=== PATIENT | male | born 1935 | race Caucasian/White ===

== ENCOUNTER 2022-03-17 16:08 | Inpatient (IN) | payer MEDICARE ==
--- NOTE | 2022-03-18 09:23 | History and Physical Report ---
GP History & Physical - History of Present Illness Date of admission: 03/18/22 Date of Examination: 03/18/22 Reason for Admission: Danger to self, Danger to others, Failure of Outpatient Treatment Chief Complaint: Aggressive behavior History of Present Illness: The patient is an 86 year old male with history of dementia who was admitted for stabilization. Per note, the patient was seen standing on top of the roof and being aggressive towards staff. The patient was seen today. He is calm, alert and oriented to self. The patient is confused, unable to recall why he was admitted Stating " there's nothing wrong with me, I got sugar diabetes and high blood pressure that's it." PAST PSYCHIATRIC HISTORY: Unable to obtain PAST MEDICAL HISTORY: None reported or document Family Psychiatric History: None reported or documented SOCIAL HISTORY Unable to obtain REVIEW OF SYSTEMS Unable to obtain MENTAL STATUS EXAMINATION Unable to obtain Diagnoses: Dementia with behavioral disturbances Treatment Plan Patient admitted for inpatient psychiatric evaluation, medication adjustment and close monitoring The patient's behavior, mood, sleep and appetite will be closely monitored. Patient enrolled in individual and group therapeutic sessions and encouraged to attend. Patient provided with a safe and structured environment. Patient's physical health needs will be addressed by the Hospitalist. Hospitalist Consulted Labs including CBC, CMP, Lipid profile and Hemoglobin A1C levels ordered for baseline reference Social Assessment will be completed and the Bilingual Teacher Aide will work with patient and family to ensure a suitable and safe disposition Medication adjustment will be made as clinically indicated Continue home meds Start Zyprexa 2.5mg po QHS Start Trazodone 50mg po QHS Usual Wellness Protestant/Preservation: - Start Trazodone 50 mg po QHS & 50 mg po QHS PRN between 10 PM & 2 AM for insomnia - Start Melatonin 5 mg po QHS to promote circadian rhythm The patient agreed on the treatment plan, understood the risk, benefit, alternative treatment, potential consequence of no treatment, and gave informed consent. Estimated days: 7 Post hospital care: primary care provider, psychiatric provider Case staffed with Dr. Hwang Legal Status: Voluntary Reaction to Hospitalization: Accepting Medications and Allergies Medications and Allergies Allergies Allergy/AdvReac Type Severity Reaction Status Date / Time No Known Allergies Allergy Unverified 03/17/22 17:19 Home Medications Medication Instructions Recorded Confirmed Last Taken Type Divalproex Sodium [Depakote 125 mg PO BID 03/18/22 03/18/22 Unknown History Sprinkle] Dorzolamide HCl/Timolol Maleat 10 ml OP HS 03/18/22 03/18/22 Unknown History [Dorzolamide-Timolol Eye Drops] Ferrous Sulfate [Iron 325 MG] 325 mg PO DAILY 03/18/22 03/18/22 Unknown History Hydralazine HCl 50 mg PO TID 03/18/22 03/18/22 Unknown History Insulin Lispro [Admelog] See Protocol SQ ACHS 03/18/22 03/18/22 Unknown History Lactulose [Cephulac] 20 gm PO TID PRN 03/18/22 03/18/22 Unknown History Levothyroxine Sodium [Synthroid] 200 mcg PO DAILY 03/18/22 03/18/22 Unknown History Melatonin [Melatonin 3MG TAB] 3 mg PO HS 03/18/22 03/18/22 Unknown History Pioglitazone HCl [Actos] 30 mg PO DAILY 03/18/22 03/18/22 Unknown History Triamter/Hctz 37.5-25 mg 1 tab PO QDAY 03/18/22 03/18/22 Unknown History [Maxzide-25] amLODIPine [Norvasc] 10 mg PO DAILY 03/18/22 03/18/22 Unknown History glipiZIDE [Glucotrol] 5 mg PO QDAY 03/18/22 03/18/22 Unknown History Active Meds: Active Medications Divalproex Sodium (Divalproex Sprinkle 125 Mg Cap) 125 mg PO BID [facility] Ferrous Sulfate (Ferrous Sulfate 325 Mg Tab) 325 mg PO DAILY [facility] Glipizide (Glipizide 5 Mg Tab) 5 mg PO QDAY [facility] Insulin Human Lispro (Insulin Lispro 100 Unit/Ml) 0 unit SUB-Q [facility]; Protocol Lactulose (Lactulose 20 Gm/30 Ml Oral Liqd) 20 gm PO TID PRN PRN Reason: Edema Miscellaneous Medication (Dorzolamide Hcl/Timolol Maleat [Dorzolamide-Timolol Eye Drops]) 10 ml OP HS [facility] Miscellaneous Medication (Hydralazine Hcl [Hydralazine Hcl]) 50 mg PO TID [facility] Miscellaneous Medication (Levothyroxine Sodium [Synthroid]) 200 mcg PO DAILY [facility] Miscellaneous Medication (Melatonin [Melatonin 3mg Tab]) 3 mg PO HS [facility] Miscellaneous Medication (Pioglitazone Hcl [Actos]) 30 mg PO DAILY [facility] Trazodone HCl (Trazodone 50 Mg Tab) 50 mg PO QHS [facility] Triamterene/Hydrochlorothiazide (Triamter/Hctz 37.5-25 Mg Tab) 1 each PO QDAY [facility] Ziprasidone (Ziprasidone Mesylate 20 Mg Vial) 20 mg IM Q4H PRN PRN Reason: Agitation Physician Certification - Certification Statement Physician Certification Statement: This is an acknowledgement statement that CRISTINE NAGY is a 86 year old M who requires inpatient psychiatric admission for treatment which could reasonably be expected to improve the patient's condition for Estimated period of time patient will need to remain in the hospital: [ ] Plan for post-hospital care: [ ]
[2022-03-18] MEDS ORDERED: ZIPRASIDONE MESYLATE 20 MG VIAL IM PRN (10:00)
[2022-03-18] MEDS ORDERED: glipiZIDE 5 MG TAB PO SCH (10:00)
[2022-03-18] MEDS ORDERED: LEVOTHYROXINE SODIUM 200 MCG PO SCH (10:00)
[2022-03-18] MEDS ORDERED: PIOGLITAZONE HCL 30 MG PO SCH (10:00)
[2022-03-18] MEDS ORDERED: LACTULOSE 20 GM/30 ML ORAL LIQD PO PRN (10:00)
[2022-03-18] MEDS: FERROUS SULFATE 325 MG TAB PO SCH (10:15)
[2022-03-18] MEDS: DIVALPROEX SPRINKLE 125 MG CAP PO SCH ×2 (10:15→21:15)
[2022-03-18] MEDS: TRIAMTER/HCTZ 37.5-25 MG TAB PO SCH (10:15)
[2022-03-18] MEDS: hydrALAZINE 25 MG TAB PO SCH ×3 (10:22→21:13)
[2022-03-18] MEDS ORDERED: PIOGLITAZONE 15 MG TAB PO SCH (11:00)
--- NOTE | 2022-03-18 11:57 | Consultation ---
History of Present Illness - Reason for Consult Consult date: 03/18/22 medical consult Requesting physician: BHAVIN SANTAMARIA - History of Present Illness 86-year-old male patient with significant past medical history of dementia hypertension, type 2 diabetes mellitus, hypothyroidism, hypertension was admitted bypsych team for further evaluation and management of severe dementia, danger to self, failure of outpatient treatment . Hospitalist was consulted for medical management., When I examined the patient patient is slightly confused, sitting at the table in the activities room, alert and awake, responding to simple questions appropriately. Patient denies any chest pain or shortness of breath, denies any headache or dizziness denies nausea vomiting or abdominal pain Past History Past Medical History: diabetes, hypertension, hyperlipidemia, hypothyroidism, other Past Surgical History: No surgical history Social history: denies: smoking, alcohol abuse, prescription drug abuse Family history: no significant family history Medications and Allergies Allergies Allergy/AdvReac Type Severity Reaction Status Date / Time No Known Allergies Allergy Unverified 03/17/22 17:19 Home Medications Medication Instructions Recorded Confirmed Last Taken Type Divalproex Sodium [Depakote 125 mg PO BID 03/18/22 03/18/22 Unknown History Sprinkle] Dorzolamide HCl/Timolol Maleat 10 ml OP HS 03/18/22 03/18/22 Unknown History [Dorzolamide-Timolol Eye Drops] Ferrous Sulfate [Iron 325 MG] 325 mg PO DAILY 03/18/22 03/18/22 Unknown History Hydralazine HCl 50 mg PO TID 03/18/22 03/18/22 Unknown History Insulin Lispro [Admelog] See Protocol SQ ACHS 03/18/22 03/18/22 Unknown History Lactulose [Cephulac] 20 gm PO TID PRN 03/18/22 03/18/22 Unknown History Levothyroxine Sodium [Synthroid] 200 mcg PO DAILY 03/18/22 03/18/22 Unknown History Melatonin [Melatonin 3MG TAB] 3 mg PO HS 03/18/22 03/18/22 Unknown History Pioglitazone HCl [Actos] 30 mg PO DAILY 03/18/22 03/18/22 Unknown History Triamter/Hctz 37.5-25 mg 1 tab PO QDAY 03/18/22 03/18/22 Unknown History [Maxzide-25] amLODIPine [Norvasc] 10 mg PO DAILY 03/18/22 03/18/22 Unknown History glipiZIDE [Glucotrol] 5 mg PO QDAY 03/18/22 03/18/22 Unknown History Active Meds: Active Medications Brimonidine/Timolol (Combigan 0.2-0.5% [facility]) 1 drops OU Q12HR [facility] Divalproex Sodium (Divalproex Sprinkle 125 Mg Cap) 125 mg PO BID [facility] Last Admin: 03/18/22 10:15 Dose: 125 mg Ferrous Sulfate (Ferrous Sulfate 325 Mg Tab) 325 mg PO DAILY [facility] Last Admin: 03/18/22 10:15 Dose: 325 mg Glipizide (Glipizide 5 Mg Tab) 5 mg PO QDDIAB [facility] Last Admin: 03/18/22 10:20 Dose: 5 mg Hydralazine HCl (Hydralazine 25 Mg Tab) 50 mg PO Q8HR [facility] Last Admin: 03/18/22 10:22 Dose: Not Given Insulin Human Lispro (Insulin Lispro 100 Unit/Ml) 0 unit SUB-Q [facility]; Protocol Lactulose (Lactulose 20 Gm/30 Ml Oral Liqd) 20 gm PO TID PRN PRN Reason: Edema Levothyroxine Sodium (Levothyroxine 100 Mcg Tab) 200 mcg PO DAILY@0600 [facility] Melatonin (Melatonin 5 Mg Tab) 5 mg PO QHS [facility] Olanzapine (Olanzapine 2.5 Mg Tab) 2.5 mg PO QHS [facility] Pioglitazone HCl (Pioglitazone 15 Mg Tab) 30 mg PO QDDIAB [facility] Trazodone HCl (Trazodone 50 Mg Tab) 50 mg PO QHS [facility] Triamterene/Hydrochlorothiazide (Triamter/Hctz 37.5-25 Mg Tab) 1 each PO QDAY [facility] Last Admin: 03/18/22 10:15 Dose: 1 each Ziprasidone (Ziprasidone Mesylate 20 Mg Vial) 20 mg IM Q4H PRN PRN Reason: Agitation Review of Systems Constitutional: weight loss, weakness, no weight gain Eyes: right: blurred vision Ears, nose, mouth and throat: deferred, no nasal congestion, no nasal discharge Cardiovascular: no chest pain, no orthopnea, no lightheadedness Respiratory: no cough, no cough with sputum, no shortness of breath Gastrointestinal: no abdominal pain Genitourinary Male: no dysuria, no hematuria Musculoskeletal: no myalgias, no arthritis Integumentary: no rash, no lesions Neurological: no numbness, no tingling, no seizures Exam - Constitutional Vitals: Temp Pulse Resp BP Pulse Ox 97.3 F L 83 16 116/65 99 03/18/22 09:49 03/18/22 10:22 03/18/22 09:49 03/18/22 10:22 03/18/22 09:50 General appearance: Present: no acute distress, well-nourished, other (Confused at times) - EENT Eyes: Present: PERRL, EOM intact - Neck Neck: Present: supple, normal ROM - Respiratory Respiratory effort: normal Respiratory: bilateral: diminished, rhonchi, negative: rales, wheezing - Cardiovascular Rhythm: regular Heart Sounds: Present: S1 & S2 - Extremities Extremities: no ischemia, No edema - Abdominal General gastrointestinal: Present: soft, non-tender, non-distended, normal bowel sounds - Integumentary Integumentary: Present: clear, warm - Musculoskeletal Musculoskeletal: strength equal bilaterally, generalized weakness - Psychiatric Psychiatric: appropriate mood/affect, cooperative - Neurologic Neurologic: moves all extremities Results - Labs CBC & Chem 7: 03/18/22 17:18 03/18/22 17:18 Labs: Abnormal lab results 03/18/22 Range/Units 06:54 POC Glucose 206 H (70-105) mg/dL Assessment and Plan --- Hypertension; moderate control Continue current antihypertensives hydralazine triamterene and hydrochlorothiazide Closely monitor blood pressures and adjust as needed --Type 2 diabetes mellitus; labile blood sugars Patient had hypoglycemia episode, oral hypoglycemic medications held, closely monitor --History of hypothyroidism; continue home Synthroid -- Dementia; continue current home medications --DVT SCDs while resting, ambulate as tolerated -- Full CODE STATUS We will closely monitor the patient and adjust the management as needed Plan of care reviewed with the patient and his nurse Thank you for this consultation we will follow the patient along with you
[2022-03-18] MEDS: INSULIN LISPRO 100 UNIT/ML SUB-Q SCH ×3 (12:58→21:17)
[2022-03-18] MEDS ORDERED: NON-FORMULARY EACH (Hydralazine Hcl [Hydralazine Hcl] 50 MG Tablet) PO SCH (14:00)
[2022-03-18] MEDS: COMBIGAN 0.2-0.5% OPHTH SOLN OU SCH ×2 (16:40→21:14)
[2022-03-18 17:44] LABS: Basophils # (Auto) 0.1 K/mm3 (0.0-0.1); Basophils % (Auto) 1.1 % (0.0-1.8); Eosinophils # (Auto) 0.1 K/mm3 (0.0-0.4); Eosinophils % (Auto) 1.8 % (0.0-4.3); Hematocrit 35.4 % (35.5-45.6); Hemoglobin 11.8 gm/dl (11.8-15.2); Lymphocytes # (Auto) 1.8 K/mm3 (1.2-5.4); Lymphocytes % (Auto) 27.9 % (13.4-35.0); Mean Corpuscular HGB Conc 33 % (32-34); Mean Corpuscular Volume 82 fl (84-94); Monocytes # (Auto) 0.7 K/mm3 (0.0-0.8); Monocytes % (Auto) 11.1 % (0.0-7.3); Platelet Count 270 K/mm3 (140-440); Red Blood Count 4.33 M/mm3 (3.65-5.03)
[2022-03-18 18:03] LABS: Albumin 4.5 g/dL (3.9-5); Calcium 9.3 mg/dL (8.4-10.2); Chol/HDL Ratio 3.1 %
[2022-03-18] MEDS: traZODone 50 MG TAB PO SCH (21:15)
[2022-03-18] MEDS: MELATONIN 5 MG TAB PO SCH (21:17)
[2022-03-18] MEDS ORDERED: NON-FORMULARY EACH (Melatonin [Melatonin 3mg Tab] 3 MG Tablet) PO SCH (22:00)
[2022-03-18] MEDS ORDERED: NON-FORMULARY EACH (Dorzolamide Hcl/Timolol Maleat [Dorzolamide-Timolol Eye Drops] 10 ML D OP SCH (22:00)
[2022-03-19] MEDS: LEVOTHYROXINE 100 MCG TAB PO SCH (06:28)
[2022-03-19] MEDS: hydrALAZINE 25 MG TAB PO SCH ×3 (06:34→21:07)
--- NOTE | 2022-03-19 09:18 | Progress Note ---
Subjective Date of service: 03/19/22 Subjective Comment: 03/19: The patient was seen resting quietly. He is calm and reports doing well. Per nurse, the patient had an uneventful night. REVIEW OF SYSTEMS Unable to obtain MENTAL STATUS EXAMINATION Unable to obtain Diagnoses: Dementia with behavioral disturbances Treatment Plan Patient admitted for inpatient psychiatric evaluation, medication adjustment and close monitoring The patient's behavior, mood, sleep and appetite will be closely monitored. Patient enrolled in individual and group therapeutic sessions and encouraged to attend. Patient provided with a safe and structured environment. Patient's physical health needs will be addressed by the Hospitalist. Hospitalist Consulted Labs including CBC, CMP, Lipid profile and Hemoglobin A1C levels ordered for baseline reference Social Assessment will be completed and the Real Time Analyst will work with patient and family to ensure a suitable and safe disposition Medication adjustment will be made as clinically indicated Continue home meds Start Zyprexa 2.5mg po QHS Start Trazodone 50mg po QHS Usual Wellness Hinduism/Preservation: - Start Trazodone 50 mg po QHS & 50 mg po QHS PRN between 10 PM & 2 AM for insomnia - Start Melatonin 5 mg po QHS to promote circadian rhythm The patient agreed on the treatment plan, understood the risk, benefit, alternative treatment, potential consequence of no treatment, and gave informed consent. Estimated days:6 Post hospital care: primary care provider, psychiatric provider Case staffed with Dr. Hwang Legal Status: Voluntary Reaction to Hospitalization: Accepting Medications and Allergies Medications and Allergies Medications and Allergies Allergies Allergy/AdvReac Type Severity Reaction Status Date / Time No Known Allergies Allergy Unverified 03/17/22 17:19 Home Medications Medication Instructions Recorded Confirmed Last Taken Type Divalproex Sodium [Depakote 125 mg PO BID 03/18/22 03/18/22 Unknown History Sprinkle] Dorzolamide HCl/Timolol Maleat 10 ml OP HS 03/18/22 03/18/22 Unknown History [Dorzolamide-Timolol Eye Drops] Ferrous Sulfate [Iron 325 MG] 325 mg PO DAILY 03/18/22 03/18/22 Unknown History Hydralazine HCl 50 mg PO TID 03/18/22 03/18/22 Unknown History Insulin Lispro [Admelog] See Protocol SQ ACHS 03/18/22 03/18/22 Unknown History Lactulose [Cephulac] 20 gm PO TID PRN 03/18/22 03/18/22 Unknown History Levothyroxine Sodium [Synthroid] 200 mcg PO DAILY 03/18/22 03/18/22 Unknown History Melatonin [Melatonin 3MG TAB] 3 mg PO HS 03/18/22 03/18/22 Unknown History Pioglitazone HCl [Actos] 30 mg PO DAILY 03/18/22 03/18/22 Unknown History Triamter/Hctz 37.5-25 mg 1 tab PO QDAY 03/18/22 03/18/22 Unknown History [Maxzide-25] amLODIPine [Norvasc] 10 mg PO DAILY 03/18/22 03/18/22 Unknown History glipiZIDE [Glucotrol] 5 mg PO QDAY 03/18/22 03/18/22 Unknown History Active Meds: Active Medications Brimonidine/Timolol (Combigan 0.2-0.5% [facility]) 1 drops OU Q12HR [facility] Last Admin: 03/18/22 21:14 Dose: 1 drops Divalproex Sodium (Divalproex Sprinkle 125 Mg Cap) 125 mg PO BID [facility] Last Admin: 03/18/22 21:15 Dose: 125 mg Ferrous Sulfate (Ferrous Sulfate 325 Mg Tab) 325 mg PO DAILY [facility] Last Admin: 03/18/22 10:15 Dose: 325 mg Glipizide (Glipizide 5 Mg Tab) 5 mg PO QDDIAB [facility] Last Admin: 03/18/22 10:20 Dose: 5 mg Hydralazine HCl (Hydralazine 25 Mg Tab) 50 mg PO Q8HR [facility] Last Admin: 03/19/22 06:34 Dose: Not Given Insulin Human Lispro (Insulin Lispro 100 Unit/Ml) 0 unit SUB-Q [facility]; Protocol Last Admin: 03/18/22 21:17 Dose: Not Given Lactulose (Lactulose 20 Gm/30 Ml Oral Liqd) 20 gm PO TID PRN PRN Reason: Edema Levothyroxine Sodium (Levothyroxine 100 Mcg Tab) 200 mcg PO DAILY@0600 [facility] Last Admin: 03/19/22 06:28 Dose: 200 mcg Melatonin (Melatonin 5 Mg Tab) 5 mg PO QHS [facility] Last Admin: 03/18/22 21:17 Dose: 5 mg Olanzapine (Olanzapine 2.5 Mg Tab) 2.5 mg PO QHS [facility] Last Admin: 03/18/22 21:17 Dose: 2.5 mg Pioglitazone HCl (Pioglitazone 15 Mg Tab) 30 mg PO QDDIAB [facility] Last Admin: 03/18/22 12:13 Dose: 30 mg Trazodone HCl (Trazodone 50 Mg Tab) 50 mg PO QHS [facility] Last Admin: 03/18/22 21:15 Dose: 50 mg Triamterene/Hydrochlorothiazide (Triamter/Hctz 37.5-25 Mg Tab) 1 each PO QDAY [facility] Last Admin: 03/18/22 10:15 Dose: 1 each Ziprasidone (Ziprasidone Mesylate 20 Mg Vial) 20 mg IM Q4H PRN PRN Reason: Agitation Results - Results Labs/Vitals: Laboratory Last Values WBC 6.3 K/mm3 (4.5-11.0) 03/18/22 17:18 RBC 4.33 M/mm3 (3.65-5.03) 03/18/22 17:18 Hgb 11.8 gm/dl (11.8-15.2) 03/18/22 17:18 Hct 35.4 % (35.5-45.6) L 03/18/22 17:18 MCV 82 fl (84-94) L 03/18/22 17:18 MCH 27 pg (28-32) L 03/18/22 17:18 MCHC 33 % (32-34) 03/18/22 17:18 RDW 16.0 % (13.2-15.2) H 03/18/22 17:18 Plt Count 270 K/mm3 (140-440) 03/18/22 17:18 Lymph % (Auto) 27.9 % (13.4-35.0) 03/18/22 17:18 [place] % (Auto) 11.1 % (0.0-7.3) H 03/18/22 17:18 Eos % (Auto) 1.8 % (0.0-4.3) 03/18/22 17:18 Baso % (Auto) 1.1 % (0.0-1.8) 03/18/22 17:18 Lymph # (Auto) 1.8 K/mm3 (1.2-5.4) 03/18/22 17:18 [place] # (Auto) 0.7 K/mm3 (0.0-0.8) 03/18/22 17:18 Eos # (Auto) 0.1 K/mm3 (0.0-0.4) 03/18/22 17:18 Baso # (Auto) 0.1 K/mm3 (0.0-0.1) 03/18/22 17:18 Seg Neutrophils % 58.1 % (40.0-70.0) 03/18/22 17:18 Seg Neutrophils # 3.7 K/mm3 (1.8-7.7) 03/18/22 17:18 Sodium 139 mmol/L (137-145) 03/18/22 17:18 Potassium 3.8 mmol/L (3.6-5.0) 03/18/22 17:18 Chloride 103.4 mmol/L (98-107) 03/18/22 17:18 Carbon Dioxide 20 mmol/L (22-30) L 03/18/22 17:18 Anion Gap 19 mmol/L 03/18/22 17:18 BUN 52 mg/dL (9-20) H 03/18/22 17:18 Creatinine 2.9 mg/dL (0.8-1.3) H 03/18/22 17:18 Estimated GFR 21 ml/min 03/18/22 17:18 BUN/Creatinine Ratio 18 % 03/18/22 17:18 Glucose 63 mg/dL (75-100) L 03/18/22 17:18 POC Glucose 86 mg/dL (70-105) 03/18/22 19:45 Hemoglobin A1c 8.5 % (4-6) H 03/18/22 17:18 Calcium 9.3 mg/dL (8.4-10.2) 03/18/22 17:18 Total Bilirubin 0.20 mg/dL (0.1-1.2) 03/18/22 17:18 AST 16 units/L (5-40) 03/18/22 17:18 ALT 8 units/L (7-56) 03/18/22 17:18 Alkaline Phosphatase 76 units/L (35-129) 03/18/22 17:18 Total Protein 7.3 g/dL (6.3-8.2) 03/18/22 17:18 Albumin 4.5 g/dL (3.9-5) 03/18/22 17:18 Albumin/Globulin Ratio 1.6 % 03/18/22 17:18 Triglycerides 69 mg/dL (2-149) 03/18/22 17:18 Cholesterol 230 mg/dL (50-199) H 03/18/22 17:18 LDL Cholesterol Direct 134 mg/dL (50-130) H 03/18/22 17:18 HDL Cholesterol 74 mg/dL (40-59) H 03/18/22 17:18 Cholesterol/HDL Ratio 3.10 % 03/18/22 17:18 TSH 1.190 mlU/mL (0.270-4.200) 03/18/22 17:18 Last Vital Signs Temp 97.6 F 03/18/22 22:00 Pulse 98 H 03/18/22 22:00 Resp 16 03/18/22 22:00 BP 120/61 03/18/22 22:00 Pulse Ox 99 03/18/22 22:00
[2022-03-19] MEDS: INSULIN LISPRO 100 UNIT/ML SUB-Q SCH ×3 (09:26→17:31)
[2022-03-19] MEDS: DIVALPROEX SPRINKLE 125 MG CAP PO SCH ×2 (12:23→21:07)
[2022-03-19] MEDS: FERROUS SULFATE 325 MG TAB PO SCH (12:23)
[2022-03-19] MEDS: TRIAMTER/HCTZ 37.5-25 MG TAB PO SCH (12:23)
[2022-03-19] MEDS: COMBIGAN 0.2-0.5% OPHTH SOLN OU SCH ×2 (12:23→21:06)
[2022-03-19] MEDS: MELATONIN 5 MG TAB PO SCH (21:07)
[2022-03-19] MEDS: traZODone 50 MG TAB PO SCH (21:07)
[2022-03-20] MEDS: INSULIN LISPRO 100 UNIT/ML SUB-Q SCH ×5 (01:26→21:41)
[2022-03-20] MEDS: hydrALAZINE 25 MG TAB PO SCH ×3 (07:25→21:40)
[2022-03-20] MEDS: LEVOTHYROXINE 100 MCG TAB PO SCH (07:26)
--- NOTE | 2022-03-20 09:14 | Progress Note ---
Subjective Date of service: 03/20/22 Principal diagnosis: MDD Subjective Comment: The patient was seen today. He is lying in bed awake. He says he's doing pretty good and he slept well. The patient says he came from the long-term but didn't remember why he came, he says. He denies SI/HI. He says "where did that question come from." He also denies hallucinations. REVIEW OF SYSTEMS Constitutional: Negative for weight loss ENT: Negative for stridor Respiratory: Negative for cough or hemoptysis All other systems reviewed and are negative MENTAL STATUS EXAMINATION General Appearance and Behavior: Age appropriate, good hygiene, wearing appropriate clothes, good eye contact, calm, cooperative Cooperation: Participating/engaged, but Guarded Psychomotor Behavior: Psychomotor normal Mood: "pretty good" Affect and affective range: congruent with stated mood Thought Process: Goal directed Thought Content: Reality oriented Speech: normal tone and pace Suicidal Ideation: Denies Homicidal Ideation: Denies Hallucinations: Denies Delusions: None Impulse Control: Limited Insight and Judgment: Limited insight and judgment Memory: Limited Attention: attentive Orientation: Alert, oriented Diagnoses: Dementia with behavioral disturbances Treatment Plan Patient admitted for inpatient psychiatric evaluation, medication adjustment and close monitoring The patient's behavior, mood, sleep and appetite will be closely monitored. Patient enrolled in individual and group therapeutic sessions and encouraged to attend. Patient provided with a safe and structured environment. Patient's physical health needs will be addressed by the Hospitalist. Hospitalist Consulted Labs including CBC, CMP, Lipid profile and Hemoglobin A1C levels ordered for baseline reference Social Assessment will be completed and the Pilot Can Router will work with patient and family to ensure a suitable and safe disposition Medication adjustment will be made as clinically indicated Continue Zyprexa 2.5mg po QHS Contnue Trazodone 50mg po QHS Usual Wellness Moravian/Preservation: - Start Trazodone 50 mg po QHS & 50 mg po QHS PRN between 10 PM & 2 AM for insomnia - Start Melatonin 5 mg po QHS to promote circadian rhythm The patient agreed on the treatment plan, understood the risk, benefit, alternative treatment, potential consequence of no treatment, and gave informed consent. Estimated days:6 Post hospital care: primary care provider, psychiatric provider Case staffed with Dr. Hwang Medications and Allergies Allergies Allergy/AdvReac Type Severity Reaction Status Date / Time No Known Allergies Allergy Unverified 03/17/22 17:19 Home Medications Medication Instructions Recorded Confirmed Last Taken Type Divalproex Sodium [Depakote 125 mg PO BID 03/18/22 03/18/22 Unknown History Sprinkle] Dorzolamide HCl/Timolol Maleat 10 ml OP HS 03/18/22 03/18/22 Unknown History [Dorzolamide-Timolol Eye Drops] Ferrous Sulfate [Iron 325 MG] 325 mg PO DAILY 03/18/22 03/18/22 Unknown History Hydralazine HCl 50 mg PO TID 03/18/22 03/18/22 Unknown History Insulin Lispro [Admelog] See Protocol SQ ACHS 03/18/22 03/18/22 Unknown History Lactulose [Cephulac] 20 gm PO TID PRN 03/18/22 03/18/22 Unknown History Levothyroxine Sodium [Synthroid] 200 mcg PO DAILY 03/18/22 03/18/22 Unknown History Melatonin [Melatonin 3MG TAB] 3 mg PO HS 03/18/22 03/18/22 Unknown History Pioglitazone HCl [Actos] 30 mg PO DAILY 03/18/22 03/18/22 Unknown History Triamter/Hctz 37.5-25 mg 1 tab PO QDAY 03/18/22 03/18/22 Unknown History [Maxzide-25] amLODIPine [Norvasc] 10 mg PO DAILY 03/18/22 03/18/22 Unknown History glipiZIDE [Glucotrol] 5 mg PO QDAY 03/18/22 03/18/22 Unknown History Active Meds: Active Medications Brimonidine/Timolol (Combigan 0.2-0.5% [facility]) 1 drops OU Q12HR [facility] Last Admin: 03/19/22 21:06 Dose: 1 drops Divalproex Sodium (Divalproex Sprinkle 125 Mg Cap) 125 mg PO BID [facility] Last Admin: 03/19/22 21:07 Dose: 125 mg Ferrous Sulfate (Ferrous Sulfate 325 Mg Tab) 325 mg PO DAILY [facility] Last Admin: 03/19/22 12:23 Dose: 325 mg Hydralazine HCl (Hydralazine 25 Mg Tab) 50 mg PO Q8HR [facility] Last Admin: 03/20/22 07:25 Dose: Not Given Insulin Human Lispro (Insulin Lispro 100 Unit/Ml) 0 unit SUB-Q ACHS [facility]; Protocol Last Admin: 03/20/22 08:38 Dose: Not Given Lactulose (Lactulose 20 Gm/30 Ml Oral Liqd) 20 gm PO TID PRN PRN Reason: Edema Levothyroxine Sodium (Levothyroxine 100 Mcg Tab) 200 mcg PO DAILY@0600 [facility] Last Admin: 03/20/22 07:26 Dose: Not Given Melatonin (Melatonin 5 Mg Tab) 5 mg PO QHS [facility] Last Admin: 03/19/22 21:07 Dose: 5 mg Olanzapine (Olanzapine 2.5 Mg Tab) 2.5 mg PO QHS [facility] Last Admin: 03/19/22 21:07 Dose: 2.5 mg Trazodone HCl ([facility] 50 Mg Tab[facility]: 03/19/22 21:07 Dose: 50 mg Triamterene/Hydrochlorothiazide (Triamter/Hctz 37.5-25 Mg Tab) 1 each PO QDAY [facility] Last Admin: 03/19/22 12:23 Dose: 1 each Ziprasidone (Ziprasidone Mesylate 20 Mg Vial) 20 mg IM Q4H PRN PRN Reason: Agitation Results - Results Labs/Vitals: Laboratory Last Values WBC 6.3 K/mm3 (4.5-11.0) 03/18/22 17:18 RBC 4.33 M/mm3 (3.65-5.03) 03/18/22 17:18 Hgb 11.8 gm/dl (11.8-15.2) 03/18/22 17:18 Hct 35.4 % (35.5-45.6) L 03/18/22 17:18 MCV 82 fl (84-94) L 03/18/22 17:18 MCH 27 pg (28-32) L 03/18/22 17:18 MCHC 33 % (32-34) 03/18/22 17:18 RDW 16.0 % (13.2-15.2) H 03/18/22 17:18 Plt Count 270 K/mm3 (140-440) 03/18/22 17:18 Lymph % (Auto) 27.9 % (13.4-35.0) 03/18/22 17:18 [place] % (Auto) 11.1 % (0.0-7.3) H 03/18/22 17:18 Eos % (Auto) 1.8 % (0.0-4.3) 03/18/22 17:18 Baso % (Auto) 1.1 % (0.0-1.8) 03/18/22 17:18 Lymph # (Auto) 1.8 K/mm3 (1.2-5.4) 03/18/22 17:18 [place] # (Auto) 0.7 K/mm3 (0.0-0.8) 03/18/22 17:18 Eos # (Auto) 0.1 K/mm3 (0.0-0.4) 03/18/22 17:18 Baso # (Auto) 0.1 K/mm3 (0.0-0.1) 03/18/22 17:18 Seg Neutrophils % 58.1 % (40.0-70.0) 03/18/22 17:18 Seg Neutrophils # 3.7 K/mm3 (1.8-7.7) 03/18/22 17:18 Sodium 139 mmol/L (137-145) 03/18/22 17:18 Potassium 3.8 mmol/L (3.6-5.0) 03/18/22 17:18 Chloride 103.4 mmol/L (98-107) 03/18/22 17:18 Carbon Dioxide 20 mmol/L (22-30) L 03/18/22 17:18 Anion Gap 19 mmol/L 03/18/22 17:18 BUN 52 mg/dL (9-20) H 03/18/22 17:18 Creatinine 2.9 mg/dL (0.8-1.3) H 03/18/22 17:18 Estimated GFR 21 ml/min 03/18/22 17:18 BUN/Creatinine Ratio 18 % 03/18/22 17:18 Glucose 63 mg/dL (75-100) L 03/18/22 17:18 POC Glucose 165 mg/dL (70-105) H 03/19/22 20:19 Hemoglobin A1c 8.5 % (4-6) H 03/18/22 17:18 Calcium 9.3 mg/dL (8.4-10.2) 03/18/22 17:18 Total Bilirubin 0.20 mg/dL (0.1-1.2) 03/18/22 17:18 AST 16 units/L (5-40) 03/18/22 17:18 ALT 8 units/L (7-56) 03/18/22 17:18 Alkaline Phosphatase 76 units/L (35-129) 03/18/22 17:18 Total Protein 7.3 g/dL (6.3-8.2) 03/18/22 17:18 Albumin 4.5 g/dL (3.9-5) 03/18/22 17:18 Albumin/Globulin Ratio 1.6 % 03/18/22 17:18 Triglycerides 69 mg/dL (2-149) 03/18/22 17:18 Cholesterol 230 mg/dL (50-199) H 03/18/22 17:18 LDL Cholesterol Direct 134 mg/dL (50-130) H 03/18/22 17:18 HDL Cholesterol 74 mg/dL (40-59) H 03/18/22 17:18 Cholesterol/HDL Ratio 3.10 % 03/18/22 17:18 TSH 1.190 mlU/mL (0.270-4.200) 03/18/22 17:18 Last Vital Signs Temp 98.2 F 03/19/22 19:32 Pulse 88 03/19/22 21:07 Resp 18 03/19/22 19:32 BP 130/75 03/19/22 21:07 Pulse Ox 99 03/19/22 19:32
[2022-03-20] MEDS: FERROUS SULFATE 325 MG TAB PO SCH (10:56)
[2022-03-20] MEDS: COMBIGAN 0.2-0.5% OPHTH SOLN OU SCH ×2 (10:56→21:41)
[2022-03-20] MEDS: TRIAMTER/HCTZ 37.5-25 MG TAB PO SCH (10:56)
[2022-03-20] MEDS: DIVALPROEX SPRINKLE 125 MG CAP PO SCH ×2 (10:56→21:41)
--- NOTE | 2022-03-20 14:18 | Progress Note ---
Assessment and Plan Assessment and plan: Assessment and plan: --Type 2 diabetes mellitus; labile blood sugars Patient had hypoglycemia episode, oral hypoglycemic medications held, closely monitor Accu-Chek, sliding scale coverage, ADA diet as tolerated -- Hypertension; moderate control Continue current antihypertensives hydralazine triamterene and hydrochlorothiazide As needed medications --History of hypothyroidism; continue home Synthroid -- Dementia; continue current home medications --DVT SCDs while resting, ambulate as tolerated -- Full CODE STATUS Thank you for this consultation we will follow the patient along with you Patient's nurse reports that today patient is little uncooperative and refusing medications. We will closely monitor the patient and adjust the management as needed Plan of care reviewed with the patient and his nurse Call us with questions History Interval history: Seen and examined the patient in his room this afternoon Patient's chart and medications reviewed Nurse reports that patient is not cooperative and refusing medication Patient is alert and confused responds to simple questions Vitals noted Hospitalist Physical - Constitutional Vitals: Temp Pulse Resp BP Pulse Ox 98.2 F 88 18 130/75 99 03/19/22 19:32 03/19/22 21:07 03/19/22 19:32 03/19/22 21:07 03/19/22 19:32 General appearance: Present: no acute distress, well-nourished, other (Confused at times) - EENT Eyes: Present: PERRL, EOM intact - Neck Neck: Present: supple, normal ROM - Respiratory Respiratory effort: normal Respiratory: bilateral: diminished, negative: rales, rhonchi, wheezing - Cardiovascular Rhythm: regular Heart Sounds: Present: S1 & S2 - Extremities Extremities: no ischemia (Reviewed. We will follow your diet loss diet and you must be in the hospital alone something okay), No edema - Abdominal General gastrointestinal: soft, non-tender, non-distended, normal bowel sounds - Integumentary Integumentary: Present: clear, warm - Psychiatric Psychiatric: other (Dementia, uncooperative) Results - Labs CBC & Chem 7: 03/18/22 17:18 03/18/22 17:18 Labs: Laboratory Last Values WBC 6.3 K/mm3 (4.5-11.0) 03/18/22 17:18 RBC 4.33 M/mm3 (3.65-5.03) 03/18/22 17:18 Hgb 11.8 gm/dl (11.8-15.2) 03/18/22 17:18 Hct 35.4 % (35.5-45.6) L 03/18/22 17:18 MCV 82 fl (84-94) L 03/18/22 17:18 MCH 27 pg (28-32) L 03/18/22 17:18 MCHC 33 % (32-34) 03/18/22 17:18 RDW 16.0 % (13.2-15.2) H 03/18/22 17:18 Plt Count 270 K/mm3 (140-440) 03/18/22 17:18 Lymph % (Auto) 27.9 % (13.4-35.0) 03/18/22 17:18 [place] % (Auto) 11.1 % (0.0-7.3) H 03/18/22 17:18 Eos % (Auto) 1.8 % (0.0-4.3) 03/18/22 17:18 Baso % (Auto) 1.1 % (0.0-1.8) 03/18/22 17:18 Lymph # (Auto) 1.8 K/mm3 (1.2-5.4) 03/18/22 17:18 [place] # (Auto) 0.7 K/mm3 (0.0-0.8) 03/18/22 17:18 Eos # (Auto) 0.1 K/mm3 (0.0-0.4) 03/18/22 17:18 Baso # (Auto) 0.1 K/mm3 (0.0-0.1) 03/18/22 17:18 Seg Neutrophils % 58.1 % (40.0-70.0) 03/18/22 17:18 Seg Neutrophils # 3.7 K/mm3 (1.8-7.7) 03/18/22 17:18 Sodium 139 mmol/L (137-145) 03/18/22 17:18 Potassium 3.8 mmol/L (3.6-5.0) 03/18/22 17:18 Chloride 103.4 mmol/L (98-107) 03/18/22 17:18 Carbon Dioxide 20 mmol/L (22-30) L 03/18/22 17:18 Anion Gap 19 mmol/L 03/18/22 17:18 BUN 52 mg/dL (9-20) H 03/18/22 17:18 Creatinine 2.9 mg/dL (0.8-1.3) H 03/18/22 17:18 Estimated GFR 21 ml/min 03/18/22 17:18 BUN/Creatinine Ratio 18 % 03/18/22 17:18 Glucose 63 mg/dL (75-100) L 03/18/22 17:18 POC Glucose 165 mg/dL (70-105) H 03/19/22 20:19 Hemoglobin A1c 8.5 % (4-6) H 03/18/22 17:18 Calcium 9.3 mg/dL (8.4-10.2) 03/18/22 17:18 Total Bilirubin 0.20 mg/dL (0.1-1.2) 03/18/22 17:18 AST 16 units/L (5-40) 03/18/22 17:18 ALT 8 units/L (7-56) 03/18/22 17:18 Alkaline Phosphatase 76 units/L (35-129) 03/18/22 17:18 Total Protein 7.3 g/dL (6.3-8.2) 03/18/22 17:18 Albumin 4.5 g/dL (3.9-5) 03/18/22 17:18 Albumin/Globulin Ratio 1.6 % 03/18/22 17:18 Triglycerides 69 mg/dL (2-149) 03/18/22 17:18 Cholesterol 230 mg/dL (50-199) H 03/18/22 17:18 LDL Cholesterol Direct 134 mg/dL (50-130) H 03/18/22 17:18 HDL Cholesterol 74 mg/dL (40-59) H 03/18/22 17:18 Cholesterol/HDL Ratio 3.10 % 03/18/22 17:18 TSH 1.190 mlU/mL (0.270-4.200) 03/18/22 17:18 Chan/IV: Voiding Method Toilet Active Medications - Current Medications Current Medications: Generic Name Dose Route Start Last Admin Trade Name Freq PRN Reason Stop Dose Admin Brimonidine/Timolol 1 drops 03/18/22 12:00 03/20/22 10:56 Combigan 0.2-0.5% Ophth Soln OU Not Given Q12HR [facility] Divalproex Sodium 125 mg 03/18/22 10:00 03/20/22 10:56 Divalproex Sprinkle 125 Mg Cap PO Not Given BID [facility] Ferrous Sulfate 325 mg 03/18/22 10:00 03/20/22 10:56 Ferrous Sulfate 325 Mg Tab PO Not Given DAILY [facility] Hydralazine HCl 50 mg 03/18/22 10:00 03/20/22 13:58 Hydralazine 25 Mg Tab PO Not Given Q8HR [facility] Insulin Human Lispro 0 unit 03/18/22 11:30 03/20/22 13:34 Insulin Lispro 100 Unit/Ml SUB-Q Not Given ACHS [facility] Protocol Lactulose 20 gm 03/18/22 10:00 Lactulose 20 Gm/30 Ml Oral Liqd PO TID PRN Edema Levothyroxine Sodium 200 mcg 03/19/22 06:00 03/20/22 07:26 Levothyroxine 100 Mcg Tab PO Not Given DAILY@0600 [facility] Melatonin 5 mg 03/18/22 22:00 03/19/22 21:07 Melatonin 5 Mg Tab PO 5 mg QHS [facility] Administration Olanzapine 2.5 mg 03/18/22 22:00 03/19/22 21:07 Olanzapine 2.5 Mg Tab PO 2.5 mg QHS [facility] Administration Trazodone HCl 50 mg 03/18/22 22:00 03/19/22 21:07 Trazodone 50 Mg Tab PO 50 mg QHS [facility] Administration Triamterene/Hydrochlorothiazide 1 each 03/18/22 10:00 03/20/22 10:56 Triamter/Hctz 37.5-25 Mg Tab PO Not Given QDAY [facility] Ziprasidone 20 mg 03/18/22 10:00 Ziprasidone Mesylate 20 Mg Vial IM Q4H PRN Agitation Nutrition/Malnutrition Assess - Dietary Evaluation Nutrition/Malnutrition Findings: Nutrition Notes Start: 03/18/22 16:11 Freq: Status: Active Protocol: Document 03/18/22 16:11 KAM (Rec: 03/18/22 16:33 KAM [id number]) Nutrition Notes Need for Assessment generated from: MD Order Initial or Follow up Assessment Other Pertinent Diagnosis Dementia with Behivoral Disturbance. Current Diet Cardiac/Consistent Carbohydrates -Chopped Meats- Diet (since B 03/18). Labs/Tests 03/18: POC Glu 206. Pertinent Medications 03/18: Humalog 3 U, Levothyroxine, others nutritionally unremarkable. 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 Weight Status Appropriate Subjective/Other Information RD consult for Poor Oral Intake and Dietary Supplementation assessments. Pt's PO intake of meals has been Good (100%), according to ADL notes. Pt complaints that was not able to chew his apple, and RN replaced it with pureed apple , which Pt finished up. I will recommend mechanical modification to Pt's diet to facilitate PO intake of meals. I will not order Dietary Supplementation, since it is not necessary for this Pt at the time, according to ADL notes. Pt is on Room Air, O2 saturation @ 97%, according to Physical Assessment History notes. Pt presents unspecified skin dryness, according to Physical Assessment History notes. Percent of energy/protein needs met: Prescribed Cardiac/Consistent Carbohydrates Diet provides for energy/protein needs (1, 977 Kcal/86 g) during LOS. Burn Absent Trauma Absent GI Symptoms None Difficulty In Chewing Food Allergy No Skin Integrity/Comment Unspecified Dryness. Current % PO Good (75-100%) Minimum of two criteria No #1 Nutrition Diagnosis Biting/Chewing (masticatory) difficulty Etiology Uncertain. As Evidenced by Signs and Symptoms Pt complaints that was not able to chew his apple, and RN replaced it with pureed apple , which Pt finished up. Is patient on ventilator? No Is Patient Ambulatory and/or Out of Bed No REE-([facility]-confined to bed) 1670.052 Kcal/Kg value to use for calculation 26 Approximate Energy Requirements Using 1875 kcal/Kg Calculation Used for Recommendations Kcal/kg Additional Notes Protein: 1-1.2 g/Kg ABW; 72-86 g/day. Fluids: 1 ml/Kcal, or as per MD. Nutrition Intervention Change Diet Order: Modify to Cardiac/Consistent Carbohydrates -Chopped Meats- Diet. Goal #1 Facilitate PO intake of meals with elemental, textural, or mechanical modification during LOS. Goal #2 Maintain body weight within +/ -3% of admission body weight during LOS. Follow-Up By: 03/25/22 Additional Comments Continue monitoring food tolerance, %PO intake of meals , and BM.
[2022-03-20] MEDS: traZODone 50 MG TAB PO SCH (21:41)
[2022-03-20] MEDS: MELATONIN 5 MG TAB PO SCH (21:43)
[2022-03-21] MEDS: LEVOTHYROXINE 100 MCG TAB PO SCH (06:22)
[2022-03-21] MEDS: hydrALAZINE 25 MG TAB PO SCH ×3 (06:22→21:26)
[2022-03-21] MEDS: INSULIN LISPRO 100 UNIT/ML SUB-Q SCH ×4 (09:00→21:27)
--- NOTE | 2022-03-21 09:55 | Progress Note ---
Subjective Date of service: 03/21/22 Principal diagnosis: MDD Subjective Comment: The patient was seen today. He is lying in bed awake. He says he's "not doing too hot" because he's in here. He then asked why was he here. I reminded the patient that he had climbed on top of the roof at his living place. He says "I climbed up there. I wanted to leave and get away from yall." He says "I sure did." He denies SI/HI or hallucinations. 03/20 The patient was seen today. He is lying in bed awake. He says he's doing pretty good and he slept well. The patient [facility] but didn't remember why he came, he says. He denies SI/HI. He says "where did that question come from." He also denies hallucinations. REVIEW OF SYSTEMS Constitutional: Negative for weight loss ENT: Negative for stridor Respiratory: Negative for cough or hemoptysis All other systems reviewed and are negative MENTAL STATUS EXAMINATION General Appearance and Behavior: Age appropriate, good hygiene, wearing appropriate clothes, good eye contact, calm, cooperative Cooperation: Participating/engaged, but Guarded Psychomotor Behavior: Psychomotor normal Mood: "pretty good" Affect and affective range: congruent with stated mood Thought Process: Goal directed Thought Content: Reality oriented Speech: normal tone and pace Suicidal Ideation: Denies Homicidal Ideation: Denies Hallucinations: Denies Delusions: None Impulse Control: Limited Insight and Judgment: Limited insight and judgment Memory: Limited Attention: attentive Orientation: Alert, oriented Diagnoses: Dementia with behavioral disturbances Treatment Plan Patient admitted for inpatient psychiatric evaluation, medication adjustment and close monitoring The patient's behavior, mood, sleep and appetite will be closely monitored. Patient enrolled in individual and group therapeutic sessions and encouraged to attend. Patient provided with a safe and structured environment. Patient's physical health needs will be addressed by the Hospitalist. Hospitalist Consulted Labs including CBC, CMP, Lipid profile and Hemoglobin A1C levels ordered for baseline reference Social Assessment will be completed and the Nuclear Equipment Operator will work with patient and family to ensure a suitable and safe disposition Medication adjustment will be made as clinically indicated Continue Zyprexa 2.5mg po QHS Contnue Trazodone 50mg po QHS Usual Wellness Scientology/Preservation: - Start Trazodone 50 mg po QHS & 50 mg po QHS PRN between 10 PM & 2 AM for insomnia - Start Melatonin 5 mg po QHS to promote circadian rhythm The patient agreed on the treatment plan, understood the risk, benefit, alternative treatment, potential consequence of no treatment, and gave informed consent. Estimated days:6 Post hospital care: primary care provider, psychiatric provider Case staffed with Dr. Hwang Medications and Allergies Allergies Allergy/AdvReac Type Severity Reaction Status Date / Time No Known Allergies Allergy Unverified 03/17/22 17:19 Home Medications Medication Instructions Recorded Confirmed Last Taken Type Divalproex Sodium [Depakote 125 mg PO BID 03/18/22 03/18/22 Unknown History Sprinkle] Dorzolamide HCl/Timolol Maleat 10 ml OP HS 03/18/22 03/18/22 Unknown History [Dorzolamide-Timolol Eye Drops] Ferrous Sulfate [Iron 325 MG] 325 mg PO DAILY 03/18/22 03/18/22 Unknown History Hydralazine HCl 50 mg PO TID 03/18/22 03/18/22 Unknown History Insulin Lispro [Admelog] See Protocol SQ ACHS 03/18/22 03/18/22 Unknown History Lactulose [Cephulac] 20 gm PO TID PRN 03/18/22 03/18/22 Unknown History Levothyroxine Sodium [Synthroid] 200 mcg PO DAILY 03/18/22 03/18/22 Unknown History Melatonin [Melatonin 3MG TAB] 3 mg PO HS 03/18/22 03/18/22 Unknown History Pioglitazone HCl [Actos] 30 mg PO DAILY 03/18/22 03/18/22 Unknown History Triamter/Hctz 37.5-25 mg 1 tab PO QDAY 03/18/22 03/18/22 Unknown History [Maxzide-25] amLODIPine [Norvasc] 10 mg PO DAILY 03/18/22 03/18/22 Unknown History glipiZIDE [Glucotrol] 5 mg PO QDAY 03/18/22 03/18/22 Unknown History Active Meds: Active Medications Brimonidine/Timolol (Combigan 0.2-0.5% Oph Soln) 1 drops OU Q12HR [facility] Last Admin: 03/20/22 21:41 Dose: 1 drops Divalproex Sodium (Divalproex Sprinkle 125 Mg Cap) 125 mg PO BID [facility] Last Admin: 03/20/22 21:41 Dose: 125 mg Ferrous Sulfate (Ferrous Sulfate 325 Mg Tab) 325 mg PO DAILY [facility] Last Admin: 03/20/22 10:56 Dose: Not Given Hydralazine HCl (Hydralazine 25 Mg Tab) 50 mg PO Q8HR [facility] Last Admin: 03/21/22 06:22 Dose: Not Given Insulin Human Lispro (Insulin Lispro 100 Unit/Ml) 0 unit SUB-Q ACHS [facility]; [facility] Last Admin: 03/20/22 21:41 Dose: 3 unit Lactulose (Lactulose 20 Gm/30 Ml Oral Liqd) 20 gm PO TID PRN PRN Reason: Edema Levothyroxine Sodium (Levothyroxine 100 Mcg Tab) 200 mcg PO DAILY@0600 [facility] Last Admin: 03/21/22 06:22 Dose: 200 mcg Melatonin (Melatonin 5 Mg Tab) 5 mg PO QHS [facility] Last Admin: 03/20/22 21:43 Dose: 5 mg Olanzapine (Olanzapine 2.5 Mg Tab) 2.5 mg PO QHS [facility] Last Admin: 03/20/22 21:42 Dose: 2.5 mg Trazodone HCl (Trazodone 50 Mg Tab) 50 mg PO QHS [facility] Last Admin: 03/20/22 21:41 Dose: 50 mg Triamterene/Hydrochlorothiazide (Triamter/Hctz 37.5-25 Mg Tab) 1 each PO QDAY [facility] Last Admin: 03/20/22 10:56 Dose: Not Given Ziprasidone (Ziprasidone Mesylate 20 Mg Vial) 20 mg IM Q4H PRN PRN Reason: Agitation Results - Results Labs/Vitals: Laboratory Last Values WBC 6.3 K/mm3 (4.5-11.0) 03/18/22 17:18 RBC 4.33 M/mm3 (3.65-5.03) 03/18/22 17:18 Hgb 11.8 gm/dl (11.8-15.2) 03/18/22 17:18 Hct 35.4 % (35.5-45.6) L 03/18/22 17:18 MCV 82 fl (84-94) L 03/18/22 17:18 MCH 27 pg (28-32) L 03/18/22 17:18 MCHC 33 % (32-34) 03/18/22 17:18 RDW 16.0 % (13.2-15.2) H 03/18/22 17:18 Plt Count 270 K/mm3 (140-440) 03/18/22 17:18 Lymph % (Auto) 27.9 % (13.4-35.0) 03/18/22 17:18 [place] % (Auto) 11.1 % (0.0-7.3) H 03/18/22 17:18 Eos % (Auto) 1.8 % (0.0-4.3) 03/18/22 17:18 Baso % (Auto) 1.1 % (0.0-1.8) 03/18/22 17:18 Lymph # (Auto) 1.8 K/mm3 (1.2-5.4) 03/18/22 17:18 [place] # (Auto) 0.7 K/mm3 (0.0-0.8) 03/18/22 17:18 Eos # (Auto) 0.1 K/mm3 (0.0-0.4) 03/18/22 17:18 Baso # (Auto) 0.1 K/mm3 (0.0-0.1) 03/18/22 17:18 Seg Neutrophils % 58.1 % (40.0-70.0) 03/18/22 17:18 Seg Neutrophils # 3.7 K/mm3 (1.8-7.7) 03/18/22 17:18 Sodium 139 mmol/L (137-145) 03/18/22 17:18 Potassium 3.8 mmol/L (3.6-5.0) 03/18/22 17:18 Chloride 103.4 mmol/L (98-107) 03/18/22 17:18 Carbon Dioxide 20 mmol/L (22-30) L 03/18/22 17:18 Anion Gap 19 mmol/L 03/18/22 17:18 BUN 52 mg/dL (9-20) H 03/18/22 17:18 Creatinine 2.9 mg/dL (0.8-1.3) H 03/18/22 17:18 Estimated GFR 21 ml/min 03/18/22 17:18 BUN/Creatinine Ratio 18 % 03/18/22 17:18 Glucose 63 mg/dL (75-100) L 03/18/22 17:18 POC Glucose 260 mg/dL (70-105) H 03/20/22 20:31 Hemoglobin A1c 8.5 % (4-6) H 03/18/22 17:18 Calcium 9.3 mg/dL (8.4-10.2) 03/18/22 17:18 Total Bilirubin 0.20 mg/dL (0.1-1.2) 03/18/22 17:18 AST 16 units/L (5-40) 03/18/22 17:18 ALT 8 units/L (7-56) 03/18/22 17:18 Alkaline Phosphatase 76 units/L (35-129) 03/18/22 17:18 Total Protein 7.3 g/dL (6.3-8.2) 03/18/22 17:18 Albumin 4.5 g/dL (3.9-5) 03/18/22 17:18 Albumin/Globulin Ratio 1.6 % 03/18/22 17:18 Triglycerides 69 mg/dL (2-149) 03/18/22 17:18 Cholesterol 230 mg/dL (50-199) H 03/18/22 17:18 LDL Cholesterol Direct 134 mg/dL (50-130) H 03/18/22 17:18 HDL Cholesterol 74 mg/dL (40-59) H 03/18/22 17:18 Cholesterol/HDL Ratio 3.10 % 03/18/22 17:18 TSH 1.190 mlU/mL (0.270-4.200) 03/18/22 17:18 Last Vital Signs Temp 97.5 F L 03/20/22 20:09 Pulse 75 03/20/22 21:40 Resp 18 03/20/22 20:09 BP 136/57 03/20/22 21:40 Pulse Ox 99 03/20/22 20:09
[2022-03-21] MEDS: FERROUS SULFATE 325 MG TAB PO SCH (10:41)
[2022-03-21] MEDS: TRIAMTER/HCTZ 37.5-25 MG TAB PO SCH (10:41)
[2022-03-21] MEDS: DIVALPROEX SPRINKLE 125 MG CAP PO SCH ×2 (10:41→21:21)
[2022-03-21] MEDS: COMBIGAN 0.2-0.5% OPHTH SOLN OU SCH ×2 (10:42→21:21)
--- NOTE | 2022-03-21 20:42 | Progress Note ---
Assessment and Plan Assessment and plan: -- Dementia; continue current home medications Supportive care --Type 2 diabetes mellitus; labile blood sugars Insulin and oral hypoglycemics held last 2 days Patient's sugars are slightly elevated, will start very low-dose glipizide 2.5 mg daily Accu-Chek, sliding scale coverage, ADA diet as tolerated -- Hypertension; moderate control Continue current antihypertensives hydralazine triamterene and hy drochlorothiazide As needed medications --History of hypothyroidism; continue home Synthroid --DVT SCDs while resting, ambulate as tolerated -- Full CODE STATUS Thank you for this consultation we will follow the patient along with you Closely monitor the patient and adjust management as needed Plan of care reviewed with the patient's nurse Call us with questions History Interval history: I have seen and examined the patient in his room along with the patient's nurse Patient's chart and medications reviewed No new events reported by the nursing Patient is sleeping, easily awakens and goes back to sleep Not in acute distress Vital signs reviewed Hospitalist Physical - Constitutional Vitals: Temp Pulse Resp BP Pulse Ox 97.5 F L 75 18 136/57 99 03/20/22 20:09 03/20/22 21:40 03/20/22 20:09 03/20/22 21:40 03/20/22 20:09 General appearance: Present: no acute distress, well-nourished, other (Sleeping easily awakens) - EENT Eyes: Present: PERRL, EOM intact - Neck Neck: Present: supple, normal ROM - Respiratory Respiratory effort: normal Respiratory: bilateral: diminished, negative: rales, rhonchi, wheezing - Cardiovascular Rhythm: regular Heart Sounds: Present: S1 & S2 - Extremities Extremities: no ischemia, No edema - Abdominal General gastrointestinal: soft, non-tender, non-distended, normal bowel sounds - Integumentary Integumentary: Present: clear, warm - Psychiatric Psychiatric: other (Dementia) - Neurologic Neurologic: moves all extremities, other (Dementia) Results - Labs CBC & Chem 7: 03/18/22 17:18 03/18/22 17:18 Labs: Laboratory Last Values WBC 6.3 K/mm3 (4.5-11.0) 03/18/22 17:18 RBC 4.33 M/mm3 (3.65-5.03) 03/18/22 17:18 Hgb 11.8 gm/dl (11.8-15.2) 03/18/22 17:18 Hct 35.4 % (35.5-45.6) L 03/18/22 17:18 MCV 82 fl (84-94) L 03/18/22 17:18 MCH 27 pg (28-32) L 03/18/22 17:18 MCHC 33 % (32-34) 03/18/22 17:18 RDW 16.0 % (13.2-15.2) H 03/18/22 17:18 Plt Count 270 K/mm3 (140-440) 03/18/22 17:18 Lymph % (Auto) 27.9 % (13.4-35.0) 03/18/22 17:18 [place] % (Auto) 11.1 % (0.0-7.3) H 03/18/22 17:18 Eos % (Auto) 1.8 % (0.0-4.3) 03/18/22 17:18 Baso % (Auto) 1.1 % (0.0-1.8) 03/18/22 17:18 Lymph # (Auto) 1.8 K/mm3 (1.2-5.4) 03/18/22 17:18 [place] # (Auto) 0.7 K/mm3 (0.0-0.8) 03/18/22 17:18 Eos # (Auto) 0.1 K/mm3 (0.0-0.4) 03/18/22 17:18 Baso # (Auto) 0.1 K/mm3 (0.0-0.1) 03/18/22 17:18 Seg Neutrophils % 58.1 % (40.0-70.0) 03/18/22 17:18 Seg Neutrophils # 3.7 K/mm3 (1.8-7.7) 03/18/22 17:18 Sodium 139 mmol/L (137-145) 03/18/22 17:18 Potassium 3.8 mmol/L (3.6-5.0) 03/18/22 17:18 Chloride 103.4 mmol/L (98-107) 03/18/22 17:18 Carbon Dioxide 20 mmol/L (22-30) L 03/18/22 17:18 Anion Gap 19 mmol/L 03/18/22 17:18 BUN 52 mg/dL (9-20) H 03/18/22 17:18 Creatinine 2.9 mg/dL (0.8-1.3) H 03/18/22 17:18 Estimated GFR 21 ml/min 03/18/22 17:18 BUN/Creatinine Ratio 18 % 03/18/22 17:18 Glucose 63 mg/dL (75-100) L 03/18/22 17:18 POC Glucose 180 mg/dL (70-105) H 03/21/22 16:59 Hemoglobin A1c 8.5 % (4-6) H 03/18/22 17:18 Calcium 9.3 mg/dL (8.4-10.2) 03/18/22 17:18 Total Bilirubin 0.20 mg/dL (0.1-1.2) 03/18/22 17:18 AST 16 units/L (5-40) 03/18/22 17:18 ALT 8 units/L (7-56) 03/18/22 17:18 Alkaline Phosphatase 76 units/L (35-129) 03/18/22 17:18 Total Protein 7.3 g/dL (6.3-8.2) 03/18/22 17:18 Albumin 4.5 g/dL (3.9-5) 03/18/22 17:18 Albumin/Globulin Ratio 1.6 % 03/18/22 17:18 Triglycerides 69 mg/dL (2-149) 03/18/22 17:18 Cholesterol 230 mg/dL (50-199) H 03/18/22 17:18 LDL Cholesterol Direct 134 mg/dL (50-130) H 03/18/22 17:18 HDL Cholesterol 74 mg/dL (40-59) H 03/18/22 17:18 Cholesterol/HDL Ratio 3.10 % 03/18/22 17:18 TSH 1.190 mlU/mL (0.270-4.200) 03/18/22 17:18 Chan/IV: Voiding Method Diaper Active Medications - Current Medications Current Medications: Generic Name Dose Route Start Last Admin Trade Name Freq PRN Reason Stop Dose Admin Brimonidine/Timolol 1 drops 03/18/22 12:00 03/21/22 10:42 Combigan 0.2-0.5% Ophth Soln OU 1 drops Q12HR [facility] Administration Divalproex Sodium 125 mg 03/18/22 10:00 03/21/22 10:41 Divalproex Sprinkle 125 Mg Cap PO 125 mg BID ALTON Administration Ferrous Sulfate 325 mg 03/18/22 10:00 03/21/22 10:41 Ferrous Sulfate 325 Mg Tab PO 325 mg DAILY [facility] Administration Hydralazine HCl 50 mg 03/18/22 10:00 03/21/22 13:27 Hydralazine 25 Mg Tab PO Not Given Q8HR [facility] Insulin Human Lispro 0 unit 03/18/22 11:30 03/21/22 16:44 Insulin Lispro 100 Unit/Ml SUB-Q Not Given ACHS [facility] Protocol Lactulose 20 gm 03/18/22 10:00 Lactulose 20 Gm/30 Ml Oral Liqd PO TID PRN Edema Levothyroxine Sodium 200 mcg 03/19/22 06:00 03/21/22 06:22 Levothyroxine 100 Mcg Tab PO 200 mcg DAILY@0600 [facility] Administration Melatonin 5 mg 03/18/22 22:00 03/20/22 21:43 Melatonin 5 Mg Tab PO 5 mg QHS [facility]TON Administration Olanzapine 2.5 mg 03/18/22 22:00 03/20/22 21:42 Olanzapine 2.5 Mg Tab PO 2.5 mg QHS [facility] Administration Trazodone HCl 50 mg 03/18/22 22:00 03/20/22 21:41 Trazodone 50 Mg Tab PO 50 mg QHS [facility] Administration Triamterene/Hydrochlorothiazide 1 each 03/18/22 10:00 03/21/22 10:41 Triamter/Hctz 37.5-25 Mg Tab PO 1 each QDAY [facility] Administration Ziprasidone 20 mg 03/18/22 10:00 Ziprasidone Mesylate 20 Mg Vial IM Q4H PRN Agitation Nutrition/Malnutrition Assess - Dietary Evaluation Nutrition/Malnutrition Findings: Nutrition Notes Start: 03/18/22 16:11 Freq: Status: Active Protocol: Document 03/18/22 16:11 KAM (Rec: 03/18/22 16:33 KAM [id number]) Nutrition Notes Need for Assessment generated from: MD Order Initial or Follow up Assessment Other Pertinent Diagnosis Dementia with Behivoral Disturbance. Current Diet Cardiac/Consistent Carbohydrates -Chopped Meats- Diet (since B 03/18). Labs/Tests 03/18: POC Glu 206. Pertinent Medications 03/18: Humalog 3 U, Levothyroxine, others nutritionally unremarkable. Height 5 ft 8 in Weight 72.121 kg [place] Body Weight (kg) 70.00 BMI 24.1 Intake Prior to Admission Poor Weight change and time frame Pt states not having loss body weight [employer]. Weight Status Appropriate Subjective/Other Information RD consult for Poor Oral Intake and Dietary Supplementation assessments. Pt's PO intake of meals has been Good (100%), according to ADL notes. Pt complaints that was not able to chew his apple, and RN replaced it with pureed apple , which Pt finished up. I will recommend mechanical modification to Pt's diet to facilitate PO intake of meals. I will not order Dietary Supplementation, since it is not necessary for this Pt at the time, according to ADL notes. Pt is on Room Air, O2 saturation @ 97%, according to Physical Assessment History notes. Pt presents unspecified skin dryness, according to Physical Assessment History notes. Percent of energy/protein needs met: Prescribed Cardiac/Consistent Carbohydrates Diet provides for energy/protein needs (1, 977 Kcal/86 g) during LOS. Burn Absent Trauma Absent GI Symptoms None Difficulty In Chewing Food Allergy No Skin Integrity/Comment Unspecified Dryness. Current % PO Good (75-100%) Minimum of two criteria No #1 Nutrition Diagnosis Biting/Chewing (masticatory) difficulty Etiology Uncertain. As Evidenced by Signs and Symptoms Pt complaints that was not able to chew his apple, and RN replaced it with pureed apple , which Pt finished up. Is patient on ventilator? No Is Patient Ambulatory and/or Out of Bed No REE-([facility]-confined to bed) 1670.052 Kcal/Kg value to use for calculation 26 Approximate Energy Requirements Using 1875 kcal/Kg Calculation Used for Recommendations Kcal/kg Additional Notes Protein: 1-1.2 g/Kg ABW; 72-86 g/day. Fluids: 1 ml/Kcal, or as per MD. Nutrition Intervention Change Diet Order: Modify to Cardiac/Consistent Carbohydrates -Chopped Meats- Diet. Goal #1 Facilitate PO intake of meals with elemental, textural, or mechanical modification during LOS. Goal #2 Maintain body weight within +/ -3% of admission body weight during LOS. Follow-Up By: 05/11/22 Additional Comments Continue monitoring food tolerance, %PO intake of meals , and BM.
[2022-03-21] MEDS: traZODone 50 MG TAB PO SCH (21:21)
[2022-03-21] MEDS: MELATONIN 5 MG TAB PO SCH (21:21)
[2022-03-22] MEDS: hydrALAZINE 25 MG TAB PO SCH ×3 (05:47→21:20)
[2022-03-22] MEDS: LEVOTHYROXINE 100 MCG TAB PO SCH (05:47)
[2022-03-22] MEDS: INSULIN LISPRO 100 UNIT/ML SUB-Q SCH ×4 (07:30→21:46)
[2022-03-22] MEDS: DIVALPROEX SPRINKLE 125 MG CAP PO SCH ×2 (09:00→21:19)
[2022-03-22] MEDS: TRIAMTER/HCTZ 37.5-25 MG TAB PO SCH (09:00)
[2022-03-22] MEDS: FERROUS SULFATE 325 MG TAB PO SCH (09:00)
--- NOTE | 2022-03-22 09:30 | Progress Note ---
Subjective Date of service: 03/22/22 Principal diagnosis: MDD Subjective Comment: The patient was seen today. He is lying in bed resting. He is irritable at me talking to him, but cooperative. I ask him how was he feeling this morning. He replies "pretty well, damn lady." He denies SI/HI or hallucinations of any kind. 03/21 The patient was seen today. He is lying in bed awake. He says he's "not doing too hot" because he's in here. He then asked why was he here. I reminded the patient that he had climbed on top of the roof at his living place. He says "I climbed up there. I wanted to leave and get away from yall." He says "I sure did." He denies SI/HI or hallucinations. 03/20 The patient was seen today. He is lying in bed awake. He says he's doing pretty good and he slept well. The patient says he came from the long term but didn't remember why he came, he says. He denies SI/HI. He says "where did that question come from." He also denies hallucinations. REVIEW OF SYSTEMS Constitutional: Negative for weight loss ENT: Negative for stridor Respiratory: Negative for cough or hemoptysis All other systems reviewed and are negative MENTAL STATUS EXAMINATION General Appearance and Behavior: Age appropriate, good hygiene, wearing appropriate clothes, good eye contact, calm, cooperative Cooperation: Participating/engaged, but Guarded Psychomotor Behavior: Psychomotor normal Mood: "pretty good" Affect and affective range: congruent with stated mood Thought Process: Goal directed Thought Content: Reality oriented Speech: normal tone and pace Suicidal Ideation: Denies Homicidal Ideation: Denies Hallucinations: Denies Delusions: None Impulse Control: Limited Insight and Judgment: Limited insight and judgment Memory: Limited Attention: attentive Orientation: Alert, oriented Diagnoses: Dementia with behavioral disturbances Treatment Plan Patient admitted for inpatient psychiatric evaluation, medication adjustment and close monitoring The patient's behavior, mood, sleep and appetite will be closely monitored. Patient enrolled in individual and group therapeutic sessions and encouraged to attend. Patient provided with a safe and structured environment. Patient's physical health needs will be addressed by the Hospitalist. Hospitalist Consulted Labs including CBC, CMP, Lipid profile and Hemoglobin A1C levels ordered for baseline reference Social Assessment will be completed and the Price Checker will work with patient and family to ensure a suitable and safe disposition Medication adjustment will be made as clinically indicated Continue Zyprexa 2.5mg po QHS Contnue Trazodone 50mg po QHS Usual Wellness Latter Day/Preservation: - Start Trazodone 50 mg po QHS & 50 mg po QHS PRN between 10 PM & 2 AM for insomnia - Start Melatonin 5 mg po QHS to promote circadian rhythm The patient agreed on the treatment plan, understood the risk, benefit, alternative treatment, potential consequence of no treatment, and gave informed consent. Estimated days:6 Post hospital care: primary care provider, psychiatric provider Case staffed with Dr. Hwang Medications and Allergies Allergies Allergy/AdvReac Type Severity Reaction Status Date / Time No Known Allergies Allergy Unverified 03/17/22 17:19 Home Medications Medication Instructions Recorded Confirmed Last Taken Type Divalproex Sodium [Depakote 125 mg PO BID 03/18/22 03/18/22 Unknown History Sprinkle] Dorzolamide HCl/Timolol Maleat 10 ml OP HS 03/18/22 03/18/22 Unknown History [Dorzolamide-Timolol Eye Drops] Ferrous Sulfate [Iron 325 MG] 325 mg PO DAILY 03/18/22 03/18/22 Unknown History Hydralazine HCl 50 mg PO TID 03/18/22 03/18/22 Unknown History Insulin Lispro [Admelog] See Protocol SQ ACHS 03/18/22 03/18/22 Unknown History Lactulose [Cephulac] 20 gm PO TID PRN 03/18/22 03/18/22 Unknown History Levothyroxine Sodium [Synthroid] 200 mcg PO DAILY 03/18/22 03/18/22 Unknown History Melatonin [Melatonin 3MG TAB] 3 mg PO HS 03/18/22 03/18/22 Unknown History Pioglitazone HCl [Actos] 30 mg PO DAILY 03/18/22 03/18/22 Unknown History Triamter/Hctz 37.5-25 mg 1 tab PO QDAY 03/18/22 03/18/22 Unknown History [Maxzide-25] amLODIPine [Norvasc] 10 mg PO DAILY 03/18/22 03/18/22 Unknown History glipiZIDE [Glucotrol] 5 mg PO QDAY 03/18/22 03/18/22 Unknown History Active Meds: Active Medications Brimonidine/Timolol (Combigan 0.2-0.5% [facility]) 1 drops OU Q12HR [facility] Last Admin: 03/21/22 21:21 Dose: 1 drops Divalproex Sodium (Divalproex Sprinkle 125 Mg Cap) 125 mg PO BID [facility] Last Admin: 03/22/22 09:00 Dose: Not Given Ferrous Sulfate (Ferrous Sulfate 325 Mg Tab) 325 mg PO DAILY [facility] Last Admin: 03/22/22 09:00 Dose: Not Given Glipizide (Glipizide Xl 2.5 Mg Tab) 2.5 mg PO DAILY@0800 [facility] Last Admin: 03/22/22 08:52 Dose: Not Given Hydralazine HCl (Hydralazine 25 Mg Tab) 50 mg PO Q8HR [facility] Last Admin: 03/22/22 05:47 Dose: 50 mg Insulin Human Lispro (Insulin Lispro 100 Unit/Ml) 0 unit SUB-Q [facility]; Protocol Last Admin: 03/22/22 07:30 Dose: Not Given Lactulose (Lactulose 20 Gm/30 Ml Oral Liqd) 20 gm PO TID PRN PRN Reason: Edema Levothyroxine Sodium (Levothyroxine 100 Mcg Tab) 200 mcg PO DAILY@0600 [facility] Last Admin: 03/22/22 05:47 Dose: 200 mcg Melatonin (Melatonin 5 Mg Tab) 5 mg PO QHS [facility] Last Admin: 03/21/22 21:21 Dose: 5 mg Olanzapine (Olanzapine 2.5 Mg Tab) 2.5 mg PO QHS [facility] Last Admin: 03/21/22 21:21 Dose: 2.5 mg Trazodone HCl (Trazodone 50 Mg Tab) 50 mg PO QHS [facility] Last Admin: 03/21/22 21:21 Dose: 50 mg Triamterene/Hydrochlorothiazide (Triamter/Hctz 37.5-25 Mg Tab) 1 each PO QDAY [facility] Last Admin: 03/22/22 09:00 Dose: Not Given Ziprasidone (Ziprasidone Mesylate 20 Mg Vial) 20 mg IM Q4H PRN PRN Reason: Agitation Results - Results Labs/Vitals: Laboratory Last Values WBC 6.3 K/mm3 (4.5-11.0) 03/18/22 17:18 RBC 4.33 M/mm3 (3.65-5.03) 03/18/22 17:18 Hgb 11.8 gm/dl (11.8-15.2) 03/18/22 17:18 Hct 35.4 % (35.5-45.6) L 03/18/22 17:18 MCV 82 fl (84-94) L 03/18/22 17:18 MCH 27 pg (28-32) L 03/18/22 17:18 MCHC 33 % (32-34) 03/18/22 17:18 RDW 16.0 % (13.2-15.2) H 03/18/22 17:18 Plt Count 270 K/mm3 (140-440) 03/18/22 17:18 Lymph % (Auto) 27.9 % (13.4-35.0) 03/18/22 17:18 [place] % (Auto) 11.1 % (0.0-7.3) H 03/18/22 17:18 Eos % (Auto) 1.8 % (0.0-4.3) 03/18/22 17:18 Baso % (Auto) 1.1 % (0.0-1.8) 03/18/22 17:18 Lymph # (Auto) 1.8 K/mm3 (1.2-5.4) 03/18/22 17:18 [place] # (Auto) 0.7 K/mm3 (0.0-0.8) 03/18/22 17:18 Eos # (Auto) 0.1 K/mm3 (0.0-0.4) 03/18/22 17:18 Baso # (Auto) 0.1 K/mm3 (0.0-0.1) 03/18/22 17:18 Seg Neutrophils % 58.1 % (40.0-70.0) 03/18/22 17:18 Seg Neutrophils # 3.7 K/mm3 (1.8-7.7) 03/18/22 17:18 Sodium 139 mmol/L (137-145) 03/18/22 17:18 Potassium 3.8 mmol/L (3.6-5.0) 03/18/22 17:18 Chloride 103.4 mmol/L (98-107) 03/18/22 17:18 Carbon Dioxide 20 mmol/L (22-30) L 03/18/22 17:18 Anion Gap 19 mmol/L 03/18/22 17:18 BUN 52 mg/dL (9-20) H 03/18/22 17:18 Creatinine 2.9 mg/dL (0.8-1.3) H 03/18/22 17:18 Estimated GFR 21 ml/min 03/18/22 17:18 BUN/Creatinine Ratio 18 % 03/18/22 17:18 Glucose 63 mg/dL (75-100) L 03/18/22 17:18 POC Glucose 205 mg/dL (70-105) H 03/22/22 06:11 Hemoglobin A1c 8.5 % (4-6) H 03/18/22 17:18 Calcium 9.3 mg/dL (8.4-10.2) 03/18/22 17:18 Total Bilirubin 0.20 mg/dL (0.1-1.2) 03/18/22 17:18 AST 16 units/L (5-40) 03/18/22 17:18 ALT 8 units/L (7-56) 03/18/22 17:18 Alkaline Phosphatase 76 units/L (35-129) 03/18/22 17:18 Total Protein 7.3 g/dL (6.3-8.2) 03/18/22 17:18 Albumin 4.5 g/dL (3.9-5) 03/18/22 17:18 Albumin/Globulin Ratio 1.6 % 03/18/22 17:18 Triglycerides 69 mg/dL (2-149) 03/18/22 17:18 Cholesterol 230 mg/dL (50-199) H 03/18/22 17:18 LDL Cholesterol Direct 134 mg/dL (50-130) H 03/18/22 17:18 HDL Cholesterol 74 mg/dL (40-59) H 03/18/22 17:18 Cholesterol/HDL Ratio 3.10 % 03/18/22 17:18 TSH 1.190 mlU/mL (0.270-4.200) 03/18/22 17:18 Last Vital Signs Temp 97.5 F L 03/20/22 20:09 Pulse 79 03/22/22 05:47 Resp 18 03/20/22 20:09 BP 123/62 05/08/22 05:47 Pulse Ox 99 03/20/22 20:09
[2022-03-22] MEDS: COMBIGAN 0.2-0.5% OPHTH SOLN OU SCH ×2 (09:51→21:18)
--- NOTE | 2022-03-22 19:04 | Progress Note ---
Assessment and Plan Assessment and plan: -- Dementia; continue current home medications Supportive care --Type 2 diabetes mellitus; labile blood sugars Insulin and oral hypoglycemics held last 2 days Patient's sugars are slightly elevated, will start very low-dose glipizide 2.5 mg daily Accu-Chek, sliding scale coverage, ADA diet as tolerated -- Hypertension; moderate control Continue current antihypertensives hydralazine triamterene and hy drochlorothiazide As needed medications --History of hypothyroidism; continue home Synthroid --DVT SCDs while resting, ambulate as tolerated -- Full CODE STATUS Thank you for this consultation we will follow the patient along with you Closely monitor the patient and adjust management as needed Plan of care reviewed with the patient's nurse Call us with questions History Interval history: I have seen and examined the patient at the bedside Patient's chart and medications reviewed Patient feels better complains Refusing medications and Cheerful answering appropriately Vital signs noted Hospitalist Physical - Constitutional Vitals: Temp Pulse Resp BP Pulse Ox 97.5 F L 79 18 123/62 99 03/20/22 20:09 03/22/22 05:47 03/20/22 20:09 03/22/22 05:47 03/20/22 20:09 General appearance: Present: no acute distress, well-nourished, other (Sleeping easily awakens) - EENT Eyes: Present: PERRL, EOM intact - Neck Neck: Present: supple, normal ROM - Respiratory Respiratory effort: normal Respiratory: bilateral: diminished, negative: rales, rhonchi, wheezing - Cardiovascular Rhythm: regular Heart Sounds: Present: S1 & S2 - Extremities Extremities: no ischemia, No edema - Abdominal General gastrointestinal: soft, non-tender, non-distended, normal bowel sounds - Integumentary Integumentary: Present: clear, warm - Psychiatric Psychiatric: appropriate mood/affect, other (Confused at times) - Neurologic Neurologic: moves all extremities Results - Labs CBC & Chem 7: 03/18/22 17:18 03/18/22 17:18 Labs: Laboratory Last Values WBC 6.3 K/mm3 (4.5-11.0) 03/18/22 17:18 RBC 4.33 M/mm3 (3.65-5.03) 03/18/22 17:18 Hgb 11.8 gm/dl (11.8-15.2) 03/18/22 17:18 Hct 35.4 % (35.5-45.6) L 03/18/22 17:18 MCV 82 fl (84-94) L 03/18/22 17:18 MCH 27 pg (28-32) L 03/18/22 17:18 MCHC 33 % (32-34) 03/18/22 17:18 RDW 16.0 % (13.2-15.2) H 03/18/22 17:18 Plt Count 270 K/mm3 (140-440) 03/18/22 17:18 Lymph % (Auto) 27.9 % (13.4-35.0) 03/18/22 17:18 [place] % (Auto) 11.1 % (0.0-7.3) H 03/18/22 17:18 Eos % (Auto) 1.8 % (0.0-4.3) 03/18/22 17:18 Baso % (Auto) 1.1 % (0.0-1.8) 03/18/22 17:18 Lymph # (Auto) 1.8 K/mm3 (1.2-5.4) 03/18/22 17:18 [place] # (Auto) 0.7 K/mm3 (0.0-0.8) 03/18/22 17:18 Eos # (Auto) 0.1 K/mm3 (0.0-0.4) 03/18/22 17:18 Baso # (Auto) 0.1 K/mm3 (0.0-0.1) 03/18/22 17:18 Seg Neutrophils % 58.1 % (40.0-70.0) 03/18/22 17:18 Seg Neutrophils # 3.7 K/mm3 (1.8-7.7) 03/18/22 17:18 Sodium 139 mmol/L (137-145) 03/18/22 17:18 Potassium 3.8 mmol/L (3.6-5.0) 03/18/22 17:18 Chloride 103.4 mmol/L (98-107) 03/18/22 17:18 Carbon Dioxide 20 mmol/L (22-30) L 03/18/22 17:18 Anion Gap 19 mmol/L 03/18/22 17:18 BUN 52 mg/dL (9-20) H 03/18/22 17:18 Creatinine 2.9 mg/dL (0.8-1.3) H 03/18/22 17:18 Estimated GFR 21 ml/min 03/18/22 17:18 BUN/Creatinine Ratio 18 % 03/18/22 17:18 Glucose 63 mg/dL (75-100) L 03/18/22 17:18 POC Glucose 205 mg/dL (70-105) H 03/22/22 06:11 Hemoglobin A1c 8.5 % (4-6) H 03/18/22 17:18 Calcium 9.3 mg/dL (8.4-10.2) 03/18/22 17:18 Total Bilirubin 0.20 mg/dL (0.1-1.2) 03/18/22 17:18 AST 16 units/L (5-40) 03/18/22 17:18 ALT 8 units/L (7-56) 03/18/22 17:18 Alkaline Phosphatase 76 units/L (35-129) 03/18/22 17:18 Total Protein 7.3 g/dL (6.3-8.2) 03/18/22 17:18 Albumin 4.5 g/dL (3.9-5) 03/18/22 17:18 Albumin/Globulin Ratio 1.6 % 03/18/22 17:18 Triglycerides 69 mg/dL (2-149) 03/18/22 17:18 Cholesterol 230 mg/dL (50-199) H 03/18/22 17:18 LDL Cholesterol Direct 134 mg/dL (50-130) H 03/18/22 17:18 HDL Cholesterol 74 mg/dL (40-59) H 03/18/22 17:18 Cholesterol/HDL Ratio 3.10 % 03/18/22 17:18 TSH 1.190 mlU/mL (0.270-4.200) 03/18/22 17:18 Chan/IV: Voiding Method Toilet Active Medications - Current Medications Current Medications: Generic Name Dose Route Start Last Admin Trade Name Freq PRN Reason Stop Dose Admin Brimonidine/Timolol 1 drops 03/18/22 12:00 03/22/22 09:51 Combigan 0.2-0.5% Ophth Soln OU 1 drops Q12HR [facility] Administration Divalproex Sodium 125 mg 03/18/22 10:00 03/22/22 09:00 Divalproex Sprinkle 125 Mg Cap PO Not Given BID [facility] Ferrous Sulfate 325 mg 03/18/22 10:00 03/22/22 09:00 Ferrous Sulfate 325 Mg Tab PO Not Given DAILY [facility] Glipizide 2.5 mg 03/22/22 08:00 03/22/22 08:52 Glipizide Xl 2.5 Mg Tab PO Not Given DAILY@0800 [facility] Hydralazine HCl 50 mg 03/18/22 10:00 03/22/22 13:29 Hydralazine 25 Mg Tab PO Not Given Q8HR [facility] Insulin Human Lispro 0 unit 03/18/22 11:30 03/22/22 16:29 Insulin Lispro 100 Unit/Ml SUB-Q Not Given ACHS [facility] Protocol Lactulose 20 gm 03/18/22 10:00 Lactulose 20 Gm/30 Ml Oral Liqd PO TID PRN Edema Levothyroxine Sodium 200 mcg 03/19/22 06:00 03/22/22 05:47 Levothyroxine 100 Mcg Tab PO 200 mcg DAILY@0600 [facility] Administration Melatonin 5 mg 03/18/22 22:00 03/21/22 21:21 Melatonin 5 Mg Tab PO 5 mg QHS [facility] Administration Olanzapine 2.5 mg 03/18/22 22:00 03/21/22 21:21 Olanzapine 2.5 Mg Tab PO 2.5 mg QHS [facility] Administration Trazodone HCl 50 mg 03/18/22 22:00 03/21/22 21:21 Trazodone 50 Mg Tab PO 50 mg QHS [facility] Administration Triamterene/Hydrochlorothiazide 1 each 03/18/22 10:00 03/22/22 09:00 Triamter/Hctz 37.5-25 Mg Tab PO Not Given QDAY [facility] Ziprasidone 20 mg 03/18/22 10:00 Ziprasidone Mesylate 20 Mg Vial IM Q4H PRN Agitation Nutrition/Malnutrition Assess - Dietary Evaluation Nutrition/Malnutrition Findings: Nutrition Notes Start: 03/18/22 16 :11 Freq: Status: Active Protocol: Document 03/18/22 16:11 KAM (Rec: 03/18/22 16:33 KAM [id number]) Nutrition Notes Need for Assessment generated from: MD Order Initial or Follow up Assessment Other Pertinent Diagnosis Dementia with Behivoral Disturbance. Current Diet Cardiac/Consistent Carbohydrates -Chopped Meats- Diet (since B 03/18). Labs/Tests 03/18: POC Glu 206. Pertinent Medications 03/18: Humalog 3 U, Levothyroxine, others nutritionally unremarkable. Height 5 ft 8 in Weight 72.121 kg [place] Body Weight (kg) 70.00 BMI 24.1 Intake Prior to Admission Poor Weight change and time frame Pt states not having loss body weight [employer]. Weight Status Appropriate Subjective/Other Information RD consult for Poor Oral Intake and Dietary Supplementation assessments. Pt's PO intake of meals has been Good (100%), according to ADL notes. Pt complaints that was not able to chew his apple, and RN replaced it with pureed apple , which Pt finished up. I will recommend mechanical modification to Pt's diet to facilitate PO intake of meals. I will not order Dietary Supplementation, since it is not necessary for this Pt at the time, according to ADL notes. Pt is on Room Air, O2 saturation @ 97%, according to Physical Assessment History notes. Pt presents unspecified skin dryness, according to Physical Assessment History notes. Percent of energy/protein needs met: Prescribed Cardiac/Consistent Carbohydrates Diet provides for energy/protein needs (1, 977 Kcal/86 g) during LOS. Burn Absent Trauma Absent GI Symptoms None Difficulty In Chewing Food Allergy No Skin Integrity/Comment Unspecified Dryness. Current % PO Good (75-100%) Minimum of two criteria No #1 Nutrition Diagnosis Biting/Chewing (masticatory) difficulty Etiology Uncertain. As Evidenced by Signs and Symptoms Pt complaints that was not able to chew his apple, and RN replaced it with pureed apple , which Pt finished up. Is patient on ventilator? No Is Patient Ambulatory and/or Out of Bed No REE-([facility]-confined to bed) 1670.052 Kcal/Kg value to use for calculation 26 Approximate Energy Requirements Using 1875 kcal/Kg Calculation Used for Recommendations Kcal/kg Additional Notes Protein: 1-1.2 g/Kg ABW; 72-86 g/day. Fluids: 1 ml/Kcal, or as per MD. Nutrition Intervention Change Diet Order: Modify to Cardiac/Consistent Carbohydrates -Chopped Meats- Diet. Goal #1 Facilitate PO intake of meals with elemental, textural, or mechanical modification during LOS. Goal #2 Maintain body weight within +/ -3% of admission body weight during LOS. Follow-Up By: 03/25/22 Additional Comments Continue monitoring food tolerance, %PO intake of meals , and BM.
[2022-03-22] MEDS: MELATONIN 5 MG TAB PO SCH (21:19)
[2022-03-22] MEDS: traZODone 50 MG TAB PO SCH (21:19)
[2022-03-23] MEDS: LEVOTHYROXINE 100 MCG TAB PO SCH (06:37)
[2022-03-23] MEDS: hydrALAZINE 25 MG TAB PO SCH ×3 (06:37→21:36)
--- NOTE | 2022-03-23 10:12 | Progress Note ---
Subjective Date of service: 03/23/22 Principal diagnosis: MDD Subjective Comment: The patient was seen today. He is irritable and tells me to go back where I came from. He says "I don't want to be bothered." I ask him how was he feeling, he replies "I'm not going to tell you." He then says "I'm alright." When asking the patient was he having thoughts of self harm, he says "no, there's nothing in here to hurt myself." I ask him if there were something to hurt himself would he use it. The patient becomes angry and shouts "you heard what I said." He denies homicidal ideation. He also denies hallucinations. Staff says the patient's moods have been up and down. The patient also appears to have some passive thoughts of suicide. Will adjust depakote to improve mood. 03/22 The patient was seen today. He is lying in bed resting. He is irritable at me talking to him, but cooperative. I ask him how was he feeling this morning. He replies "pretty well, damn ." He denies SI/HI or hallucinations of any kind. 03/21 The patient was seen today. He is lying in bed awake. He says he's "not doing too hot" because he's in here. He then asked why was he here. I reminded the patient that he had climbed on top of the roof at his living place. He says "I climbed up there. I wanted to leave and get away from yall." He says "I sure did." He denies SI/HI or hallucinations. 03/20 The patient was seen today. He is lying in bed awake. He says he's doing pretty good and he slept well. The patient [facility] but didn't remember why he came, he says. He denies SI/HI. He says "where did that question come from." He also denies hallucinations. REVIEW OF SYSTEMS Constitutional: Negative for weight loss ENT: Negative for stridor Respiratory: Negative for cough or hemoptysis All other systems reviewed and are negative MENTAL STATUS EXAMINATION General Appearance and Behavior: Age appropriate, good hygiene, wearing appropriate clothes, good eye contact, calm, cooperative Cooperation: Participating/engaged, but Guarded Psychomotor Behavior: Psychomotor normal Mood: "pretty good" Affect and affective range: congruent with stated mood Thought Process: Goal directed Thought Content: Reality oriented Speech: normal tone and pace Suicidal Ideation: Passive Homicidal Ideation: Denies Hallucinations: Denies Delusions: None Impulse Control: Limited Insight and Judgment: Limited insight and judgment Memory: Limited Attention: attentive Orientation: Alert, oriented Diagnoses: Dementia with behavioral disturbances Treatment Plan Patient admitted for inpatient psychiatric evaluation, medication adjustment and close monitoring The patient's behavior, mood, sleep and appetite will be closely monitored. Patient enrolled in individual and group therapeutic sessions and encouraged to attend. Patient provided with a safe and structured environment. Patient's physical health needs will be addressed by the Hospitalist. Hospitalist Consulted Labs including CBC, CMP, Lipid profile and Hemoglobin A1C levels ordered for baseline reference Social Assessment will be completed and the Steam Conditioner Operator will work with patient and family to ensure a suitable and safe disposition Medication adjustment will be made as clinically indicated Increase Depakote 125mg po TID Usual Wellness Restorationism/Preservation: - Start Trazodone 50 mg po QHS & 50 mg po QHS PRN between 10 PM & 2 AM for insomnia - Start Melatonin 5 mg po QHS to promote circadian rhythm The patient agreed on the treatment plan, understood the risk, benefit, alternative treatment, potential consequence of no treatment, and gave informed consent. Estimated days:6 Post hospital care: primary care provider, psychiatric provider Case staffed with Dr. Hwang Medications and Allergies Allergies Allergy/AdvReac Type Severity Reaction Status Date / Time No Known Allergies Allergy Unverified 03/17/22 17:19 Home Medications Medication Instructions Recorded Confirmed Last Taken Type Divalproex Sodium [Depakote 125 mg PO BID 03/18/22 03/18/22 Unknown History Sprinkle] Dorzolamide HCl/Timolol Maleat 10 ml OP HS 03/18/22 03/18/22 Unknown History [Dorzolamide-Timolol Eye Drops] Ferrous Sulfate [Iron 325 MG] 325 mg PO DAILY 03/18/22 03/18/22 Unknown History Hydralazine HCl 50 mg PO TID 03/18/22 03/18/22 Unknown History Insulin Lispro [Admelog] See Protocol SQ ACHS 03/18/22 03/18/22 Unknown History Lactulose [Cephulac] 20 gm PO TID PRN 03/18/22 03/18/22 Unknown History Levothyroxine Sodium [Synthroid] 200 mcg PO DAILY 03/18/22 03/18/22 Unknown History Melatonin [Melatonin 3MG TAB] 3 mg PO HS 03/18/22 03/18/22 Unknown History Pioglitazone HCl [Actos] 30 mg PO DAILY 03/18/22 03/18/22 Unknown History Triamter/Hctz 37.5-25 mg 1 tab PO QDAY 03/18/22 03/18/22 Unknown History [Maxzide-25] amLODIPine [Norvasc] 10 mg PO DAILY 03/18/22 03/18/22 Unknown History glipiZIDE [Glucotrol] 5 mg PO QDAY 03/18/22 03/18/22 Unknown History Active Meds: Active Medications Brimonidine/Timolol (Combigan 0.2-0.5% Oph Soln) 1 drops OU Q12HR [facility] Last Admin: 03/22/22 21:18 Dose: 1 drops Divalproex Sodium (Divalproex Sprinkle 125 Mg Cap) 125 mg PO BID [facility] Last Admin: 03/22/22 21:19 Dose: 125 mg Ferrous Sulfate (Ferrous Sulfate 325 Mg Tab) 325 mg PO DAILY [facility] Last Admin: 03/22/22 09:00 Dose: Not Given Glipizide (Glipizide Xl 2.5 Mg Tab) 2.5 mg PO DAILY@0800 [facility] Last Admin: 03/22/22 08:52 Dose: Not Given Hydralazine HCl (Hydralazine 25 Mg Tab) 50 mg PO Q8HR [facility] Last Admin: 03/23/22 06:37 Dose: Not Given Insulin Human Lispro (Insulin Lispro 100 Unit/Ml) 0 unit SUB-Q [facility]; Protocol Last Admin: 03/22/22 21:46 Dose: 3 unit Lactulose (Lactulose 20 Gm/30 Ml Oral Liqd) 20 gm PO TID PRN PRN Reason: Edema Levothyroxine Sodium (Levothyroxine 100 Mcg Tab) 200 mcg PO DAILY@0600 [facility] Last Admin: 03/23/22 06:37 Dose: Not Given Melatonin (Melatonin 5 Mg Tab) 5 mg PO QHS [facility] Last Admin: 03/22/22 21:19 Dose: 5 mg Olanzapine (Olanzapine 2.5 Mg Tab) 2.5 mg PO QHS [facility] Last Admin: 03/22/22 21:19 Dose: 2.5 mg Trazodone HCl (Trazodone 50 Mg Tab) 50 mg PO QHS [facility] Last Admin: 03/22/22 21:19 Dose: 50 mg Triamterene/Hydrochlorothiazide (Triamter/Hctz 37.5-25 Mg Tab) 1 each PO QDAY [facility] Last Admin: 03/22/22 09:00 Dose: Not Given Ziprasidone (Ziprasidone Mesylate 20 Mg Vial) 20 mg IM Q4H PRN PRN Reason: Agitation Results - Results Labs/Vitals: Laboratory Last Values WBC 6.3 K/mm3 (4.5-11.0) 03/18/22 17:18 RBC 4.33 M/mm3 (3.65-5.03) 03/18/22 17:18 Hgb 11.8 gm/dl (11.8-15.2) 03/18/22 17:18 Hct 35.4 % (35.5-45.6) L 03/18/22 17:18 MCV 82 fl (84-94) L 03/18/22 17:18 MCH 27 pg (28-32) L 03/18/22 17:18 MCHC 33 % (32-34) 03/18/22 17:18 RDW 16.0 % (13.2-15.2) H 03/18/22 17:18 Plt Count 270 K/mm3 (140-440) 03/18/22 17:18 Lymph % (Auto) 27.9 % (13.4-35.0) 03/18/22 17:18 [place] % (Auto) 11.1 % (0.0-7.3) H 03/18/22 17:18 Eos % (Auto) 1.8 % (0.0-4.3) 03/18/22 17:18 Baso % (Auto) 1.1 % (0.0-1.8) 03/18/22 17:18 Lymph # (Auto) 1.8 K/mm3 (1.2-5.4) 03/18/22 17:18 [place] # (Auto) 0.7 K/mm3 (0.0-0.8) 03/18/22 17:18 Eos # (Auto) 0.1 K/mm3 (0.0-0.4) 03/18/22 17:18 Baso # (Auto) 0.1 K/mm3 (0.0-0.1) 03/18/22 17:18 Seg Neutrophils % 58.1 % (40.0-70.0) 03/18/22 17:18 Seg Neutrophils # 3.7 K/mm3 (1.8-7.7) 03/18/22 17:18 Sodium 139 mmol/L (137-145) 03/18/22 17:18 Potassium 3.8 mmol/L (3.6-5.0) 03/18/22 17:18 Chloride 103.4 mmol/L (98-107) 03/18/22 17:18 Carbon Dioxide 20 mmol/L (22-30) L 03/18/22 17:18 Anion Gap 19 mmol/L 03/18/22 17:18 BUN 52 mg/dL (9-20) H 03/18/22 17:18 Creatinine 2.9 mg/dL (0.8-1.3) H 03/18/22 17:18 Estimated GFR 21 ml/min 03/18/22 17:18 BUN/Creatinine Ratio 18 % 03/18/22 17:18 Glucose 63 mg/dL (75-100) L 03/18/22 17:18 POC Glucose 292 mg/dL (70-105) H 03/22/22 19:44 Hemoglobin A1c 8.5 % (4-6) H 03/18/22 17:18 Calcium 9.3 mg/dL (8.4-10.2) 03/18/22 17:18 Total Bilirubin 0.20 mg/dL (0.1-1.2) 03/18/22 17:18 AST 16 units/L (5-40) 03/18/22 17:18 ALT 8 units/L (7-56) 03/18/22 17:18 Alkaline Phosphatase 76 units/L (35-129) 03/18/22 17:18 Total Protein 7.3 g/dL (6.3-8.2) 03/18/22 17:18 Albumin 4.5 g/dL (3.9-5) 03/18/22 17:18 Albumin/Globulin Ratio 1.6 % 03/18/22 17:18 Triglycerides 69 mg/dL (2-149) 03/18/22 17:18 Cholesterol 230 mg/dL (50-199) H 03/18/22 17:18 LDL Cholesterol Direct 134 mg/dL (50-130) H 03/18/22 17:18 HDL Cholesterol 74 mg/dL (40-59) H 03/18/22 17:18 Cholesterol/HDL Ratio 3.10 % 03/18/22 17:18 TSH 1.190 mlU/mL (0.270-4.200) 03/18/22 17:18 Last Vital Signs Temp 98.3 F 03/22/22 20:11 Pulse 76 03/22/22 21:20 Resp 18 03/22/22 20:11 BP 132/63 03/22/22 21:20 Pulse Ox 96 03/22/22 20:11
[2022-03-23] MEDS: INSULIN LISPRO 100 UNIT/ML SUB-Q SCH ×4 (10:19→21:37)
[2022-03-23] MEDS: DIVALPROEX SPRINKLE 125 MG CAP PO SCH ×3 (13:30→20:30)
[2022-03-23] MEDS: TRIAMTER/HCTZ 37.5-25 MG TAB PO SCH (13:31)
[2022-03-23] MEDS: FERROUS SULFATE 325 MG TAB PO SCH (13:31)
[2022-03-23] MEDS: COMBIGAN 0.2-0.5% OPHTH SOLN OU SCH ×2 (13:32→21:37)
--- NOTE | 2022-03-23 16:15 | Progress Note ---
Assessment and Plan Assessment and plan: -- Dementia; continue current home medications Supportive care --Type 2 diabetes mellitus; labile blood sugars Patient had an episode of hypoglycemia and all his diabetic medications were held Slowly started glipizide 2.5 mg daily and Accu-Cheks and sliding scale coverage ADA diet as tolerated. hemoglobin A1c 8.5 -- Hypertension; moderate control Continue current antihypertensives hydralazine triamterene and hydrochlorothiazide As needed medications --History of hypothyroidism; continue home Synthroid --DVT SCDs while resting, ambulate as tolerated -- Full CODE STATUS Thank you for this consultation we will follow the patient along with you Closely monitor the patient and adjust management as needed Plan of care reviewed with the patient's nurse Call us with questions History Interval history: I have seen and examined the patient in the day room No new overnight events reported by the nursing staff Patient is more alert and cheerful today No new complaints Vital signs noted Hospitalist Physical - Constitutional Vitals: Temp Pulse Resp BP Pulse Ox 98.3 F 86 18 136/51 98 03/22/22 20:11 03/23/22 13:32 03/23/22 13:25 03/23/22 13:32 03/23/22 13:25 General appearance: Present: no acute distress, well-nourished, other (Cheerful today) - EENT Eyes: Present: PERRL, EOM intact - Neck Neck: Present: supple, normal ROM - Respiratory Respiratory effort: normal, labored Respiratory: bilateral: diminished, negative: rales, rhonchi, wheezing - Cardiovascular Rhythm: regular Heart Sounds: Present: S1 & S2 - Extremities Extremities: no ischemia, No edema - Abdominal General gastrointestinal: soft, non-tender, non-distended, normal bowel sounds - Integumentary Integumentary: Present: clear, warm - Psychiatric Psychiatric: appropriate mood/affect, cooperative, other (Confused sometimes) - Neurologic Neurologic: moves all extremities Results - Labs CBC & Chem 7: 03/18/22 17:18 03/18/22 17:18 Labs: Laboratory Last Values WBC 6.3 K/mm3 (4.5-11.0) 03/18/22 17:18 RBC 4.33 M/mm3 (3.65-5.03) 03/18/22 17:18 Hgb 11.8 gm/dl (11.8-15.2) 03/18/22 17:18 Hct 35.4 % (35.5-45.6) L 03/18/22 17:18 MCV 82 fl (84-94) L 03/18/22 17:18 MCH 27 pg (28-32) L 03/18/22 17:18 MCHC 33 % (32-34) 03/18/22 17:18 RDW 16.0 % (13.2-15.2) H 03/18/22 17:18 Plt Count 270 K/mm3 (140-440) 03/18/22 17:18 Lymph % (Auto) 27.9 % (13.4-35.0) 03/18/22 17:18 [place] % (Auto) 11.1 % (0.0-7.3) H 03/18/22 17:18 Eos % (Auto) 1.8 % (0.0-4.3) 03/18/22 17:18 Baso % (Auto) 1.1 % (0.0-1.8) 03/18/22 17:18 Lymph # (Auto) 1.8 K/mm3 (1.2-5.4) 03/18/22 17:18 [place] # (Auto) 0.7 K/mm3 (0.0-0.8) 03/18/22 17:18 Eos # (Auto) 0.1 K/mm3 (0.0-0.4) 03/18/22 17:18 Baso # (Auto) 0.1 K/mm3 (0.0-0.1) 03/18/22 17:18 Seg Neutrophils % 58.1 % (40.0-70.0) 03/18/22 17:18 Seg Neutrophils # 3.7 K/mm3 (1.8-7.7) 03/18/22 17:18 Sodium 139 mmol/L (137-145) 03/18/22 17:18 Potassium 3.8 mmol/L (3.6-5.0) 03/18/22 17:18 Chloride 103.4 mmol/L (98-107) 03/18/22 17:18 Carbon Dioxide 20 mmol/L (22-30) L 03/18/22 17:18 Anion Gap 19 mmol/L 03/18/22 17:18 BUN 52 mg/dL (9-20) H 03/18/22 17:18 Creatinine 2.9 mg/dL (0.8-1.3) H 03/18/22 17:18 Estimated GFR 21 ml/min 03/18/22 17:18 BUN/Creatinine Ratio 18 % 03/18/22 17:18 Glucose 63 mg/dL (75-100) L 03/18/22 17:18 POC Glucose 196 mg/dL (70-105) H 03/23/22 12:59 Hemoglobin A1c 8.5 % (4-6) H 03/18/22 17:18 Calcium 9.3 mg/dL (8.4-10.2) 03/18/22 17:18 Total Bilirubin 0.20 mg/dL (0.1-1.2) 03/18/22 17:18 AST 16 units/L (5-40) 03/18/22 17:18 ALT 8 units/L (7-56) 03/18/22 17:18 Alkaline Phosphatase 76 units/L (35-129) 03/18/22 17:18 Total Protein 7.3 g/dL (6.3-8.2) 03/18/22 17:18 Albumin 4.5 g/dL (3.9-5) 03/18/22 17:18 Albumin/Globulin Ratio 1.6 % 03/18/22 17:18 Triglycerides 69 mg/dL (2-149) 03/18/22 17:18 Cholesterol 230 mg/dL (50-199) H 03/18/22 17:18 LDL Cholesterol Direct 134 mg/dL (50-130) H 03/18/22 17:18 HDL Cholesterol 74 mg/dL (40-59) H 03/18/22 17:18 Cholesterol/HDL Ratio 3.10 % 03/18/22 17:18 TSH 1.190 mlU/mL (0.270-4.200) 03/18/22 17:18 Chan/IV: Voiding Method Toilet Active Medications - Current Medications Current Medications: Generic Name Dose Route Start Last Admin Trade Name Freq PRN Reason Stop Dose Admin Brimonidine/Timolol 1 drops 03/18/22 12:00 03/23/22 13:32 Combigan 0.2-0.5% Ophth Soln OU 1 drops Q12HR [facility] Administration Divalproex Sodium 125 mg 03/23/22 14:00 03/23/22 13:30 Divalproex Sprinkle 125 Mg Cap PO 125 mg TID [facility] Administration Ferrous Sulfate 325 mg 03/18/22 10:00 03/23/22 13:31 Ferrous Sulfate 325 Mg Tab PO 325 mg DAILY [facility] Administration Glipizide 2.5 mg 03/22/22 08:00 03/23/22 10:19 Glipizide Xl 2.5 Mg Tab PO Not Given DAILY@0800 [facility] Hydralazine HCl 50 mg 03/18/22 10:00 03/23/22 13:32 Hydralazine 25 Mg Tab PO 50 mg Q8HR [facility] Administration Insulin Human Lispro 0 unit 03/18/22 11:30 03/23/22 13:37 Insulin Lispro 100 Unit/Ml SUB-Q Not Given ACHS [facility] Protocol Lactulose 20 gm 03/18/22 10:00 Lactulose 20 Gm/30 Ml Oral Liqd PO TID PRN Edema Levothyroxine Sodium 200 mcg 03/19/22 06:00 03/23/22 06:37 Levothyroxine 100 Mcg Tab PO Not Given DAILY@0600 [facility] Melatonin 5 mg 03/18/22 22:00 03/22/22 21:19 Melatonin 5 Mg Tab PO 5 mg QHS [facility] Administration Olanzapine 2.5 mg 03/18/22 22:00 03/22/22 21:19 Olanzapine 2.5 Mg Tab PO 2.5 mg QHS [facility] Administration Trazodone HCl 50 mg 03/18/22 22:00 03/22/22 21:19 Trazodone 50 Mg Tab PO 50 mg QHS [facility] Administration Triamterene/Hydrochlorothiazide 1 each 03/18/22 10:00 03/23/22 13:31 Triamter/Hctz 37.5-25 Mg Tab PO 1 each QDAY [facility] Administration Ziprasidone 20 mg 03/18/22 10:00 Ziprasidone Mesylate 20 Mg Vial IM Q4H PRN Agitation Nutrition/Malnutrition Assess - Dietary Evaluation Nutrition/Malnutrition Findings: Nutrition Notes Start: 03/18/22 16:11 Freq: Status: Active Protocol: Document 03/18/22 16:11 KAM (Rec: 03/18/22 16:33 KAM [id number]) Nutrition Notes Need for Assessment generated from: MD Order Initial or Follow up Assessment Other Pertinent Diagnosis Dementia with Behivoral Disturbance. Current Diet Cardiac/Consistent Carbohydrates -Chopped Meats- Diet (since B 03/18). Labs/Tests 03/18: POC Glu 206. Pertinent Medications 03/18: Humalog 3 U, Levothyroxine, others nutritionally unremarkable. 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 Weight Status Appropriate Subjective/Other Information RD consult for Poor Oral Intake and Dietary Supplementation assessments. Pt's PO intake of meals has been Good (100%), according to ADL notes. Pt complaints that was not able to chew his apple, and RN replaced it with pureed apple , which Pt finished up. I will recommend mechanical modification to Pt's diet to facilitate PO intake of meals. I will not order Dietary Supplementation, since it is not necessary for this Pt at the time, according to ADL notes. Pt is on Room Air, O2 saturation @ 97%, according to Physical Assessment History notes. Pt presents unspecified skin dryness, according to Physical Assessment History notes. Percent of energy/protein needs met: Prescribed Cardiac/Consistent Carbohydrates Diet provides for energy/protein needs (1, 977 Kcal/86 g) during LOS. Burn Absent Trauma Absent GI Symptoms None Difficulty In Chewing Food Allergy No Skin Integrity/Comment Unspecified Dryness. Current % PO Good (75-100%) Minimum of two criteria No #1 Nutrition Diagnosis Biting/Chewing (masticatory) difficulty Etiology Uncertain. As Evidenced by Signs and Symptoms Pt complaints that was not able to chew his apple, and RN replaced it with pureed apple , which Pt finished up. Is patient on ventilator? No Is Patient Ambulatory and/or Out of Bed No REE-([facility]-confined to bed) 1670.052 Kcal/Kg value to use for calculation 26 Approximate Energy Requirements Using 1875 kcal/Kg Calculation Used for Recommendations Kcal/kg Additional Notes Protein: 1-1.2 g/Kg ABW; 72-86 g/day. Fluids: 1 ml/Kcal, or as per MD. Nutrition Intervention Change Diet Order: Modify to Cardiac/Consistent Carbohydrates -Chopped Meats- Diet. Goal #1 Facilitate PO intake of meals with elemental, textural, or mechanical modification during LOS. Goal #2 Maintain body weight within +/ -3% of admission body weight during LOS. Follow-Up By: 03/25/22 Additional Comments Continue monitoring food tolerance, %PO intake of meals , and BM.
[2022-03-23] MEDS: traZODone 50 MG TAB PO SCH (21:37)
[2022-03-23] MEDS: MELATONIN 5 MG TAB PO SCH (21:38)
[2022-03-24] MEDS: hydrALAZINE 25 MG TAB PO SCH ×3 (07:01→21:24)
[2022-03-24] MEDS: LEVOTHYROXINE 100 MCG TAB PO SCH (07:02)
[2022-03-24] MEDS: INSULIN LISPRO 100 UNIT/ML SUB-Q SCH ×4 (07:21→21:27)
[2022-03-24] MEDS: DIVALPROEX SPRINKLE 125 MG CAP PO SCH ×3 (08:21→20:42)
[2022-03-24] MEDS: COMBIGAN 0.2-0.5% OPHTH SOLN OU SCH ×2 (09:01→21:25)
[2022-03-24] MEDS: FERROUS SULFATE 325 MG TAB PO SCH (09:02)
[2022-03-24] MEDS: TRIAMTER/HCTZ 37.5-25 MG TAB PO SCH (09:02)
--- NOTE | 2022-03-24 10:13 | Progress Note ---
Subjective Date of service: 03/24/22 Principal diagnosis: MDD Subjective Comment: The patient was seen today. He is sitting in the dayroom. He's more pleasant today than yesterday. He says he's a little tired. He denies SI/HI or hallucinations of any kind. 03/23 The patient was seen today. He is irritable and tells me to go back where I came from. He says "I don't want to be bothered." I ask him how was he feeling, he replies "I'm not going to tell you." He then says "I'm alright." When asking the patient was he having thoughts of self harm, he says "no, there's nothing in here to hurt myself." I ask him if there were something to hurt himself would he use it. The patient becomes angry and shouts "you heard what I said." He denies homicidal ideation. He also denies hallucinations. Staff says the patient's moods have been up and down. The patient also appears to have some passive thoughts of suicide. Will adjust depakote to improve mood. 03/22 The patient was seen today. He is lying in bed resting. He is irritable at me talking to him, but cooperative. I ask him how was he feeling this morning. He replies "pretty well, lashonda sky." He denies SI/HI or hallucinations of any kind. 03/21 The patient was seen today. He is lying in bed awake. He says he's "not doing too hot" because he's in here. He then asked why was he here. I reminded the patient that he had climbed on top of the roof at his living place. He says "I climbed up there. I wanted to leave and get away from yall." He says "I sure did." He denies SI/HI or hallucinations. 03/20 The patient was seen today. He is lying in bed awake. He says he's doing pretty good and he slept well. The patient says he came [facility] but didn't remember why he came, he says. He denies SI/HI. He says "where did that question come from." He also denies hallucinations. REVIEW OF SYSTEMS Constitutional: Negative for weight loss ENT: Negative for stridor Respiratory: Negative for cough or hemoptysis All other systems reviewed and are negative MENTAL STATUS EXAMINATION General Appearance and Behavior: Age appropriate, good hygiene, wearing appropriate clothes, good eye contact, calm, cooperative Cooperation: Participating/engaged, but Guarded Psychomotor Behavior: Psychomotor normal Mood: "pretty good" Affect and affective range: congruent with stated mood Thought Process: Goal directed Thought Content: Reality oriented Speech: normal tone and pace Suicidal Ideation: Passive Homicidal Ideation: Denies Hallucinations: Denies Delusions: None Impulse Control: Limited Insight and Judgment: Limited insight and judgment Memory: Limited Attention: attentive Orientation: Alert, oriented Diagnoses: Dementia with behavioral disturbances Treatment Plan Patient admitted for inpatient psychiatric evaluation, medication adjustment and close monitoring The patient's behavior, mood, sleep and appetite will be closely monitored. Patient enrolled in individual and group therapeutic sessions and encouraged to attend. Patient provided with a safe and structured environment. Patient's physical health needs will be addressed by the Hospitalist. Hospitalist Consulted Labs including CBC, CMP, Lipid profile and Hemoglobin A1C levels ordered for baseline reference Social Assessment will be completed and the Nsh Teacher will work with patient and family to ensure a suitable and safe disposition Medication adjustment will be made as clinically indicated Increase Depakote 125mg po TID yesterday No changes today Usual Wellness Scientologist/Preservation: - Start Trazodone 50 mg po QHS & 50 mg po QHS PRN between 10 PM & 2 AM for insomnia - Start Melatonin 5 mg po QHS to promote circadian rhythm The patient agreed on the treatment plan, understood the risk, benefit, alternative treatment, potential consequence of no treatment, and gave informed consent. Estimated days:6 Post hospital care: primary care provider, psychiatric provider Case staffed with Dr. Hwang Medications and Allergies Allergies Allergy/AdvReac Type Severity Reaction Status Date / Time No Known Allergies Allergy Unverified 03/17/22 17:19 Home Medications Medication Instructions Recorded Confirmed Last Taken Type Divalproex Sodium [Depakote 125 mg PO BID 03/18/22 03/18/22 Unknown History Sprinkle] Dorzolamide HCl/Timolol Maleat 10 ml OP HS 03/18/22 03/18/22 Unknown History [Dorzolamide-Timolol Eye Drops] Ferrous Sulfate [Iron 325 MG] 325 mg PO DAILY 03/18/22 03/18/22 Unknown History Hydralazine HCl 50 mg PO TID 03/18/22 03/18/22 Unknown History Insulin Lispro [Admelog] See Protocol SQ ACHS 03/18/22 03/18/22 Unknown History Lactulose [Cephulac] 20 gm PO TID PRN 03/18/22 03/18/22 Unknown History Levothyroxine Sodium [Synthroid] 200 mcg PO DAILY 03/18/22 03/18/22 Unknown History Melatonin [Melatonin 3MG TAB] 3 mg PO HS 03/18/22 03/18/22 Unknown History Pioglitazone HCl [Actos] 30 mg PO DAILY 03/18/22 03/18/22 Unknown History Triamter/Hctz 37.5-25 mg 1 tab PO QDAY 03/18/22 03/18/22 Unknown History [Maxzide-25] amLODIPine [Norvasc] 10 mg PO DAILY 03/18/22 03/18/22 Unknown History glipiZIDE [Glucotrol] 5 mg PO QDAY 03/18/22 03/18/22 Unknown History Active Meds: Active Medications Brimonidine/Timolol (Combigan 0.2-0.5% [facility]) 1 drops OU Q12HR [facility] Last Admin: 03/24/22 09:01 Dose: 1 drops Divalproex Sodium (Divalproex Sprinkle 125 Mg Cap) 125 mg PO TID [facility] Last Admin: 03/24/22 08:21 Dose: 125 mg Ferrous Sulfate (Ferrous Sulfate 325 Mg Tab) 325 mg PO DAILY [facility] Last Admin: 03/24/22 09:02 Dose: 325 mg Glipizide (Glipizide Xl 2.5 Mg Tab) 2.5 mg PO DAILY@0800 [facility] Last Admin: 03/24/22 08:21 Dose: 2.5 mg Hydralazine HCl (Hydralazine 25 Mg Tab) 50 mg PO Q8HR [facility] Last Admin: 03/24/22 07:01 Dose: 50 mg Insulin Human Lispro (Insulin Lispro 100 Unit/Ml) 0 unit SUB-Q [facility]; Protocol Last Admin: 03/24/22 07:21 Dose: 2 unit Lactulose (Lactulose 20 Gm/30 Ml Oral Liqd) 20 gm PO TID PRN PRN Reason: Edema Levothyroxine Sodium (Levothyroxine 100 Mcg Tab) 200 mcg PO DAILY@0600 [facility] Last Admin: 03/24/22 07:02 Dose: 200 mcg Melatonin (Melatonin 5 Mg Tab) 5 mg PO QHS [facility] Last Admin: 03/23/22 21:38 Dose: 5 mg Olanzapine (Olanzapine 2.5 Mg Tab) 2.5 mg PO QHS [facility] Last Admin: 03/23/22 21:38 Dose: 2.5 mg Trazodone HCl (Trazodone 50 Mg Tab) 50 mg PO QHS [facility] Last Admin: 03/23/22 21:37 Dose: 50 mg Triamterene/Hydrochlorothiazide (Triamter/Hctz 37.5-25 Mg Tab) 1 each PO QDAY [facility] Last Admin: 03/24/22 09:02 Dose: 1 each Ziprasidone (Ziprasidone Mesylate 20 Mg Vial) 20 mg IM Q4H PRN PRN Reason: Agitation Results - Results Labs/Vitals: Laboratory Last Values WBC 6.3 K/mm3 (4.5-11.0) 03/18/22 17:18 RBC 4.33 M/mm3 (3.65-5.03) 03/18/22 17:18 Hgb 11.8 gm/dl (11.8-15.2) 03/18/22 17:18 Hct 35.4 % (35.5-45.6) L 03/18/22 17:18 MCV 82 fl (84-94) L 03/18/22 17:18 MCH 27 pg (28-32) L 03/18/22 17:18 MCHC 33 % (32-34) 03/18/22 17:18 RDW 16.0 % (13.2-15.2) H 03/18/22 17:18 Plt Count 270 K/mm3 (140-440) 03/18/22 17:18 Lymph % (Auto) 27.9 % (13.4-35.0) 03/18/22 17:18 [place] % (Auto) 11.1 % (0.0-7.3) H 03/18/22 17:18 Eos % (Auto) 1.8 % (0.0-4.3) 03/18/22 17:18 Baso % (Auto) 1.1 % (0.0-1.8) 03/18/22 17:18 Lymph # (Auto) 1.8 K/mm3 (1.2-5.4) 03/18/22 17:18 [place] # (Auto) 0.7 K/mm3 (0.0-0.8) 03/18/22 17:18 Eos # (Auto) 0.1 K/mm3 (0.0-0.4) 03/18/22 17:18 Baso # (Auto) 0.1 K/mm3 (0.0-0.1) 03/18/22 17:18 Seg Neutrophils % 58.1 % (40.0-70.0) 03/18/22 17:18 Seg Neutrophils # 3.7 K/mm3 (1.8-7.7) 03/18/22 17:18 Sodium 139 mmol/L (137-145) 03/18/22 17:18 Potassium 3.8 mmol/L (3.6-5.0) 03/18/22 17:18 Chloride 103.4 mmol/L (98-107) 03/18/22 17:18 Carbon Dioxide 20 mmol/L (22-30) L 03/18/22 17:18 Anion Gap 19 mmol/L 03/18/22 17:18 BUN 52 mg/dL (9-20) H 03/18/22 17:18 Creatinine 2.9 mg/dL (0.8-1.3) H 03/18/22 17:18 Estimated GFR 21 ml/min 03/18/22 17:18 BUN/Creatinine Ratio 18 % 03/18/22 17:18 Glucose 63 mg/dL (75-100) L 03/18/22 17:18 POC Glucose 303 mg/dL (70-105) H 03/23/22 19:50 Hemoglobin A1c 8.5 % (4-6) H 03/18/22 17:18 Calcium 9.3 mg/dL (8.4-10.2) 03/18/22 17:18 Total Bilirubin 0.20 mg/dL (0.1-1.2) 03/18/22 17:18 AST 16 units/L (5-40) 03/18/22 17:18 ALT 8 units/L (7-56) 03/18/22 17:18 Alkaline Phosphatase 76 units/L (35-129) 03/18/22 17:18 Total Protein 7.3 g/dL (6.3-8.2) 03/18/22 17:18 Albumin 4.5 g/dL (3.9-5) 03/18/22 17:18 Albumin/Globulin Ratio 1.6 % 03/18/22 17:18 Triglycerides 69 mg/dL (2-149) 03/18/22 17:18 Cholesterol 230 mg/dL (50-199) H 03/18/22 17:18 LDL Cholesterol Direct 134 mg/dL (50-130) H 03/18/22 17:18 HDL Cholesterol 74 mg/dL (40-59) H 03/18/22 17:18 Cholesterol/HDL Ratio 3.10 % 03/18/22 17:18 TSH 1.190 mlU/mL (0.270-4.200) 03/18/22 17:18 Last Vital Signs Temp 97.3 F L 03/24/22 07:48 Pulse 92 H 03/24/22 07:48 Resp 16 03/24/22 07:48 BP 111/59 03/24/22 07:48 Pulse Ox 98 03/24/22 07:48
--- NOTE | 2022-03-24 21:04 | Progress Note ---
Assessment and Plan - Patient Problems (1) Vascular dementia with behavioral disturbance Current Visit: Yes Status: Acute Plan to address problem: Verbal prompting, verbal redirection, benzodiazepine therapy as clinically indicated. (2) Cerebral atherosclerosis Current Visit: Yes Status: Acute Plan to address problem: Risk factor reduction, antiplatelet therapy as clinically indicated. (3) Hypertension Current Visit: Yes Status: Acute Qualifiers: Hypertension type: primary hypertension Qualified Code(s): I10 - Essential (primary) hypertension Plan to address problem: Monitor blood pressure every shift, continue medical management. (4) Diabetes Current Visit: Yes Status: Acute Plan to address problem: Consult to help with carbohydrate diet, Accu-Chek, insulin protocol, hypoglycemia protocol. (5) Hyperlipidemia Current Visit: Yes Status: Acute Qualifiers: Hyperlipidemia type: mixed hyperlipidemia Qualified Code(s): E78.2 - Mixed hyperlipidemia Plan to address problem: Low-cholesterol diet, statin therapy as clinically indicated. (6) Hypothyroidism Current Visit: Yes Status: Acute Plan to address problem: Continue Synthroid therapy, supportive care. (7) Advance care planning Current Visit: Yes Status: Acute Plan to address problem: Disease education data, care plan discussed, diagnosis discussed, prognosis discussed, +30 minutes. History Interval history: 80 YO Male with Vascular Dementia with Behavioral Disturbance, Cerebral Atherosclerosis, DM, HTN, HLD, Hypothyroidism. Pt is admitted to [facility] psych unit for psychiatric stabilization. Consult placed by Dr. Frankel for medical management. Patient seen and evaluated in the isolation room. Patient resting. Patient exhibits tangential thinking with diminished cognition and intermittent agitation. No reported nursing events. Patient remains at baseline level of cognition and function. Hospitalist Physical - Constitutional Vitals: Temp Pulse Resp BP Pulse Ox 97.3 F L 100 H 16 115/63 100 03/24/22 07:48 03/24/22 13:22 03/24/22 07:48 03/24/22 14:53 03/24/22 13:22 General appearance: Present: no acute distress, well-nourished, other (Cheerful today) - EENT Eyes: Present: PERRL ENT: hearing decreased - Neck Neck: Present: supple - Respiratory Respiratory effort: normal Respiratory: bilateral: diminished - Cardiovascular Rhythm: regular Heart Sounds: Present: S1 & S2 - Extremities Extremities: no ischemia Peripheral Pulses: within normal limits - Abdominal General gastrointestinal: soft, non-tender, non-distended - Integumentary Integumentary: Present: clear, dry - Psychiatric Psychiatric: cooperative, agitated - Neurologic Neurologic: CNII-XII intact Results - Labs CBC & Chem 7: 03/18/22 17:18 03/18/22 17:18 Labs: Laboratory Last Values WBC 6.3 K/mm3 (4.5-11.0) 03/18/22 17:18 RBC 4.33 M/mm3 (3.65-5.03) 03/18/22 17:18 Hgb 11.8 gm/dl (11.8-15.2) 03/18/22 17:18 Hct 35.4 % (35.5-45.6) L 03/18/22 17:18 MCV 82 fl (84-94) L 03/18/22 17:18 MCH 27 pg (28-32) L 03/18/22 17:18 MCHC 33 % (32-34) 03/18/22 17:18 RDW 16.0 % (13.2-15.2) H 03/18/22 17:18 Plt Count 270 K/mm3 (140-440) 03/18/22 17:18 Lymph % (Auto) 27.9 % (13.4-35.0) 03/18/22 17:18 [place] % (Auto) 11.1 % (0.0-7.3) H 03/18/22 17:18 Eos % (Auto) 1.8 % (0.0-4.3) 03/18/22 17:18 Baso % (Auto) 1.1 % (0.0-1.8) 03/18/22 17:18 Lymph # (Auto) 1.8 K/mm3 (1.2-5.4) 03/18/22 17:18 [place] # (Auto) 0.7 K/mm3 (0.0-0.8) 03/18/22 17:18 Eos # (Auto) 0.1 K/mm3 (0.0-0.4) 03/18/22 17:18 Baso # (Auto) 0.1 K/mm3 (0.0-0.1) 03/18/22 17:18 Seg Neutrophils % 58.1 % (40.0-70.0) 03/18/22 17:18 Seg Neutrophils # 3.7 K/mm3 (1.8-7.7) 03/18/22 17:18 Sodium 139 mmol/L (137-145) 03/18/22 17:18 Potassium 3.8 mmol/L (3.6-5.0) 03/18/22 17:18 Chloride 103.4 mmol/L (98-107) 03/18/22 17:18 Carbon Dioxide 20 mmol/L (22-30) L 03/18/22 17:18 Anion Gap 19 mmol/L 03/18/22 17:18 BUN 52 mg/dL (9-20) H 03/18/22 17:18 Creatinine 2.9 mg/dL (0.8-1.3) H 03/18/22 17:18 Estimated GFR 21 ml/min 03/18/22 17:18 BUN/Creatinine Ratio 18 % 03/18/22 17:18 Glucose 63 mg/dL (75-100) L 03/18/22 17:18 POC Glucose 82 mg/dL (70-105) 03/24/22 17:48 Hemoglobin A1c 8.5 % (4-6) H 03/18/22 17:18 Calcium 9.3 mg/dL (8.4-10.2) 03/18/22 17:18 Total Bilirubin 0.20 mg/dL (0.1-1.2) 03/18/22 17:18 AST 16 units/L (5-40) 03/18/22 17:18 ALT 8 units/L (7-56) 03/18/22 17:18 Alkaline Phosphatase 76 units/L (35-129) 03/18/22 17:18 Total Protein 7.3 g/dL (6.3-8.2) 03/18/22 17:18 Albumin 4.5 g/dL (3.9-5) 03/18/22 17:18 Albumin/Globulin Ratio 1.6 % 03/18/22 17:18 Triglycerides 69 mg/dL (2-149) 03/18/22 17:18 Cholesterol 230 mg/dL (50-199) H 03/18/22 17:18 LDL Cholesterol Direct 134 mg/dL (50-130) H 03/18/22 17:18 HDL Cholesterol 74 mg/dL (40-59) H 03/18/22 17:18 Cholesterol/HDL Ratio 3.10 % 03/18/22 17:18 TSH 1.190 mlU/mL (0.270-4.200) 03/18/22 17:18 Chan/IV: Voiding Method Toilet Active Medications - Current Medications Current Medications: Generic Name Dose Route Start Last Admin Trade Name Freq PRN Reason Stop Dose Admin Brimonidine/Timolol 1 drops 03/18/22 12:00 03/24/22 09:01 Combigan 0.2-0.5% Ophth Soln OU 1 drops Q12HR [facility] Administration Divalproex Sodium 125 mg 03/23/22 14:00 03/24/22 20:42 Divalproex Sprinkle 125 Mg Cap PO 125 mg TID [facility] Administration Ferrous Sulfate 325 mg 03/18/22 10:00 03/24/22 09:02 Ferrous Sulfate 325 Mg Tab PO 325 mg DAILY [facility] Administration Glipizide 2.5 mg 03/22/22 08:00 03/24/22 08:21 Glipizide Xl 2.5 Mg Tab PO 2.5 mg DAILY@0800 [facility] Administration Hydralazine HCl 50 mg 03/18/22 10:00 03/24/22 14:53 Hydralazine 25 Mg Tab PO Not Given Q8HR [facility] Insulin Human Lispro 0 unit 03/18/22 11:30 03/24/22 17:20 Insulin Lispro 100 Unit/Ml SUB-Q Not Given ACHS [facility] Protocol Lactulose 20 gm 03/18/22 10:00 Lactulose 20 Gm/30 Ml Oral Liqd PO TID PRN Edema Levothyroxine Sodium 200 mcg 03/19/22 06:00 03/24/22 07:02 Levothyroxine 100 Mcg Tab PO 200 mcg DAILY@0600 [facility] Administration Melatonin 5 mg 03/18/22 22:00 03/23/22 21:38 Melatonin 5 Mg Tab PO 5 mg QHS [facility] Administration Olanzapine 2.5 mg 03/18/22 22:00 03/23/22 21:38 Olanzapine 2.5 Mg Tab PO 2.5 mg QHS [facility] Administration Trazodone HCl 50 mg 03/18/22 22:00 03/23/22 21:37 Trazodone 50 Mg Tab PO 50 mg QHS [facility] Administration Triamterene/Hydrochlorothiazide 1 each 03/18/22 10:00 03/24/22 09:02 Triamter/Hctz 37.5-25 Mg Tab PO 1 each QDAY [facility] Administration Ziprasidone 20 mg 03/18/22 10:00 Ziprasidone Mesylate 20 Mg Vial IM Q4H PRN Agitation Nutrition/Malnutrition Assess - Dietary Evaluation Nutrition/Malnutrition Findings: Nutrition Notes Start: 03/18/22 16:11 Freq: Status: Active Protocol: Document 03/18/22 16:11 KAM (Rec: 03/18/22 16:33 KAM [id number]) Nutrition Notes Need for Assessment generated from: MD Order Initial or Follow up Assessment Other Pertinent Diagnosis Dementia with Behivoral Disturbance. Current Diet Cardiac/Consistent Carbohydrates -Chopped Meats- Diet (since B 03/18). Labs/Tests 03/18: POC Glu 206. Pertinent Medications 03/18: Humalog 3 U, Levothyroxine, others nutritionally unremarkable. Height 5 ft 8 in Weight 72.121 kg [place] Body Weight (kg) 70.00 BMI 24.1 Intake Prior to Admission Poor Weight change and time frame Pt states not having loss body weight [employer]. Weight Status Appropriate Subjective/Other Information RD consult for Poor Oral Intake and Dietary Supplementation assessments. Pt's PO intake of meals has been Good (100%), according to ADL notes. Pt complaints that was not able to chew his apple, and RN replaced it with pureed apple , which Pt finished up. I will recommend mechanical modification to Pt's diet to facilitate PO intake of meals. I will not order Dietary Supplementation, since it is not necessary for this Pt at the time, according to ADL notes. Pt is on Room Air, O2 saturation @ 97%, according to Physical Assessment History notes. Pt presents unspecified skin dryness, according to Physical Assessment History notes. Percent of energy/protein needs met: Prescribed Cardiac/Consistent Carbohydrates Diet provides for energy/protein needs (1, 977 Kcal/86 g) during LOS. Burn Absent Trauma Absent GI Symptoms None Difficulty In Chewing Food Allergy No Skin Integrity/Comment Unspecified Dryness. Current % PO Good (75-100%) Minimum of two criteria No #1 Nutrition Diagnosis Biting/Chewing (masticatory) difficulty Etiology Uncertain. As Evidenced by Signs and Symptoms Pt complaints that was not able to chew his apple, and RN replaced it with pureed apple , which Pt finished up. Is patient on ventilator? No Is Patient Ambulatory and/or Out of Bed No REE-([place]-confined to bed) 1670.052 Kcal/Kg value to use for calculation 26 Approximate Energy Requirements Using 1875 kcal/Kg Calculation Used for Recommendations Kcal/kg Additional Notes Protein: 1-1.2 g/Kg ABW; 72-86 g/day. Fluids: 1 ml/Kcal, or as per MD. Nutrition Intervention Change Diet Order: Modify to Cardiac/Consistent Carbohydrates -Chopped Meats- Diet. Goal #1 Facilitate PO intake of meals with elemental, textural, or mechanical modification during LOS. Goal #2 Maintain body weight within +/ -3% of admission body weight during LOS. Follow-Up By: 03/25/22 Additional Comments Continue monitoring food tolerance, %PO intake of meals , and BM.
[2022-03-24] MEDS: traZODone 50 MG TAB PO SCH (21:26)
[2022-03-24] MEDS: MELATONIN 5 MG TAB PO SCH (21:27)
[2022-03-25] MEDS: LEVOTHYROXINE 100 MCG TAB PO SCH ×3 (06:20→09:06)
[2022-03-25] MEDS: hydrALAZINE 25 MG TAB PO SCH ×3 (06:21→21:29)
[2022-03-25] MEDS: INSULIN LISPRO 100 UNIT/ML SUB-Q SCH ×4 (08:47→21:32)
[2022-03-25] MEDS: DIVALPROEX SPRINKLE 125 MG CAP PO SCH ×3 (08:52→20:17)
[2022-03-25] MEDS: FERROUS SULFATE 325 MG TAB PO SCH (09:02)
[2022-03-25] MEDS: COMBIGAN 0.2-0.5% OPHTH SOLN OU SCH ×2 (09:06→21:29)
[2022-03-25] MEDS: TRIAMTER/HCTZ 37.5-25 MG TAB PO SCH (09:08)
--- NOTE | 2022-03-25 10:12 | Progress Note ---
Subjective Date of service: 03/25/22 Principal diagnosis: MDD Subjective Comment: The patient was seen today. He is calm and cooperative. He says he slept well and feels okay. He denies SI/HI or hallucinations. The patient says he does not want to go back to his previous place of residence. The is coordinating his discharge to ensure the patient discharges to a safe place. 03/24 The patient was seen today. He is sitting in the dayroom. He's more pleasant today than yesterday. He says he's a little tired. He denies SI/HI or hallucinations of any kind. 03/23 The patient was seen today. He is irritable and tells me to go back where I came from. He says "I don't want to be bothered." I ask him how was he feeling, he replies "I'm not going to tell you." He then says "I'm alright." When asking the patient was he having thoughts of self harm, he says "no, there's nothing in here to hurt myself." I ask him if there were something to hurt himself would he use it. The patient becomes angry and shouts "you heard what I said." He denies homicidal ideation. He also denies hallucinations. Staff says the patient's moods have been up and down. The patient also appears to have some passive thoughts of suicide. Will adjust depakote to improve mood. 03/22 The patient was seen today. He is lying in bed resting. He is irritable at me talking to him, but cooperative. I ask him how was he feeling this morning. H e replies "pretty well, lashonda sky." He denies SI/HI or hallucinations of any kind. 03/21 The patient was seen today. He is lying in bed awake. He says he's "not doing too hot" because he's in here. He then asked why was he here. I reminded the patient that he had climbed on top of the roof at his living place. He says "I climbed up there. I wanted to leave and get away from yall." He says "I sure did." He denies SI/HI or hallucinations. 03/20 The patient was seen today. He is lying in bed awake. He says he's doing pretty good and he slept well. The patient [facility] but didn't remember why he came, he says. He denies SI/HI. He says "where did that question come from." He also denies hallucinations. REVIEW OF SYSTEMS Constitutional: Negative for weight loss ENT: Negative for stridor Respiratory: Negative for cough or hemoptysis All other systems reviewed and are negative MENTAL STATUS EXAMINATION General Appearance and Behavior: Age appropriate, good hygiene, wearing appropriate clothes, good eye contact, calm, cooperative Cooperation: Participating/engaged, but Guarded Psychomotor Behavior: Psychomotor normal Mood: "pretty good" Affect and affective range: congruent with stated mood Thought Process: Goal directed Thought Content: Reality oriented Speech: normal tone and pace Suicidal Ideation: Passive Homicidal Ideation: Denies Hallucinations: Denies Delusions: None Impulse Control: Limited Insight and Judgment: Limited insight and judgment Memory: Limited Attention: attentive Orientation: Alert, oriented Diagnoses: Dementia with behavioral disturbances Treatment Plan Patient admitted for inpatient psychiatric evaluation, medication adjustment and close monitoring The patient's behavior, mood, sleep and appetite will be closely monitored. Patient enrolled in individual and group therapeutic sessions and encouraged to attend. Patient provided with a safe and structured environment. Patient's physical health needs will be addressed by the Hospitalist. Hospitalist Consulted Labs including CBC, CMP, Lipid profile and Hemoglobin A1C levels ordered for baseline reference Social Assessment will be completed and the Senior Business Objects Developer will work with patient and family to ensure a suitable and safe disposition Medication adjustment will be made as clinically indicated Depakote 125mg po TID No changes today Usual Wellness Religious/Preservation: - Start Trazodone 50 mg po QHS & 50 mg po QHS PRN between 10 PM & 2 AM for insomnia - Start Melatonin 5 mg po QHS to promote circadian rhythm The patient agreed on the treatment plan, understood the risk, benefit, alternative treatment, potential consequence of no treatment, and gave informed consent. Estimated days:6 Post hospital care: primary care provider, psychiatric provider Case staffed with Dr. Hwang Medications and Allergies Allergies Allergy/AdvReac Type Severity Reaction Status Date / Time No Known Allergies Allergy Unverified 03/17/22 17:19 Home Medications Medication Instructions Recorded Confirmed Last Taken Type Divalproex Sodium [Depakote 125 mg PO BID 03/18/22 03/18/22 Unknown History Sprinkle] Dorzolamide HCl/Timolol Maleat 10 ml OP HS 03/18/22 03/18/22 Unknown History [Dorzolamide-Timolol Eye Drops] Ferrous Sulfate [Iron 325 MG] 325 mg PO DAILY 03/18/22 03/18/22 Unknown History Hydralazine HCl 50 mg PO TID 03/18/22 03/18/22 Unknown History Insulin Lispro [Admelog] See Protocol SQ ACHS 03/18/22 03/18/22 Unknown History Lactulose [Cephulac] 20 gm PO TID PRN 03/18/22 03/18/22 Unknown History Levothyroxine Sodium [Synthroid] 200 mcg PO DAILY 03/18/22 03/18/22 Unknown History Melatonin [Melatonin 3MG TAB] 3 mg PO HS 03/18/22 03/18/22 Unknown History Pioglitazone HCl [Actos] 30 mg PO DAILY 03/18/22 03/18/22 Unknown History Triamter/Hctz 37.5-25 mg 1 tab PO QDAY 03/18/22 03/18/22 Unknown History [Maxzide-25] amLODIPine [Norvasc] 10 mg PO DAILY 03/18/22 03/18/22 Unknown History glipiZIDE [Glucotrol] 5 mg PO QDAY 03/18/22 03/18/22 Unknown History Active Meds: Active Medications Brimonidine/Timolol (Combigan 0.2-0.5% [facility]) 1 drops OU Q12HR [facility] Last Admin: 03/25/22 09:06 Dose: 1 drops Divalproex Sodium (Divalproex Sprinkle 125 Mg Cap) 125 mg PO TID [facility] Last Admin: 03/25/22 08:52 Dose: 125 mg Ferrous Sulfate (Ferrous Sulfate 325 Mg Tab) 325 mg PO DAILY [facility] Last Admin: 03/25/22 09:02 Dose: 325 mg Glipizide (Glipizide Xl 2.5 Mg Tab) 2.5 mg PO DAILY@0800 [facility] Last Admin: 03/25/22 08:50 Dose: Not Given Hydralazine HCl (Hydralazine 25 Mg Tab) 50 mg PO Q8HR [facility] Last Admin: 03/25/22 06:21 Dose: Not Given Insulin Human Lispro (Insulin Lispro 100 Unit/Ml) 0 unit SUB-Q ACHS [facility]; Protocol Last Admin: 03/25/22 08:47 Dose: Not Given Lactulose (Lactulose 20 Gm/30 Ml Oral Liqd) 20 gm PO TID PRN PRN Reason: Edema Levothyroxine Sodium (Levothyroxine 100 Mcg Tab) 200 mcg PO DAILY@0600 [facility] Last Admin: 03/25/22 09:06 Dose: 200 mcg Melatonin (Melatonin 5 Mg Tab) 5 mg PO QHS [facility] Last Admin: 03/24/22 21:27 Dose: 5 mg Olanzapine (Olanzapine 2.5 Mg Tab) 2.5 mg PO QHS [facility] Last Admin: 03/24/22 21:27 Dose: 2.5 mg Trazodone HCl ([facility] 50 Mg Tab) [facility] Last Admin: 03/24/22 21:26 Dose: 50 mg Triamterene/Hydrochlorothiazide (Triamter/Hctz 37.5-25 Mg Tab) 1 each PO QDAY [facility] Last Admin: 03/25/22 09:08 Dose: 1 each Ziprasidone (Ziprasidone Mesylate 20 Mg Vial) 20 mg IM Q4H PRN PRN Reason: Agitation Results - Results Labs/Vitals: Laboratory Last Values WBC 6.3 K/mm3 (4.5-11.0) 03/18/22 17:18 RBC 4.33 M/mm3 (3.65-5.03) 03/18/22 17:18 Hgb 11.8 gm/dl (11.8-15.2) 03/18/22 17:18 Hct 35.4 % (35.5-45.6) L 03/18/22 17:18 MCV 82 fl (84-94) L 03/18/22 17:18 MCH 27 pg (28-32) L 03/18/22 17:18 MCHC 33 % (32-34) 03/18/22 17:18 RDW 16.0 % (13.2-15.2) H 03/18/22 17:18 Plt Count 270 K/mm3 (140-440) 03/18/22 17:18 Lymph % (Auto) 27.9 % (13.4-35.0) 03/18/22 17:18 [place] % (Auto) 11.1 % (0.0-7.3) H 03/18/22 17:18 Eos % (Auto) 1.8 % (0.0-4.3) 03/18/22 17:18 Baso % (Auto) 1.1 % (0.0-1.8) 03/18/22 17:18 Lymph # (Auto) 1.8 K/mm3 (1.2-5.4) 03/18/22 17:18 [place] # (Auto) 0.7 K/mm3 (0.0-0.8) 03/18/22 17:18 Eos # (Auto) 0.1 K/mm3 (0.0-0.4) 03/18/22 17:18 Baso # (Auto) 0.1 K/mm3 (0.0-0.1) 03/18/22 17:18 Seg Neutrophils % 58.1 % (40.0-70.0) 03/18/22 17:18 Seg Neutrophils # 3.7 K/mm3 (1.8-7.7) 03/18/22 17:18 Sodium 139 mmol/L (137-145) 03/18/22 17:18 Potassium 3.8 mmol/L (3.6-5.0) 03/18/22 17:18 Chloride 103.4 mmol/L (98-107) 03/18/22 17:18 Carbon Dioxide 20 mmol/L (22-30) L 03/18/22 17:18 Anion Gap 19 mmol/L 03/18/22 17:18 BUN 52 mg/dL (9-20) H 03/18/22 17:18 Creatinine 2.9 mg/dL (0.8-1.3) H 03/18/22 17:18 Estimated GFR 21 ml/min 03/18/22 17:18 BUN/Creatinine Ratio 18 % 03/18/22 17:18 Glucose 63 mg/dL (75-100) L 03/18/22 17:18 POC Glucose 113 mg/dL (70-105) H 03/24/22 19:41 Hemoglobin A1c 8.5 % (4-6) H 03/18/22 17:18 Calcium 9.3 mg/dL (8.4-10.2) 03/18/22 17:18 Total Bilirubin 0.20 mg/dL (0.1-1.2) 03/18/22 17:18 AST 16 units/L (5-40) 03/18/22 17:18 ALT 8 units/L (7-56) 03/18/22 17:18 Alkaline Phosphatase 76 units/L (35-129) 03/18/22 17:18 Total Protein 7.3 g/dL (6.3-8.2) 03/18/22 17:18 Albumin 4.5 g/dL (3.9-5) 03/18/22 17:18 Albumin/Globulin Ratio 1.6 % 03/18/22 17:18 Triglycerides 69 mg/dL (2-149) 03/18/22 17:18 Cholesterol 230 mg/dL (50-199) H 03/18/22 17:18 LDL Cholesterol Direct 134 mg/dL (50-130) H 03/18/22 17:18 HDL Cholesterol 74 mg/dL (40-59) H 03/18/22 17:18 Cholesterol/HDL Ratio 3.10 % 03/18/22 17:18 TSH 1.190 mlU/mL (0.270-4.200) 03/18/22 17:18 Last Vital Signs Temp 97.3 F L 03/24/22 07:48 Pulse 90 03/24/22 21:24 Resp 16 03/24/22 07:48 BP 168/85 03/24/22 21:24 Pulse Ox 100 03/24/22 13:22
[2022-03-25] MEDS: traZODone 50 MG TAB PO SCH (21:30)
[2022-03-25] MEDS: MELATONIN 5 MG TAB PO SCH (21:33)
[2022-03-26] MEDS: LEVOTHYROXINE 100 MCG TAB PO SCH ×2 (06:33→06:35)
[2022-03-26] MEDS: hydrALAZINE 25 MG TAB PO SCH ×3 (06:35→21:14)
[2022-03-26] MEDS: INSULIN LISPRO 100 UNIT/ML SUB-Q SCH ×4 (08:21→22:03)
--- NOTE | 2022-03-26 09:15 | Progress Note ---
Subjective Date of service: 03/26/22 Principal diagnosis: MDD Subjective Comment: The patient was seen today. He is sleeping, but easily arouses. His mood has been much better over the last few days since starting the depakote. He denies SI/HI or hallucinations of any kind. The patient is awaiting placement. 03/25 The patient was seen today. He is calm and cooperative. He says he slept well and feels okay. He denies SI/HI or hallucinations. The patient says he does not want to go back to his previous place of residence. The is coordinating his discharge to ensure the patient discharges to a safe place. 03/24 The patient was seen today. He is sitting in the dayroom. He's more pleasant today than yesterday. He says he's a little tired. He denies SI/HI or hallucinations of any kind. 03/23 The patient was seen today. He is irritable and tells me to go back where I came from. He says "I don't want to be bothered." I ask him how was he feeling, he replies "I'm not going to tell you." He then says "I'm alright." When asking the patient was he having thoughts of self harm, he says "no, there's nothing in here to hurt myself." I ask him if there were something to hurt himself would he use it. The patient becomes angry and shouts "you heard what I said." He denies homicidal ideation. He also denies hallucinations. Staff says the patient's moods have been up and down. The patient also appears to have some passive thoughts of suicide. Will adjust depakote to improve mood. 03/22 The patient was seen today. He is lying in bed resting. He is irritable at me talking to him, but cooperative. I ask him how was he feeling this morning. He replies "pretty well, lashonda sky." He denies SI/HI or hallucinations of any kind. 03/21 The patient was seen today. He is lying in bed awake. He says he's "not doing too hot" because he's in here. He then asked why was he here. I reminded the patient that he had climbed on top of the roof at his living place. He says "I climbed up there. I wanted to leave and get away from yall." He says "I sure did." He denies SI/HI or hallucinations. 03/20 The patient was seen today. He is lying in bed awake. He says he's doing pretty good and he slept well. The patient [facility] but didn't remember why he came, he says. He denies SI/HI. He says "where did that question come from." He also denies hallucinations. REVIEW OF SYSTEMS Constitutional: Negative for weight loss ENT: Negative for stridor Respiratory: Negative for cough or hemoptysis All other systems reviewed and are negative MENTAL STATUS EXAMINATION General Appearance and Behavior: Age appropriate, good hygiene, wearing appropriate clothes, good eye contact, calm, cooperative Cooperation: Participating/engaged, but Guarded Psychomotor Behavior: Psychomotor normal Mood: "pretty good" Affect and affective range: congruent with stated mood Thought Process: Goal directed Thought Content: Reality oriented Speech: normal tone and pace Suicidal Ideation: Passive Homicidal Ideation: Denies Hallucinations: Denies Delusions: None Impulse Control: Limited Insight and Judgment: Limited insight and judgment Memory: Limited Attention: attentive Orientation: Alert, oriented Diagnoses: Dementia with behavioral disturbances Treatment Plan Patient admitted for inpatient psychiatric evaluation, medication adjustment and close monitoring The patient's behavior, mood, sleep and appetite will be closely monitored. Patient enrolled in individual and group therapeutic sessions and encouraged to attend. Patient provided with a safe and structured environment. Patient's physical health needs will be addressed by the Hospitalist. Hospitalist Consulted Labs including CBC, CMP, Lipid profile and Hemoglobin A1C levels ordered for baseline reference Social Assessment will be completed and the [facility] will work with patient and family to ensure a suitable and safe disposition Medication adjustment will be made as clinically indicated Depakote 125mg po TID Usual Wellness Confucianist/Preservation: - Start Trazodone 50 mg po QHS & 50 mg po QHS PRN between 10 PM & 2 AM for insomnia - Start Melatonin 5 mg po QHS to promote circadian rhythm The patient agreed on the treatment plan, understood the risk, benefit, alternative treatment, potential consequence of no treatment, and gave informed consent. Estimated days:6 Post hospital care: primary care provider, psychiatric provider Case staffed with Dr. Hwang Medications and Allergies Allergies Allergy/AdvReac Type Severity Reaction Status Date / Time No Known Allergies Allergy Unverified 03/17/22 17:19 Home Medications Medication Instructions Recorded Confirmed Last Taken Type Divalproex Sodium [Depakote 125 mg PO BID 03/18/22 03/18/22 Unknown History Sprinkle] Dorzolamide HCl/Timolol Maleat 10 ml OP HS 03/18/22 03/18/22 Unknown History [Dorzolamide-Timolol Eye Drops] Ferrous Sulfate [Iron 325 MG] 325 mg PO DAILY 03/18/22 03/18/22 Unknown History Hydralazine HCl 50 mg PO TID 03/18/22 03/18/22 Unknown History Insulin Lispro [Admelog] See Protocol SQ ACHS 03/18/22 03/18/22 Unknown History Lactulose [Cephulac] 20 gm PO TID PRN 03/18/22 03/18/22 Unknown History Levothyroxine Sodium [Synthroid] 200 mcg PO DAILY 03/18/22 03/18/22 Unknown History Melatonin [Melatonin 3MG TAB] 3 mg PO HS 03/18/22 03/18/22 Unknown History Pioglitazone HCl [Actos] 30 mg PO DAILY 03/18/22 03/18/22 Unknown History Triamter/Hctz 37.5-25 mg 1 tab PO QDAY 03/18/22 03/18/22 Unknown History [Maxzide-25] amLODIPine [Norvasc] 10 mg PO DAILY 03/18/22 03/18/22 Unknown History glipiZIDE [Glucotrol] 5 mg PO QDAY 03/18/22 03/18/22 Unknown History Active Meds: Active Medications Brimonidine/Timolol (Combigan 0.2-0.5% [facility]) 1 drops OU Q12HR [facility] Last Admin: 03/25/22 21:29 Dose: 1 drops Divalproex Sodium (Divalproex Sprinkle 125 Mg Cap) 125 mg PO TID [facility] Last Admin: 03/25/22 20:17 Dose: 125 mg Ferrous Sulfate (Ferrous Sulfate 325 Mg Tab) 325 mg PO DAILY [facility] Last Admin: 03/25/22 09:02 Dose: 325 mg Glipizide (Glipizide Xl 2.5 Mg Tab) 2.5 mg PO DAILY@0800 [facility] Last Admin: 03/25/22 08:50 Dose: Not Given Hydralazine HCl (Hydralazine 25 Mg Tab) 50 mg PO Q8HR [facility] Last Admin: 03/26/22 06:35 Dose: Not Given Insulin Human Lispro (Insulin Lispro 100 Unit/Ml) 0 unit SUB-Q ACHS [facility]; Protocol Last Admin: 03/26/22 08:21 Dose: Not Given Lactulose (Lactulose 20 Gm/30 Ml Oral Liqd) 20 gm PO TID PRN PRN Reason: Edema Levothyroxine Sodium (Levothyroxine 100 Mcg Tab) 200 mcg PO DAILY@0600 [facility] Last Admin: 03/26/22 06:35 Dose: Not Given Melatonin (Melatonin 5 Mg Tab) 5 mg PO QHS [facility] Last Admin: 03/25/22 21:33 Dose: 5 mg Olanzapine (Olanzapine 2.5 Mg Tab) 2.5 mg PO QHS [facility] Last Admin: 03/25/22 21:33 Dose: 2.5 mg Trazodone HCl (Trazodone 50 Mg Tab) 50 mg PO QHS [facility] Last Admin: 03/25/22 21:30 Dose: 50 mg Triamterene/Hydrochlorothiazide (Triamter/Hctz 37.5-25 Mg Tab) 1 each PO QDAY [facility] Last Admin: 03/25/22 09:08 Dose: 1 each Ziprasidone (Ziprasidone Mesylate 20 Mg Vial) 20 mg IM Q4H PRN PRN Reason: Agitation Results - Results Labs/Vitals: Laboratory Last Values WBC 6.3 K/mm3 (4.5-11.0) 03/18/22 17:18 RBC 4.33 M/mm3 (3.65-5.03) 03/18/22 17:18 Hgb 11.8 gm/dl (11.8-15.2) 03/18/22 17:18 Hct 35.4 % (35.5-45.6) L 03/18/22 17:18 MCV 82 fl (84-94) L 03/18/22 17:18 MCH 27 pg (28-32) L 03/18/22 17:18 MCHC 33 % (32-34) 03/18/22 17:18 RDW 16.0 % (13.2-15.2) H 03/18/22 17:18 Plt Count 270 K/mm3 (140-440) 03/18/22 17:18 Lymph % (Auto) 27.9 % (13.4-35.0) 03/18/22 17:18 [place] % (Auto) 11.1 % (0.0-7.3) H 03/18/22 17:18 Eos % (Auto) 1.8 % (0.0-4.3) 03/18/22 17:18 Baso % (Auto) 1.1 % (0.0-1.8) 03/18/22 17:18 Lymph # (Auto) 1.8 K/mm3 (1.2-5.4) 03/18/22 17:18 [place] # (Auto) 0.7 K/mm3 (0.0-0.8) 03/18/22 17:18 Eos # (Auto) 0.1 K/mm3 (0.0-0.4) 03/18/22 17:18 Baso # (Auto) 0.1 K/mm3 (0.0-0.1) 03/18/22 17:18 Seg Neutrophils % 58.1 % (40.0-70.0) 03/18/22 17:18 Seg Neutrophils # 3.7 K/mm3 (1.8-7.7) 03/18/22 17:18 Sodium 139 mmol/L (137-145) 03/18/22 17:18 Potassium 3.8 mmol/L (3.6-5.0) 03/18/22 17:18 Chloride 103.4 mmol/L (98-107) 03/18/22 17:18 Carbon Dioxide 20 mmol/L (22-30) L 03/18/22 17:18 Anion Gap 19 mmol/L 03/18/22 17:18 BUN 52 mg/dL (9-20) H 03/18/22 17:18 Creatinine 2.9 mg/dL (0.8-1.3) H 03/18/22 17:18 Estimated GFR 21 ml/min 03/18/22 17:18 BUN/Creatinine Ratio 18 % 03/18/22 17:18 Glucose 63 mg/dL (75-100) L 03/18/22 17:18 POC Glucose 177 mg/dL (70-105) H 03/25/22 16:31 Hemoglobin A1c 8.5 % (4-6) H 03/18/22 17:18 Calcium 9.3 mg/dL (8.4-10.2) 03/18/22 17:18 Total Bilirubin 0.20 mg/dL (0.1-1.2) 03/18/22 17:18 AST 16 units/L (5-40) 03/18/22 17:18 ALT 8 units/L (7-56) 03/18/22 17:18 Alkaline Phosphatase 76 units/L (35-129) 03/18/22 17:18 Total Protein 7.3 g/dL (6.3-8.2) 03/18/22 17:18 Albumin 4.5 g/dL (3.9-5) 03/18/22 17:18 Albumin/Globulin Ratio 1.6 % 03/18/22 17:18 Triglycerides 69 mg/dL (2-149) 03/18/22 17:18 Cholesterol 230 mg/dL (50-199) H 03/18/22 17:18 LDL Cholesterol Direct 134 mg/dL (50-130) H 03/18/22 17:18 HDL Cholesterol 74 mg/dL (40-59) H 03/18/22 17:18 Cholesterol/HDL Ratio 3.10 % 03/18/22 17:18 TSH 1.190 mlU/mL (0.270-4.200) 03/18/22 17:18 Last Vital Signs Temp 97.3 F L 03/24/22 07:48 Pulse 90 03/25/22 14:29 Resp 16 03/24/22 07:48 BP 145/69 03/25/22 14:29 Pulse Ox 100 03/24/22 13:22
[2022-03-26] MEDS: DIVALPROEX SPRINKLE 125 MG CAP PO SCH ×3 (09:40→21:15)
[2022-03-26] MEDS: TRIAMTER/HCTZ 37.5-25 MG TAB PO SCH (09:49)
[2022-03-26] MEDS: FERROUS SULFATE 325 MG TAB PO SCH (09:49)
[2022-03-26] MEDS: COMBIGAN 0.2-0.5% OPHTH SOLN OU SCH ×2 (09:49→21:26)
[2022-03-26] MEDS: MELATONIN 5 MG TAB PO SCH (21:13)
[2022-03-26] MEDS: traZODone 50 MG TAB PO SCH (21:14)
[2022-03-27] MEDS: hydrALAZINE 25 MG TAB PO SCH ×3 (05:35→22:58)
[2022-03-27] MEDS: LEVOTHYROXINE 100 MCG TAB PO SCH (05:38)
--- NOTE | 2022-03-27 11:13 | Progress Note ---
Subjective Date of service: 03/27/22 Principal diagnosis: MDD Subjective Comment: 03/27: The patient was seen this morning. He reports doing pretty good " I feel good." He denies depression. The patient denies any current suicidal/homicidal and denies hallucinations. No changes made today.The patient is awaiting placement. 03/26:The patient was seen today. He is sleeping, but easily arouses. His mood has been much better over the last few days since starting the depakote. He denies SI/HI or hallucinations of any kind. The patient is awaiting placement. 03/25 The patient was seen today. He is calm and cooperative. He says he slept well and feels okay. He denies SI/HI or hallucinations. The patient says he does not want to go back to his previous place of residence. The is coordinating his discharge to ensure the patient discharges to a safe place. 03/24 The patient was seen today. He is sitting in the dayroom. He's more pleasant today than yesterday. He says he's a little tired. He denies SI/HI or hallucinations of any kind. 03/23 The patient was seen today. He is irritable and tells me to go back where I came from. He says "I don't want to be bothered." I ask him how was he feeling, he replies "I'm not going to tell you." He then says "I'm alright." When asking the patient was he having thoughts of self harm, he says "no, there's nothing in here to hurt myself." I ask him if there were something to hurt himself would he use it. The patient becomes angry and shouts "you heard what I said." He denies homicidal ideation. He also denies hallucinations. Staff says the patient's moods have been up and down. The patient also appears to have some passive thoughts of suicide. Will adjust depakote to improve mood. 03/22 The patient was seen today. He is lying in bed resting. He is irritable at me talking to him, but cooperative. I ask him how was he feeling this morning. He replies "pretty well, lashonda sky." He denies SI/HI or hallucinations of any kind. 03/21 The patient was seen today. He is lying in bed awake. He says he's "not doing too hot" because he's in here. He then asked why was he here. I reminded the patient that he had climbed on top of the roof at his living place. He says "I climbed up there. I wanted to leave and get away from yall." He says "I sure did." He denies SI/HI or hallucinations. 03/20 The patient was seen today. He is lying in bed awake. He says he's doing pretty good and he slept well. The patient says he came from the senior care but didn't remember why he came, he says. He denies SI/HI. He says "where did that question come from." He also denies hallucinations. REVIEW OF SYSTEMS Constitutional: Negative for weight loss ENT: Negative for stridor Respiratory: Negative for cough or hemoptysis All other systems reviewed and are negative MENTAL STATUS EXAMINATION General Appearance and Behavior: Age appropriate, good hygiene, wearing appropriate clothes, good eye contact, calm, cooperative Cooperation: Participating/engaged, but Guarded Psychomotor Behavior: Psychomotor normal Mood: "pretty good" Affect and affective range: congruent with stated mood Thought Process: Goal directed Thought Content: Reality oriented Speech: normal tone and pace Suicidal Ideation: Denies Homicidal Ideation: Denies Hallucinations: Denies Delusions: None Impulse Control: Limited Insight and Judgment: Limited insight and judgment Memory: Limited Attention: attentive Orientation: Alert, oriented Diagnoses: Dementia with behavioral disturbances Treatment Plan Patient admitted for inpatient psychiatric evaluation, medication adjustment and close monitoring The patient's behavior, mood, sleep and appetite will be closely monitored. Patient enrolled in individual and group therapeutic sessions and encouraged to attend. Patient provided with a safe and structured environment. Patient's physical health needs will be addressed by the Hospitalist. Hospitalist Consulted Labs including CBC, CMP, Lipid profile and Hemoglobin A1C levels ordered for baseline reference Social Assessment will be completed and the [facility] will work with patient and family to ensure a suitable and safe disposition Medication adjustment will be made as clinically indicated Continue Depakote 125mg po TID Usual Wellness Hinduism/Preservation: - Start Trazodone 50 mg po QHS & 50 mg po QHS PRN between 10 PM & 2 AM for insomnia - Start Melatonin 5 mg po QHS to promote circadian rhythm The patient agreed on the treatment plan, understood the risk, benefit, alternative treatment, potential consequence of no treatment, and gave informed consent. Estimated days:6 Post hospital care: primary care provider, psychiatric provider Case staffed with Dr. Hwang Medications and Allergies Medications and Allergies Allergies Allergy/AdvReac Type Severity Reaction Status Date / Time No Known Allergies Allergy Unverified 03/17/22 17:19 Home Medications Medication Instructions Recorded Confirmed Last Taken Type Divalproex Sodium [Depakote 125 mg PO BID 03/18/22 03/18/22 Unknown History Sprinkle] Dorzolamide HCl/Timolol Maleat 10 ml OP HS 03/18/22 03/18/22 Unknown History [Dorzolamide-Timolol Eye Drops] Ferrous Sulfate [Iron 325 MG] 325 mg PO DAILY 03/18/22 03/18/22 Unknown History Hydralazine HCl 50 mg PO TID 03/18/22 03/18/22 Unknown History Insulin Lispro [Admelog] See Protocol SQ ACHS 03/18/22 03/18/22 Unknown History Lactulose [Cephulac] 20 gm PO TID PRN 03/18/22 03/18/22 Unknown History Levothyroxine Sodium [Synthroid] 200 mcg PO DAILY 03/18/22 03/18/22 Unknown History Melatonin [Melatonin 3MG TAB] 3 mg PO HS 03/18/22 03/18/22 Unknown History Pioglitazone HCl [Actos] 30 mg PO DAILY 03/18/22 03/18/22 Unknown History Triamter/Hctz 37.5-25 mg 1 tab PO QDAY 03/18/22 03/18/22 Unknown History [Maxzide-25] amLODIPine [Norvasc] 10 mg PO DAILY 03/18/22 03/18/22 Unknown History glipiZIDE [Glucotrol] 5 mg PO QDAY 03/18/22 03/18/22 Unknown History Active Meds: Active Medications Brimonidine/Timolol (Combigan 0.2-0.5% [facility]) 1 drops OU Q12HR [facility] Last Admin: 03/26/22 21:26 Dose: 1 drops Divalproex Sodium (Divalproex Sprinkle 125 Mg Cap) 125 mg PO TID [facility] Last Admin: 03/26/22 21:15 Dose: 125 mg Ferrous Sulfate (Ferrous Sulfate 325 Mg Tab) 325 mg PO DAILY [facility] Last Admin: 03/26/22 09:49 Dose: Not Given Glipizide (Glipizide Xl 2.5 Mg Tab) 2.5 mg PO DAILY@0800 [facility] Last Admin: 03/26/22 09:40 Dose: Not Given Hydralazine HCl (Hydralazine 25 Mg Tab) 50 mg PO Q8HR [facility] Last Admin: 03/27/22 05:35 Dose: Not Given Insulin Human Lispro (Insulin Lispro 100 Unit/Ml) 0 unit SUB-Q ACHS [facility] Last Admin: 03/26/22 22:03 Dose: 2 unit Lactulose (Lactulose 20 Gm/30 Ml Oral Liqd) 20 gm PO TID PRN PRN Reason: Edema Levothyroxine Sodium (Levothyroxine 100 Mcg Tab) 200 mcg PO DAILY@0600 [facility] Last Admin: 03/27/22 05:38 Dose: 200 mcg Melatonin (Melatonin 5 Mg Tab) 5 mg PO QHS [facility] Last Admin: 03/26/22 21:13 Dose: 5 mg Olanzapine (Olanzapine 2.5 Mg Tab) 2.5 mg PO QHS [facility] Last Admin: 03/26/22 21:14 Dose: 2.5 mg Trazodone HCl (Trazodone 50 Mg Tab) 50 mg PO QHS [facility] Last Admin: 03/26/22 21:14 Dose: 50 mg Triamterene/Hydrochlorothiazide (Triamter/Hctz 37.5-25 Mg Tab) 1 each PO QDAY [facility] Last Admin: 03/26/22 09:49 Dose: Not Given Ziprasidone (Ziprasidone Mesylate 20 Mg Vial) 20 mg IM Q4H PRN PRN Reason: Agitation Results - Results Labs/Vitals: Laboratory Last Values WBC 6.3 K/mm3 (4.5-11.0) 03/18/22 17:18 RBC 4.33 M/mm3 (3.65-5.03) 03/18/22 17:18 Hgb 11.8 gm/dl (11.8-15.2) 03/18/22 17:18 Hct 35.4 % (35.5-45.6) L 03/18/22 17:18 MCV 82 fl (84-94) L 03/18/22 17:18 MCH 27 pg (28-32) L 03/18/22 17:18 MCHC 33 % (32-34) 03/18/22 17:18 RDW 16.0 % (13.2-15.2) H 03/18/22 17:18 Plt Count 270 K/mm3 (140-440) 03/18/22 17:18 Lymph % (Auto) 27.9 % (13.4-35.0) 03/18/22 17:18 [place] % (Auto) 11.1 % (0.0-7.3) H 03/18/22 17:18 Eos % (Auto) 1.8 % (0.0-4.3) 03/18/22 17:18 Baso % (Auto) 1.1 % (0.0-1.8) 03/18/22 17:18 Lymph # (Auto) 1.8 K/mm3 (1.2-5.4) 03/18/22 17:18 [place] # (Auto) 0.7 K/mm3 (0.0-0.8) 03/18/22 17:18 Eos # (Auto) 0.1 K/mm3 (0.0-0.4) 03/18/22 17:18 Baso # (Auto) 0.1 K/mm3 (0.0-0.1) 03/18/22 17:18 Seg Neutrophils % 58.1 % (40.0-70.0) 03/18/22 17:18 Seg Neutrophils # 3.7 K/mm3 (1.8-7.7) 03/18/22 17:18 Sodium 139 mmol/L (137-145) 03/18/22 17:18 Potassium 3.8 mmol/L (3.6-5.0) 03/18/22 17:18 Chloride 103.4 mmol/L (98-107) 03/18/22 17:18 Carbon Dioxide 20 mmol/L (22-30) L 03/18/22 17:18 Anion Gap 19 mmol/L 03/18/22 17:18 BUN 52 mg/dL (9-20) H 03/18/22 17:18 Creatinine 2.9 mg/dL (0.8-1.3) H 03/18/22 17:18 Estimated GFR 21 ml/min 03/18/22 17:18 BUN/Creatinine Ratio 18 % 03/18/22 17:18 Glucose 63 mg/dL (75-100) L 03/18/22 17:18 POC Glucose 232 mg/dL (70-105) H 03/26/22 19:34 Hemoglobin A1c 8.5 % (4-6) H 03/18/22 17:18 Calcium 9.3 mg/dL (8.4-10.2) 03/18/22 17:18 Total Bilirubin 0.20 mg/dL (0.1-1.2) 03/18/22 17:18 AST 16 units/L (5-40) 03/18/22 17:18 ALT 8 units/L (7-56) 03/18/22 17:18 Alkaline Phosphatase 76 units/L (35-129) 03/18/22 17:18 Total Protein 7.3 g/dL (6.3-8.2) 03/18/22 17:18 Albumin 4.5 g/dL (3.9-5) 03/18/22 17:18 Albumin/Globulin Ratio 1.6 % 03/18/22 17:18 Triglycerides 69 mg/dL (2-149) 03/18/22 17:18 Cholesterol 230 mg/dL (50-199) H 03/18/22 17:18 LDL Cholesterol Direct 134 mg/dL (50-130) H 03/18/22 17:18 HDL Cholesterol 74 mg/dL (40-59) H 03/18/22 17:18 Cholesterol/HDL Ratio 3.10 % 03/18/22 17:18 TSH 1.190 mlU/mL (0.270-4.200) 03/18/22 17:18 Last Vital Signs Temp 98.3 F 03/26/22 20:57 Pulse 71 03/27/22 05:34 Resp 18 03/26/22 20:57 BP 114/49 03/27/22 05:35 Pulse Ox 98 03/26/22 20:57
[2022-03-27] MEDS: INSULIN LISPRO 100 UNIT/ML SUB-Q SCH ×3 (20:02→22:59)
[2022-03-27] MEDS: DIVALPROEX SPRINKLE 125 MG CAP PO SCH ×2 (20:03→22:57)
[2022-03-27] MEDS: COMBIGAN 0.2-0.5% OPHTH SOLN OU SCH ×2 (20:03→22:58)
[2022-03-27] MEDS: FERROUS SULFATE 325 MG TAB PO SCH (20:04)
[2022-03-27] MEDS: TRIAMTER/HCTZ 37.5-25 MG TAB PO SCH (20:04)
[2022-03-27] MEDS: MELATONIN 5 MG TAB PO SCH (22:58)
[2022-03-27] MEDS: traZODone 50 MG TAB PO SCH (22:59)
[2022-03-28] MEDS: hydrALAZINE 25 MG TAB PO SCH ×3 (07:15→22:21)
[2022-03-28] MEDS: LEVOTHYROXINE 100 MCG TAB PO SCH (07:16)
[2022-03-28] MEDS: INSULIN LISPRO 100 UNIT/ML SUB-Q SCH ×4 (07:31→22:35)
[2022-03-28] MEDS: DIVALPROEX SPRINKLE 125 MG CAP PO SCH ×3 (07:32→22:19)
--- NOTE | 2022-03-28 10:11 | Progress Note ---
Subjective Date of service: 03/28/22 Principal diagnosis: MDD Subjective Comment: 03/28: The patient was seen this morning. He states he is doing well. The patient denies any current suicidal/homicidal and denies hallucinations. No changes made today.The patient is awaiting placement. 03/27: The patient was seen this morning. He reports doing pretty good " I feel good." He denies depression. The patient denies any current suicidal/homicidal and denies hallucinations. No changes made today.The patient is awaiting placement. 03/26:The patient was seen today. He is sleeping, but easily arouses. His mood has been much better over the last few days since starting the depakote. He denies SI/HI or hallucinations of any kind. The patient is awaiting placement. 03/25 The patient was seen today. He is calm and cooperative. He says he slept well and feels okay. He denies SI/HI or hallucinations. The patient says he does not want to go back to his previous place of residence. The is coordinating his discharge to ensure the patient discharges to a safe place. 03/24 The patient was seen today. He is sitting in the dayroom. He's more pleasant today than yesterday. He says he's a little tired. He denies SI/HI or hallucinations of any kind. 03/23 The patient was seen today. He is irritable and tells me to go back where I came from. He says "I don't want to be bothered." I ask him how was he feeling, he replies "I'm not going to tell you." He then says "I'm alright." When asking the patient was he having thoughts of self harm, he says "no, there's nothing in here to hurt myself." I ask him if there were something to hurt himself would he use it. The patient becomes angry and shouts "you heard what I said." He denies homicidal ideation. He also denies hallucinations. Staff says the patient's moods have been up and down. The patient also appears to have some passive thoughts of suicide. Will adjust depakote to improve mood. 03/22 The patient was seen today. He is lying in bed resting. He is irritable at me talking to him, but cooperative. I ask him how was he feeling this morning. He replies "pretty well, damn leahy." He denies SI/HI or hallucinations of any kind. 03/21 The patient was seen today. He is lying in bed awake. He says he's "not doing too hot" because he's in here. He then asked why was he here. I reminded the patient that he had climbed on top of the roof at his living place. He says "I climbed up there. I wanted to leave and get away from yall." He says "I sure did." He denies SI/HI or hallucinations. 03/20 The patient was seen today. He is lying in bed awake. He says he's doing pretty good and he slept well. The patient says he came from the shelter but didn't remember why he came, he says. He denies SI/HI. He says "where did that question come from." He also denies hallucinations. REVIEW OF SYSTEMS Constitutional: Negative for weight loss ENT: Negative for stridor Respiratory: Negative for cough or hemoptysis All other systems reviewed and are negative MENTAL STATUS EXAMINATION General Appearance and Behavior: Age appropriate, good hygiene, wearing appropriate clothes, good eye contact, calm, cooperative Cooperation: Participating/engaged, but Guarded Psychomotor Behavior: Psychomotor normal Mood: ok Affect and affective range: congruent with stated mood Thought Process: Goal directed Thought Content: Reality oriented Speech: normal tone and pace Suicidal Ideation: Denies Homicidal Ideation: Denies Hallucinations: Denies Delusions: None Impulse Control: Limited Insight and Judgment: Limited insight and judgment Memory: Limited Attention: attentive Orientation: Alert, oriented Diagnoses: Dementia with behavioral disturbances Treatment Plan Patient admitted for inpatient psychiatric evaluation, medication adjustment and close monitoring The patient's behavior, mood, sleep and appetite will be closely monitored. Patient enrolled in individual and group therapeutic sessions and encouraged to attend. Patient provided with a safe and structured environment. Patient's physical health needs will be addressed by the Hospitalist. Hospitalist Consulted Labs including CBC, CMP, Lipid profile and Hemoglobin A1C levels ordered for baseline reference Social Assessment will be completed and the Building Trades Instructor will work with patient and family to ensure a suitable and safe disposition Medication adjustment will be made as clinically indicated Continue Depakote 125mg po TID Usual Wellness [facility]/Preservation: - Start Trazodone 50 mg po QHS & 50 mg po QHS PRN between 10 PM & 2 AM for insomnia - Start Melatonin 5 mg po QHS to promote circadian rhythm The patient agreed on the treatment plan, understood the risk, benefit, alternative treatment, potential consequence of no treatment, and gave informed consent. Estimated days:6 Post hospital care: primary care provider, psychiatric provider Case staffed with Dr. Hwang Medications and Allergies Medications and Allergies Allergies Allergy/AdvReac Type Severity Reaction Status Date / Time No Known Allergies Allergy Unverified 03/17/22 17:19 Home Medications Medication Instructions Recorded Confirmed Last Taken Type Divalproex Sodium [Depakote 125 mg PO BID 03/18/22 03/18/22 Unknown History Sprinkle] Dorzolamide HCl/Timolol Maleat 10 ml OP HS 03/18/22 03/18/22 Unknown History [Dorzolamide-Timolol Eye Drops] Ferrous Sulfate [Iron 325 MG] 325 mg PO DAILY 03/18/22 03/18/22 Unknown History Hydralazine HCl 50 mg PO TID 03/18/22 03/18/22 Unknown History Insulin Lispro [Admelog] See Protocol SQ ACHS 03/18/22 03/18/22 Unknown History Lactulose [Cephulac] 20 gm PO TID PRN 03/18/22 03/18/22 Unknown History Levothyroxine Sodium [Synthroid] 200 mcg PO DAILY 03/18/22 03/18/22 Unknown History Melatonin [Melatonin 3MG TAB] 3 mg PO HS 03/18/22 03/18/22 Unknown History Pioglitazone HCl [Actos] 30 mg PO DAILY 03/18/22 03/18/22 Unknown History Triamter/Hctz 37.5-25 mg 1 tab PO QDAY 03/18/22 03/18/22 Unknown History [Maxzide-25] amLODIPine [Norvasc] 10 mg PO DAILY 03/18/22 03/18/22 Unknown History glipiZIDE [Glucotrol] 5 mg PO QDAY 03/18/22 03/18/22 Unknown History Active Meds: Active Medications Brimonidine/Timol[facility] ([facility] 1 drops OU Q12HR [place] Last Admin: 03/27/22 22:58 Dose: Not Given Divalproex Sodium (Divalproex Sprinkle 125 Mg Cap) 125 mg PO TID [facility] Last Admin: 03/28/22 07:32 Dose: Not Given Ferrous Sulfate (Ferrous Sulfate 325 Mg Tab) 325 mg PO DAILY [facility] Last Admin: 03/27/22 20:04 Dose: Not Given Glipizide (Glipizide Xl 2.5 Mg Tab) 2.5 mg PO DAILY@0800 [facility] Last Admin: 03/28/22 07:32 Dose: Not Given Hydralazine HCl (Hydralazine 25 Mg Tab) 50 mg PO Q8HR [facility] Last Admin: 03/28/22 07:15 Dose: Not Given Insulin Human Lispro (Insulin Lispro 100 Unit/Ml) 0 unit SUB-Q [facility]; Protocol Last Admin: 03/28/22 07:31 Dose: Not Given Lactulose (Lactulose 20 Gm/30 Ml Oral Liqd) 20 gm PO TID PRN PRN Reason: Edema Levothyroxine Sodium (Levothyroxine 100 Mcg Tab) 200 mcg PO DAILY@0600 [facility] Last Admin: 03/28/22 07:16 Dose: Not Given Melatonin (Melatonin 5 Mg Tab) 5 mg PO QHS [facility] Last Admin: 03/27/22 22:58 Dose: Not Given Olanzapine (Olanzapine 2.5 Mg Tab) 2.5 mg PO QHS [facility] Last Admin: 03/27/22 22:59 Dose: Not Given Trazodone HCl (Trazodone 50 Mg Tab) 50 mg PO QHS [facility] Last Admin: 03/27/22 22:59 Dose: Not Given Triamterene/Hydrochlorothiazide (Triamter/Hctz 37.5-25 Mg Tab) 1 each PO QDAY [facility] Last Admin: 03/27/22 20:04 Dose: Not Given Ziprasidone (Ziprasidone Mesylate 20 Mg Vial) 20 mg IM Q4H PRN PRN Reason: Agitation Results - Results Labs/Vitals: Laboratory Last Values WBC 6.3 K/mm3 (4.5-11.0) 03/18/22 17:18 RBC 4.33 M/mm3 (3.65-5.03) 03/18/22 17:18 Hgb 11.8 gm/dl (11.8-15.2) 03/18/22 17:18 Hct 35.4 % (35.5-45.6) L 03/18/22 17:18 MCV 82 fl (84-94) L 03/18/22 17:18 MCH 27 pg (28-32) L 03/18/22 17:18 MCHC 33 % (32-34) 03/18/22 17:18 RDW 16.0 % (13.2-15.2) H 03/18/22 17:18 Plt Count 270 K/mm3 (140-440) 03/18/22 17:18 Lymph % (Auto) 27.9 % (13.4-35.0) 03/18/22 17:18 [place] % (Auto) 11.1 % (0.0-7.3) H 03/18/22 17:18 Eos % (Auto) 1.8 % (0.0-4.3) 03/18/22 17:18 Baso % (Auto) 1.1 % (0.0-1.8) 03/18/22 17:18 Lymph # (Auto) 1.8 K/mm3 (1.2-5.4) 03/18/22 17:18 [place] # (Auto) 0.7 K/mm3 (0.0-0.8) 03/18/22 17:18 Eos # (Auto) 0.1 K/mm3 (0.0-0.4) 03/18/22 17:18 Baso # (Auto) 0.1 K/mm3 (0.0-0.1) 03/18/22 17:18 Seg Neutrophils % 58.1 % (40.0-70.0) 03/18/22 17:18 Seg Neutrophils # 3.7 K/mm3 (1.8-7.7) 03/18/22 17:18 Sodium 139 mmol/L (137-145) 03/18/22 17:18 Potassium 3.8 mmol/L (3.6-5.0) 03/18/22 17:18 Chloride 103.4 mmol/L (98-107) 03/18/22 17:18 Carbon Dioxide 20 mmol/L (22-30) L 03/18/22 17:18 Anion Gap 19 mmol/L 03/18/22 17:18 BUN 52 mg/dL (9-20) H 03/18/22 17:18 Creatinine 2.9 mg/dL (0.8-1.3) H 03/18/22 17:18 Estimated GFR 21 ml/min 03/18/22 17:18 BUN/Creatinine Ratio 18 % 03/18/22 17:18 Glucose 63 mg/dL (75-100) L 03/18/22 17:18 POC Glucose 197 mg/dL (70-105) H 03/27/22 17:05 Hemoglobin A1c 8.5 % (4-6) H 03/18/22 17:18 Calcium 9.3 mg/dL (8.4-10.2) 03/18/22 17:18 Total Bilirubin 0.20 mg/dL (0.1-1.2) 03/18/22 17:18 AST 16 units/L (5-40) 03/18/22 17:18 ALT 8 units/L (7-56) 03/18/22 17:18 Alkaline Phosphatase 76 units/L (35-129) 03/18/22 17:18 Total Protein 7.3 g/dL (6.3-8.2) 03/18/22 17:18 Albumin 4.5 g/dL (3.9-5) 03/18/22 17:18 Albumin/Globulin Ratio 1.6 % 03/18/22 17:18 Triglycerides 69 mg/dL (2-149) 03/18/22 17:18 Cholesterol 230 mg/dL (50-199) H 03/18/22 17:18 LDL Cholesterol Direct 134 mg/dL (50-130) H 03/18/22 17:18 HDL Cholesterol 74 mg/dL (40-59) H 03/18/22 17:18 Cholesterol/HDL Ratio 3.10 % 03/18/22 17:18 TSH 1.190 mlU/mL (0.270-4.200) 03/18/22 17:18 Last Vital Signs Temp 97.4 F L 03/27/22 19:57 Pulse 82 03/27/22 22:58 Resp 20 03/27/22 19:57 BP 135/58 03/27/22 22:58 Pulse Ox 94 03/27/22 19:57
[2022-03-28] MEDS: FERROUS SULFATE 325 MG TAB PO SCH (10:46)
[2022-03-28] MEDS: COMBIGAN 0.2-0.5% OPHTH SOLN OU SCH ×2 (10:46→22:20)
[2022-03-28] MEDS: TRIAMTER/HCTZ 37.5-25 MG TAB PO SCH (10:46)
[2022-03-28] MEDS: MELATONIN 5 MG TAB PO SCH (22:21)
[2022-03-28] MEDS: traZODone 50 MG TAB PO SCH (22:22)
[2022-03-29] MEDS: hydrALAZINE 25 MG TAB PO SCH ×3 (06:30→21:27)
[2022-03-29] MEDS: LEVOTHYROXINE 100 MCG TAB PO SCH (06:31)
--- NOTE | 2022-03-29 08:45 | Progress Note ---
Subjective Date of service: 03/29/22 Principal diagnosis: MDD Subjective Comment: 03/29:The patient was at breakfast. He states he is doing pretty well. The patient denies any current suicidal/homicidal and denies hallucinations. No changes made today.The patient is awaiting placement. 03/28: The patient was seen this morning. He states he is doing well. The patient denies any current suicidal/homicidal and denies hallucinations. No changes made today.The patient is awaiting placement. 03/27: The patient was seen this morning. He reports doing pretty good " I feel good." He denies depression. The patient denies any current suicidal/homicidal and denies hallucinations. No changes made today.The patient is awaiting placement. 03/26:The patient was seen today. He is sleeping, but easily arouses. His mood has been much better over the last few days since starting the depakote. He denies SI/HI or hallucinations of any kind. The patient is awaiting placement. 03/25 The patient was seen today. He is calm and cooperative. He says he slept well and feels okay. He denies SI/HI or hallucinations. The patient says he does not want to go back to his previous place of residence. The is coordinating his discharge to ensure the patient discharges to a safe place. 03/24 The patient was seen today. He is sitting in the dayroom. He's more pleasant today than yesterday. He says he's a little tired. He denies SI/HI or hallucinations of any kind. 03/23 The patient was seen today. He is irritable and tells me to go back where I came from. He says "I don't want to be bothered." I ask him how was he feeling, he replies "I'm not going to tell you." He then says "I'm alright." When asking the patient was he having thoughts of self harm, he says "no, there's nothing in here to hurt myself." I ask him if there were something to hurt himself would he use it. The patient becomes angry and shouts "you heard what I said." He denies homicidal ideation. He also denies hallucinations. Staff says the patient's moods have been up and down. The patient also appears to have some passive thoughts of suicide. Will adjust depakote to improve mood. 03/22 The patient was seen today. He is lying in bed resting. He is irritable at me talking to him, but cooperative. I ask him how was he feeling this morning. He replies "pretty well, damnori lynny." He denies SI/HI or hallucinations of any kind. 03/21 The patient was seen today. He is lying in bed awake. He says he's "not doing too hot" because he's in here. He then asked why was he here. I reminded the patient that he had climbed on top of the roof at his living place. He says "I climbed up there. I wanted to leave and get away from yall." He says "I sure did." He denies SI/HI or hallucinations. 03/20 The patient was seen today. He is lying in bed awake. He says he's doing pretty good and he slept well. The patient says he [facility] but didn't remember why he came, he says. He denies SI/HI. He says "where did that question come from." He also denies hallucinations. REVIEW OF SYSTEMS Constitutional: Negative for weight loss ENT: Negative for stridor Respiratory: Negative for cough or hemoptysis All other systems reviewed and are negative MENTAL STATUS EXAMINATION General Appearance and Behavior: Age appropriate, good hygiene, wearing appropriate clothes, good eye contact, calm, cooperative Cooperation: Participating/engaged, but Guarded Psychomotor Behavior: Psychomotor normal Mood: ok Affect and affective range: congruent with stated mood Thought Process: Goal directed Thought Content: Reality oriented Speech: normal tone and pace Suicidal Ideation: Denies Homicidal Ideation: Denies Hallucinations: Denies Delusions: None Impulse Control: Limited Insight and Judgment: Limited insight and judgment Memory: Limited Attention: attentive Orientation: Alert, oriented Diagnoses: Dementia with behavioral disturbances Treatment Plan Patient admitted for inpatient psychiatric evaluation, medication adjustment and close monitoring The patient's behavior, mood, sleep and appetite will be closely monitored. Patient enrolled in individual and group therapeutic sessions and encouraged to attend. Patient provided with a safe and structured environment. Patient's physical health needs will be addressed by the Hospitalist. Hospitalist Consulted Labs including CBC, CMP, Lipid profile and Hemoglobin A1C levels ordered for baseline reference Social Assessment will be completed and the Banana Room Cutter will work with patient and family to ensure a suitable and safe disposition Medication adjustment will be made as clinically indicated Continue Depakote 125mg po TID Usual Wellness [facility]/Preservation: - Start Trazodone 50 mg po QHS & 50 mg po QHS PRN between 10 PM & 2 AM for insomnia - Start Melatonin 5 mg po QHS to promote circadian rhythm The patient agreed on the treatment plan, understood the risk, benefit, alter stillaguamish treatment, potential consequence of no treatment, and gave informed consent. Estimated days:6 Post hospital care: primary care provider, psychiatric provider Case staffed with Dr. Hwang Medications and Allergies Medications and Allergies Allergies Allergy/AdvReac Type Severity Reaction Status Date / Time No Known Allergies Allergy Unverified 03/17/22 17:19 Home Medications Medication Instructions Recorded Confirmed Last Taken Type Divalproex Sodium [Depakote 125 mg PO BID 03/18/22 03/18/22 Unknown History Sprinkle] Dorzolamide HCl/Timolol Maleat 10 ml OP HS 03/18/22 03/18/22 Unknown History [Dorzolamide-Timolol Eye Drops] Ferrous Sulfate [Iron 325 MG] 325 mg PO DAILY 03/18/22 03/18/22 Unknown History Hydralazine HCl 50 mg PO TID 03/18/22 03/18/22 Unknown History Insulin Lispro [Admelog] See Protocol SQ ACHS 03/18/22 03/18/22 Unknown History Lactulose [Cephulac] 20 gm PO TID PRN 03/18/22 03/18/22 Unknown History Levothyroxine Sodium [Synthroid] 200 mcg PO DAILY 03/18/22 03/18/22 Unknown History Melatonin [Melatonin 3MG TAB] 3 mg PO HS 03/18/22 03/18/22 Unknown History Pioglitazone HCl [Actos] 30 mg PO DAILY 03/18/22 03/18/22 Unknown History Triamter/Hctz 37.5-25 mg 1 tab PO QDAY 03/18/22 03/18/22 Unknown History [Maxzide-25] amLODIPine [Norvasc] 10 mg PO DAILY 03/18/22 03/18/22 Unknown History glipiZIDE [Glucotrol] 5 mg PO QDAY 03/18/22 03/18/22 Unknown History Active Meds: Active Medications Brimonidine/Timolol (Combigan 0.2-0.5% [facility]) 1 drops OU Q12HR [facility] Last Admin: 03/28/22 22:20 Dose: 1 drops Divalproex Sodium (Divalproex Sprinkle 125 Mg Cap) 125 mg PO TID [facility] Last Admin: 03/28/22 22:19 Dose: 125 mg Ferrous Sulfate (Ferrous Sulfate 325 Mg Tab) 325 mg PO DAILY [facility] Last Admin: 03/28/22 10:46 Dose: Not Given Glipizide (Glipizide Xl 2.5 Mg Tab) 2.5 mg PO DAILY@0800 [facility] Last Admin: 03/28/22 07:32 Dose: Not Given Hydralazine HCl (Hydralazine 25 Mg Tab) 50 mg PO Q8HR [facility] Last Admin: 03/29/22 06:30 Dose: Not Given Insulin Human Lispro (Insulin Lispro 100 Unit/Ml) 0 unit SUB-Q [facility]; Protocol Last Admin: 03/28/22 22:35 Dose: Not Given Lactulose (Lactulose 20 Gm/30 Ml Oral Liqd) 20 gm PO TID PRN PRN Reason: Edema Levothyroxine Sodium (Levothyroxine 100 Mcg Tab) 200 mcg PO DAILY@0600 [facility] Last Admin: 03/29/22 06:31 Dose: 200 mcg Melatonin (Melatonin 5 Mg Tab) 5 mg PO QHS [facility] Last Admin: 03/28/22 22:21 Dose: 5 mg Olanzapine (Olanzapine 2.5 Mg Tab) 2.5 mg PO QHS [facility] Last Admin: 03/28/22 22:21 Dose: 2.5 mg Trazodone HCl (Trazodone 50 Mg Tab) 50 mg PO QHS [facility] Last Admin: 03/28/22 22:22 Dose: 50 mg Triamterene/Hydrochlorothiazide (Triamter/Hctz 37.5-25 Mg Tab) 1 each PO QDAY [facility] Last Admin: 03/28/22 10:46 Dose: Not Given Ziprasidone (Ziprasidone Mesylate 20 Mg Vial) 20 mg IM Q4H PRN PRN Reason: Agitation Results - Results Labs/Vitals: Laboratory Last Values WBC 6.3 K/mm3 (4.5-11.0) 03/18/22 17:18 RBC 4.33 M/mm3 (3.65-5.03) 03/18/22 17:18 Hgb 11.8 gm/dl (11.8-15.2) 03/18/22 17:18 Hct 35.4 % (35.5-45.6) L 03/18/22 17:18 MCV 82 fl (84-94) L 03/18/22 17:18 MCH 27 pg (28-32) L 03/18/22 17:18 MCHC 33 % (32-34) 03/18/22 17:18 RDW 16.0 % (13.2-15.2) H 03/18/22 17:18 Plt Count 270 K/mm3 (140-440) 03/18/22 17:18 Lymph % (Auto) 27.9 % (13.4-35.0) 03/18/22 17:18 [place] % (Auto) 11.1 % (0.0-7.3) H 03/18/22 17:18 Eos % (Auto) 1.8 % (0.0-4.3) 03/18/22 17:18 Baso % (Auto) 1.1 % (0.0-1.8) 03/18/22 17:18 Lymph # (Auto) 1.8 K/mm3 (1.2-5.4) 03/18/22 17:18 [place] # (Auto) 0.7 K/mm3 (0.0-0.8) 03/18/22 17:18 Eos # (Auto) 0.1 K/mm3 (0.0-0.4) 03/18/22 17:18 Baso # (Auto) 0.1 K/mm3 (0.0-0.1) 03/18/22 17:18 Seg Neutrophils % 58.1 % (40.0-70.0) 03/18/22 17:18 Seg Neutrophils # 3.7 K/mm3 (1.8-7.7) 03/18/22 17:18 Sodium 139 mmol/L (137-145) 03/18/22 17:18 Potassium 3.8 mmol/L (3.6-5.0) 03/18/22 17:18 Chloride 103.4 mmol/L (98-107) 03/18/22 17:18 Carbon Dioxide 20 mmol/L (22-30) L 03/18/22 17:18 Anion Gap 19 mmol/L 03/18/22 17:18 BUN 52 mg/dL (9-20) H 03/18/22 17:18 Creatinine 2.9 mg/dL (0.8-1.3) H 03/18/22 17:18 Estimated GFR 21 ml/min 03/18/22 17:18 BUN/Creatinine Ratio 18 % 03/18/22 17:18 Glucose 63 mg/dL (75-100) L 03/18/22 17:18 POC Glucose 294 mg/dL (70-105) H 03/29/22 06:03 Hemoglobin A1c 8.5 % (4-6) H 03/18/22 17:18 Calcium 9.3 mg/dL (8.4-10.2) 03/18/22 17:18 Total Bilirubin 0.20 mg/dL (0.1-1.2) 03/18/22 17:18 AST 16 units/L (5-40) 03/18/22 17:18 ALT 8 units/L (7-56) 03/18/22 17:18 Alkaline Phosphatase 76 units/L (35-129) 03/18/22 17:18 Total Protein 7.3 g/dL (6.3-8.2) 03/18/22 17:18 Albumin 4.5 g/dL (3.9-5) 03/18/22 17:18 Albumin/Globulin Ratio 1.6 % 03/18/22 17:18 Triglycerides 69 mg/dL (2-149) 03/18/22 17:18 Cholesterol 230 mg/dL (50-199) H 03/18/22 17:18 LDL Cholesterol Direct 134 mg/dL (50-130) H 03/18/22 17:18 HDL Cholesterol 74 mg/dL (40-59) H 03/18/22 17:18 Cholesterol/HDL Ratio 3.10 % 03/18/22 17:18 TSH 1.190 mlU/mL (0.270-4.200) 03/18/22 17:18 Last Vital Signs Temp 97.6 F 03/28/22 19:15 Pulse 71 03/29/22 05:36 Resp 18 03/28/22 19:15 BP 152/59 03/29/22 05:36 Pulse Ox 100 03/28/22 19:15
[2022-03-29] MEDS: TRIAMTER/HCTZ 37.5-25 MG TAB PO SCH (09:30)
[2022-03-29] MEDS: FERROUS SULFATE 325 MG TAB PO SCH (09:31)
[2022-03-29] MEDS: DIVALPROEX SPRINKLE 125 MG CAP PO SCH ×3 (09:31→21:24)
[2022-03-29] MEDS: COMBIGAN 0.2-0.5% OPHTH SOLN OU SCH ×2 (09:32→21:25)
[2022-03-29] MEDS: INSULIN LISPRO 100 UNIT/ML SUB-Q SCH ×4 (10:18→21:28)
[2022-03-29] MEDS: MELATONIN 5 MG TAB PO SCH (21:25)
[2022-03-29] MEDS: traZODone 50 MG TAB PO SCH (21:25)
[2022-03-30] MEDS: LEVOTHYROXINE 100 MCG TAB PO SCH ×2 (06:35→06:38)
[2022-03-30] MEDS: hydrALAZINE 25 MG TAB PO SCH ×3 (06:38→23:10)
--- NOTE | 2022-03-30 09:59 | Progress Note ---
Subjective Date of service: 03/30/22 Principal diagnosis: MDD Subjective Comment: 03/30:The patient was seen this morning. He states he is doing well. The patient denies any current suicidal/homicidal and denies hallucinations. No changes made today.The patient is awaiting placement. 03/29:The patient was at breakfast. He states he is doing pretty well. The patient denies any current suicidal/homicidal and denies hallucinations. No changes made today.The patient is awaiting placement. 03/28: The patient was seen this morning. He states he is doing well. The patient denies any current suicidal/homicidal and denies hallucinations. No jessi nges made today.The patient is awaiting placement. 03/27: The patient was seen this morning. He reports doing pretty good " I feel good." He denies depression. The patient denies any current suicidal/homicidal and denies hallucinations. No changes made today.The patient is awaiting placement. 03/26:The patient was seen today. He is sleeping, but easily arouses. His mood has been much better over the last few days since starting the depakote. He denies SI/HI or hallucinations of any kind. The patient is awaiting placement. 03/25 The patient was seen today. He is calm and cooperative. He says he slept well and feels okay. He denies SI/HI or hallucinations. The patient says he does not want to go back to his previous place of residence. The is coordinating his discharge to ensure the patient discharges to a safe place. 03/24 The patient was seen today. He is sitting in the dayroom. He's more pleasant today than yesterday. He says he's a little tired. He denies SI/HI or hallucinations of any kind. 03/23 The patient was seen today. He is irritable and tells me to go back where I came from. He says "I don't want to be bothered." I ask him how was he feeling, he replies "I'm not going to tell you." He then says "I'm alright." When asking the patient was he having thoughts of self harm, he says "no, there's nothing in here to hurt myself." I ask him if there were something to hurt himself would he use it. The patient becomes angry and shouts "you heard what I said." He denies homicidal ideation. He also denies hallucinations. Staff says the patient's moods have been up and down. The patient also appears to have some passive thoughts of suicide. Will adjust depakote to improve mood. 03/22 The patient was seen today. He is lying in bed resting. He is irritable at me talking to him, but cooperative. I ask him how was he feeling this morning. He replies "pretty well, damn ." He denies SI/HI or hallucinations of any kind. 03/21 The patient was seen today. He is lying in bed awake. He says he's "not doing too hot" because he's in here. He then asked why was he here. I reminded the patient that he had climbed on top of the roof at his living place. He says "I climbed up there. I wanted to leave and get away from yall." He says "I sure did." He denies SI/HI or hallucinations. 03/20 The patient was seen today. He is lying in bed awake. He says he's doing pretty good and he slept well. The patient says he came from the custodial but didn't remember why he came, he says. He denies SI/HI. He says "where did that question come from." He also denies hallucinations. REVIEW OF SYSTEMS Constitutional: Negative for weight loss ENT: Negative for stridor Respiratory: Negative for cough or hemoptysis All other systems reviewed and are negative MENTAL STATUS EXAMINATION General Appearance and Behavior: Age appropriate, good hygiene, wearing appropriate clothes, good eye contact, calm, cooperative Cooperation: Participating/engaged, but Guarded Psychomotor Behavior: Psychomotor normal Mood: ok Affect and affective range: congruent with stated mood Thought Process: Goal directed Thought Content: Reality oriented Speech: normal tone and pace Suicidal Ideation: Denies Homicidal Ideation: Denies Hallucinations: Denies Delusions: None Impulse Control: Limited Insight and Judgment: Limited insight and judgment Memory: Limited Attention: attentive Orientation: Alert, oriented Diagnoses: Dementia with behavioral disturbances Treatment Plan Patient admitted for inpatient psychiatric evaluation, medication adjustment and close monitoring The patient's behavior, mood, sleep and appetite will be closely monitored. Patient enrolled in individual and group therapeutic sessions and encouraged to attend. Patient provided with a safe and structured environment. Patient's physical health needs will be addressed by the Hospitalist. Hospita list Consulted Labs including CBC, CMP, Lipid profile and Hemoglobin A1C levels ordered for baseline reference Social Assessment will be completed and the [facility] will work with patient and family to ensure a suitable and safe disposition Medication adjustment will be made as clinically indicated Continue Depakote 125mg po TID Usual Wellness Tenriism/Preservation: - Start Trazodone 50 mg po QHS & 50 mg po QHS PRN between 10 PM & 2 AM for insomnia - Start Melatonin 5 mg po QHS to promote circadian rhythm The patient agreed on the treatment plan, understood the risk, benefit, alternative treatment, potential consequence of no treatment, and gave informed consent. Estimated days:6 Post hospital care: primary care provider, psychiatric provider Case staffed with Dr. Hwang Medications and Allergies Allergies Allergy/AdvReac Type Severity Reaction Status Date / Time No Known Allergies Allergy Unverified 03/17/22 17:19 Home Medications Medication Instructions Recorded Confirmed Last Taken Type Divalproex Sodium [Depakote 125 mg PO BID 03/18/22 03/18/22 Unknown History Sprinkle] Dorzolamide HCl/Timolol Maleat 10 ml OP HS 03/18/22 03/18/22 Unknown History [Dorzolamide-Timolol Eye Drops] Ferrous Sulfate [Iron 325 MG] 325 mg PO DAILY 03/18/22 03/18/22 Unknown History Hydralazine HCl 50 mg PO TID 03/18/22 03/18/22 Unknown History Insulin Lispro [Admelog] See Protocol SQ ACHS 03/18/22 03/18/22 Unknown History Lactulose [Cephulac] 20 gm PO TID PRN 03/18/22 03/18/22 Unknown History Levothyroxine Sodium [Synthroid] 200 mcg PO DAILY 03/18/22 03/18/22 Unknown History Melatonin [Melatonin 3MG TAB] 3 mg PO HS 03/18/22 03/18/22 Unknown History Pioglitazone HCl [Actos] 30 mg PO DAILY 03/18/22 03/18/22 Unknown History Triamter/Hctz 37.5-25 mg 1 tab PO QDAY 03/18/22 03/18/22 Unknown History [Maxzide-25] amLODIPine [Norvasc] 10 mg PO DAILY 03/18/22 03/18/22 Unknown History glipiZIDE [Glucotrol] 5 mg PO QDAY 03/18/22 03/18/22 Unknown History Active Meds: Active Medications Brimonidine/Timolol (Combigan 0.2-0.5% Ophth Soln) 1 drops OU Q12HR [facility] Last Admin: 03/29/22 21:25 Dose: 1 drops Divalproex Sodium (Divalproex Sprinkle 125 Mg Cap) 125 mg PO TID [facility] Last Admin: 03/29/22 21:24 Dose: 125 mg Ferrous Sulfate (Ferrous Sulfate 325 Mg Tab) 325 mg PO DAILY [facility] Last Admin: 03/29/22 09:31 Dose: 325 mg Glipizide (Glipizide Xl 2.5 Mg Tab) 2.5 mg PO DAILY@0800 [facility] Last Admin: 03/29/22 09:31 Dose: 2.5 mg Hydralazine HCl (Hydralazine 25 Mg Tab) 50 mg PO Q8HR [facility] Last Admin: 03/30/22 06:38 Dose: Not Given Insulin Human Lispro (Insulin Lispro 100 Unit/Ml) 0 unit SUB-Q [facility]; Protocol Last Admin: 03/29/22 21:28 Dose: Not Given Lactulose (Lactulose 20 Gm/30 Ml Oral Liqd) 20 gm PO TID PRN PRN Reason: Edema Levothyroxine Sodium (Levothyroxine 100 Mcg Tab) 200 mcg PO DAILY@0600 [facility] Last Admin: 03/30/22 06:38 Dose: Not Given Melatonin (Melatonin 5 Mg Tab) 5 mg PO QHS [facility] Last Admin: 03/29/22 21:25 Dose: 5 mg Olanzapine (Olanzapine 2.5 Mg Tab) 2.5 mg PO QHS [facility] Last Admin: 03/29/22 21:26 Dose: 2.5 mg Trazodone HCl (Trazodone 50 Mg Tab) 50 mg PO QHS [facility] Last Admin: 03/29/22 21:25 Dose: 50 mg Triamterene/Hydrochlorothiazide (Triamter/Hctz 37.5-25 Mg Tab) 1 each PO QDAY [facility] Last Admin: 03/29/22 09:30 Dose: 1 each Ziprasidone (Ziprasidone Mesylate 20 Mg Vial) 20 mg IM Q4H PRN PRN Reason: Agitation Results - Results Labs/Vitals: Laboratory Last Values WBC 6.3 K/mm3 (4.5-11.0) 03/18/22 17:18 RBC 4.33 M/mm3 (3.65-5.03) 03/18/22 17:18 Hgb 11.8 gm/dl (11.8-15.2) 03/18/22 17:18 Hct 35.4 % (35.5-45.6) L 03/18/22 17:18 MCV 82 fl (84-94) L 03/18/22 17:18 MCH 27 pg (28-32) L 03/18/22 17:18 MCHC 33 % (32-34) 03/18/22 17:18 RDW 16.0 % (13.2-15.2) H 03/18/22 17:18 Plt Count 270 K/mm3 (140-440) 03/18/22 17:18 Lymph % (Auto) 27.9 % (13.4-35.0) 03/18/22 17:18 Tripp % (Auto) 11.1 % (0.0-7.3) H 03/18/22 17:18 Eos % (Auto) 1.8 % (0.0-4.3) 03/18/22 17:18 Baso % (Auto) 1.1 % (0.0-1.8) 03/18/22 17:18 Lymph # (Auto) 1.8 K/mm3 (1.2-5.4) 03/18/22 17:18 Tripp # (Auto) 0.7 K/mm3 (0.0-0.8) 03/18/22 17:18 Eos # (Auto) 0.1 K/mm3 (0.0-0.4) 03/18/22 17:18 Baso # (Auto) 0.1 K/mm3 (0.0-0.1) 03/18/22 17:18 Seg Neutrophils % 58.1 % (40.0-70.0) 03/18/22 17:18 Seg Neutrophils # 3.7 K/mm3 (1.8-7.7) 03/18/22 17:18 Sodium 139 mmol/L (137-145) 03/18/22 17:18 Potassium 3.8 mmol/L (3.6-5.0) 03/18/22 17:18 Chloride 103.4 mmol/L (98-107) 03/18/22 17:18 Carbon Dioxide 20 mmol/L (22-30) L 03/18/22 17:18 Anion Gap 19 mmol/L 03/18/22 17:18 BUN 52 mg/dL (9-20) H 03/18/22 17:18 Creatinine 2.9 mg/dL (0.8-1.3) H 03/18/22 17:18 Estimated GFR 21 ml/min 03/18/22 17:18 BUN/Creatinine Ratio 18 % 03/18/22 17:18 Glucose 63 mg/dL (75-100) L 03/18/22 17:18 POC Glucose 80 mg/dL (70-105) 03/29/22 21:22 Hemoglobin A1c 8.5 % (4-6) H 03/18/22 17:18 Calcium 9.3 mg/dL (8.4-10.2) 03/18/22 17:18 Total Bilirubin 0.20 mg/dL (0.1-1.2) 03/18/22 17:18 AST 16 units/L (5-40) 03/18/22 17:18 ALT 8 units/L (7-56) 03/18/22 17:18 Alkaline Phosphatase 76 units/L (35-129) 03/18/22 17:18 Total Protein 7.3 g/dL (6.3-8.2) 03/18/22 17:18 Albumin 4.5 g/dL (3.9-5) 03/18/22 17:18 Albumin/Globulin Ratio 1.6 % 03/18/22 17:18 Triglycerides 69 mg/dL (2-149) 03/18/22 17:18 Cholesterol 230 mg/dL (50-199) H 03/18/22 17:18 LDL Cholesterol Direct 134 mg/dL (50-130) H 03/18/22 17:18 HDL Cholesterol 74 mg/dL (40-59) H 03/18/22 17:18 Cholesterol/HDL Ratio 3.10 % 03/18/22 17:18 TSH 1.190 mlU/mL (0.270-4.200) 03/18/22 17:18 Last Vital Signs Temp 97.8 F 03/29/22 21:04 Pulse 75 03/29/22 21:27 Resp 20 03/29/22 21:04 BP 151/72 03/29/22 21:27 Pulse Ox 100 03/29/22 21:04
[2022-03-30] MEDS: INSULIN LISPRO 100 UNIT/ML SUB-Q SCH ×4 (10:34→23:10)
[2022-03-30] MEDS: FERROUS SULFATE 325 MG TAB PO SCH (10:52)
[2022-03-30] MEDS: DIVALPROEX SPRINKLE 125 MG CAP PO SCH ×3 (10:52→23:10)
[2022-03-30] MEDS: COMBIGAN 0.2-0.5% OPHTH SOLN OU SCH ×2 (10:55→23:10)
[2022-03-30] MEDS: TRIAMTER/HCTZ 37.5-25 MG TAB PO SCH (11:02)
--- NOTE | 2022-03-30 21:14 | Progress Note ---
Assessment and Plan - Patient Problems (1) Vascular dementia with behavioral disturbance Current Visit: Yes Status: Acute Plan to address problem: Verbal prompting, verbal redirection, benzodiazepine therapy as clinically indicated. (2) Cerebral atherosclerosis Current Visit: Yes Status: Acute Plan to address problem: Risk factor reduction, antiplatelet therapy as clinically indicated. (3) Hypertension Current Visit: Yes Status: Acute Qualifiers: Hypertension type: primary hypertension Qualified Code(s): I10 - Essential (primary) hypertension Plan to address problem: Monitor blood pressure every shift, continue medical management. (4) Diabetes Current Visit: Yes Status: Acute Plan to address problem: Consult to help with carbohydrate diet, Accu-Chek, insulin protocol, hypoglycemia protocol. (5) Hyperlipidemia Current Visit: Yes Status: Acute Qualifiers: Hyperlipidemia type: mixed hyperlipidemia Qualified Code(s): E78.2 - Mixed hyperlipidemia Plan to address problem: Low-cholesterol diet, statin therapy as clinically indicated. (6) Hypothyroidism Current Visit: Yes Status: Acute Plan to address problem: Continue Synthroid therapy, supportive care. (7) Advance care planning Current Visit: Yes Status: Acute Plan to address problem: Disease education data, care plan discussed, diagnosis discussed, prognosis discussed, +30 minutes. History Interval history: 80 YO Male with Vascular Dementia with Behavioral Disturbance, Cerebral Atherosclerosis, DM, HTN, HLD, Hypothyroidism. Pt is admitted to [facility] for psychiatric stabilization. Consult placed by Dr. Frankel for medical management. Patient seen and evaluated in the recreation room. Patient resting. Patient exhibits tangential thinking with diminished cognition and intermittent agitation. No reported nursing events. Patient remains at baseline level of cognition and function. Hospitalist Physical - Constitutional Vitals: Temp Pulse Resp BP Pulse Ox 97.8 F 75 20 151/72 100 03/29/22 21:04 03/29/22 21:27 03/29/22 21:04 03/29/22 21:27 03/29/22 21:04 General appearance: Present: no acute distress, well-nourished, other (Cheerful today) - EENT Eyes: Present: PERRL ENT: hearing decreased - Neck Neck: Present: supple - Respiratory Respiratory effort: normal Respiratory: bilateral: diminished - Cardiovascular Rhythm: regular Heart Sounds: Present: S1 & S2 - Extremities Extremities: no ischemia Peripheral Pulses: within normal limits - Abdominal General gastrointestinal: soft, non-tender, non-distended - Integumentary Integumentary: Present: clear, dry - Psychiatric Psychiatric: cooperative - Neurologic Neurologic: CNII-XII intact Results - Labs CBC & Chem 7: 03/18/22 17:18 03/18/22 17:18 Labs: Laboratory Last Values WBC 6.3 K/mm3 (4.5-11.0) 03/18/22 17:18 RBC 4.33 M/mm3 (3.65-5.03) 03/18/22 17:18 Hgb 11.8 gm/dl (11.8-15.2) 03/18/22 17:18 Hct 35.4 % (35.5-45.6) L 03/18/22 17:18 MCV 82 fl (84-94) L 03/18/22 17:18 MCH 27 pg (28-32) L 03/18/22 17:18 MCHC 33 % (32-34) 03/18/22 17:18 RDW 16.0 % (13.2-15.2) H 03/18/22 17:18 Plt Count 270 K/mm3 (140-440) 03/18/22 17:18 Lymph % (Auto) 27.9 % (13.4-35.0) 03/18/22 17:18 Desha % (Auto) 11.1 % (0.0-7.3) H 03/18/22 17:18 Eos % (Auto) 1.8 % (0.0-4.3) 03/18/22 17:18 Baso % (Auto) 1.1 % (0.0-1.8) 03/18/22 17:18 Lymph # (Auto) 1.8 K/mm3 (1.2-5.4) 03/18/22 17:18 Desha # (Auto) 0.7 K/mm3 (0.0-0.8) 03/18/22 17:18 Eos # (Auto) 0.1 K/mm3 (0.0-0.4) 03/18/22 17:18 Baso # (Auto) 0.1 K/mm3 (0.0-0.1) 03/18/22 17:18 Seg Neutrophils % 58.1 % (40.0-70.0) 03/18/22 17:18 Seg Neutrophils # 3.7 K/mm3 (1.8-7.7) 03/18/22 17:18 Sodium 139 mmol/L (137-145) 03/18/22 17:18 Potassium 3.8 mmol/L (3.6-5.0) 03/18/22 17:18 Chloride 103.4 mmol/L (98-107) 03/18/22 17:18 Carbon Dioxide 20 mmol/L (22-30) L 03/18/22 17:18 Anion Gap 19 mmol/L 03/18/22 17:18 BUN 52 mg/dL (9-20) H 03/18/22 17:18 Creatinine 2.9 mg/dL (0.8-1.3) H 03/18/22 17:18 Estimated GFR 21 ml/min 03/18/22 17:18 BUN/Creatinine Ratio 18 % 03/18/22 17:18 Glucose 63 mg/dL (75-100) L 03/18/22 17:18 POC Glucose 80 mg/dL (70-105) 03/29/22 21:22 Hemoglobin A1c 8.5 % (4-6) H 03/18/22 17:18 Calcium 9.3 mg/dL (8.4-10.2) 03/18/22 17:18 Total Bilirubin 0.20 mg/dL (0.1-1.2) 03/18/22 17:18 AST 16 units/L (5-40) 03/18/22 17:18 ALT 8 units/L (7-56) 03/18/22 17:18 Alkaline Phosphatase 76 units/L (35-129) 03/18/22 17:18 Total Protein 7.3 g/dL (6.3-8.2) 03/18/22 17:18 Albumin 4.5 g/dL (3.9-5) 03/18/22 17:18 Albumin/Globulin Ratio 1.6 % 03/18/22 17:18 Triglycerides 69 mg/dL (2-149) 03/18/22 17:18 Cholesterol 230 mg/dL (50-199) H 03/18/22 17:18 LDL Cholesterol Direct 134 mg/dL (50-130) H 03/18/22 17:18 HDL Cholesterol 74 mg/dL (40-59) H 03/18/22 17:18 Cholesterol/HDL Ratio 3.10 % 03/18/22 17:18 TSH 1.190 mlU/mL (0.270-4.200) 03/18/22 17:18 Chan/IV: Voiding Method Toilet Active Medications - Current Medications Current Medications: Generic Name Dose Route Start Last Admin Trade Name Freq PRN Reason Stop Dose Admin Brimonidine/Timolol 1 drops 03/18/22 12:00 03/30/22 10:55 Combigan 0.2-0.5% Ophth Soln OU 1 drops Q12HR [facility] Administration Divalproex Sodium 125 mg 03/23/22 14:00 03/30/22 15:39 Divalproex Sprinkle 125 Mg Cap PO 125 mg TID [facility] Administration Ferrous Sulfate 325 mg 03/18/22 10:00 03/30/22 10:52 Ferrous Sulfate 325 Mg Tab PO 325 mg DAILY [facility] Administration Glipizide 2.5 mg 03/22/22 08:00 03/30/22 11:02 Glipizide Xl 2.5 Mg Tab PO 2.5 mg DAILY@0800 [facility] Administration Hydralazine HCl 50 mg 03/18/22 10:00 03/30/22 18:31 Hydralazine 25 Mg Tab PO Not Given Q8HR [facility] Insulin Human Lispro 0 unit 03/18/22 11:30 03/30/22 17:39 Insulin Lispro 100 Unit/Ml SUB-Q Not Given ACHS [facility] Protocol Lactulose 20 gm 03/18/22 10:00 Lactulose 20 Gm/30 Ml Oral Liqd PO TID PRN Edema Levothyroxine Sodium 200 mcg 03/19/22 06:00 03/30/22 06:38 Levothyroxine 100 Mcg Tab PO Not Given DAILY@0600 [facility] Melatonin 5 mg 03/18/22 22:00 03/29/22 21:25 Melatonin 5 Mg Tab PO 5 mg QHS [facility] Administration Olanzapine 2.5 mg 03/18/22 22:00 03/29/22 21:26 Olanzapine 2.5 Mg Tab PO 2.5 mg QHS [facility] Administration Trazodone HCl 50 mg 03/18/22 22:00 03/29/22 21:25 Trazodone 50 Mg Tab PO 50 mg QHS [facility] Administration Triamterene/Hydrochlorothiazide 1 each 03/18/22 10:00 03/30/22 11:02 Triamter/Hctz 37.5-25 Mg Tab PO 1 each QDAY [facility] Administration Ziprasidone 20 mg 03/18/22 10:00 Ziprasidone Mesylate 20 Mg Vial IM Q4H PRN Agitation Nutrition/Malnutrition Assess - Dietary Evaluation Nutrition/Malnutrition Findings: Nutrition Notes Start: 03/18/22 16:11 Freq: Status: Active Protocol: Document 03/25/22 16:49 KAM (Rec: 03/25/22 17:00 KAM [id number]) Nutrition Notes Initial or Follow up Reassessment Current Diet Cardiac/Consistent Carbohydrates -Chopped Meats- Diet (since B 03/18). Height 5 ft 8 in Weight 72.121 kg [place] Body Weight (kg) 70.00 BMI 24.1 Weight change and time frame No body weight change reported in 1 week. Weight Status Appropriate Subjective/Other Information RD consult for routine F/U on dietary advancement. Pt's PO intake of meals has been Good (75%), according to ADL notes. Pt is on Room Air, O2 saturation @ 100%, according to Vital Signs notes. Plans for discharge Pt to a more safe environment facility , according to Progress notes. Percent of energy/protein needs met: Prescribed Cardiac/Consistent Carbohydrates -Chopped Meats- Diet provides for energy/ protein needs (1,977 Kcal/86 g ) during LOS. Burn Absent Trauma Absent GI Symptoms None Difficulty In Chewing Food Allergy No Skin Integrity/Comment Unspecified Dryness. Current % PO Good (75-100%) Minimum of two criteria No #1 Nutrition Diagnosis Biting/Chewing (masticatory) difficulty Diagnosis Progress(for reassessment Continues documentation) Is patient on ventilator? No Is Patient Ambulatory and/or Out of Bed Yes REE-([place]-St. Jeor-ambulatory/OOB) [ [id number] [id number]] Calculation [facility] Additional Notes Protein: 1-1.2 g/Kg ABW; 72-86 g/day. Fluids: 1 ml/Kcal, or as per MD. Nutrition Intervention Change Diet Order: Modify to Cardiac/Consistent Carbohydrates -Chopped Meats- Diet. Goal #1 Facilitate PO intake of meals with elemental, textural, or mechanical modification during LOS. Goal #2 Maintain body weight within +/ -3% of admission body weight during LOS. Revisit per MD consult or patient Sign Off request: Additional Comments Continue monitoring food tolerance, %PO intake of meals , and BM.
--- NOTE | 2022-03-30 21:15 | Progress Note ---
Assessment and Plan - Patient Problems (1) Vascular dementia with behavioral disturbance Current Visit: Yes Status: Acute Plan to address problem: Verbal prompting, verbal redirection, benzodiazepine therapy as clinically indicated. (2) Cerebral atherosclerosis Current Visit: Yes Status: Acute Plan to address problem: Risk factor reduction, antiplatelet therapy as clinically indicated. (3) Hypertension Current Visit: Yes Status: Acute Qualifiers: Hypertension type: primary hypertension Qualified Code(s): I10 - Essential (primary) hypertension Plan to address problem: Monitor blood pressure every shift, continue medical management. (4) Diabetes Current Visit: Yes Status: Acute Plan to address problem: Consult to help with carbohydrate diet, Accu-Chek, insulin protocol, hypoglycemia protocol. (5) Hyperlipidemia Current Visit: Yes Status: Acute Qualifiers: Hyperlipidemia type: mixed hyperlipidemia Qualified Code(s): E78.2 - Mixed hyperlipidemia Plan to address problem: Low-cholesterol diet, statin therapy as clinically indicated. (6) Hypothyroidism Current Visit: Yes Status: Acute Plan to address problem: Continue Synthroid therapy, supportive care. (7) Advance care planning Current Visit: Yes Status: Acute Plan to address problem: Disease education data, care plan discussed, diagnosis discussed, prognosis discussed, +30 minutes. History Interval history: 80 YO Male with Vascular Dementia with Behavioral Disturbance, Cerebral Atherosclerosis, DM, HTN, HLD, Hypothyroidism. Pt is admitted to [facility] for psychiatric stabilization. Consult placed by Dr. Frankel for medical management. Patient seen and evaluated in the recreation room. Patient resting. Patient exhibits tangential thinking with diminished cognition and intermittent agitation. No reported nursing events. Patient remains at baseline level of cognition and function. Hospitalist Physical - Constitutional Vitals: Temp Pulse Resp BP Pulse Ox 97.8 F 75 20 151/72 100 03/29/22 21:04 03/29/22 21:27 03/29/22 21:04 03/29/22 21:27 03/29/22 21:04 General appearance: Present: no acute distress, well-nourished, other (Cheerful today) - EENT Eyes: Present: PERRL ENT: hearing decreased - Neck Neck: Present: supple - Respiratory Respiratory effort: normal Respiratory: bilateral: diminished - Cardiovascular Rhythm: regular Heart Sounds: Present: S1 & S2 - Extremities Extremities: no ischemia Peripheral Pulses: within normal limits - Abdominal General gastrointestinal: soft, non-tender, non-distended - Integumentary Integumentary: Present: clear, dry - Psychiatric Psychiatric: cooperative - Neurologic Neurologic: CNII-XII intact Results - Labs CBC & Chem 7: 03/18/22 17:18 03/18/22 17:18 Labs: Laboratory Last Values WBC 6.3 K/mm3 (4.5-11.0) 03/18/22 17:18 RBC 4.33 M/mm3 (3.65-5.03) 03/18/22 17:18 Hgb 11.8 gm/dl (11.8-15.2) 03/18/22 17:18 Hct 35.4 % (35.5-45.6) L 03/18/22 17:18 MCV 82 fl (84-94) L 03/18/22 17:18 MCH 27 pg (28-32) L 03/18/22 17:18 MCHC 33 % (32-34) 03/18/22 17:18 RDW 16.0 % (13.2-15.2) H 03/18/22 17:18 Plt Count 270 K/mm3 (140-440) 03/18/22 17:18 Lymph % (Auto) 27.9 % (13.4-35.0) 03/18/22 17:18 [place] % (Auto) 11.1 % (0.0-7.3) H 03/18/22 17:18 Eos % (Auto) 1.8 % (0.0-4.3) 03/18/22 17:18 Baso % (Auto) 1.1 % (0.0-1.8) 03/18/22 17:18 Lymph # (Auto) 1.8 K/mm3 (1.2-5.4) 03/18/22 17:18 [place] # (Auto) 0.7 K/mm3 (0.0-0.8) 03/18/22 17:18 Eos # (Auto) 0.1 K/mm3 (0.0-0.4) 03/18/22 17:18 Baso # (Auto) 0.1 K/mm3 (0.0-0.1) 03/18/22 17:18 Seg Neutrophils % 58.1 % (40.0-70.0) 03/18/22 17:18 Seg Neutrophils # 3.7 K/mm3 (1.8-7.7) 03/18/22 17:18 Sodium 139 mmol/L (137-145) 03/18/22 17:18 Potassium 3.8 mmol/L (3.6-5.0) 03/18/22 17:18 Chloride 103.4 mmol/L (98-107) 03/18/22 17:18 Carbon Dioxide 20 mmol/L (22-30) L 03/18/22 17:18 Anion Gap 19 mmol/L 03/18/22 17:18 BUN 52 mg/dL (9-20) H 03/18/22 17:18 Creatinine 2.9 mg/dL (0.8-1.3) H 03/18/22 17:18 Estimated GFR 21 ml/min 03/18/22 17:18 BUN/Creatinine Ratio 18 % 03/18/22 17:18 Glucose 63 mg/dL (75-100) L 03/18/22 17:18 POC Glucose 80 mg/dL (70-105) 03/29/22 21:22 Hemoglobin A1c 8.5 % (4-6) H 03/18/22 17:18 Calcium 9.3 mg/dL (8.4-10.2) 03/18/22 17:18 Total Bilirubin 0.20 mg/dL (0.1-1.2) 03/18/22 17:18 AST 16 units/L (5-40) 03/18/22 17:18 ALT 8 units/L (7-56) 03/18/22 17:18 Alkaline Phosphatase 76 units/L (35-129) 03/18/22 17:18 Total Protein 7.3 g/dL (6.3-8.2) 03/18/22 17:18 Albumin 4.5 g/dL (3.9-5) 03/18/22 17:18 Albumin/Globulin Ratio 1.6 % 03/18/22 17:18 Triglycerides 69 mg/dL (2-149) 03/18/22 17:18 Cholesterol 230 mg/dL (50-199) H 03/18/22 17:18 LDL Cholesterol Direct 134 mg/dL (50-130) H 03/18/22 17:18 HDL Cholesterol 74 mg/dL (40-59) H 03/18/22 17:18 Cholesterol/HDL Ratio 3.10 % 03/18/22 17:18 TSH 1.190 mlU/mL (0.270-4.200) 03/18/22 17:18 Chan/IV: Voiding Method Toilet Active Medications - Current Medications Current Medications: Generic Name Dose Route Start Last Admin Trade Name Freq PRN Reason Stop Dose Admin Brimonidine/Timolol 1 drops 03/18/22 12:00 03/30/22 10:55 Combigan 0.2-0.5% Ophth Soln OU 1 drops Q12HR [facility] Administration Divalproex Sodium 125 mg 03/23/22 14:00 03/30/22 15:39 Divalproex Sprinkle 125 Mg Cap PO 125 mg TID [facility] Administration Ferrous Sulfate 325 mg 03/18/22 10:00 03/30/22 10:52 Ferrous Sulfate 325 Mg Tab PO 325 mg DAILY [facility] Administration Glipizide 2.5 mg 03/22/22 08:00 03/30/22 11:02 Glipizide Xl 2.5 Mg Tab PO 2.5 mg DAILY@0800 [facility] Administration Hydralazine HCl 50 mg 03/18/22 10:00 03/30/22 18:31 Hydralazine 25 Mg Tab PO Not Given Q8HR [facility] Insulin Human Lispro 0 unit 03/18/22 11:30 03/30/22 17:39 Insulin Lispro 100 Unit/Ml SUB-Q Not Given ACHS [facility] Protocol Lactulose 20 gm 03/18/22 10:00 Lactulose 20 Gm/30 Ml Oral Liqd PO TID PRN Edema Levothyroxine Sodium 200 mcg 03/19/22 06:00 03/30/22 06:38 Levothyroxine 100 Mcg Tab PO Not Given DAILY@0600 [facility] Melatonin 5 mg 03/18/22 22:00 03/29/22 21:25 Melatonin 5 Mg Tab PO 5 mg QHS [facility] Administration Olanzapine 2.5 mg 03/18/22 22:00 03/29/22 21:26 Olanzapine 2.5 Mg Tab PO 2.5 mg QHS [facility] Administration Trazodone HCl 50 mg 03/18/22 22:00 03/29/22 21:25 Trazodone 50 Mg Tab PO 50 mg QHS [facility] Administration Triamterene/Hydrochlorothiazide 1 each 03/18/22 10:00 03/30/22 11:02 Triamter/Hctz 37.5-25 Mg Tab PO 1 each QDAY [facility] Administration Ziprasidone 20 mg 03/18/22 10:00 Ziprasidone Mesylate 20 Mg Vial IM Q4H PRN Agitation Nutrition/Malnutrition Assess - Dietary Evaluation Nutrition/Malnutrition Findings: Nutrition Notes Start: 03/18/22 16:11 Freq: Status: Active Protocol: Document 03/25/22 16:49 KAM (Rec: 03/25/22 17:00 KAM [id number]) Nutrition Notes Initial or Follow up Reassessment Current Diet Cardiac/Consistent Carbohydrates -Chopped Meats- Diet (since B 03/18). Height 5 ft 8 in Weight 72.121 kg [place] Body Weight (kg) 70.00 BMI 24.1 Weight change and time frame No body weight change reported in 1 week. Weight Status Appropriate Subjective/Other Information RD consult for routine F/U on dietary advancement. Pt's PO intake of meals has been Good (75%), according to ADL notes. Pt is on Room Air, O2 saturation @ 100%, according to Vital Signs notes. Plans for discharge Pt to a more safe environment facility , according to Progress notes. Percent of energy/protein needs met: Prescribed Cardiac/Consistent Carbohydrates -Chopped Meats- Diet provides for energy/ protein needs (1,977 Kcal/86 g ) during LOS. Burn Absent Trauma Absent GI Symptoms None Difficulty In Chewing Food Allergy No Skin Integrity/Comment Unspecified Dryness. Current % PO Good (75-100%) Minimum of two criteria No #1 Nutrition Diagnosis Biting/Chewing (masticatory) difficulty Diagnosis Progress(for reassessment Continues documentation) Is patient on ventilator? No Is Patient Ambulatory and/or Out of Bed Yes REE-([place]-St. Jeor-ambulatory/OOB) [ 1801.423 [id number]] [facility] Additional Notes Protein: 1-1.2 g/Kg ABW; 72-86 g/day. Fluids: 1 ml/Kcal, or as per MD. Nutrition Intervention Change Diet Order: Modify to Cardiac/Consistent Carbohydrates -Chopped Meats- Diet. Goal #1 Facilitate PO intake of meals with elemental, textural, or mechanical modification during LOS. Goal #2 Maintain body weight within +/ -3% of admission body weight during LOS. Revisit per MD consult or patient Sign Off request: Additional Comments Continue monitoring food tolerance, %PO intake of meals , and BM.
--- NOTE | 2022-03-30 21:16 | Progress Note ---
Assessment and Plan - Patient Problems (1) Vascular dementia with behavioral disturbance Current Visit: Yes Status: Acute Plan to address problem: Verbal prompting, verbal redirection, benzodiazepine therapy as clinically indicated. (2) Cerebral atherosclerosis Current Visit: Yes Status: Acute Plan to address problem: Risk factor reduction, antiplatelet therapy as clinically indicated. (3) Hypertension Current Visit: Yes Status: Acute Qualifiers: Hypertension type: primary hypertension Qualified Code(s): I10 - Essential (primary) hypertension Plan to address problem: Monitor blood pressure every shift, continue medical management. (4) Diabetes Current Visit: Yes Status: Acute Plan to address problem: Consult to help with carbohydrate diet, Accu-Chek, insulin protocol, hypoglycemia protocol. (5) Hyperlipidemia Current Visit: Yes Status: Acute Qualifiers: Hyperlipidemia type: mixed hyperlipidemia Qualified Code(s): E78.2 - Mixed hyperlipidemia Plan to address problem: Low-cholesterol diet, statin therapy as clinically indicated. (6) Hypothyroidism Current Visit: Yes Status: Acute Plan to address problem: Continue Synthroid therapy, supportive care. (7) Advance care planning Current Visit: Yes Status: Acute Plan to address problem: Disease education data, care plan discussed, diagnosis discussed, prognosis discussed, +30 minutes. History Interval history: 80 YO Male with Vascular Dementia with Behavioral Disturbance, Cerebral Atherosclerosis, DM, HTN, HLD, Hypothyroidism. Pt is admitted to [facility] unit for psychiatric stabilization. Consult placed by Dr. Frankel for medical management. Patient seen and evaluated in the recreation room. Patient resting. Patient exhibits tangential thinking with diminished cognition and intermittent agitation. No reported nursing events. Patient remains at baseline level of cognition and function. Hospitalist Physical - Constitutional Vitals: Temp Pulse Resp BP Pulse Ox 97.8 F 75 20 151/72 100 03/29/22 21:04 03/29/22 21:27 03/29/22 21:04 03/29/22 21:27 03/29/22 21:04 General appearance: Present: no acute distress, well-nourished, other (Cheerful today) - EENT Eyes: Present: PERRL ENT: hearing decreased - Neck Neck: Present: supple - Respiratory Respiratory effort: normal Respiratory: bilateral: diminished - Cardiovascular Rhythm: regular Heart Sounds: Present: S1 & S2 - Extremities Extremities: no ischemia Peripheral Pulses: within normal limits - Abdominal General gastrointestinal: soft, non-tender, non-distended - Integumentary Integumentary: Present: clear, dry - Psychiatric Psychiatric: cooperative - Neurologic Neurologic: CNII-XII intact Results - Labs CBC & Chem 7: 03/18/22 17:18 03/18/22 17:18 Labs: Laboratory Last Values WBC 6.3 K/mm3 (4.5-11.0) 03/18/22 17:18 RBC 4.33 M/mm3 (3.65-5.03) 03/18/22 17:18 Hgb 11.8 gm/dl (11.8-15.2) 03/18/22 17:18 Hct 35.4 % (35.5-45.6) L 03/18/22 17:18 MCV 82 fl (84-94) L 03/18/22 17:18 MCH 27 pg (28-32) L 03/18/22 17:18 MCHC 33 % (32-34) 03/18/22 17:18 RDW 16.0 % (13.2-15.2) H 03/18/22 17:18 Plt Count 270 K/mm3 (140-440) 03/18/22 17:18 Lymph % (Auto) 27.9 % (13.4-35.0) 03/18/22 17:18 [place] % (Auto) 11.1 % (0.0-7.3) H 03/18/22 17:18 Eos % (Auto) 1.8 % (0.0-4.3) 03/18/22 17:18 Baso % (Auto) 1.1 % (0.0-1.8) 03/18/22 17:18 Lymph # (Auto) 1.8 K/mm3 (1.2-5.4) 03/18/22 17:18 [place] # (Auto) 0.7 K/mm3 (0.0-0.8) 03/18/22 17:18 Eos # (Auto) 0.1 K/mm3 (0.0-0.4) 03/18/22 17:18 Baso # (Auto) 0.1 K/mm3 (0.0-0.1) 03/18/22 17:18 Seg Neutrophils % 58.1 % (40.0-70.0) 03/18/22 17:18 Seg Neutrophils # 3.7 K/mm3 (1.8-7.7) 03/18/22 17:18 Sodium 139 mmol/L (137-145) 03/18/22 17:18 Potassium 3.8 mmol/L (3.6-5.0) 03/18/22 17:18 Chloride 103.4 mmol/L (98-107) 03/18/22 17:18 Carbon Dioxide 20 mmol/L (22-30) L 03/18/22 17:18 Anion Gap 19 mmol/L 03/18/22 17:18 BUN 52 mg/dL (9-20) H 03/18/22 17:18 Creatinine 2.9 mg/dL (0.8-1.3) H 03/18/22 17:18 Estimated GFR 21 ml/min 03/18/22 17:18 BUN/Creatinine Ratio 18 % 03/18/22 17:18 Glucose 63 mg/dL (75-100) L 03/18/22 17:18 POC Glucose 80 mg/dL (70-105) 03/29/22 21:22 Hemoglobin A1c 8.5 % (4-6) H 03/18/22 17:18 Calcium 9.3 mg/dL (8.4-10.2) 03/18/22 17:18 Total Bilirubin 0.20 mg/dL (0.1-1.2) 03/18/22 17:18 AST 16 units/L (5-40) 03/18/22 17:18 ALT 8 units/L (7-56) 03/18/22 17:18 Alkaline Phosphatase 76 units/L (35-129) 03/18/22 17:18 Total Protein 7.3 g/dL (6.3-8.2) 03/18/22 17:18 Albumin 4.5 g/dL (3.9-5) 03/18/22 17:18 Albumin/Globulin Ratio 1.6 % 03/18/22 17:18 Triglycerides 69 mg/dL (2-149) 03/18/22 17:18 Cholesterol 230 mg/dL (50-199) H 03/18/22 17:18 LDL Cholesterol Direct 134 mg/dL (50-130) H 03/18/22 17:18 HDL Cholesterol 74 mg/dL (40-59) H 03/18/22 17:18 Cholesterol/HDL Ratio 3.10 % 03/18/22 17:18 TSH 1.190 mlU/mL (0.270-4.200) 03/18/22 17:18 Chan/IV: Voiding Method Toilet Active Medications - Current Medications Current Medications: Generic Name Dose Route Start Last Admin Trade Name Freq PRN Reason Stop Dose Admin Brimonidine/Timolol 1 drops 03/18/22 12:00 03/30/22 10:55 Combigan 0.2-0.5% Ophth Soln OU 1 drops Q12HR [facility] Administration Divalproex Sodium 125 mg 03/23/22 14:00 03/30/22 15:39 Divalproex Sprinkle 125 Mg Cap PO 125 mg TID [facility] Administration Ferrous Sulfate 325 mg 03/18/22 10:00 03/30/22 10:52 Ferrous Sulfate 325 Mg Tab PO 325 mg DAILY [facility] Administration Glipizide 2.5 mg 03/22/22 08:00 03/30/22 11:02 Glipizide Xl 2.5 Mg Tab PO 2.5 mg DAILY@0800 [facility] Administration Hydralazine HCl 50 mg 03/18/22 10:00 03/30/22 18:31 Hydralazine 25 Mg Tab PO Not Given Q8HR [facility] Insulin Human Lispro 0 unit 03/18/22 11:30 03/30/22 17:39 Insulin Lispro 100 Unit/Ml SUB-Q Not Given ACHS [facility] Protocol Lactulose 20 gm 03/18/22 10:00 Lactulose 20 Gm/30 Ml Oral Liqd PO TID PRN Edema Levothyroxine Sodium 200 mcg 03/19/22 06:00 03/30/22 06:38 Levothyroxine 100 Mcg Tab PO Not Given DAILY@0600 [facility] Melatonin 5 mg 03/18/22 22:00 03/29/22 21:25 Melatonin 5 Mg Tab PO 5 mg QHS [facility] Administration Olanzapine 2.5 mg 03/18/22 22:00 03/29/22 21:26 Olanzapine 2.5 Mg Tab PO 2.5 mg QHS [facility] Administration Trazodone HCl 50 mg 03/18/22 22:00 03/29/22 21:25 Trazodone 50 Mg Tab PO 50 mg QHS [facility] Administration Triamterene/Hydrochlorothiazide 1 each 03/18/22 10:00 03/30/22 11:02 Triamter/Hctz 37.5-25 Mg Tab PO 1 each QDAY [facility] Administration Ziprasidone 20 mg 03/18/22 10:00 Ziprasidone Mesylate 20 Mg Vial IM Q4H PRN Agitation Nutrition/Malnutrition Assess - Dietary Evaluation Nutrition/Malnutrition Findings: Nutrition Notes Start: 03/18/22 16:11 Freq: Status: Active Protocol: Document 03/25/22 16:49 KAM (Rec: 03/25/22 17:00 KAM [id number]) Nutrition Notes Initial or Follow up Reassessment Current Diet Cardiac/Consistent Carbohydrates -Chopped Meats- Diet (since B 03/18). Height 5 ft 8 in Weight 72.121 kg [place] Body Weight (kg) 70.00 BMI 24.1 Weight change and time frame No body weight change reported in 1 week. Weight Status Appropriate Subjective/Other Information RD consult for routine F/U on dietary advancement. Pt's PO intake of meals has been Good (75%), according to ADL notes. Pt is on Room Air, O2 saturation @ 100%, according to Vital Signs notes. Plans for discharge Pt to a more safe environment facility , according to Progress notes. Percent of energy/protein needs met: Prescribed Cardiac/Consistent Carbohydrates -Chopped Meats- Diet provides for energy/ protein needs (1,977 Kcal/86 g ) during LOS. Burn Absent Trauma Absent GI Symptoms None Difficulty In Chewing Food Allergy No Skin Integrity/Comment Unspecified Dryness. Current % PO Good (75-100%) Minimum of two criteria No #1 Nutrition Diagnosis Biting/Chewing (masticatory) difficulty Diagnosis Progress(for reassessment Continues documentation) Is patient on ventilator? No Is Patient Ambulatory and/or Out of Bed Yes REE-([place]-St. Jeor-ambulatory/OOB) [ 1801.423 NUTR.[id number]] [facility] Additional Notes Protein: 1-1.2 g/Kg ABW; 72-86 g/day. Fluids: 1 ml/Kcal, or as per MD. Nutrition Intervention Change Diet Order: Modify to Cardiac/Consistent Carbohydrates -Chopped Meats- Diet. Goal #1 Facilitate PO intake of meals with elemental, textural, or mechanical modification during LOS. Goal #2 Maintain body weight within +/ -3% of admission body weight during LOS. Revisit per MD consult or patient Sign Off request: Additional Comments Continue monitoring food tolerance, %PO intake of meals , and BM.
--- NOTE | 2022-03-30 21:17 | Progress Note ---
Assessment and Plan - Patient Problems (1) Vascular dementia with behavioral disturbance Current Visit: Yes Status: Acute Plan to address problem: Verbal prompting, verbal redirection, benzodiazepine therapy as clinically indicated. (2) Cerebral atherosclerosis Current Visit: Yes Status: Acute Plan to address problem: Risk factor reduction, antiplatelet therapy as clinically indicated. (3) Hypertension Current Visit: Yes Status: Acute Qualifiers: Hypertension type: primary hypertension Qualified Code(s): I10 - Essential (primary) hypertension Plan to address problem: Monitor blood pressure every shift, continue medical management. (4) Diabetes Current Visit: Yes Status: Acute Plan to address problem: Consult to help with carbohydrate diet, Accu-Chek, insulin protocol, hypoglycemia protocol. (5) Hyperlipidemia Current Visit: Yes Status: Acute Qualifiers: Hyperlipidemia type: mixed hyperlipidemia Qualified Code(s): E78.2 - Mixed hyperlipidemia Plan to address problem: Low-cholesterol diet, statin therapy as clinically indicated. (6) Hypothyroidism Current Visit: Yes Status: Acute Plan to address problem: Continue Synthroid therapy, supportive care. (7) Advance care planning Current Visit: Yes Status: Acute Plan to address problem: Disease education data, care plan discussed, diagnosis discussed, prognosis discussed, +30 minutes. History Interval history: 80 YO Male with Vascular Dementia with Behavioral Disturbance, Cerebral Atherosclerosis, DM, HTN, HLD, Hypothyroidism. Pt is admitted to [facility] unit for psychiatric stabilization. Consult placed by Dr. Frankel for medical management. Patient seen and evaluated in the recreation room. Patient resting. Patient exhibits tangential thinking with diminished cognition and intermittent agitation. No reported nursing events. Patient remains at baseline level of cognition and function. Hospitalist Physical - Constitutional Vitals: Temp Pulse Resp BP Pulse Ox 97.8 F 75 20 151/72 100 03/29/22 21:04 03/29/22 21:27 03/29/22 21:04 03/29/22 21:27 03/29/22 21:04 General appearance: Present: no acute distress, well-nourished, other (Cheerful today) - EENT Eyes: Present: PERRL, EOM intact ENT: hearing decreased - Neck Neck: Present: supple - Respiratory Respiratory effort: normal Respiratory: bilateral: diminished - Cardiovascular Rhythm: regular Heart Sounds: Present: S1 & S2 - Extremities Extremities: no ischemia Peripheral Pulses: within normal limits - Abdominal General gastrointestinal: soft, non-tender, non-distended - Integumentary Integumentary: Present: clear, dry - Psychiatric Psychiatric: cooperative - Neurologic Neurologic: CNII-XII intact Results - Labs CBC & Chem 7: 03/18/22 17:18 03/18/22 17:18 Labs: Laboratory Last Values WBC 6.3 K/mm3 (4.5-11.0) 03/18/22 17:18 RBC 4.33 M/mm3 (3.65-5.03) 03/18/22 17:18 Hgb 11.8 gm/dl (11.8-15.2) 03/18/22 17:18 Hct 35.4 % (35.5-45.6) L 03/18/22 17:18 MCV 82 fl (84-94) L 03/18/22 17:18 MCH 27 pg (28-32) L 03/18/22 17:18 MCHC 33 % (32-34) 03/18/22 17:18 RDW 16.0 % (13.2-15.2) H 03/18/22 17:18 Plt Count 270 K/mm3 (140-440) 03/18/22 17:18 Lymph % (Auto) 27.9 % (13.4-35.0) 03/18/22 17:18 [place] % (Auto) 11.1 % (0.0-7.3) H 03/18/22 17:18 Eos % (Auto) 1.8 % (0.0-4.3) 03/18/22 17:18 Baso % (Auto) 1.1 % (0.0-1.8) 03/18/22 17:18 Lymph # (Auto) 1.8 K/mm3 (1.2-5.4) 03/18/22 17:18 [place] # (Auto) 0.7 K/mm3 (0.0-0.8) 03/18/22 17:18 Eos # (Auto) 0.1 K/mm3 (0.0-0.4) 03/18/22 17:18 Baso # (Auto) 0.1 K/mm3 (0.0-0.1) 03/18/22 17:18 Seg Neutrophils % 58.1 % (40.0-70.0) 03/18/22 17:18 Seg Neutrophils # 3.7 K/mm3 (1.8-7.7) 03/18/22 17:18 Sodium 139 mmol/L (137-145) 03/18/22 17:18 Potassium 3.8 mmol/L (3.6-5.0) 03/18/22 17:18 Chloride 103.4 mmol/L (98-107) 03/18/22 17:18 Carbon Dioxide 20 mmol/L (22-30) L 03/18/22 17:18 Anion Gap 19 mmol/L 03/18/22 17:18 BUN 52 mg/dL (9-20) H 03/18/22 17:18 Creatinine 2.9 mg/dL (0.8-1.3) H 03/18/22 17:18 Estimated GFR 21 ml/min 03/18/22 17:18 BUN/Creatinine Ratio 18 % 03/18/22 17:18 Glucose 63 mg/dL (75-100) L 03/18/22 17:18 POC Glucose 80 mg/dL (70-105) 03/29/22 21:22 Hemoglobin A1c 8.5 % (4-6) H 03/18/22 17:18 Calcium 9.3 mg/dL (8.4-10.2) 03/18/22 17:18 Total Bilirubin 0.20 mg/dL (0.1-1.2) 03/18/22 17:18 AST 16 units/L (5-40) 03/18/22 17:18 ALT 8 units/L (7-56) 03/18/22 17:18 Alkaline Phosphatase 76 units/L (35-129) 03/18/22 17:18 Total Protein 7.3 g/dL (6.3-8.2) 03/18/22 17:18 Albumin 4.5 g/dL (3.9-5) 03/18/22 17:18 Albumin/Globulin Ratio 1.6 % 03/18/22 17:18 Triglycerides 69 mg/dL (2-149) 03/18/22 17:18 Cholesterol 230 mg/dL (50-199) H 03/18/22 17:18 LDL Cholesterol Direct 134 mg/dL (50-130) H 03/18/22 17:18 HDL Cholesterol 74 mg/dL (40-59) H 03/18/22 17:18 Cholesterol/HDL Ratio 3.10 % 03/18/22 17:18 TSH 1.190 mlU/mL (0.270-4.200) 03/18/22 17:18 Chan/IV: Voiding Method Toilet Active Medications - Current Medications Current Medications: Generic Name Dose Route Start Last Admin Trade Name Freq PRN Reason Stop Dose Admin Brimonidine/Timolol 1 drops 03/18/22 12:00 03/30/22 10:55 Combigan 0.2-0.5% Ophth Soln OU 1 drops Q12HR [facility] Administration Divalproex Sodium 125 mg 03/23/22 14:00 03/30/22 15:39 Divalproex Sprinkle 125 Mg Cap PO 125 mg TID [facility] Administration Ferrous Sulfate 325 mg 03/18/22 10:00 03/30/22 10:52 Ferrous Sulfate 325 Mg Tab PO 325 mg DAILY [facility] Administration Glipizide 2.5 mg 03/22/22 08:00 03/30/22 11:02 Glipizide Xl 2.5 Mg Tab PO 2.5 mg DAILY@0800 [facility] Administration Hydralazine HCl 50 mg 03/18/22 10:00 03/30/22 18:31 Hydralazine 25 Mg Tab PO Not Given Q8HR [facility] Insulin Human Lispro 0 unit 03/18/22 11:30 03/30/22 17:39 Insulin Lispro 100 Unit/Ml SUB-Q Not Given ACHS [facility] Protocol Lactulose 20 gm 03/18/22 10:00 Lactulose 20 Gm/30 Ml Oral Liqd PO TID PRN Edema Levothyroxine Sodium 200 mcg 03/19/22 06:00 03/30/22 06:38 Levothyroxine 100 Mcg Tab PO Not Given DAILY@0600 [facility] Melatonin 5 mg 03/18/22 22:00 03/29/22 21:25 Melatonin 5 Mg Tab PO 5 mg QHS [facility] Administration Olanzapine 2.5 mg 03/18/22 22:00 03/29/22 21:26 Olanzapine 2.5 Mg Tab PO 2.5 mg QHS [facility] Administration Trazodone HCl 50 mg 03/18/22 22:00 03/29/22 21:25 Trazodone 50 Mg Tab PO 50 mg QHS [facility] Administration Triamterene/Hydrochlorothiazide 1 each 03/18/22 10:00 03/30/22 11:02 Triamter/Hctz 37.5-25 Mg Tab PO 1 each QDAY [facility] Administration Ziprasidone 20 mg 03/18/22 10:00 Ziprasidone Mesylate 20 Mg Vial IM Q4H PRN Agitation Nutrition/Malnutrition Assess - Dietary Evaluation Nutrition/Malnutrition Findings: Nutrition Notes Start: 03/18/22 16:11 Freq: Status: Active Protocol: Document 03/25/22 16:49 KAM (Rec: 03/25/22 17:00 KAM [id number]) Nutrition Notes Initial or Follow up Reassessment Current Diet Cardiac/Consistent Carbohydrates -Chopped Meats- Diet (since B 03/18). Height 5 ft 8 in Weight 72.121 kg [place] Body Weight (kg) 70.00 BMI 24.1 Weight change and time frame No body weight change reported in 1 week. Weight Status Appropriate Subjective/Other Information RD consult for routine F/U on dietary advancement. Pt's PO intake of meals has been Good (75%), according to ADL notes. Pt is on Room Air, O2 saturation @ 100%, according to Vital Signs notes. Plans for discharge Pt to a more safe environment facility , according to Progress notes. Percent of energy/protein needs met: Prescribed Cardiac/Consistent Carbohydrates -Chopped Meats- Diet provides for energy/ protein needs (1,977 Kcal/86 g ) during LOS. Burn Absent Trauma Absent GI Symptoms None Difficulty In Chewing Food Allergy No Skin Integrity/Comment Unspecified Dryness. Current % PO Good (75-100%) Minimum of two criteria No #1 Nutrition Diagnosis Biting/Chewing (masticatory) difficulty Diagnosis Progress(for reassessment Continues documentation) Is patient on ventilator? No Is Patient Ambulatory and/or Out of Bed Yes REE-([place]-St. Jeor-ambulatory/OOB) [ 1801.423 NUTR.[id number]] Calculation Used for Recommendations [place]-St Jeor Additional Notes Protein: 1-1.2 g/Kg ABW; 72-86 g/day. Fluids: 1 ml/Kcal, or as per MD. Nutrition Intervention Change Diet Order: Modify to Cardiac/Consistent Carbohydrates -Chopped Meats- Diet. Goal #1 Facilitate PO intake of meals with elemental, textural, or mechanical modification during LOS. Goal #2 Maintain body weight within +/ -3% of admission body weight during LOS. Revisit per MD consult or patient Sign Off request: Additional Comments Continue monitoring food tolerance, %PO intake of meals , and BM.
--- NOTE | 2022-03-30 21:18 | Progress Note ---
Assessment and Plan - Patient Problems (1) Vascular dementia with behavioral disturbance Current Visit: Yes Status: Acute (2) Cerebral atherosclerosis Current Visit: Yes Status: Acute (3) Hypertension Current Visit: Yes Status: Acute Qualifiers: Hypertension type: primary hypertension Qualified Code(s): I10 - Essential (primary) hypertension (4) Diabetes Current Visit: Yes Status: Acute (5) Hyperlipidemia Current Visit: Yes Status: Acute Qualifiers: Hyperlipidemia type: mixed hyperlipidemia Qualified Code(s): E78.2 - Mixed hyperlipidemia (6) Hypothyroidism Current Visit: Yes Status: Acute (7) Advance care planning Current Visit: Yes Status: Acute History Interval history: 80 YO Male with Vascular Dementia with Behavioral Disturbance, Cerebral Atherosclerosis, DM, HTN, HLD, Hypothyroidism. Pt is admitted to [facility] unit for psychiatric stabilization. Consult placed by Dr. Frankel for medical management. Patient seen and evaluated in the recreation room. Patient resting. Patient exhibits tangential thinking with diminished cognition and intermittent agitation. No reported nursing events. Patient remains at baseline level of cognition and function. Hospitalist Physical - Constitutional Vitals: Temp Pulse Resp BP Pulse Ox 97.8 F 75 20 151/72 100 03/29/22 21:04 03/29/22 21:27 03/29/22 21:04 03/29/22 21:27 03/29/22 21:04 General appearance: Present: no acute distress, well-nourished, other (Cheerful today) - EENT Eyes: Present: PERRL ENT: hearing intact, hearing decreased - Neck Neck: Present: supple - Respiratory Respiratory effort: normal Respiratory: bilateral: diminished - Cardiovascular Rhythm: regular Heart Sounds: Present: S1 & S2 - Extremities Extremities: no ischemia Peripheral Pulses: within normal limits - Abdominal General gastrointestinal: soft, non-tender, non-distended - Integumentary Integumentary: Present: clear, dry - Psychiatric Psychiatric: cooperative - Neurologic Neurologic: CNII-XII intact Results - Labs CBC & Chem 7: 03/18/22 17:18 03/18/22 17:18 Labs: Laboratory Last Values WBC 6.3 K/mm3 (4.5-11.0) 03/18/22 17:18 RBC 4.33 M/mm3 (3.65-5.03) 03/18/22 17:18 Hgb 11.8 gm/dl (11.8-15.2) 03/18/22 17:18 Hct 35.4 % (35.5-45.6) L 03/18/22 17:18 MCV 82 fl (84-94) L 03/18/22 17:18 MCH 27 pg (28-32) L 03/18/22 17:18 MCHC 33 % (32-34) 03/18/22 17:18 RDW 16.0 % (13.2-15.2) H 03/18/22 17:18 Plt Count 270 K/mm3 (140-440) 03/18/22 17:18 Lymph % (Auto) 27.9 % (13.4-35.0) 03/18/22 17:18 [place] % (Auto) 11.1 % (0.0-7.3) H 03/18/22 17:18 Eos % (Auto) 1.8 % (0.0-4.3) 03/18/22 17:18 Baso % (Auto) 1.1 % (0.0-1.8) 03/18/22 17:18 Lymph # (Auto) 1.8 K/mm3 (1.2-5.4) 03/18/22 17:18 [place] # (Auto) 0.7 K/mm3 (0.0-0.8) 03/18/22 17:18 Eos # (Auto) 0.1 K/mm3 (0.0-0.4) 03/18/22 17:18 Baso # (Auto) 0.1 K/mm3 (0.0-0.1) 03/18/22 17:18 Seg Neutrophils % 58.1 % (40.0-70.0) 03/18/22 17:18 Seg Neutrophils # 3.7 K/mm3 (1.8-7.7) 03/18/22 17:18 Sodium 139 mmol/L (137-145) 03/18/22 17:18 Potassium 3.8 mmol/L (3.6-5.0) 03/18/22 17:18 Chloride 103.4 mmol/L (98-107) 03/18/22 17:18 Carbon Dioxide 20 mmol/L (22-30) L 03/18/22 17:18 Anion Gap 19 mmol/L 03/18/22 17:18 BUN 52 mg/dL (9-20) H 03/18/22 17:18 Creatinine 2.9 mg/dL (0.8-1.3) H 03/18/22 17:18 Estimated GFR 21 ml/min 03/18/22 17:18 BUN/Creatinine Ratio 18 % 03/18/22 17:18 Glucose 63 mg/dL (75-100) L 03/18/22 17:18 POC Glucose 80 mg/dL (70-105) 03/29/22 21:22 Hemoglobin A1c 8.5 % (4-6) H 03/18/22 17:18 Calcium 9.3 mg/dL (8.4-10.2) 03/18/22 17:18 Total Bilirubin 0.20 mg/dL (0.1-1.2) 03/18/22 17:18 AST 16 units/L (5-40) 03/18/22 17:18 ALT 8 units/L (7-56) 03/18/22 17:18 Alkaline Phosphatase 76 units/L (35-129) 03/18/22 17:18 Total Protein 7.3 g/dL (6.3-8.2) 03/18/22 17:18 Albumin 4.5 g/dL (3.9-5) 03/18/22 17:18 Albumin/Globulin Ratio 1.6 % 03/18/22 17:18 Triglycerides 69 mg/dL (2-149) 03/18/22 17:18 Cholesterol 230 mg/dL (50-199) H 03/18/22 17:18 LDL Cholesterol Direct 134 mg/dL (50-130) H 03/18/22 17:18 HDL Cholesterol 74 mg/dL (40-59) H 03/18/22 17:18 Cholesterol/HDL Ratio 3.10 % 03/18/22 17:18 TSH 1.190 mlU/mL (0.270-4.200) 03/18/22 17:18 Chan/IV: Voiding Method Toilet Active Medications - Current Medications Current Medications: Generic Name Dose Route Start Last Admin Trade Name Freq PRN Reason Stop Dose Admin Brimonidine/Timolol 1 drops 03/18/22 12:00 03/30/22 10:55 Combigan 0.2-0.5% Ophth Soln OU 1 drops Q12HR [facility] Administration Divalproex Sodium 125 mg 03/23/22 14:00 03/30/22 15:39 Divalproex Sprinkle 125 Mg Cap PO 125 mg TID [facility] Administration Ferrous Sulfate 325 mg 03/18/22 10:00 03/30/22 10:52 Ferrous Sulfate 325 Mg Tab PO 325 mg DAILY [facility] Administration Glipizide 2.5 mg 03/22/22 08:00 03/30/22 11:02 Glipizide Xl 2.5 Mg Tab PO 2.5 mg DAILY@0800 [facility] Administration Hydralazine HCl 50 mg 03/18/22 10:00 03/30/22 18:31 Hydralazine 25 Mg Tab PO Not Given Q8HR [facility] Insulin Human Lispro 0 unit 03/18/22 11:30 03/30/22 17:39 Insulin Lispro 100 Unit/Ml SUB-Q Not Given ACHS [facility] Protocol Lactulose 20 gm 03/18/22 10:00 Lactulose 20 Gm/30 Ml Oral Liqd PO TID PRN Edema Levothyroxine Sodium 200 mcg 03/19/22 06:00 03/30/22 06:38 Levothyroxine 100 Mcg Tab PO Not Given DAILY@0600 [facility] Melatonin 5 mg 03/18/22 22:00 03/29/22 21:25 Melatonin 5 Mg Tab PO 5 mg QHS [facility] Administration Olanzapine 2.5 mg 03/18/22 22:00 03/29/22 21:26 Olanzapine 2.5 Mg Tab PO 2.5 mg QHS [facility] Administration Trazodone HCl 50 mg 03/18/22 22:00 03/29/22 21:25 Trazodone 50 Mg Tab PO 50 mg QHS [facility] Administration Triamterene/Hydrochlorothiazide 1 each 03/18/22 10:00 03/30/22 11:02 Triamter/Hctz 37.5-25 Mg Tab PO 1 each QDAY [facility] Administration Ziprasidone 20 mg 03/18/22 10:00 Ziprasidone Mesylate 20 Mg Vial IM Q4H PRN Agitation Nutrition/Malnutrition Assess - Dietary Evaluation Nutrition/Malnutrition Findings: Nutrition Notes Start: 03/18/22 16:11 Freq: Status: Active Protocol: Document 03/25/22 16:49 KAM (Rec: 03/25/22 17:00 KAM [id number]) Nutrition Notes Initial or Follow up Reassessment Current Diet Cardiac/Consistent Carbohydrates -Chopped Meats- Diet (since B 03/18). Height 5 ft 8 in Weight 72.121 kg [place] Body Weight (kg) 70.00 BMI 24.1 Weight change and time frame No body weight change reported in 1 week. Weight Status Appropriate Subjective/Other Information RD consult for routine F/U on dietary advancement. Pt's PO intake of meals has been Good (75%), according to ADL notes. Pt is on Room Air, O2 saturation @ 100%, according to Vital Signs notes. Plans for discharge Pt to a more safe environment facility , according to Progress notes. Percent of energy/protein needs met: Prescribed Cardiac/Consistent Carbohydrates -Chopped Meats- Diet provides for energy/ protein needs (1,977 Kcal/86 g ) during LOS. Burn Absent Trauma Absent GI Symptoms None Difficulty In Chewing Food Allergy No Skin Integrity/Comment Unspecified Dryness. Current % PO Good (75-100%) Minimum of two criteria No #1 Nutrition Diagnosis Biting/Chewing (masticatory) difficulty Diagnosis Progress(for reassessment Continues documentation) Is patient on ventilator? No Is Patient Ambulatory and/or Out of Bed Yes REE-([place]-St. Jeor-ambulatory/OOB) [ 1801.423 NUTR.[id number]] Calculation Used for Recommendations [place]-St Jeor Additional Notes Protein: 1-1.2 g/Kg ABW; 72-86 g/day. Fluids: 1 ml/Kcal, or as per MD. Nutrition Intervention Change Diet Order: Modify to Cardiac/Consistent Carbohydrates -Chopped Meats- Diet. Goal #1 Facilitate PO intake of meals with elemental, textural, or mechanical modification during LOS. Goal #2 Maintain body weight within +/ -3% of admission body weight during LOS. Revisit per MD consult or patient Sign Off request: Additional Comments Continue monitoring food tolerance, %PO intake of meals , and BM.
--- NOTE | 2022-03-30 21:19 | Progress Note ---
Assessment and Plan - Patient Problems (1) Vascular dementia with behavioral disturbance Current Visit: Yes Status: Acute Plan to address problem: Verbal prompting, verbal redirection, benzodiazepine therapy as clinically indicated. (2) Cerebral atherosclerosis Current Visit: Yes Status: Acute Plan to address problem: Risk factor reduction, antiplatelet therapy as clinically indicated. (3) Hypertension Current Visit: Yes Status: Acute Qualifiers: Hypertension type: primary hypertension Qualified Code(s): I10 - Essential (primary) hypertension Plan to address problem: Monitor blood pressure every shift, continue medical management. (4) Diabetes Current Visit: Yes Status: Acute Plan to address problem: Consult to help with carbohydrate diet, Accu-Chek, insulin protocol, hypoglycemia protocol. (5) Hyperlipidemia Current Visit: Yes Status: Acute Qualifiers: Hyperlipidemia type: mixed hyperlipidemia Qualified Code(s): E78.2 - Mixed hyperlipidemia Plan to address problem: Low-cholesterol diet, statin therapy as clinically indicated. (6) Hypothyroidism Current Visit: Yes Status: Acute Plan to address problem: Continue Synthroid therapy, supportive care. (7) Advance care planning Current Visit: Yes Status: Acute Plan to address problem: Disease education data, care plan discussed, diagnosis discussed, prognosis discussed, +30 minutes. History Interval history: 80 YO Male with Vascular Dementia with Behavioral Disturbance, Cerebral Atherosclerosis, DM, HTN, HLD, Hypothyroidism. Pt is admitted to [facility] for psychiatric stabilization. Consult placed by Dr. Frankel for medical management. Patient seen and evaluated in the recreation room. Patient resting. Patient exhibits tangential thinking with diminished cognition and intermittent agitation. No reported nursing events. Patient remains at baseline level of cognition and function. Hospitalist Physical - Constitutional Vitals: Temp Pulse Resp BP Pulse Ox 97.8 F 75 20 151/72 100 03/29/22 21:04 03/29/22 21:27 03/29/22 21:04 03/29/22 21:27 03/29/22 21:04 General appearance: Present: no acute distress, well-nourished, other (Cheerful today) - EENT Eyes: Present: PERRL ENT: hearing intact, hearing decreased - Neck Neck: Present: supple - Respiratory Respiratory effort: normal Respiratory: bilateral: diminished - Cardiovascular Rhythm: regular Heart Sounds: Present: S1 & S2 - Extremities Extremities: no ischemia Peripheral Pulses: within normal limits - Abdominal General gastrointestinal: soft, non-tender, non-distended - Integumentary Integumentary: Present: clear, dry - Psychiatric Psychiatric: cooperative - Neurologic Neurologic: CNII-XII intact Results - Labs CBC & Chem 7: 03/18/22 17:18 03/18/22 17:18 Labs: Laboratory Last Values WBC 6.3 K/mm3 (4.5-11.0) 03/18/22 17:18 RBC 4.33 M/mm3 (3.65-5.03) 03/18/22 17:18 Hgb 11.8 gm/dl (11.8-15.2) 03/18/22 17:18 Hct 35.4 % (35.5-45.6) L 03/18/22 17:18 MCV 82 fl (84-94) L 03/18/22 17:18 MCH 27 pg (28-32) L 03/18/22 17:18 MCHC 33 % (32-34) 03/18/22 17:18 RDW 16.0 % (13.2-15.2) H 03/18/22 17:18 Plt Count 270 K/mm3 (140-440) 03/18/22 17:18 Lymph % (Auto) 27.9 % (13.4-35.0) 03/18/22 17:18 Howard % (Auto) 11.1 % (0.0-7.3) H 03/18/22 17:18 Eos % (Auto) 1.8 % (0.0-4.3) 03/18/22 17:18 Baso % (Auto) 1.1 % (0.0-1.8) 03/18/22 17:18 Lymph # (Auto) 1.8 K/mm3 (1.2-5.4) 03/18/22 17:18 Howard # (Auto) 0.7 K/mm3 (0.0-0.8) 03/18/22 17:18 Eos # (Auto) 0.1 K/mm3 (0.0-0.4) 03/18/22 17:18 Baso # (Auto) 0.1 K/mm3 (0.0-0.1) 03/18/22 17:18 Seg Neutrophils % 58.1 % (40.0-70.0) 03/18/22 17:18 Seg Neutrophils # 3.7 K/mm3 (1.8-7.7) 03/18/22 17:18 Sodium 139 mmol/L (137-145) 03/18/22 17:18 Potassium 3.8 mmol/L (3.6-5.0) 03/18/22 17:18 Chloride 103.4 mmol/L (98-107) 03/18/22 17:18 Carbon Dioxide 20 mmol/L (22-30) L 03/18/22 17:18 Anion Gap 19 mmol/L 03/18/22 17:18 BUN 52 mg/dL (9-20) H 03/18/22 17:18 Creatinine 2.9 mg/dL (0.8-1.3) H 03/18/22 17:18 Estimated GFR 21 ml/min 03/18/22 17:18 BUN/Creatinine Ratio 18 % 03/18/22 17:18 Glucose 63 mg/dL (75-100) L 03/18/22 17:18 POC Glucose 80 mg/dL (70-105) 03/29/22 21:22 Hemoglobin A1c 8.5 % (4-6) H 03/18/22 17:18 Calcium 9.3 mg/dL (8.4-10.2) 03/18/22 17:18 Total Bilirubin 0.20 mg/dL (0.1-1.2) 03/18/22 17:18 AST 16 units/L (5-40) 03/18/22 17:18 ALT 8 units/L (7-56) 03/18/22 17:18 Alkaline Phosphatase 76 units/L (35-129) 03/18/22 17:18 Total Protein 7.3 g/dL (6.3-8.2) 03/18/22 17:18 Albumin 4.5 g/dL (3.9-5) 03/18/22 17:18 Albumin/Globulin Ratio 1.6 % 03/18/22 17:18 Triglycerides 69 mg/dL (2-149) 03/18/22 17:18 Cholesterol 230 mg/dL (50-199) H 03/18/22 17:18 LDL Cholesterol Direct 134 mg/dL (50-130) H 03/18/22 17:18 HDL Cholesterol 74 mg/dL (40-59) H 03/18/22 17:18 Cholesterol/HDL Ratio 3.10 % 03/18/22 17:18 TSH 1.190 mlU/mL (0.270-4.200) 03/18/22 17:18 Chan/IV: Voiding Method Toilet Active Medications - Current Medications Current Medications: Generic Name Dose Route Start Last Admin Trade Name Freq PRN Reason Stop Dose Admin Brimonidine/Timolol 1 drops 03/18/22 12:00 03/30/22 10:55 Combigan 0.2-0.5% Ophth Soln OU 1 drops Q12HR [facility] Administration Divalproex Sodium 125 mg 03/23/22 14:00 03/30/22 15:39 Divalproex Sprinkle 125 Mg Cap PO 125 mg TID [facility] Administration Ferrous Sulfate 325 mg 03/18/22 10:00 03/30/22 10:52 Ferrous Sulfate 325 Mg Tab PO 325 mg DAILY [facility] Administration Glipizide 2.5 mg 03/22/22 08:00 03/30/22 11:02 Glipizide Xl 2.5 Mg Tab PO 2.5 mg DAILY@0800 [facility] Administration Hydralazine HCl 50 mg 03/18/22 10:00 03/30/22 18:31 Hydralazine 25 Mg Tab PO Not Given Q8HR [facility] Insulin Human Lispro 0 unit 03/18/22 11:30 03/30/22 17:39 Insulin Lispro 100 Unit/Ml SUB-Q Not Given ACHS [facility] Protocol Lactulose 20 gm 03/18/22 10:00 Lactulose 20 Gm/30 Ml Oral Liqd PO TID PRN Edema Levothyroxine Sodium 200 mcg 03/19/22 06:00 03/30/22 06:38 Levothyroxine 100 Mcg Tab PO Not Given DAILY@0600 [facility] Melatonin 5 mg 03/18/22 22:00 03/29/22 21:25 Melatonin 5 Mg Tab PO 5 mg QHS [facility] Administration Olanzapine 2.5 mg 03/18/22 22:00 03/29/22 21:26 Olanzapine 2.5 Mg Tab PO 2.5 mg QHS [facility] Administration Trazodone HCl 50 mg 03/18/22 22:00 03/29/22 21:25 Trazodone 50 Mg Tab PO 50 mg QHS [facility] Administration Triamterene/Hydrochlorothiazide 1 each 03/18/22 10:00 03/30/22 11:02 Triamter/Hctz 37.5-25 Mg Tab PO 1 each QDAY [facility] Administration Ziprasidone 20 mg 03/18/22 10:00 Ziprasidone Mesylate 20 Mg Vial IM Q4H PRN Agitation Nutrition/Malnutrition Assess - Dietary Evaluation Nutrition/Malnutrition Findings: Nutrition Notes Start: 03/18/22 16:11 Freq: Status: Active Protocol: Document 03/25/22 16:49 KAM (Rec: 03/25/22 17:00 KAM [id number]) Nutrition Notes Initial or Follow up Reassessment Current Diet Cardiac/Consistent Carbohydrates -Chopped Meats- Diet (since B 03/18). Height 5 ft 8 in Weight 72.121 kg Lynn Body Weight (kg) 70.00 BMI 24.1 Weight change and time frame No body weight change reported in 1 week. Weight Status Appropriate Subjective/Other Information RD consult for routine F/U on dietary advancement. Pt's PO intake of meals has been Good (75%), according to ADL notes. Pt is on Room Air, O2 saturation @ 100%, according to Vital Signs notes. Plans for discharge Pt to a more safe environment facility , according to Progress notes. Percent of energy/protein needs met: Prescribed Cardiac/Consistent Carbohydrates -Chopped Meats- Diet provides for energy/ protein needs (1,977 Kcal/86 g ) during LOS. Burn Absent Trauma Absent GI Symptoms None Difficulty In Chewing Food Allergy No Skin Integrity/Comment Unspecified Dryness. Current % PO Good (75-100%) Minimum of two criteria No #1 Nutrition Diagnosis Biting/Chewing (masticatory) difficulty Diagnosis Progress(for reassessment Continues documentation) Is patient on ventilator? No Is Patient Ambulatory and/or Out of Bed Yes REE-([place]-St[place] Jeor-ambulatory/OOB) [ [id number] [id number]] Calculation Used for Recommendations [place] Jeor Additional Notes Protein: 1-1.2 g/Kg ABW; 72-86 g/day. Fluids: 1 ml/Kcal, or as per MD. Nutrition Intervention Change Diet Order: Modify to Cardiac/Consistent Carbohydrates -Chopped Meats- Diet. Goal #1 Facilitate PO intake of meals with elemental, textural, or mechanical modification during LOS. Goal #2 Maintain body weight within +/ -3% of admission body weight during LOS. Revisit per MD consult or patient Sign Off request: Additional Comments Continue monitoring food tolerance, %PO intake of meals , and BM.
[2022-03-30] MEDS: traZODone 50 MG TAB PO SCH (23:10)
[2022-03-30] MEDS: MELATONIN 5 MG TAB PO SCH (23:11)
[2022-03-31] MEDS: LEVOTHYROXINE 100 MCG TAB PO SCH (06:41)
[2022-03-31] MEDS: hydrALAZINE 25 MG TAB PO SCH ×3 (06:41→22:27)
[2022-03-31] MEDS: INSULIN LISPRO 100 UNIT/ML SUB-Q SCH ×4 (07:30→23:03)
[2022-03-31] MEDS: DIVALPROEX SPRINKLE 125 MG CAP PO SCH ×4 (08:00→22:26)
[2022-03-31] MEDS: TRIAMTER/HCTZ 37.5-25 MG TAB PO SCH ×2 (09:34→10:00)
[2022-03-31] MEDS: FERROUS SULFATE 325 MG TAB PO SCH ×2 (09:35→10:00)
[2022-03-31] MEDS: COMBIGAN 0.2-0.5% OPHTH SOLN OU SCH ×3 (09:36→22:28)
--- NOTE | 2022-03-31 10:08 | Progress Note ---
Subjective Date of service: 03/31/22 Principal diagnosis: MDD Subjective Comment: 03/31:The patient was seen this morning. He states he is doing ok. The patient denies any current suicidal/homicidal and denies hallucinations. No changes made today.The patient is awaiting placement. 03/30:The patient was seen this morning. He states he is doing well. The patient denies any current suicidal/homicidal and denies hallucinations. No changes made today.The patient is awaiting placement. 03/29:The patient was at breakfast. He states he is doing pretty well. The patient denies any current suicidal/homicidal and denies hallucinations. No changes made today.The patient is awaiting placement. 03/28: The patient was seen this morning. He states he is doing well. The patient denies any current suicidal/homicidal and denies hallucinations. No changes made today.The patient is awaiting placement. 03/27: The patient was seen this morning. He reports doing pretty good " I feel good." He denies depression. The patient denies any current suicidal/homicidal and denies hallucinations. No changes made today.The patient is awaiting placement. 03/26:The patient was seen today. He is sleeping, but easily arouses. His mood has been much better over the last few days since starting the depakote. He denies SI/HI or hallucinations of any kind. The patient is awaiting placement. 03/25 The patient was seen today. He is calm and cooperative. He says he slept well and feels okay. He denies SI/HI or hallucinations. The patient says he does not want to go back to his previous place of residence. The is coordinating his discharge to ensure the patient discharges to a safe place. 03/24 The patient was seen today. He is sitting in the dayroom. He's more pleasant today than yesterday. He says he's a little tired. He denies SI/HI or hallucinations of any kind. 03/23 The patient was seen today. He is irritable and tells me to go back where I came from. He says "I don't want to be bothered." I ask him how was he feeling, he replies "I'm not going to tell you." He then says "I'm alright." When asking the patient was he having thoughts of self harm, he says "no, there's nothing in here to hurt myself." I ask him if there were something to hurt himself would he use it. The patient becomes angry and shouts "you heard what I said." He denies homicidal ideation. He also denies hallucinations. Staff says the patient's moods have been up and down. The patient also appears to have some passive thoughts of suicide. Will adjust depakote to improve mood. 03/22 The patient was seen today. He is lying in bed resting. He is irritable at me talking to him, but cooperative. I ask him how was he feeling this morning. He replies "pretty well, lashonda sky." He denies SI/HI or hallucinations of any kind. 03/21 The patient was seen today. He is lying in bed awake. He says he's "not doing too hot" because he's in here. He then asked why was he here. I reminded the patient that he had climbed on top of the roof at his living place. He says "I climbed up there. I wanted to leave and get away from yall." He says "I sure did." He denies SI/HI or hallucinations. 03/20 The patient was seen today. He is lying in bed awake. He says he's doing pretty good and he slept well. The [facility] but didn't remember why he came, he says. He denies SI/HI. He says "where did that question come from." He also denies hallucinations. REVIEW OF SYSTEMS Constitutional: Negative for weight loss ENT: Negative for stridor Respiratory: Negative for cough or hemoptysis All other systems reviewed and are negative MENTAL STATUS EXAMINATION General Appearance and Behavior: Age appropriate, good hygiene, wearing appropriate clothes, good eye contact, calm, cooperative Cooperation: Participating/engaged, but Guarded Psychomotor Behavior: Psychomotor normal Mood: ok Affect and affective range: congruent with stated mood Thought Process: Goal directed Thought Content: Reality oriented Speech: normal tone and pace Suicidal Ideation: Denies Homicidal Ideation: Denies Hallucinations: Denies Delusions: None Impulse Control: Limited Insight and Judgment: Limited insight and judgment Memory: Limited Attention: attentive Orientation: Alert, oriented Diagnoses: Dementia with behavioral disturbances Treatment Plan Patient admitted for inpatient psychiatric evaluation, medication adjustment and close monitoring The patient's behavior, mood, sleep and appetite will be closely monitored. Patient enrolled in individual and group therapeutic sessions and encouraged to attend. Patient provided with a safe and structured environment. Patient's physical health needs will be addressed by the Hospitalist. Hospitalist Consulted Labs including CBC, CMP, Lipid profile and Hemoglobin A1C levels ordered for baseline reference Social Assessment will be completed and the Lining Finisher will work with patient and family to ensure a suitable and safe disposition Medication adjustment will be made as clinically indicated Continue Depakote 125mg po TID [employer]ual [employer]ness [employer]/Preservation: - Start Trazodone 50 mg po QHS & 50 mg po QHS PRN between 10 PM & 2 AM for insomnia - Start Melatonin 5 mg po QHS to promote circadian rhythm The patient agreed on the treatment plan, understood the risk, benefit, alternative treatment, potential consequence of no treatment, and gave informed consent. Estimated days:6 Post hospital care: primary care provider, psychiatric provider Case staffed with Dr. Hwang Medications and Allergies Allergies Allergy/AdvReac Type Severity Reaction Status Date / Time No Known Allergies Allergy Unverified 03/17/22 17:19 Home Medications Medication Instructions Recorded Confirmed Last Taken Type Divalproex Sodium [Depakote 125 mg PO BID 03/18/22 03/18/22 Unknown History Sprinkle] Dorzolamide HCl/Timolol Maleat 10 ml OP HS 03/18/22 03/18/22 Unknown History [Dorzolamide-Timolol Eye Drops] Ferrous Sulfate [Iron 325 MG] 325 mg PO DAILY 03/18/22 03/18/22 Unknown History Hydralazine HCl 50 mg PO TID 03/18/22 03/18/22 Unknown History Insulin Lispro [Admelog] See Protocol SQ ACHS 03/18/22 03/18/22 Unknown History Lactulose [Cephulac] 20 gm PO TID PRN 03/18/22 03/18/22 Unknown History Levothyroxine Sodium [Synthroid] 200 mcg PO DAILY 03/18/22 03/18/22 Unknown History Melatonin [Melatonin 3MG TAB] 3 mg PO HS 03/18/22 03/18/22 Unknown History Pioglitazone HCl [Actos] 30 mg PO DAILY 03/18/22 03/18/22 Unknown History Triamter/Hctz 37.5-25 mg 1 tab PO QDAY 03/18/22 03/18/22 Unknown History [Maxzide-25] amLODIPine [Norvasc] 10 mg PO DAILY 03/18/22 03/18/22 Unknown History glipiZIDE [Glucotrol] 5 mg PO QDAY 03/18/22 03/18/22 Unknown History Active Meds: Active Medications Brimonidine/Timolol (Combigan 0.2-0.5% [facility]) 1 drops OU Q12HR [facility] Last Admin: 03/31/22 09:36 Dose: 1 drops Divalproex Sodium (Divalproex Sprinkle 125 Mg Cap) 125 mg PO TID [facility] Last Admin: 03/31/22 08:00 Dose: 125 mg Ferrous Sulfate (Ferrous Sulfate 325 Mg Tab) 325 mg PO DAILY [facility] Last Admin: 03/31/22 09:35 Dose: 325 mg Glipizide (Glipizide Xl 2.5 Mg Tab) 2.5 mg PO DAILY@0800 [facility] Last Admin: 03/31/22 08:00 Dose: 2.5 mg Hydralazine HCl (Hydralazine 25 Mg Tab) 50 mg PO Q8HR [facility] Last Admin: 03/31/22 06:41 Dose: Not Given Insulin Human Lispro (Insulin Lispro 100 Unit/Ml) 0 unit SUB-Q [facility]; Protocol Last Admin: 03/31/22 07:30 Dose: Not Given Lactulose (Lactulose 20 Gm/30 Ml Oral Liqd) 20 gm PO TID PRN PRN Reason: Edema Levothyroxine Sodium (Levothyroxine 100 Mcg Tab) 200 mcg PO DAILY@0600 [facility] Last Admin: 03/31/22 06:41 Dose: Not Given Melatonin (Melatonin 5 Mg Tab) 5 mg PO QHS [facility] Last Admin: 03/30/22 23:11 Dose: Not Given Olanzapine (Olanzapine 2.5 Mg Tab) 2.5 mg PO QHS [facility] Last Admin: 03/30/22 23:12 Dose: Not Given Trazodone HCl (Trazodone 50 Mg Tab) 50 mg PO QHS [facility] Last Admin: 03/30/22 23:10 Dose: Not Given Triamterene/Hydrochlorothiazide (Triamter/Hctz 37.5-25 Mg Tab) 1 each PO QDAY [facility] Last Admin: 03/31/22 09:34 Dose: 1 each Ziprasidone (Ziprasidone Mesylate 20 Mg Vial) 20 mg IM Q4H PRN PRN Reason: Agitation Results - Results Labs/Vitals: Laboratory Last Values WBC 6.3 K/mm3 (4.5-11.0) 03/18/22 17:18 RBC 4.33 M/mm3 (3.65-5.03) 03/18/22 17:18 Hgb 11.8 gm/dl (11.8-15.2) 03/18/22 17:18 Hct 35.4 % (35.5-45.6) L 03/18/22 17:18 MCV 82 fl (84-94) L 03/18/22 17:18 MCH 27 pg (28-32) L 03/18/22 17:18 MCHC 33 % (32-34) 03/18/22 17:18 RDW 16.0 % (13.2-15.2) H 03/18/22 17:18 Plt Count 270 K/mm3 (140-440) 03/18/22 17:18 Lymph % (Auto) 27.9 % (13.4-35.0) 03/18/22 17:18 Isabella % (Auto) 11.1 % (0.0-7.3) H 03/18/22 17:18 Eos % (Auto) 1.8 % (0.0-4.3) 03/18/22 17:18 Baso % (Auto) 1.1 % (0.0-1.8) 03/18/22 17:18 Lymph # (Auto) 1.8 K/mm3 (1.2-5.4) 03/18/22 17:18 Isabella # (Auto) 0.7 K/mm3 (0.0-0.8) 03/18/22 17:18 Eos # (Auto) 0.1 K/mm3 (0.0-0.4) 03/18/22 17:18 Baso # (Auto) 0.1 K/mm3 (0.0-0.1) 03/18/22 17:18 Seg Neutrophils % 58.1 % (40.0-70.0) 03/18/22 17:18 Seg Neutrophils # 3.7 K/mm3 (1.8-7.7) 03/18/22 17:18 Sodium 139 mmol/L (137-145) 03/18/22 17:18 Potassium 3.8 mmol/L (3.6-5.0) 03/18/22 17:18 Chloride 103.4 mmol/L (98-107) 03/18/22 17:18 Carbon Dioxide 20 mmol/L (22-30) L 03/18/22 17:18 Anion Gap 19 mmol/L 03/18/22 17:18 BUN 52 mg/dL (9-20) H 03/18/22 17:18 Creatinine 2.9 mg/dL (0.8-1.3) H 03/18/22 17:18 Estimated GFR 21 ml/min 03/18/22 17:18 BUN/Creatinine Ratio 18 % 03/18/22 17:18 Glucose 63 mg/dL (75-100) L 03/18/22 17:18 POC Glucose 80 mg/dL (70-105) 03/29/22 21:22 Hemoglobin A1c 8.5 % (4-6) H 03/18/22 17:18 Calcium 9.3 mg/dL (8.4-10.2) 03/18/22 17:18 Total Bilirubin 0.20 mg/dL (0.1-1.2) 03/18/22 17:18 AST 16 units/L (5-40) 03/18/22 17:18 ALT 8 units/L (7-56) 03/18/22 17:18 Alkaline Phosphatase 76 units/L (35-129) 03/18/22 17:18 Total Protein 7.3 g/dL (6.3-8.2) 03/18/22 17:18 Albumin 4.5 g/dL (3.9-5) 03/18/22 17:18 Albumin/Globulin Ratio 1.6 % 03/18/22 17:18 Triglycerides 69 mg/dL (2-149) 03/18/22 17:18 Cholesterol 230 mg/dL (50-199) H 03/18/22 17:18 LDL Cholesterol Direct 134 mg/dL (50-130) H 03/18/22 17:18 HDL Cholesterol 74 mg/dL (40-59) H 03/18/22 17:18 Cholesterol/HDL Ratio 3.10 % 03/18/22 17:18 TSH 1.190 mlU/mL (0.270-4.200) 03/18/22 17:18 Last Vital Signs Temp 97.8 F 03/29/22 21:04 Pulse 75 03/29/22 21:27 Resp 20 03/29/22 21:04 BP 151/72 03/29/22 21:27 Pulse Ox 100 03/29/22 21:04
[2022-03-31] MEDS: traZODone 50 MG TAB PO SCH (22:26)
[2022-03-31] MEDS: MELATONIN 5 MG TAB PO SCH (22:26)
[2022-04-01] MEDS: hydrALAZINE 25 MG TAB PO SCH ×3 (05:37→22:20)
[2022-04-01] MEDS: LEVOTHYROXINE 100 MCG TAB PO SCH (05:42)
[2022-04-01] MEDS: INSULIN LISPRO 100 UNIT/ML SUB-Q SCH ×4 (08:47→22:20)
[2022-04-01] MEDS: FERROUS SULFATE 325 MG TAB PO SCH (09:40)
[2022-04-01] MEDS: COMBIGAN 0.2-0.5% OPHTH SOLN OU SCH ×2 (09:40→22:16)
[2022-04-01] MEDS: DIVALPROEX SPRINKLE 125 MG CAP PO SCH ×4 (09:40→22:21)
[2022-04-01] MEDS: TRIAMTER/HCTZ 37.5-25 MG TAB PO SCH (09:40)
--- NOTE | 2022-04-01 10:53 | Progress Note ---
Subjective Date of service: 04/01/22 Principal diagnosis: MDD Subjective Comment: 04/01:The patient was seen this morning. He states he is not doing so well " I'm being bothered with you all." The patient denies any current suicidal/homicidal and denies hallucinations. No changes made today.The patient is awaiting placement. 03/31:The patient was seen this morning. He states he is doing ok. The patient denies any current suicidal/homicidal and denies hallucinations. No changes made today.The patient is awaiting placement. 03/30:The patient was seen this morning. He states he is doing well. The patient denies any current suicidal/homicidal and denies hallucinations. No changes made today.The patient is awaiting placement. 03/29:The patient was at breakfast. He states he is doing pretty well. The patient denies any current suicidal/homicidal and denies hallucinations. No changes made today.The patient is awaiting placement. 03/28: The patient was seen this morning. He states he is doing well. The patient denies any current suicidal/homicidal and denies hallucinations. No changes made today.The patient is awaiting placement. 03/27: The patient was seen this morning. He reports doing pretty good " I feel good." He denies depression. The patient denies any current suicidal/homicidal and denies hallucinations. No changes made today.The patient is awaiting placement. 03/26:The patient was seen today. He is sleeping, but easily arouses. His mood has been much better over the last few days since starting the depakote. He denies SI/HI or hallucinations of any kind. The patient is awaiting placement. 03/25 The patient was seen today. He is calm and cooperative. He says he slept well and feels okay. He denies SI/HI or hallucinations. The patient says he does not want to go back to his previous place of residence. The is coordinating his discharge to ensure the patient discharges to a safe place. 03/24 The patient was seen today. He is sitting in the dayroom. He's more pleasant today than yesterday. He says he's a little tired. He denies SI/HI or hallucinations of any kind. 03/23 The patient was seen today. He is irritable and tells me to go back where I came from. He says "I don't want to be bothered." I ask him how was he feeling, he replies "I'm not going to tell you." He then says "I'm alright." When asking the patient was he having thoughts of self harm, he says "no, there's nothing in here to hurt myself." I ask him if there were something to hurt himself would he use it. The patient becomes angry and shouts "you heard what I said." He denies homicidal ideation. He also denies hallucinations. Staff says the patient's moods have been up and down. The patient also appears to have some passive thoughts of suicide. Will adjust depakote to improve mood. 03/22 The patient was seen today. He is lying in bed resting. He is irritable at me talking to him, but cooperative. I ask him how was he feeling this morning. He replies "pretty well, lashonda sky." He denies SI/HI or hallucinations of any kind. 03/21 The patient was seen today. He is lying in bed awake. He says he's "not doing too hot" because he's in here. He then asked why was he here. I reminded the patient that he had climbed on top of the roof at his living place. He says "I climbed up there. I wanted to leave and get away from yall." He says "I sure did." He denies SI/HI or hallucinations. 03/20 The patient was seen today. He is lying in bed awake. He says he's doing pretty good and he slept well. The patient says he came from the alf but didn't remember why he came, he says. He denies SI/HI. He says "where did that question come from." He also denies hallucinations. REVIEW OF SYSTEMS Constitutional: Negative for weight loss ENT: Negative for stridor Respiratory: Negative for cough or hemoptysis All other systems reviewed and are negative MENTAL STATUS EXAMINATION General Appearance and Behavior: Age appropriate, good hygiene, wearing appropriate clothes, good eye contact, calm, cooperative Cooperation: Participating/engaged, but Guarded Psychomotor Behavior: Psychomotor normal Mood: ok Affect and affective range: congruent with stated mood Thought Process: Goal directed Thought Content: Reality oriented Speech: normal tone and pace Suicidal Ideation: Denies Homicidal Ideation: Denies Hallucinations: Denies Delusions: None Impulse Control: Limited Insight and Judgment: Limited insight and judgment Memory: Limited Attention: attentive Orientation: Alert, oriented Diagnoses: Dementia with behavioral disturbances Treatment Plan Patient admitted for inpatient psychiatric evaluation, medication adjustment and close monitoring The patient's behavior, mood, sleep and appetite will be closely monitored. Patient enrolled in individual and group therapeutic sessions and encouraged to attend. Patient provided with a safe and structured environment. Patient's physical health needs will be addressed by the Hospitalist. Hospitalist Consulted Labs including CBC, CMP, Lipid profile and Hemoglobin A1C levels ordered for baseline reference Social Assessment will be completed and the Medical Technologist Blood Bank will work with patient and family to ensure a suitable and safe disposition Medication adjustment will be made as clinically indicated Continue Depakote 125mg po TID Usual Wellness Spiritism/Preservation: - Start Trazodone 50 mg po QHS & 50 mg po QHS PRN between 10 PM & 2 AM for insomnia - Start Melatonin 5 mg po QHS to promote circadian rhythm The patient agreed on the treatment plan, understood the risk, benefit, alternative treatment, potential consequence of no treatment, and gave informed consent. Estimated days:6 Post hospital care: primary care provider, psychiatric provider Case staffed with Dr. Hwang Medications and Allergies Medications and Allergies Allergies Allergy/AdvReac Type Severity Reaction Status Date / Time No Known Allergies Allergy Unverified 03/17/22 17:19 Home Medications Medication Instructions Recorded Confirmed Last Taken Type Divalproex Sodium [Depakote 125 mg PO BID 03/18/22 03/18/22 Unknown History Sprinkle] Dorzolamide HCl/Timolol Maleat 10 ml OP HS 03/18/22 03/18/22 Unknown History [Dorzolamide-Timolol Eye Drops] Ferrous Sulfate [Iron 325 MG] 325 mg PO DAILY 03/18/22 03/18/22 Unknown History Hydralazine HCl 50 mg PO TID 03/18/22 03/18/22 Unknown History Insulin Lispro [Admelog] See Protocol SQ ACHS 03/18/22 03/18/22 Unknown History Lactulose [Cephulac] 20 gm PO TID PRN 03/18/22 03/18/22 Unknown History Levothyroxine Sodium [Synthroid] 200 mcg PO DAILY 03/18/22 03/18/22 Unknown History Melatonin [Melatonin 3MG TAB] 3 mg PO HS 03/18/22 03/18/22 Unknown History Pioglitazone HCl [Actos] 30 mg PO DAILY 03/18/22 03/18/22 Unknown History Triamter/Hctz 37.5-25 mg 1 tab PO QDAY 03/18/22 03/18/22 Unknown History [Maxzide-25] amLODIPine [Norvasc] 10 mg PO DAILY 03/18/22 03/18/22 Unknown History glipiZIDE [Glucotrol] 5 mg PO QDAY 03/18/22 03/18/22 Unknown History Active Meds: Active Medications Brimonidine/Timolol (Combigan 0.2-0.5% [facility]) 1 drops OU Q12HR [facility] Last Admin: 04/01/22 09:40 Dose: Not Given Divalproex Sodium (Divalproex Sprinkle 125 Mg Cap) 125 mg PO TID [facility] Last Admin: 04/01/22 09:40 Dose: Not Given Ferrous Sulfate (Ferrous Sulfate 325 Mg Tab) 325 mg PO DAILY [facility] Last Admin: 04/01/22 09:40 Dose: Not Given Glipizide (Glipizide Xl 2.5 Mg Tab) 2.5 mg PO DAILY@0800 [facility] Last Admin: 04/01/22 09:40 Dose: Not Given Hydralazine HCl (Hydralazine 25 Mg Tab) 50 mg PO Q8HR [facility] Last Admin: 04/01/22 05:37 Dose: Not Given Insulin Human Lispro (Insulin Lispro 100 Unit/Ml) 0 unit SUB-Q [facility]; Protocol Last Admin: 04/01/22 08:47 Dose: 1 unit Lactulose (Lactulose 20 Gm/30 Ml Oral Liqd) 20 gm PO TID PRN PRN Reason: Edema Levothyroxine Sodium (Levothyroxine 100 Mcg Tab) 200 mcg PO DAILY@0600 [facility] Last Admin: 04/01/22 05:42 Dose: 200 mcg Melatonin (Melatonin 5 Mg Tab) 5 mg PO QHS [facility] Last Admin: 03/31/22 22:26 Dose: 5 mg Olanzapine (Olanzapine 2.5 Mg Tab) 2.5 mg PO QHS [facility] Last Admin: 03/31/22 22:27 Dose: 2.5 mg Trazodone HCl (Trazodone 50 Mg Tab) 50 mg PO QHS [facility] Last Admin: 03/31/22 22:26 Dose: 50 mg Triamterene/Hydrochlorothiazide (Triamter/Hctz 37.5-25 Mg Tab) 1 each PO QDAY [facility] Last Admin: 04/01/22 09:40 Dose: Not Given Ziprasidone (Ziprasidone Mesylate 20 Mg Vial) 20 mg IM Q4H PRN PRN Reason: Agitation Results - Results Labs/Vitals: Laboratory Last Values WBC 6.3 K/mm3 (4.5-11.0) 03/18/22 17:18 RBC 4.33 M/mm3 (3.65-5.03) 03/18/22 17:18 Hgb 11.8 gm/dl (11.8-15.2) 03/18/22 17:18 Hct 35.4 % (35.5-45.6) L 03/18/22 17:18 MCV 82 fl (84-94) L 03/18/22 17:18 MCH 27 pg (28-32) L 03/18/22 17:18 MCHC 33 % (32-34) 03/18/22 17:18 RDW 16.0 % (13.2-15.2) H 03/18/22 17:18 Plt Count 270 K/mm3 (140-440) 03/18/22 17:18 Lymph % (Auto) 27.9 % (13.4-35.0) 03/18/22 17:18 [place] % (Auto) 11.1 % (0.0-7.3) H 03/18/22 17:18 Eos % (Auto) 1.8 % (0.0-4.3) 03/18/22 17:18 Baso % (Auto) 1.1 % (0.0-1.8) 03/18/22 17:18 Lymph # (Auto) 1.8 K/mm3 (1.2-5.4) 03/18/22 17:18 [place] # (Auto) 0.7 K/mm3 (0.0-0.8) 03/18/22 17:18 Eos # (Auto) 0.1 K/mm3 (0.0-0.4) 03/18/22 17:18 Baso # (Auto) 0.1 K/mm3 (0.0-0.1) 03/18/22 17:18 Seg Neutrophils % 58.1 % (40.0-70.0) 03/18/22 17:18 Seg Neutrophils # 3.7 K/mm3 (1.8-7.7) 03/18/22 17:18 Sodium 139 mmol/L (137-145) 03/18/22 17:18 Potassium 3.8 mmol/L (3.6-5.0) 03/18/22 17:18 Chloride 103.4 mmol/L (98-107) 03/18/22 17:18 Carbon Dioxide 20 mmol/L (22-30) L 03/18/22 17:18 Anion Gap 19 mmol/L 03/18/22 17:18 BUN 52 mg/dL (9-20) H 03/18/22 17:18 Creatinine 2.9 mg/dL (0.8-1.3) H 03/18/22 17:18 Estimated GFR 21 ml/min 03/18/22 17:18 BUN/Creatinine Ratio 18 % 03/18/22 17:18 Glucose 63 mg/dL (75-100) L 03/18/22 17:18 POC Glucose 175 mg/dL (70-105) H 04/01/22 07:34 Hemoglobin A1c 8.5 % (4-6) H 03/18/22 17:18 Calcium 9.3 mg/dL (8.4-10.2) 03/18/22 17:18 Total Bilirubin 0.20 mg/dL (0.1-1.2) 03/18/22 17:18 AST 16 units/L (5-40) 03/18/22 17:18 ALT 8 units/L (7-56) 03/18/22 17:18 Alkaline Phosphatase 76 units/L (35-129) 03/18/22 17:18 Total Protein 7.3 g/dL (6.3-8.2) 03/18/22 17:18 Albumin 4.5 g/dL (3.9-5) 03/18/22 17:18 Albumin/Globulin Ratio 1.6 % 03/18/22 17:18 Triglycerides 69 mg/dL (2-149) 03/18/22 17:18 Cholesterol 230 mg/dL (50-199) H 03/18/22 17:18 LDL Cholesterol Direct 134 mg/dL (50-130) H 03/18/22 17:18 HDL Cholesterol 74 mg/dL (40-59) H 03/18/22 17:18 Cholesterol/HDL Ratio 3.10 % 03/18/22 17:18 TSH 1.190 mlU/mL (0.270-4.200) 03/18/22 17:18 Last Vital Signs Temp 98.2 F 03/31/22 12:48 Pulse 84 03/31/22 22:27 Resp 20 03/31/22 12:48 BP 102/55 04/01/22 05:37 Pulse Ox 98 03/31/22 12:48
--- NOTE | 2022-04-01 16:59 | Progress Note ---
Assessment and Plan Assessment and plan: (1) Vascular dementia with behavioral disturbance Current Visit: Yes Status: Acute Plan to address problem: Verbal prompting, verbal redirection, benzodiazepine therapy as clinically indicated. (2) Cerebral atherosclerosis Current Visit: Yes Status: Acute Plan to address problem: Risk factor reduction, antiplatelet therapy as clinically indicated. (3) Hypertension Current Visit: Yes Status: Acute Qualifiers: Hypertension type: primary hypertension Qualified Code(s): I10 - Essential (primary) hypertension Plan to address problem: Monitor blood pressure every shift, continue medical management. (4) Diabetes Current Visit: Yes Status: Acute Plan to address problem: Consult to help with carbohydrate diet, Accu-Chek, insulin protocol, hypoglycemia protocol. (5) Hyperlipidemia Current Visit: Yes Status: Acute Qualifiers: Hyperlipidemia type: mixed hyperlipidemia Qualified Code(s): E78.2 - Mixed hyperlipidemia Plan to address problem: Low-cholesterol diet, statin therapy as clinically indicated. (6) Hypothyroidism Current Visit: Yes Status: Acute Plan to address problem: Continue Synthroid therapy, supportive care. (7) Advance care planning Current Visit: Yes Status: Acute Plan to address problem: Disease education data, care plan discussed, diagnosis discussed, prognosis discussed, +30 minutes. History Interval history: No acute overnight events or complaints this AM on bedside encounter. Patient appears to be at baseline mentation. Hospitalist Physical - Physical exam Narrative exam: General appearance: Present: no acute distress, well-nourished, other (Cheerful today) - EENT Eyes: Present: PERRL ENT: hearing decreased - Neck Neck: Present: supple - Respiratory Respiratory effort: normal Respiratory: bilateral: diminished - Cardiovascular Rhythm: regular Heart Sounds: Present: S1 & S2 - Extremities Extremities: no ischemia Peripheral Pulses: within normal limits - Abdominal General gastrointestinal: soft, non-tender, non-distended - Integumentary Integumentary: Present: clear, dry - Psychiatric Psychiatric: cooperative - Neurologic Neurologic: CNII-XII intact - Constitutional Vitals: Temp Pulse Resp BP Pulse Ox 98.2 F 84 20 102/55 98 03/31/22 12:48 03/31/22 22:27 03/31/22 12:48 04/01/22 05:37 03/31/22 12:48 General appearance: Present: no acute distress, well-nourished, other (Cheerful today) Results - Labs CBC & Chem 7: 03/18/22 17:18 03/18/22 17:18 Labs: Laboratory Last Values WBC 6.3 K/mm3 (4.5-11.0) 03/18/22 17:18 RBC 4.33 M/mm3 (3.65-5.03) 03/18/22 17:18 Hgb 11.8 gm/dl (11.8-15.2) 03/18/22 17:18 Hct 35.4 % (35.5-45.6) L 03/18/22 17:18 MCV 82 fl (84-94) L 03/18/22 17:18 MCH 27 pg (28-32) L 03/18/22 17:18 MCHC 33 % (32-34) 03/18/22 17:18 RDW 16.0 % (13.2-15.2) H 03/18/22 17:18 Plt Count 270 K/mm3 (140-440) 03/18/22 17:18 Lymph % (Auto) 27.9 % (13.4-35.0) 03/18/22 17:18 [place] % (Auto) 11.1 % (0.0-7.3) H 03/18/22 17:18 Eos % (Auto) 1.8 % (0.0-4.3) 03/18/22 17:18 Baso % (Auto) 1.1 % (0.0-1.8) 03/18/22 17:18 Lymph # (Auto) 1.8 K/mm3 (1.2-5.4) 03/18/22 17:18 [place] # (Auto) 0.7 K/mm3 (0.0-0.8) 03/18/22 17:18 Eos # (Auto) 0.1 K/mm3 (0.0-0.4) 03/18/22 17:18 Baso # (Auto) 0.1 K/mm3 (0.0-0.1) 03/18/22 17:18 Seg Neutrophils % 58.1 % (40.0-70.0) 03/18/22 17:18 Seg Neutrophils # 3.7 K/mm3 (1.8-7.7) 03/18/22 17:18 Sodium 139 mmol/L (137-145) 03/18/22 17:18 Potassium 3.8 mmol/L (3.6-5.0) 03/18/22 17:18 Chloride 103.4 mmol/L (98-107) 03/18/22 17:18 Carbon Dioxide 20 mmol/L (22-30) L 03/18/22 17:18 Anion Gap 19 mmol/L 03/18/22 17:18 BUN 52 mg/dL (9-20) H 03/18/22 17:18 Creatinine 2.9 mg/dL (0.8-1.3) H 03/18/22 17:18 Estimated GFR 21 ml/min 03/18/22 17:18 BUN/Creatinine Ratio 18 % 03/18/22 17:18 Glucose 63 mg/dL (75-100) L 03/18/22 17:18 POC Glucose 175 mg/dL (70-105) H 04/01/22 07:34 Hemoglobin A1c 8.5 % (4-6) H 03/18/22 17:18 Calcium 9.3 mg/dL (8.4-10.2) 03/18/22 17:18 Total Bilirubin 0.20 mg/dL (0.1-1.2) 03/18/22 17:18 AST 16 units/L (5-40) 03/18/22 17:18 ALT 8 units/L (7-56) 03/18/22 17:18 Alkaline Phosphatase 76 units/L (35-129) 03/18/22 17:18 Total Protein 7.3 g/dL (6.3-8.2) 03/18/22 17:18 Albumin 4.5 g/dL (3.9-5) 03/18/22 17:18 Albumin/Globulin Ratio 1.6 % 03/18/22 17:18 Triglycerides 69 mg/dL (2-149) 03/18/22 17:18 Cholesterol 230 mg/dL (50-199) H 03/18/22 17:18 LDL Cholesterol Direct 134 mg/dL (50-130) H 03/18/22 17:18 HDL Cholesterol 74 mg/dL (40-59) H 03/18/22 17:18 Cholesterol/HDL Ratio 3.10 % 03/18/22 17:18 TSH 1.190 mlU/mL (0.270-4.200) 03/18/22 17:18 Chan/IV: Voiding Method Toilet Active Medications - Current Medications Current Medications: Generic Name Dose Route Start Last Admin Trade Name Freq PRN Reason Stop Dose Admin Brimonidine/Timolol 1 drops 03/18/22 12:00 04/01/22 09:40 Combigan 0.2-0.5% Ophth Soln OU Not Given Q12HR [facility] Divalproex Sodium 125 mg 03/23/22 14:00 04/01/22 13:59 Divalproex Sprinkle 125 Mg Cap PO Not Given TID [facility] Ferrous Sulfate 325 mg 03/18/22 10:00 04/01/22 09:40 Ferrous Sulfate 325 Mg Tab PO Not Given DAILY [facility] Glipizide 2.5 mg 03/22/22 08:00 04/01/22 09:40 Glipizide Xl 2.5 Mg Tab PO Not Given DAILY@0800 [facility] Hydralazine HCl 50 mg 03/18/22 10:00 04/01/22 13:59 Hydralazine 25 Mg Tab PO Not Given Q8HR [facility] Insulin Human Lispro 0 unit 03/18/22 11:30 04/01/22 16:38 Insulin Lispro 100 Unit/Ml SUB-Q Not Given ACHS [facility] Protocol Lactulose 20 gm 03/18/22 10:00 Lactulose 20 Gm/30 Ml Oral Liqd PO TID PRN Edema Levothyroxine Sodium 200 mcg 03/19/22 06:00 04/01/22 05:42 Levothyroxine 100 Mcg Tab PO 200 mcg DAILY@0600 [facility] Administration Melatonin 5 mg 03/18/22 22:00 03/31/22 22:26 Melatonin 5 Mg Tab PO 5 mg QHS [facility] Administration Olanzapine 2.5 mg 03/18/22 22:00 03/31/22 22:27 Olanzapine 2.5 Mg Tab PO 2.5 mg QHS [facility] Administration Trazodone HCl 50 mg 03/18/22 22:00 03/31/22 22:26 Trazodone 50 Mg Tab PO 50 mg QHS [facility] Administration Triamterene/Hydrochlorothiazide 1 each 03/18/22 10:00 04/01/22 09:40 Triamter/Hctz 37.5-25 Mg Tab PO Not Given QDAY [facility] Ziprasidone 20 mg 03/18/22 10:00 Ziprasidone Mesylate 20 Mg Vial IM Q4H PRN Agitation Nutrition/Malnutrition Assess - Dietary Evaluation Nutrition/Malnutrition Findings: Nutrition Notes Start: 03/18/22 16:11 Freq: Status: Active Protocol: Document 03/25/22 16:49 KAM (Rec: 03/25/22 17:00 KAM [id number]) Nutrition Notes Initial or Follow up Reassessment Current Diet Cardiac/Consistent Carbohydrates -Chopped Meats- Diet (since B 03/18). Height 5 ft 8 in Weight 72.121 kg [place] Body Weight (kg) 70.00 BMI 24.1 Weight change and time frame No body weight change reported in 1 week. Weight Status Appropriate Subjective/Other Information RD consult for routine F/U on dietary advancement. Pt's PO intake of meals has been Good (75%), according to ADL notes. Pt is on Room Air, O2 saturation @ 100%, according to Vital Signs notes. Plans for discharge Pt to a more safe environment facility , according to Progress notes. Percent of energy/protein needs met: Prescribed Cardiac/Consistent Carbohydrates -Chopped Meats- Diet provides for energy/ protein needs (1,977 Kcal/86 g ) during LOS. Burn Absent Trauma Absent GI Symptoms None Difficulty In Chewing Food Allergy No Skin Integrity/Comment Unspecified Dryness. Current % PO Good (75-100%) Minimum of two criteria No #1 Nutrition Diagnosis Biting/Chewing (masticatory) difficulty Diagnosis Progress(for reassessment Continues documentation) Is patient on ventilator? No Is Patient Ambulatory and/or Out of Bed Yes REE-([facility]-ambulatory/OOB) [ [id number] [id number]] Calculation Used for Recommendations [facility] Additional Notes Protein: 1-1.2 g/Kg ABW; 72-86 g/day. Fluids: 1 ml/Kcal, or as per MD. Nutrition Intervention Change Diet Order: Modify to Cardiac/Consistent Carbohydrates -Chopped Meats- Diet. Goal #1 Facilitate PO intake of meals with elemental, textural, or mechanical modification during LOS. Goal #2 Maintain body weight within +/ -3% of admission body weight during LOS. Revisit per MD consult or patient Sign Off request: Additional Comments Continue monitoring food tolerance, %PO intake of meals , and BM.
[2022-04-01] MEDS: MELATONIN 5 MG TAB PO SCH ×2 (22:17→22:22)
[2022-04-01] MEDS: traZODone 50 MG TAB PO SCH ×2 (22:17→22:22)
[2022-04-02] MEDS: LEVOTHYROXINE 100 MCG TAB PO SCH (05:52)
[2022-04-02] MEDS: hydrALAZINE 25 MG TAB PO SCH ×3 (05:52→22:10)
--- NOTE | 2022-04-02 09:24 | Progress Note ---
Subjective Date of service: 04/02/22 Principal diagnosis: MDD Subjective Comment: 04/02: The patient was seen resting quietly in bed. He denies any current suicidal/homicidal and denies hallucinations. No changes made today.The patient is awaiting placement. 04/01:The patient was seen this morning. He states he is not doing so well " I'm being bothered with you all." The patient denies any current suicidal/homicidal and denies hallucinations. No changes made today.The patient is awaiting placement. 03/31:The patient was seen this morning. He states he is doing ok. The patient denies any current suicidal/homicidal and denies hallucinations. No changes made today.The patient is awaiting placement. 03/30:The patient was seen this morning. He states he is doing well. The patient denies any current suicidal/homicidal and denies hallucinations. No changes made today.The patient is awaiting placement. 03/29:The patient was at breakfast. He states he is doing pretty well. The patie nt denies any current suicidal/homicidal and denies hallucinations. No changes made today.The patient is awaiting placement. 03/28: The patient was seen this morning. He states he is doing well. The patient denies any current suicidal/homicidal and denies hallucinations. No changes made today.The patient is awaiting placement. 03/27: The patient was seen this morning. He reports doing pretty good " I feel good." He denies depression. The patient denies any current suicidal/homicidal and denies hallucinations. No changes made today.The patient is awaiting placement. 03/26:The patient was seen today. He is sleeping, but easily arouses. His mood has been much better over the last few days since starting the depakote. He denies SI/HI or hallucinations of any kind. The patient is awaiting placement. 03/25 The patient was seen today. He is calm and cooperative. He says he slept well and feels okay. He denies SI/HI or hallucinations. The patient says he does not want to go back to his previous place of residence. The is coordinating his discharge to ensure the patient discharges to a safe place. 03/24 The patient was seen today. He is sitting in the dayroom. He's more pleasant today than yesterday. He says he's a little tired. He denies SI/HI or hallucinations of any kind. 03/23 The patient was seen today. He is irritable and tells me to go back where I came from. He says "I don't want to be bothered." I ask him how was he feeling, he replies "I'm not going to tell you." He then says "I'm alright." When asking the patient was he having thoughts of self harm, he says "no, there's nothing in here to hurt myself." I ask him if there were something to hurt himself would he use it. The patient becomes angry and shouts "you heard what I said." He denies homicidal ideation. He also denies hallucinations. Staff says the patient's moods have been up and down. The patient also appears to have some passive thoughts of suicide. Will adjust depakote to improve mood. 03/22 The patient was seen today. He is lying in bed resting. He is irritable at me talking to him, but cooperative. I ask him how was he feeling this morning. He replies "pretty well, lashonda sky." He denies SI/HI or hallucinations of any kind. 03/21 The patient was seen today. He is lying in bed awake. He says he's "not doing too hot" because he's in here. He then asked why was he here. I reminded the patient that he had climbed on top of the roof at his living place. He says "I climbed up there. I wanted to leave and get away from yall." He says "I sure did." He denies SI/HI or hallucinations. 03/20 The patient was seen today. He is lying in bed awake. He says he's doing pretty good and he slept well. The patient says he came from the correction but didn't remember why he came, he says. He denies SI/HI. He says "where did that question come from." He also denies hallucinations. REVIEW OF SYSTEMS Constitutional: Negative for weight loss ENT: Negative for stridor Respiratory: Negative for cough or hemoptysis All other systems reviewed and are negative MENTAL STATUS EXAMINATION General Appearance and Behavior: Age appropriate, good hygiene, wearing appropriate clothes, good eye contact, calm, cooperative Cooperation: Participating/engaged, but Guarded Psychomotor Behavior: Psychomotor normal Mood: ok Affect and affective range: congruent with stated mood Thought Process: Goal directed Thought Content: Reality oriented Speech: normal tone and pace Suicidal Ideation: Denies Homicidal Ideation: Denies Hallucinations: Denies Delusions: None Impulse Control: Limited Insight and Judgment: Limited insight and judgment Memory: Limited Attention: attentive Orientation: Alert, oriented Diagnoses: Dementia with behavioral disturbances Treatment Plan Patient admitted for inpatient psychiatric evaluation, medication adjustment and close monitoring The patient's behavior, mood, sleep and appetite will be closely monitored. Patient enrolled in individual and group therapeutic sessions and encouraged to attend. Patient provided with a safe and structured environment. Patient's physical health needs will be addressed by the Hospitalist. Hospitalist Consulted Labs including CBC, CMP, Lipid profile and Hemoglobin A1C levels ordered for baseline reference Social Assessment will be completed and the Rewrite Editor will work with patient and family to ensure a suitable and safe disposition Medication adjustment will be made as clinically indicated Continue Depakote 125mg po TID Usual Wellness Gnosticism/Preservation: - Start Trazodone 50 mg po QHS & 50 mg po QHS PRN between 10 PM & 2 AM for insomnia - Start Melatonin 5 mg po QHS to promote circadian rhythm The patient agreed on the treatment plan, understood the risk, benefit, alternative treatment, potential consequence of no treatment, and gave informed consent. Estimated days:6 Post hospital care: primary care provider, psychiatric provider Case staffed with Dr. Hwang Medications and Allergies Medications and Allergies Allergies Allergy/AdvReac Type Severity Reaction Status Date / Time No Known Allergies Allergy Unverified 03/17/22 17:19 Home Medications Medication Instructions Recorded Confirmed Last Taken Type Divalproex Sodium [Depakote 125 mg PO BID 03/18/22 03/18/22 Unknown History Sprinkle] Dorzolamide HCl/Timolol Maleat 10 ml OP HS 03/18/22 03/18/22 Unknown History [Dorzolamide-Timolol Eye Drops] Ferrous Sulfate [Iron 325 MG] 325 mg PO DAILY 03/18/22 03/18/22 Unknown History Hydralazine HCl 50 mg PO TID 03/18/22 03/18/22 Unknown History Insulin Lispro [Admelog] See Protocol SQ ACHS 03/18/22 03/18/22 Unknown History Lactulose [Cephulac] 20 gm PO TID PRN 03/18/22 03/18/22 Unknown History Levothyroxine Sodium [Synthroid] 200 mcg PO DAILY 03/18/22 03/18/22 Unknown History Melatonin [Melatonin 3MG TAB] 3 mg PO HS 03/18/22 03/18/22 Unknown History Pioglitazone HCl [Actos] 30 mg PO DAILY 03/18/22 03/18/22 Unknown History Triamter/Hctz 37.5-25 mg 1 tab PO QDAY 03/18/22 03/18/22 Unknown History [Maxzide-25] amLODIPine [Norvasc] 10 mg PO DAILY 03/18/22 03/18/22 Unknown History glipiZIDE [Glucotrol] 5 mg PO QDAY 03/18/22 03/18/22 Unknown History Active Meds: Active Medications Brimonidine/Timolol (Combigan 0.2-0.5% [facility]) 1 drops OU Q12HR [facility] Last Admin: 04/01/22 22:16 Dose: 1 drops Divalproex Sodium (Divalproex Sprinkle 125 Mg Cap) 125 mg PO TID [facility] Last Admin: 04/01/22 22:21 Dose: Not Given Ferrous Sulfate (Ferrous Sulfate 325 Mg Tab) 325 mg PO DAILY [facility] Last Admin: 04/01/22 09:40 Dose: Not Given Glipizide (Glipizide Xl 2.5 Mg Tab) 2.5 mg PO DAILY@0800 [facility] Last Admin: 04/01/22 09:40 Dose: Not Given Hydralazine HCl (Hydralazine 25 Mg Tab) 50 mg PO Q8HR [facility] Last Admin: 04/02/22 05:52 Dose: Not Given Insulin Human Lispro (Insulin Lispro 100 Unit/Ml) 0 unit SUB-Q [facility]; Protocol Last Admin: 04/01/22 22:20 Dose: Not Given Lactulose (Lactulose 20 Gm/30 Ml Oral Liqd) 20 gm PO TID PRN PRN Reason: Edema Levothyroxine Sodium (Levothyroxine 100 Mcg Tab) 200 mcg PO DAILY@0600 [facility] Last Admin: 04/02/22 05:52 Dose: Not Given Melatonin (Melatonin 5 Mg Tab) 5 mg PO QHS [facility] Last Admin: 04/01/22 22:22 Dose: Not Given Olanzapine (Olanzapine 2.5 Mg Tab) 2.5 mg PO QHS [facility] Last Admin: 04/01/22 22:22 Dose: Not Given Trazodone HCl (Trazodone 50 Mg Tab) 50 mg PO QHS [facility] Last Admin: 04/01/22 22:22 Dose: Not Given Triamterene/Hydrochlorothiazide (Triamter/Hctz 37.5-25 Mg Tab) 1 each PO QDAY [facility] Last Admin: 04/01/22 09:40 Dose: Not Given Ziprasidone (Ziprasidone Mesylate 20 Mg Vial) 20 mg IM Q4H PRN PRN Reason: Agitation Results - Results Labs/Vitals: Laboratory Last Values WBC 6.3 K/mm3 (4.5-11.0) 03/18/22 17:18 RBC 4.33 M/mm3 (3.65-5.03) 03/18/22 17:18 Hgb 11.8 gm/dl (11.8-15.2) 03/18/22 17:18 Hct 35.4 % (35.5-45.6) L 03/18/22 17:18 MCV 82 fl (84-94) L 03/18/22 17:18 MCH 27 pg (28-32) L 03/18/22 17:18 MCHC 33 % (32-34) 03/18/22 17:18 RDW 16.0 % (13.2-15.2) H 03/18/22 17:18 Plt Count 270 K/mm3 (140-440) 03/18/22 17:18 Lymph % (Auto) 27.9 % (13.4-35.0) 03/18/22 17:18 [place] % (Auto) 11.1 % (0.0-7.3) H 03/18/22 17:18 Eos % (Auto) 1.8 % (0.0-4.3) 03/18/22 17:18 Baso % (Auto) 1.1 % (0.0-1.8) 03/18/22 17:18 Lymph # (Auto) 1.8 K/mm3 (1.2-5.4) 03/18/22 17:18 [place] # (Auto) 0.7 K/mm3 (0.0-0.8) 03/18/22 17:18 Eos # (Auto) 0.1 K/mm3 (0.0-0.4) 03/18/22 17:18 Baso # (Auto) 0.1 K/mm3 (0.0-0.1) 03/18/22 17:18 Seg Neutrophils % 58.1 % (40.0-70.0) 03/18/22 17:18 Seg Neutrophils # 3.7 K/mm3 (1.8-7.7) 03/18/22 17:18 Sodium 139 mmol/L (137-145) 03/18/22 17:18 Potassium 3.8 mmol/L (3.6-5.0) 03/18/22 17:18 Chloride 103.4 mmol/L (98-107) 03/18/22 17:18 Carbon Dioxide 20 mmol/L (22-30) L 03/18/22 17:18 Anion Gap 19 mmol/L 03/18/22 17:18 BUN 52 mg/dL (9-20) H 03/18/22 17:18 Creatinine 2.9 mg/dL (0.8-1.3) H 03/18/22 17:18 Estimated GFR 21 ml/min 03/18/22 17:18 BUN/Creatinine Ratio 18 % 03/18/22 17:18 Glucose 63 mg/dL (75-100) L 03/18/22 17:18 POC Glucose 175 mg/dL (70-105) H 04/01/22 07:34 Hemoglobin A1c 8.5 % (4-6) H 03/18/22 17:18 Calcium 9.3 mg/dL (8.4-10.2) 03/18/22 17:18 Total Bilirubin 0.20 mg/dL (0.1-1.2) 03/18/22 17:18 AST 16 units/L (5-40) 03/18/22 17:18 ALT 8 units/L (7-56) 03/18/22 17:18 Alkaline Phosphatase 76 units/L (35-129) 03/18/22 17:18 Total Protein 7.3 g/dL (6.3-8.2) 03/18/22 17:18 Albumin 4.5 g/dL (3.9-5) 03/18/22 17:18 Albumin/Globulin Ratio 1.6 % 03/18/22 17:18 Triglycerides 69 mg/dL (2-149) 03/18/22 17:18 Cholesterol 230 mg/dL (50-199) H 03/18/22 17:18 LDL Cholesterol Direct 134 mg/dL (50-130) H 03/18/22 17:18 HDL Cholesterol 74 mg/dL (40-59) H 03/18/22 17:18 Cholesterol/HDL Ratio 3.10 % 03/18/22 17:18 TSH 1.190 mlU/mL (0.270-4.200) 03/18/22 17:18 Last Vital Signs Temp 98.2 F 03/31/22 12:48 Pulse 84 03/31/22 22:27 Resp 20 03/31/22 12:48 BP 102/55 04/01/22 05:37 Pulse Ox 98 03/31/22 12:48
[2022-04-02] MEDS: INSULIN LISPRO 100 UNIT/ML SUB-Q SCH ×4 (10:49→22:11)
[2022-04-02] MEDS: DIVALPROEX SPRINKLE 125 MG CAP PO SCH ×3 (10:49→22:10)
[2022-04-02] MEDS: TRIAMTER/HCTZ 37.5-25 MG TAB PO SCH (10:50)
[2022-04-02] MEDS: COMBIGAN 0.2-0.5% OPHTH SOLN OU SCH ×2 (10:50→22:10)
[2022-04-02] MEDS: FERROUS SULFATE 325 MG TAB PO SCH (10:50)
--- NOTE | 2022-04-02 17:05 | Progress Note ---
Assessment and Plan Assessment and plan: (1) Vascular dementia with behavioral disturbance Current Visit: Yes Status: Acute Plan to address problem: Verbal prompting, verbal redirection, benzodiazepine therapy as clinically indicated. (2) Cerebral atherosclerosis Current Visit: Yes Status: Acute Plan to address problem: Risk factor reduction, antiplatelet therapy as clinically indicated. (3) Hypertension Current Visit: Yes Status: Acute Qualifiers: Hypertension type: primary hypertension Qualified Code(s): I10 - Essential (primary) hypertension Plan to address problem: Monitor blood pressure every shift, continue medical management. (4) Diabetes Current Visit: Yes Status: Acute Plan to address problem: Consult to help with carbohydrate diet, Accu-Chek, insulin protocol, hypoglycemia protocol. (5) Hyperlipidemia Current Visit: Yes Status: Acute Qualifiers: Hyperlipidemia type: mixed hyperlipidemia Qualified Code(s): E78.2 - Mixed hyperlipidemia Plan to address problem: Low-cholesterol diet, statin therapy as clinically indicated. (6) Hypothyroidism Current Visit: Yes Status: Acute Plan to address problem: Continue Synthroid therapy, supportive care. (7) Advance care planning Current Visit: Yes Status: Acute Plan to address problem: Disease education data, care plan discussed, diagnosis discussed, prognosis discussed, +30 minutes. (8) chronic shoulder pain. Continue Tylenol as needed for pain control History Interval history: Patient seen and examined no new complaints except chronic shoulder pain. On the right shoulder. Says he bumped his shoulder somewhat. Hospitalist Physical - Physical exam Narrative exam: VITAL SIGNS: Reviewed. GENERAL: The patient appears normally developed, Vital signs as documented. HEAD: No signs of head trauma. EYES: Pupils are equal. Extraocular motions intact. EARS: Hearing grossly intact. MOUTH: Oropharynx is normal. NECK: No adenopathy, no JVD. CHEST: Chest with clear breath sounds bilaterally. No wheezes, rales, or rhonchi. CARDIAC: Regular rate and rhythm. S1 and S2, without murmurs, gallops, or rubs. VASCULAR: No Edema. Peripheral pulses normal and equal in all extremities. ABDOMEN: Soft, non tender and non distended. No rebound or guarding, and no masses palpated. Bowel Sounds normal. MUSCULOSKELETAL: Good range of motion of all major joints no drop shoulder, no tenderness, able to perform rotation abduction and abduction with no complaints. Extremities without clubbing, cyanosis or edema. NEUROLOGIC EXAM: Alert and oriented x 3 No focal sensory or strength deficits. Speech normal. Follows commands. PSYCHIATRIC: Mood normal. SKIN: detail exam as documented in skin assessment - Constitutional Vitals: Temp Pulse Resp BP Pulse Ox 97.5 F L 84 17 102/55 98 03/31/22 19:51 03/31/22 22:27 03/31/22 19:51 04/01/22 05:37 03/31/22 19:51 General appearance: Present: no acute distress, well-nourished, other (Cheerful today) Results - Labs CBC & Chem 7: 03/18/22 17:18 03/18/22 17:18 Labs: Laboratory Last Values WBC 6.3 K/mm3 (4.5-11.0) 03/18/22 17:18 RBC 4.33 M/mm3 (3.65-5.03) 03/18/22 17:18 Hgb 11.8 gm/dl (11.8-15.2) 03/18/22 17:18 Hct 35.4 % (35.5-45.6) L 03/18/22 17:18 MCV 82 fl (84-94) L 03/18/22 17:18 MCH 27 pg (28-32) L 03/18/22 17:18 MCHC 33 % (32-34) 03/18/22 17:18 RDW 16.0 % (13.2-15.2) H 03/18/22 17:18 Plt Count 270 K/mm3 (140-440) 03/18/22 17:18 Lymph % (Auto) 27.9 % (13.4-35.0) 03/18/22 17:18 [place] % (Auto) 11.1 % (0.0-7.3) H 03/18/22 17:18 Eos % (Auto) 1.8 % (0.0-4.3) 03/18/22 17:18 Baso % (Auto) 1.1 % (0.0-1.8) 03/18/22 17:18 Lymph # (Auto) 1.8 K/mm3 (1.2-5.4) 03/18/22 17:18 [place] # (Auto) 0.7 K/mm3 (0.0-0.8) 03/18/22 17:18 Eos # (Auto) 0.1 K/mm3 (0.0-0.4) 03/18/22 17:18 Baso # (Auto) 0.1 K/mm3 (0.0-0.1) 03/18/22 17:18 Seg Neutrophils % 58.1 % (40.0-70.0) 03/18/22 17:18 Seg Neutrophils # 3.7 K/mm3 (1.8-7.7) 03/18/22 17:18 Sodium 139 mmol/L (137-145) 03/18/22 17:18 Potassium 3.8 mmol/L (3.6-5.0) 03/18/22 17:18 Chloride 103.4 mmol/L (98-107) 03/18/22 17:18 Carbon Dioxide 20 mmol/L (22-30) L 03/18/22 17:18 Anion Gap 19 mmol/L 03/18/22 17:18 BUN 52 mg/dL (9-20) H 03/18/22 17:18 Creatinine 2.9 mg/dL (0.8-1.3) H 03/18/22 17:18 Estimated GFR 21 ml/min 03/18/22 17:18 BUN/Creatinine Ratio 18 % 03/18/22 17:18 Glucose 63 mg/dL (75-100) L 03/18/22 17:18 POC Glucose 175 mg/dL (70-105) H 04/01/22 07:34 Hemoglobin A1c 8.5 % (4-6) H 03/18/22 17:18 Calcium 9.3 mg/dL (8.4-10.2) 03/18/22 17:18 Total Bilirubin 0.20 mg/dL (0.1-1.2) 03/18/22 17:18 AST 16 units/L (5-40) 03/18/22 17:18 ALT 8 units/L (7-56) 03/18/22 17:18 Alkaline Phosphatase 76 units/L (35-129) 03/18/22 17:18 Total Protein 7.3 g/dL (6.3-8.2) 03/18/22 17:18 Albumin 4.5 g/dL (3.9-5) 03/18/22 17:18 Albumin/Globulin Ratio 1.6 % 03/18/22 17:18 Triglycerides 69 mg/dL (2-149) 03/18/22 17:18 Cholesterol 230 mg/dL (50-199) H 03/18/22 17:18 LDL Cholesterol Direct 134 mg/dL (50-130) H 03/18/22 17:18 HDL Cholesterol 74 mg/dL (40-59) H 03/18/22 17:18 Cholesterol/HDL Ratio 3.10 % 03/18/22 17:18 TSH 1.190 mlU/mL (0.270-4.200) 03/18/22 17:18 Chan/IV: Voiding Method Toilet Active Medications - Current Medications Current Medications: Generic Name Dose Route Start Last Admin Trade Name Freq PRN Reason Stop Dose Admin Brimonidine/Timolol 1 drops 03/18/22 12:00 04/02/22 10:50 Combigan 0.2-0.5% Ophth Soln OU Not Given Q12HR [facility] Divalproex Sodium 125 mg 03/23/22 14:00 04/02/22 14:41 Divalproex Sprinkle 125 Mg Cap PO Not Given TID [facility] Ferrous Sulfate 325 mg 03/18/22 10:00 04/02/22 10:50 Ferrous Sulfate 325 Mg Tab PO Not Given DAILY [facility] Glipizide 2.5 mg 03/22/22 08:00 04/02/22 10:50 Glipizide Xl 2.5 Mg Tab PO Not Given DAILY@0800 [facility] Hydralazine HCl 50 mg 03/18/22 10:00 04/02/22 14:41 Hydralazine 25 Mg Tab PO Not Given Q8HR [facility] Insulin Human Lispro 0 unit 03/18/22 11:30 04/02/22 14:41 Insulin Lispro 100 Unit/Ml SUB-Q Not Given ACHS [facility] Protocol Lactulose 20 gm 03/18/22 10:00 Lactulose 20 Gm/30 Ml Oral Liqd PO TID PRN Edema Levothyroxine Sodium 200 mcg 03/19/22 06:00 04/02/22 05:52 Levothyroxine 100 Mcg Tab PO Not Given DAILY@0600 [facility] Melatonin 5 mg 03/18/22 22:00 04/01/22 22:22 Melatonin 5 Mg Tab PO Not Given QHS [facility] Olanzapine 2.5 mg 03/18/22 22:00 04/01/22 22:22 Olanzapine 2.5 Mg Tab PO Not Given QHS [facility] Trazodone HCl 50 mg 03/18/22 22:00 04/01/22 22:22 Trazodone 50 Mg Tab PO Not Given QHS [facility] Triamterene/Hydrochlorothiazide 1 each 03/18/22 10:00 04/02/22 10:50 Triamter/Hctz 37.5-25 Mg Tab PO Not Given QDAY [facility] Ziprasidone 20 mg 03/18/22 10:00 Ziprasidone Mesylate 20 Mg Vial IM Q4H PRN Agitation Nutrition/Malnutrition Assess - Dietary Evaluation Nutrition/Malnutrition Findings: Nutrition Notes Start: 03/18/22 16:11 Freq: Status: Active Protocol: Document 03/25/22 16:49 KAM (Rec: 03/25/22 17:00 KAM [id number]) Nutrition Notes Initial or Follow up Reassessment Current Diet Cardiac/Consistent Carbohydrates -Chopped Meats- Diet (since B 03/18). Height 5 ft 8 in Weight 72.121 kg [place] Body Weight (kg) 70.00 BMI 24.1 Weight change and time frame No body weight change reported in 1 week. Weight Status Appropriate Subjective/Other Information RD consult for routine F/U on dietary advancement. Pt's PO intake of meals has been Good (75%), according to ADL notes. Pt is on Room Air, O2 saturation @ 100%, according to Vital Signs notes. Plans for discharge Pt to a more safe environment facility , according to Progress notes. Percent of energy/protein needs met: Prescribed Cardiac/Consistent Carbohydrates -Chopped Meats- Diet provides for energy/ protein needs (1,977 Kcal/86 g ) during LOS. Burn Absent Trauma Absent GI Symptoms None Difficulty In Chewing Food Allergy No Skin Integrity/Comment Unspecified Dryness. Current % PO Good (75-100%) Minimum of two criteria No #1 Nutrition Diagnosis Biting/Chewing (masticatory) difficulty Diagnosis Progress(for reassessment Continues documentation) Is patient on ventilator? No Is Patient Ambulatory and/or Out of Bed Yes REE-([place]-St. Jeor-ambulatory/OOB) [ [id number] [id number]] Calculation Used for Recommendations [facility] Additional Notes Protein: 1-1.2 g/Kg ABW; 72-86 g/day. Fluids: 1 ml/Kcal, or as per MD. Nutrition Intervention Change Diet Order: Modify to Cardiac/Consistent Carbohydrates -Chopped Meats- Diet. Goal #1 Facilitate PO intake of meals with elemental, textural, or mechanical modification during LOS. Goal #2 Maintain body weight within +/ -3% of admission body weight during LOS. Revisit per MD consult or patient Sign Off request: Additional Comments Continue monitoring food tolerance, %PO intake of meals , and BM.
[2022-04-02] MEDS: traZODone 50 MG TAB PO SCH (22:10)
[2022-04-02] MEDS: MELATONIN 5 MG TAB PO SCH (22:11)
[2022-04-03] MEDS: hydrALAZINE 25 MG TAB PO SCH ×3 (06:51→21:10)
[2022-04-03] MEDS: LEVOTHYROXINE 100 MCG TAB PO SCH (06:52)
[2022-04-03] MEDS: INSULIN LISPRO 100 UNIT/ML SUB-Q SCH ×4 (08:43→21:12)
[2022-04-03] MEDS ORDERED: WATER FOR INJ Sterile (PF) 10 ML ONE (10:13)
[2022-04-03] MEDS: DIVALPROEX SPRINKLE 125 MG CAP PO SCH ×3 (10:31→21:10)
[2022-04-03] MEDS: FERROUS SULFATE 325 MG TAB PO SCH (10:31)
[2022-04-03] MEDS: TRIAMTER/HCTZ 37.5-25 MG TAB PO SCH (10:32)
[2022-04-03] MEDS: COMBIGAN 0.2-0.5% OPHTH SOLN OU SCH ×2 (10:34→21:09)
--- NOTE | 2022-04-03 11:19 | Progress Note ---
Subjective Date of service: 04/03/22 Principal diagnosis: MDD Subjective Comment: The patient was seen today. He is calm and cooperative. He says he's ready to go and was told that he would be leaving. He says "I feel okay, just ready to get out of here." The patient says he doesn't sleep well because as soon as he gets to sleep someone is waking him up. He denies SI/HI or hallucinations. Staff says the patient has been irritable and refusing BP meds and BG. I talked to the patient and told him this need for us to work on getting him home. He agrees to cooperate. Staff nurse came in and performed care on patient without difficulty. The patient is awaiting placement. REVIEW OF SYSTEMS Constitutional: Negative for weight loss ENT: Negative for stridor Respiratory: Negative for cough or hemoptysis All other systems reviewed and are negative MENTAL STATUS EXAMINATION General Appearance and Behavior: Age appropriate, good hygiene, wearing appropriate clothes, good eye contact, calm, cooperative Cooperation: Participating/engaged, but Guarded Psychomotor Behavior: Psychomotor normal Mood: okay Affect and affective range: congruent with stated mood Thought Process: Goal directed Thought Content: Reality oriented Speech: normal tone and pace Suicidal Ideation: Passive Homicidal Ideation: Denies Hallucinations: Denies Delusions: None Impulse Control: Limited Insight and Judgment: Limited insight and judgment Memory: Limited Attention: attentive Orientation: Alert, oriented Diagnoses: Dementia with behavioral disturbances Treatment Plan Patient admitted for inpatient psychiatric evaluation, medication adjustment and close monitoring The patient's behavior, mood, sleep and appetite will be closely monitored. Patient enrolled in individual and group therapeutic sessions and encouraged to attend. Patient provided with a safe and structured environment. Patient's physical health needs will be addressed by the Hospitalist. Hospitalist Consulted Labs including CBC, CMP, Lipid profile and Hemoglobin A1C levels ordered for baseline reference Social Assessment will be completed and the Extract Operator will work with patient and family to ensure a suitable and safe disposition Medication adjustment will be made as clinically indicated Depakote 125mg po TID Usual Wellness Muslim/Preservation: - Start Trazodone 50 mg po QHS & 50 mg po QHS PRN between 10 PM & 2 AM for insomnia - Start Melatonin 5 mg po QHS to promote circadian rhythm The patient agreed on the treatment plan, understood the risk, benefit, alternative treatment, potential consequence of no treatment, and gave informed consent. Estimated days:6 Post hospital care: primary care provider, psychiatric provider Case staffed with Dr. Hwang Medications and Allergies Allergies Allergy/AdvReac Type Severity Reaction Status Date / Time No Known Allergies Allergy Unverified 03/17/22 17:19 Home Medications Medication Instructions Recorded Confirmed Last Taken Type Divalproex Sodium [Depakote 125 mg PO BID 03/18/22 03/18/22 Unknown History Sprinkle] Dorzolamide HCl/Timolol Maleat 10 ml OP HS 03/18/22 03/18/22 Unknown History [Dorzolamide-Timolol Eye Drops] Ferrous Sulfate [Iron 325 MG] 325 mg PO DAILY 03/18/22 03/18/22 Unknown History Hydralazine HCl 50 mg PO TID 03/18/22 03/18/22 Unknown History Insulin Lispro [Admelog] See Protocol SQ ACHS 03/18/22 03/18/22 Unknown History Lactulose [Cephulac] 20 gm PO TID PRN 03/18/22 03/18/22 Unknown History Levothyroxine Sodium [Synthroid] 200 mcg PO DAILY 03/18/22 03/18/22 Unknown History Melatonin [Melatonin 3MG TAB] 3 mg PO HS 03/18/22 03/18/22 Unknown History Pioglitazone HCl [Actos] 30 mg PO DAILY 03/18/22 03/18/22 Unknown History Triamter/Hctz 37.5-25 mg 1 tab PO QDAY 03/18/22 03/18/22 Unknown History [Maxzide-25] amLODIPine [Norvasc] 10 mg PO DAILY 03/18/22 03/18/22 Unknown History glipiZIDE [Glucotrol] 5 mg PO QDAY 03/18/22 03/18/22 Unknown History Active Meds: Active Medications Brimonidine/Timolol (Combigan 0.2-0.5% Oph Soln) 1 drops OU Q12HR [facility] Last Admin: 04/03/22 10:34 Dose: Not Given Divalproex Sodium (Divalproex Sprinkle 125 Mg Cap) 125 mg PO TID [facility] Last Admin: 04/03/22 10:31 Dose: 125 mg Ferrous Sulfate (Ferrous Sulfate 325 Mg Tab) 325 mg PO DAILY [facility] Last Admin: 04/03/22 10:31 Dose: 325 mg Glipizide (Glipizide Xl 2.5 Mg Tab) 2.5 mg PO DAILY@0800 [facility] Last Admin: 04/03/22 10:31 Dose: 2.5 mg Hydralazine HCl (Hydralazine 25 Mg Tab) 50 mg PO Q8HR [facility] Last Admin: 04/03/22 06:51 Dose: Not Given Insulin Human Lispro (Insulin Lispro 100 Unit/Ml) 0 unit SUB-Q ACHS [facility]; Protocol Last Admin: 04/03/22 08:43 Dose: Not Given Lactulose (Lactulose 20 Gm/30 Ml Oral Liqd) 20 gm PO TID PRN PRN Reason: Edema Levothyroxine Sodium (Levothyroxine 100 Mcg Tab) 200 mcg PO DAILY@0600 [facility] Last Admin: 04/03/22 06:52 Dose: Not Given Melatonin (Melatonin 5 Mg Tab) 5 mg PO QHS [facility] Last Admin: 04/02/22 22:11 Dose: Not Given Olanzapine (Olanzapine 2.5 Mg Tab) 2.5 mg PO QHS [facility] Last Admin: 04/02/22 22:11 Dose: Not Given Trazodone HCl (Trazodone 50 Mg Tab) 50 mg PO QHS [facility] Last Admin: 04/02/22 22:10 Dose: Not Given Triamterene/Hydrochlorothiazide (Triamter/Hctz 37.5-25 Mg Tab) 1 each PO QDAY [facility] Last Admin: 04/03/22 10:32 Dose: 1 each Ziprasidone (Ziprasidone Mesylate 20 Mg Vial) 20 mg IM Q4H PRN PRN Reason: Agitation Results - Results Labs/Vitals: Laboratory Last Values WBC 6.3 K/mm3 (4.5-11.0) 03/18/22 17:18 RBC 4.33 M/mm3 (3.65-5.03) 03/18/22 17:18 Hgb 11.8 gm/dl (11.8-15.2) 03/18/22 17:18 Hct 35.4 % (35.5-45.6) L 03/18/22 17:18 MCV 82 fl (84-94) L 03/18/22 17:18 MCH 27 pg (28-32) L 03/18/22 17:18 MCHC 33 % (32-34) 03/18/22 17:18 RDW 16.0 % (13.2-15.2) H 03/18/22 17:18 Plt Count 270 K/mm3 (140-440) 03/18/22 17:18 Lymph % (Auto) 27.9 % (13.4-35.0) 03/18/22 17:18 [place] % (Auto) 11.1 % (0.0-7.3) H 03/18/22 17:18 Eos % (Auto) 1.8 % (0.0-4.3) 03/18/22 17:18 Baso % (Auto) 1.1 % (0.0-1.8) 03/18/22 17:18 Lymph # (Auto) 1.8 K/mm3 (1.2-5.4) 03/18/22 17:18 [place] # (Auto) 0.7 K/mm3 (0.0-0.8) 03/18/22 17:18 Eos # (Auto) 0.1 K/mm3 (0.0-0.4) 03/18/22 17:18 Baso # (Auto) 0.1 K/mm3 (0.0-0.1) 03/18/22 17:18 Seg Neutrophils % 58.1 % (40.0-70.0) 03/18/22 17:18 Seg Neutrophils # 3.7 K/mm3 (1.8-7.7) 03/18/22 17:18 Sodium 139 mmol/L (137-145) 03/18/22 17:18 Potassium 3.8 mmol/L (3.6-5.0) 03/18/22 17:18 Chloride 103.4 mmol/L (98-107) 03/18/22 17:18 Carbon Dioxide 20 mmol/L (22-30) L 03/18/22 17:18 Anion Gap 19 mmol/L 03/18/22 17:18 BUN 52 mg/dL (9-20) H 03/18/22 17:18 Creatinine 2.9 mg/dL (0.8-1.3) H 03/18/22 17:18 Estimated GFR 21 ml/min 03/18/22 17:18 BUN/Creatinine Ratio 18 % 03/18/22 17:18 Glucose 63 mg/dL (75-100) L 03/18/22 17:18 POC Glucose 175 mg/dL (70-105) H 04/01/22 07:34 Hemoglobin A1c 8.5 % (4-6) H 03/18/22 17:18 Calcium 9.3 mg/dL (8.4-10.2) 03/18/22 17:18 Total Bilirubin 0.20 mg/dL (0.1-1.2) 03/18/22 17:18 AST 16 units/L (5-40) 03/18/22 17:18 ALT 8 units/L (7-56) 03/18/22 17:18 Alkaline Phosphatase 76 units/L (35-129) 03/18/22 17:18 Total Protein 7.3 g/dL (6.3-8.2) 03/18/22 17:18 Albumin 4.5 g/dL (3.9-5) 03/18/22 17:18 Albumin/Globulin Ratio 1.6 % 03/18/22 17:18 Triglycerides 69 mg/dL (2-149) 03/18/22 17:18 Cholesterol 230 mg/dL (50-199) H 03/18/22 17:18 LDL Cholesterol Direct 134 mg/dL (50-130) H 03/18/22 17:18 HDL Cholesterol 74 mg/dL (40-59) H 03/18/22 17:18 Cholesterol/HDL Ratio 3.10 % 03/18/22 17:18 TSH 1.190 mlU/mL (0.270-4.200) 03/18/22 17:18 Last Vital Signs Temp 97.5 F L 03/31/22 19:51 Pulse 84 03/31/22 22:27 Resp 17 03/31/22 19:51 BP 102/55 04/01/22 05:37 Pulse Ox 98 03/31/22 19:51
[2022-04-03] MEDS: MELATONIN 5 MG TAB PO SCH (21:11)
[2022-04-03] MEDS: traZODone 50 MG TAB PO SCH (21:11)
--- NOTE | 2022-04-03 22:01 | Progress Note ---
Assessment and Plan - Patient Problems (1) Vascular dementia with behavioral disturbance Current Visit: Yes Status: Acute Plan to address problem: Verbal prompting, verbal redirection, benzodiazepine therapy as clinically indicated. (2) Cerebral atherosclerosis Current Visit: Yes Status: Acute Plan to address problem: Risk factor reduction, antiplatelet therapy as clinically indicated. (3) Hypertension Current Visit: Yes Status: Acute Qualifiers: Hypertension type: primary hypertension Qualified Code(s): I10 - Essential (primary) hypertension Plan to address problem: Monitor blood pressure every shift, continue medical management. (4) Diabetes Current Visit: Yes Status: Acute Plan to address problem: Consult to help with carbohydrate diet, Accu-Chek, insulin protocol, hypoglycemia protocol. (5) Hyperlipidemia Current Visit: Yes Status: Acute Qualifiers: Hyperlipidemia type: mixed hyperlipidemia Qualified Code(s): E78.2 - Mixed hyperlipidemia Plan to address problem: Low-cholesterol diet, statin therapy as clinically indicated. (6) Hypothyroidism Current Visit: Yes Status: Acute Plan to address problem: Continue Synthroid therapy, supportive care. (7) Advance care planning Current Visit: Yes Status: Acute Plan to address problem: Disease education data, care plan discussed, diagnosis discussed, prognosis discussed, +30 minutes. History Interval history: 80 YO Male with Vascular Dementia with Behavioral Disturbance, Cerebral Atherosclerosis, DM, HTN, HLD, Hypothyroidism. Pt is admitted to [facility] psych unit for psychiatric stabilization. Consult placed by Dr. Frankel for medical management. Patient seen and evaluated in the recreation room. Patient resting. Patient exhibits tangential thinking with diminished cognition and intermittent agitation. No reported nursing events. Patient remains at baseline level of cognition and function. Hospitalist Physical - Constitutional Vitals: Temp Pulse Resp BP Pulse Ox 98.4 F 76 16 133/60 97 04/03/22 21:02 04/03/22 21:10 04/03/22 21:02 04/03/22 21:10 04/03/22 21:02 General appearance: Present: no acute distress, well-nourished, other (Cheerful today) - EENT Eyes: Present: PERRL ENT: hearing intact - Neck Neck: Present: supple - Respiratory Respiratory effort: normal Respiratory: bilateral: diminished - Cardiovascular Rhythm: regular Heart Sounds: Present: S1 & S2 - Extremities Extremities: no ischemia Peripheral Pulses: within normal limits - Abdominal General gastrointestinal: soft, non-tender, non-distended - Integumentary Integumentary: Present: clear, erythema - Psychiatric Psychiatric: cooperative - Neurologic Neurologic: CNII-XII intact Results - Labs CBC & Chem 7: 03/18/22 17:18 03/18/22 17:18 Labs: Laboratory Last Values WBC 6.3 K/mm3 (4.5-11.0) 03/18/22 17:18 RBC 4.33 M/mm3 (3.65-5.03) 03/18/22 17:18 Hgb 11.8 gm/dl (11.8-15.2) 03/18/22 17:18 Hct 35.4 % (35.5-45.6) L 03/18/22 17:18 MCV 82 fl (84-94) L 03/18/22 17:18 MCH 27 pg (28-32) L 03/18/22 17:18 MCHC 33 % (32-34) 03/18/22 17:18 RDW 16.0 % (13.2-15.2) H 03/18/22 17:18 Plt Count 270 K/mm3 (140-440) 03/18/22 17:18 Lymph % (Auto) 27.9 % (13.4-35.0) 03/18/22 17:18 [place] % (Auto) 11.1 % (0.0-7.3) H 03/18/22 17:18 Eos % (Auto) 1.8 % (0.0-4.3) 03/18/22 17:18 Baso % (Auto) 1.1 % (0.0-1.8) 03/18/22 17:18 Lymph # (Auto) 1.8 K/mm3 (1.2-5.4) 03/18/22 17:18 [place] # (Auto) 0.7 K/mm3 (0.0-0.8) 03/18/22 17:18 Eos # (Auto) 0.1 K/mm3 (0.0-0.4) 03/18/22 17:18 Baso # (Auto) 0.1 K/mm3 (0.0-0.1) 03/18/22 17:18 Seg Neutrophils % 58.1 % (40.0-70.0) 03/18/22 17:18 Seg Neutrophils # 3.7 K/mm3 (1.8-7.7) 03/18/22 17:18 Sodium 139 mmol/L (137-145) 03/18/22 17:18 Potassium 3.8 mmol/L (3.6-5.0) 03/18/22 17:18 Chloride 103.4 mmol/L (98-107) 03/18/22 17:18 Carbon Dioxide 20 mmol/L (22-30) L 03/18/22 17:18 Anion Gap 19 mmol/L 03/18/22 17:18 BUN 52 mg/dL (9-20) H 03/18/22 17:18 Creatinine 2.9 mg/dL (0.8-1.3) H 03/18/22 17:18 Estimated GFR 21 ml/min 03/18/22 17:18 BUN/Creatinine Ratio 18 % 03/18/22 17:18 Glucose 63 mg/dL (75-100) L 03/18/22 17:18 POC Glucose 222 mg/dL (70-105) H 04/03/22 10:29 Hemoglobin A1c 8.5 % (4-6) H 03/18/22 17:18 Calcium 9.3 mg/dL (8.4-10.2) 03/18/22 17:18 Total Bilirubin 0.20 mg/dL (0.1-1.2) 03/18/22 17:18 AST 16 units/L (5-40) 03/18/22 17:18 ALT 8 units/L (7-56) 03/18/22 17:18 Alkaline Phosphatase 76 units/L (35-129) 03/18/22 17:18 Total Protein 7.3 g/dL (6.3-8.2) 03/18/22 17:18 Albumin 4.5 g/dL (3.9-5) 03/18/22 17:18 Albumin/Globulin Ratio 1.6 % 03/18/22 17:18 Triglycerides 69 mg/dL (2-149) 03/18/22 17:18 Cholesterol 230 mg/dL (50-199) H 03/18/22 17:18 LDL Cholesterol Direct 134 mg/dL (50-130) H 03/18/22 17:18 HDL Cholesterol 74 mg/dL (40-59) H 03/18/22 17:18 Cholesterol/HDL Ratio 3.10 % 03/18/22 17:18 TSH 1.190 mlU/mL (0.270-4.200) 03/18/22 17:18 Chan/IV: Voiding Method Toilet Active Medications - Current Medications Current Medications: Generic Name Dose Route Start Last Admin Trade Name Freq PRN Reason Stop Dose Admin Brimonidine/Timolol 1 drops 03/18/22 12:00 04/03/22 21:09 Combigan 0.2-0.5% Ophth Soln OU 1 drops Q12HR [facility] Administration Divalproex Sodium 125 mg 03/23/22 14:00 04/03/22 21:10 Divalproex Sprinkle 125 Mg Cap PO 125 mg TID [facility] Administration Ferrous Sulfate 325 mg 03/18/22 10:00 04/03/22 10:31 Ferrous Sulfate 325 Mg Tab PO 325 mg DAILY [facility] Administration Glipizide 2.5 mg 03/22/22 08:00 04/03/22 10:31 Glipizide Xl 2.5 Mg Tab PO 2.5 mg DAILY@0800 [facility] Administration Hydralazine HCl 50 mg 03/18/22 10:00 04/03/22 21:10 Hydralazine 25 Mg Tab PO 50 mg Q8HR [facility] Administration Insulin Human Lispro 0 unit 03/18/22 11:30 04/03/22 21:12 Insulin Lispro 100 Unit/Ml SUB-Q Not Given ACHS [facility] Protocol Lactulose 20 gm 03/18/22 10:00 Lactulose 20 Gm/30 Ml Oral Liqd PO TID PRN Edema Levothyroxine Sodium 200 mcg 03/19/22 06:00 04/03/22 06:52 Levothyroxine 100 Mcg Tab PO Not Given DAILY@0600 [facility] Melatonin 5 mg 03/18/22 22:00 04/03/22 21:11 Melatonin 5 Mg Tab PO 5 mg QHS [facility] Administration Olanzapine 2.5 mg 03/18/22 22:00 04/03/22 21:11 Olanzapine 2.5 Mg Tab PO 2.5 mg QHS [facility] Administration Trazodone HCl 50 mg 03/18/22 22:00 04/03/22 21:11 Trazodone 50 Mg Tab PO 50 mg QHS [facility] Administration Triamterene/Hydrochlorothiazide 1 each 03/18/22 10:00 04/03/22 10:32 Triamter/Hctz 37.5-25 Mg Tab PO 1 each QDAY [facility] Administration Ziprasidone 20 mg 03/18/22 10:00 Ziprasidone Mesylate 20 Mg Vial IM Q4H PRN Agitation Nutrition/Malnutrition Assess - Dietary Evaluation Nutrition/Malnutrition Findings: Nutrition Notes Start: 03/18/22 16:11 Freq: Status: Active Protocol: Document 03/25/22 16:49 KAM (Rec: 03/25/22 17:00 KAM [id number]) Nutrition Notes Initial or Follow up Reassessment Current Diet Cardiac/Consistent Carbohydrates -Chopped Meats- Diet (since B 03/18). Height 5 ft 8 in Weight 72.121 kg [place] Body Weight (kg) 70.00 BMI 24.1 Weight change and time frame No body weight change reported in 1 week. Weight Status Appropriate Subjective/Other Information RD consult for routine F/U on dietary advancement. Pt's PO intake of meals has been Good (75%), according to ADL notes. Pt is on Room Air, O2 saturation @ 100%, according to Vital Signs notes. Plans for discharge Pt to a more safe environment facility , according to Progress notes. Percent of energy/protein needs met: Prescribed Cardiac/Consistent Carbohydrates -Chopped Meats- Diet provides for energy/ protein needs (1,977 Kcal/86 g ) during LOS. Burn Absent Trauma Absent GI Symptoms None Difficulty In Chewing Food Allergy No Skin Integrity/Comment Unspecified Dryness. Current % PO Good (75-100%) Minimum of two criteria No #1 Nutrition Diagnosis Biting/Chewing (masticatory) difficulty Diagnosis Progress(for reassessment Continues documentation) Is patient on ventilator? No Is Patient Ambulatory and/or Out of Bed Yes REE-([place]-St. Jeor-ambulatory/OOB) [ [id number] [id number]] Calculation Used for Recommendations [place]-St Jeor Additional Notes Protein: 1-1.2 g/Kg ABW; 72-86 g/day. Fluids: 1 ml/Kcal, or as per MD. Nutrition Intervention Change Diet Order: Modify to Cardiac/Consistent Carbohydrates -Chopped Meats- Diet. Goal #1 Facilitate PO intake of meals with elemental, textural, or mechanical modification during LOS. Goal #2 Maintain body weight within +/ -3% of admission body weight during LOS. Revisit per MD consult or patient Sign Off request: Additional Comments Continue monitoring food tolerance, %PO intake of meals , and BM.
[2022-04-04] MEDS: hydrALAZINE 25 MG TAB PO SCH ×3 (05:55→21:09)
[2022-04-04] MEDS: LEVOTHYROXINE 100 MCG TAB PO SCH (05:57)
--- NOTE | 2022-04-04 08:56 | Progress Note ---
Subjective Date of service: 04/04/22 Principal diagnosis: MDD Subjective Comment: The patient was seen today. He is sleeping. He easily arouses but drifts back to sleep at times. He says he feels alright. The patient says "they still came in and woke me up last night." He denies SI/HI or hallucinations of any kind. He is awaiting placement. REVIEW OF SYSTEMS Constitutional: Negative for weight loss ENT: Negative for stridor Respiratory: Negative for cough or hemoptysis All other systems reviewed and are negative MENTAL STATUS EXAMINATION General Appearance and Behavior: Age appropriate, good hygiene, wearing appropriate clothes, good eye contact, calm, cooperative Cooperation: Participating/engaged, but Guarded Psychomotor Behavior: Psychomotor normal Mood: okay Affect and affective range: congruent with stated mood Thought Process: Goal directed Thought Content: Reality oriented Speech: normal tone and pace Suicidal Ideation: Passive Homicidal Ideation: Denies Hallucinations: Denies Delusions: None Impulse Control: Limited Insight and Judgment: Limited insight and judgment Memory: Limited Attention: attentive Orientation: Alert, oriented Diagnoses: Dementia with behavioral disturbances Treatment Plan Patient admitted for inpatient psychiatric evaluation, medication adjustment and close monitoring The patient's behavior, mood, sleep and appetite will be closely monitored. Patient enrolled in individual and group therapeutic sessions and encouraged to attend. Patient provided with a safe and structured environment. Patient's physical health needs will be addressed by the Hospitalist. Hospitalist Consulted Labs including CBC, CMP, Lipid profile and Hemoglobin A1C levels ordered for baseline reference Social Assessment will be completed and the Executive Assistant To General Counsel will work with patient and family to ensure a suitable and safe disposition Medication adjustment will be made as clinically indicated Depakote 125mg po TID Usual Wellness Confucianism/Preservation: - Start Trazodone 50 mg po QHS & 50 mg po QHS PRN between 10 PM & 2 AM for insomnia - Start Melatonin 5 mg po QHS to promote circadian rhythm The patient agreed on the treatment plan, understood the risk, benefit, alternative treatment, potential consequence of no treatment, and gave informed consent. Estimated days:6 Post hospital care: primary care provider, psychiatric provider Case staffed with Dr. Hwang Medications and Allergies Allergies Allergy/AdvReac Type Severity Reaction Status Date / Time No Known Allergies Allergy Unverified 03/17/22 17:19 Home Medications Medication Instructions Recorded Confirmed Last Taken Type Divalproex Sodium [Depakote 125 mg PO BID 03/18/22 03/18/22 Unknown History Sprinkle] Dorzolamide HCl/Timolol Maleat 10 ml OP HS 03/18/22 03/18/22 Unknown History [Dorzolamide-Timolol Eye Drops] Ferrous Sulfate [Iron 325 MG] 325 mg PO DAILY 03/18/22 03/18/22 Unknown History Hydralazine HCl 50 mg PO TID 03/18/22 03/18/22 Unknown History Insulin Lispro [Admelog] See Protocol SQ ACHS 03/18/22 03/18/22 Unknown History Lactulose [Cephulac] 20 gm PO TID PRN 03/18/22 03/18/22 Unknown History Levothyroxine Sodium [Synthroid] 200 mcg PO DAILY 03/18/22 03/18/22 Unknown History Melatonin [Melatonin 3MG TAB] 3 mg PO HS 03/18/22 03/18/22 Unknown History Pioglitazone HCl [Actos] 30 mg PO DAILY 03/18/22 03/18/22 Unknown History Triamter/Hctz 37.5-25 mg 1 tab PO QDAY 03/18/22 03/18/22 Unknown History [Maxzide-25] amLODIPine [Norvasc] 10 mg PO DAILY 03/18/22 03/18/22 Unknown History glipiZIDE [Glucotrol] 5 mg PO QDAY 03/18/22 03/18/22 Unknown History Active Meds: Active Medications Brimonidine/Timolol (Combigan 0.2-0.5% [facility]) 1 drops OU Q12HR [facility] Last Admin: 04/03/22 21:09 Dose: 1 drops Divalproex Sodium (Divalproex Sprinkle 125 Mg Cap) 125 mg PO TID [facility] Last Admin: 04/03/22 21:10 Dose: 125 mg Ferrous Sulfate (Ferrous Sulfate 325 Mg Tab) 325 mg PO DAILY [facility] Last Admin: 04/03/22 10:31 Dose: 325 mg Glipizide (Glipizide Xl 2.5 Mg Tab) 2.5 mg PO DAILY@0800 [facility] Last Admin: 04/03/22 10:31 Dose: 2.5 mg Hydralazine HCl (Hydralazine 25 Mg Tab) 50 mg PO Q8HR [facility] Last Admin: 04/04/22 05:55 Dose: 50 mg Insulin Human Lispro (Insulin Lispro 100 Unit/Ml) 0 unit SUB-Q ACHS [facility]; Protocol Last Admin: 04/03/22 21:12 Dose: Not Given Lactulose (Lactulose 20 Gm/30 Ml Oral Liqd) 20 gm PO TID PRN PRN Reason: Edema Levothyroxine Sodium (Levothyroxine 100 Mcg Tab) 200 mcg PO DAILY@0600 [facility] Last Admin: 04/04/22 05:57 Dose: 200 mcg Melatonin (Melatonin 5 Mg Tab) 5 mg PO QHS [facility] Last Admin: 04/03/22 21:11 Dose: 5 mg Olanzapine (Olanzapine 2.5 Mg Tab) 2.5 mg PO QHS [facility] Last Admin: 04/03/22 21:11 Dose: 2.5 mg Trazodone HCl (Trazodone 50 Mg Tab) [facility] Last Admin: 04/03/22 21:11 Dose: 50 mg Triamterene/Hydrochlorothiazide (Triamter/Hctz 37.5-25 Mg Tab) 1 each PO QDAY [facility] Last Admin: 04/03/22 10:32 Dose: 1 each Ziprasidone (Ziprasidone Mesylate 20 Mg Vial) 20 mg IM Q4H PRN PRN Reason: Agitation Results - Results Labs/Vitals: Laboratory Last Values WBC 6.3 K/mm3 (4.5-11.0) 03/18/22 17:18 RBC 4.33 M/mm3 (3.65-5.03) 03/18/22 17:18 Hgb 11.8 gm/dl (11.8-15.2) 03/18/22 17:18 Hct 35.4 % (35.5-45.6) L 03/18/22 17:18 MCV 82 fl (84-94) L 03/18/22 17:18 MCH 27 pg (28-32) L 03/18/22 17:18 MCHC 33 % (32-34) 03/18/22 17:18 RDW 16.0 % (13.2-15.2) H 03/18/22 17:18 Plt Count 270 K/mm3 (140-440) 03/18/22 17:18 Lymph % (Auto) 27.9 % (13.4-35.0) 03/18/22 17:18 [place] % (Auto) 11.1 % (0.0-7.3) H 03/18/22 17:18 Eos % (Auto) 1.8 % (0.0-4.3) 03/18/22 17:18 Baso % (Auto) 1.1 % (0.0-1.8) 03/18/22 17:18 Lymph # (Auto) 1.8 K/mm3 (1.2-5.4) 03/18/22 17:18 [place] # (Auto) 0.7 K/mm3 (0.0-0.8) 03/18/22 17:18 Eos # (Auto) 0.1 K/mm3 (0.0-0.4) 03/18/22 17:18 Baso # (Auto) 0.1 K/mm3 (0.0-0.1) 03/18/22 17:18 Seg Neutrophils % 58.1 % (40.0-70.0) 03/18/22 17:18 Seg Neutrophils # 3.7 K/mm3 (1.8-7.7) 03/18/22 17:18 Sodium 139 mmol/L (137-145) 03/18/22 17:18 Potassium 3.8 mmol/L (3.6-5.0) 03/18/22 17:18 Chloride 103.4 mmol/L (98-107) 03/18/22 17:18 Carbon Dioxide 20 mmol/L (22-30) L 03/18/22 17:18 Anion Gap 19 mmol/L 03/18/22 17:18 BUN 52 mg/dL (9-20) H 03/18/22 17:18 Creatinine 2.9 mg/dL (0.8-1.3) H 03/18/22 17:18 Estimated GFR 21 ml/min 03/18/22 17:18 BUN/Creatinine Ratio 18 % 03/18/22 17:18 Glucose 63 mg/dL (75-100) L 03/18/22 17:18 POC Glucose 126 mg/dL (70-105) H 04/03/22 19:45 Hemoglobin A1c 8.5 % (4-6) H 03/18/22 17:18 Calcium 9.3 mg/dL (8.4-10.2) 03/18/22 17:18 Total Bilirubin 0.20 mg/dL (0.1-1.2) 03/18/22 17:18 AST 16 units/L (5-40) 03/18/22 17:18 ALT 8 units/L (7-56) 03/18/22 17:18 Alkaline Phosphatase 76 units/L (35-129) 03/18/22 17:18 Total Protein 7.3 g/dL (6.3-8.2) 03/18/22 17:18 Albumin 4.5 g/dL (3.9-5) 03/18/22 17:18 Albumin/Globulin Ratio 1.6 % 03/18/22 17:18 Triglycerides 69 mg/dL (2-149) 03/18/22 17:18 Cholesterol 230 mg/dL (50-199) H 03/18/22 17:18 LDL Cholesterol Direct 134 mg/dL (50-130) H 03/18/22 17:18 HDL Cholesterol 74 mg/dL (40-59) H 03/18/22 17:18 Cholesterol/HDL Ratio 3.10 % 03/18/22 17:18 TSH 1.190 mlU/mL (0.270-4.200) 03/18/22 17:18 Last Vital Signs Temp 98.4 F 04/03/22 21:02 Pulse 69 04/04/22 05:55 Resp 16 04/03/22 21:02 BP 118/60 04/04/22 05:55 Pulse Ox 97 04/03/22 21:02
[2022-04-04] MEDS: FERROUS SULFATE 325 MG TAB PO SCH (09:37)
[2022-04-04] MEDS: DIVALPROEX SPRINKLE 125 MG CAP PO SCH ×3 (09:37→21:09)
[2022-04-04] MEDS: INSULIN LISPRO 100 UNIT/ML SUB-Q SCH ×4 (09:37→21:10)
[2022-04-04] MEDS: TRIAMTER/HCTZ 37.5-25 MG TAB PO SCH (09:37)
[2022-04-04] MEDS: COMBIGAN 0.2-0.5% OPHTH SOLN OU SCH ×2 (09:37→21:09)
[2022-04-04] MEDS: MELATONIN 5 MG TAB PO SCH (21:10)
[2022-04-04] MEDS: traZODone 50 MG TAB PO SCH (21:10)
[2022-04-05] MEDS: hydrALAZINE 25 MG TAB PO SCH ×3 (06:39→22:25)
[2022-04-05] MEDS: LEVOTHYROXINE 100 MCG TAB PO SCH (06:39)
[2022-04-05] MEDS: FERROUS SULFATE 325 MG TAB PO SCH (09:32)
[2022-04-05] MEDS: DIVALPROEX SPRINKLE 125 MG CAP PO SCH ×3 (09:33→22:25)
[2022-04-05] MEDS: INSULIN LISPRO 100 UNIT/ML SUB-Q SCH ×4 (09:33→22:26)
[2022-04-05] MEDS: COMBIGAN 0.2-0.5% OPHTH SOLN OU SCH ×2 (09:34→22:25)
[2022-04-05] MEDS: TRIAMTER/HCTZ 37.5-25 MG TAB PO SCH (09:36)
--- NOTE | 2022-04-05 10:53 | Progress Note ---
Subjective Date of service: 04/05/22 Principal diagnosis: MDD Subjective Comment: The patient was today. He is sitting up in the bed awake. he says he is doing okay. He says "just ready to get out of here." I told the patient we were working on it. He denies SI/HI or hallucinations of any kind. 04/04 The patient was seen today. He is sleeping. He easily arouses but drifts back to sleep at times. He says he feels alright. The patient says "they still came in and woke me up last night." He denies SI/HI or hallucinations of any kind. He is awaiting placement. REVIEW OF SYSTEMS Constitutional: Negative for weight loss ENT: Negative for stridor Respiratory: Negative for cough or hemoptysis All other systems reviewed and are negative MENTAL STATUS EXAMINATION General Appearance and Behavior: Age appropriate, good hygiene, wearing appropriate clothes, good eye contact, calm, cooperative Cooperation: Participating/engaged, but Guarded Psychomotor Behavior: Psychomotor normal Mood: okay Affect and affective range: congruent with stated mood Thought Process: Goal directed Thought Content: Reality oriented Speech: normal tone and pace Suicidal Ideation: Passive Homicidal Ideation: Denies Hallucinations: Denies Delusions: None Impulse Control: Limited Insight and Judgment: Limited insight and judgment Memory: Limited Attention: attentive Orientation: Alert, oriented Diagnoses: Dementia with behavioral disturbances Treatment Plan Patient admitted for inpatient psychiatric evaluation, medication adjustment and close monitoring The patient's behavior, mood, sleep and appetite will be closely monitored. Patient enrolled in individual and group therapeutic sessions and encouraged to attend. Patient provided with a safe and structured environment. Patient's physical health needs will be addressed by the Hospitalist. Hospitalist Consulted Labs including CBC, CMP, Lipid profile and Hemoglobin A1C levels ordered for baseline reference Social Assessment will be completed and the Surgical Pathologist will work with patient and family to ensure a suitable and safe disposition Medication adjustment will be made as clinically indicated Depakote 125mg po TID Usual Wellness [employer]ism/Preservation: - Start Trazodone 50 mg po QHS & 50 mg po QHS PRN between 10 PM & 2 AM for insomnia - Start Melatonin 5 mg po QHS to promote circadian rhythm The patient agreed on the treatment plan, understood the risk, benefit, alternative treatment, potential consequence of no treatment, and gave informed consent. Estimated days:6 Post hospital care: primary care provider, psychiatric provider Case staffed with Dr. Hwang Medications and Allergies Allergies Allergy/AdvReac Type Severity Reaction Status Date / Time No Known Allergies Allergy Unverified 03/17/22 17:19 Home Medications Medication Instructions Recorded Confirmed Last Taken Type Divalproex Sodium [Depakote 125 mg PO BID 03/18/22 03/18/22 Unknown History Sprinkle] Dorzolamide HCl/Timolol Maleat 10 ml OP HS 03/18/22 03/18/22 Unknown History [Dorzolamide-Timolol Eye Drops] Ferrous Sulfate [Iron 325 MG] 325 mg PO DAILY 03/18/22 03/18/22 Unknown History Hydralazine HCl 50 mg PO TID 03/18/22 03/18/22 Unknown History Insulin Lispro [Admelog] See Protocol SQ ACHS 03/18/22 03/18/22 Unknown History Lactulose [Cephulac] 20 gm PO TID PRN 03/18/22 03/18/22 Unknown History Levothyroxine Sodium [Synthroid] 200 mcg PO DAILY 03/18/22 03/18/22 Unknown H istory Melatonin [Melatonin 3MG TAB] 3 mg PO HS 03/18/22 03/18/22 Unknown History Pioglitazone HCl [Actos] 30 mg PO DAILY 03/18/22 03/18/22 Unknown History Triamter/Hctz 37.5-25 mg 1 tab PO QDAY 03/18/22 03/18/22 Unknown History [Maxzide-25] amLODIPine [Norvasc] 10 mg PO DAILY 03/18/22 03/18/22 Unknown History glipiZIDE [Glucotrol] 5 mg PO QDAY 03/18/22 03/18/22 Unknown History Active Meds: Active Medications Brimonidine/Timolol (Combigan 0.2-0.5% Oph Soln) 1 drops OU Q12HR [facility] Last Admin: 04/05/22 09:34 Dose: 1 drops Divalproex Sodium (Divalproex Sprinkle 125 Mg Cap) 125 mg PO TID [facility] Last Admin: 04/05/22 09:33 Dose: 125 mg Ferrous Sulfate (Ferrous Sulfate 325 Mg Tab) 325 mg PO DAILY [facility] Last Admin: 04/05/22 09:32 Dose: 325 mg Glipizide (Glipizide Xl 2.5 Mg Tab) 2.5 mg PO DAILY@0800 [facility] Last Admin: 04/05/22 09:34 Dose: 2.5 mg Hydralazine HCl (Hydralazine 25 Mg Tab) 50 mg PO Q8HR [facility] Last Admin: 04/05/22 06:39 Dose: Not Given Insulin Human Lispro (Insulin Lispro 100 Unit/Ml) 0 unit SUB-Q [facility]; Protocol Last Admin: 04/05/22 09:33 Dose: Not Given Lactulose (Lactulose 20 Gm/30 Ml Oral Liqd) 20 gm PO TID PRN PRN Reason: Edema Levothyroxine Sodium (Levothyroxine 100 Mcg Tab) 200 mcg PO DAILY@0600 [facility] Last Admin: 04/05/22 06:39 Dose: Not Given Melatonin (Melatonin 5 Mg Tab) 5 mg PO QHS [facility] Last Admin: 04/04/22 21:10 Dose: Not Given Olanzapine (Olanzapine 2.5 Mg Tab) 2.5 mg PO QHS [facility] Last Admin: 04/04/22 21:10 Dose: Not Given Trazodone HCl (Trazodone 50 Mg Tab) 50 mg PO QHS [facility] Last Admin: 04/04/22 21:10 Dose: Not Given Triamterene/Hydrochlorothiazide (Triamter/Hctz 37.5-25 Mg Tab) 1 each PO QDAY [facility] Last Admin: 04/05/22 09:36 Dose: 1 each Ziprasidone (Ziprasidone Mesylate 20 Mg Vial) 20 mg IM Q4H PRN PRN Reason: Agitation Results - Results Labs/Vitals: Laboratory Last Values WBC 6.3 K/mm3 (4.5-11.0) 03/18/22 17:18 RBC 4.33 M/mm3 (3.65-5.03) 03/18/22 17:18 Hgb 11.8 gm/dl (11.8-15.2) 03/18/22 17:18 Hct 35.4 % (35.5-45.6) L 03/18/22 17:18 MCV 82 fl (84-94) L 03/18/22 17:18 MCH 27 pg (28-32) L 03/18/22 17:18 MCHC 33 % (32-34) 03/18/22 17:18 RDW 16.0 % (13.2-15.2) H 03/18/22 17:18 Plt Count 270 K/mm3 (140-440) 03/18/22 17:18 Lymph % (Auto) 27.9 % (13.4-35.0) 03/18/22 17:18 [place] % (Auto) 11.1 % (0.0-7.3) H 03/18/22 17:18 Eos % (Auto) 1.8 % (0.0-4.3) 03/18/22 17:18 Baso % (Auto) 1.1 % (0.0-1.8) 03/18/22 17:18 Lymph # (Auto) 1.8 K/mm3 (1.2-5.4) 03/18/22 17:18 [place] # (Auto) 0.7 K/mm3 (0.0-0.8) 03/18/22 17:18 Eos # (Auto) 0.1 K/mm3 (0.0-0.4) 03/18/22 17:18 Baso # (Auto) 0.1 K/mm3 (0.0-0.1) 03/18/22 17:18 Seg Neutrophils % 58.1 % (40.0-70.0) 03/18/22 17:18 Seg Neutrophils # 3.7 K/mm3 (1.8-7.7) 03/18/22 17:18 Sodium 139 mmol/L (137-145) 03/18/22 17:18 Potassium 3.8 mmol/L (3.6-5.0) 03/18/22 17:18 Chloride 103.4 mmol/L (98-107) 03/18/22 17:18 Carbon Dioxide 20 mmol/L (22-30) L 03/18/22 17:18 Anion Gap 19 mmol/L 03/18/22 17:18 BUN 52 mg/dL (9-20) H 03/18/22 17:18 Creatinine 2.9 mg/dL (0.8-1.3) H 03/18/22 17:18 Estimated GFR 21 ml/min 03/18/22 17:18 BUN/Creatinine Ratio 18 % 03/18/22 17:18 Glucose 63 mg/dL (75-100) L 03/18/22 17:18 POC Glucose 126 mg/dL (70-105) H 04/03/22 19:45 Hemoglobin A1c 8.5 % (4-6) H 03/18/22 17:18 Calcium 9.3 mg/dL (8.4-10.2) 03/18/22 17:18 Total Bilirubin 0.20 mg/dL (0.1-1.2) 03/18/22 17:18 AST 16 units/L (5-40) 03/18/22 17:18 ALT 8 units/L (7-56) 03/18/22 17:18 Alkaline Phosphatase 76 units/L (35-129) 03/18/22 17:18 Total Protein 7.3 g/dL (6.3-8.2) 03/18/22 17:18 Albumin 4.5 g/dL (3.9-5) 03/18/22 17:18 Albumin/Globulin Ratio 1.6 % 03/18/22 17:18 Triglycerides 69 mg/dL (2-149) 03/18/22 17:18 Cholesterol 230 mg/dL (50-199) H 03/18/22 17:18 LDL Cholesterol Direct 134 mg/dL (50-130) H 03/18/22 17:18 HDL Cholesterol 74 mg/dL (40-59) H 03/18/22 17:18 Cholesterol/HDL Ratio 3.10 % 03/18/22 17:18 TSH 1.190 mlU/mL (0.270-4.200) 03/18/22 17:18 Last Vital Signs Temp 98.4 F 04/03/22 21:02 Pulse 76 04/04/22 13:20 Resp 16 04/03/22 21:02 BP 139/75 04/04/22 13:20 Pulse Ox 97 04/04/22 12:34
[2022-04-05] MEDS: traZODone 50 MG TAB PO SCH (22:26)
[2022-04-05] MEDS: MELATONIN 5 MG TAB PO SCH (22:26)
[2022-04-06] MEDS: hydrALAZINE 25 MG TAB PO SCH ×3 (07:32→21:00)
[2022-04-06] MEDS: LEVOTHYROXINE 100 MCG TAB PO SCH (07:32)
[2022-04-06] MEDS: COMBIGAN 0.2-0.5% OPHTH SOLN OU SCH ×2 (11:29→21:01)
[2022-04-06] MEDS: DIVALPROEX SPRINKLE 125 MG CAP PO SCH ×3 (11:29→21:00)
[2022-04-06] MEDS: INSULIN LISPRO 100 UNIT/ML SUB-Q SCH ×4 (11:29→21:09)
--- NOTE | 2022-04-06 11:43 | Progress Note ---
Assessment and Plan - Patient Problems (1) Vascular dementia with behavioral disturbance Current Visit: Yes Status: Acute Plan to address problem: Verbal prompting, verbal redirection, benzodiazepine therapy as clinically indicated. (2) Cerebral atherosclerosis Current Visit: Yes Status: Acute Plan to address problem: Risk factor reduction, antiplatelet therapy as clinically indicated. (3) Hypertension Current Visit: Yes Status: Acute Qualifiers: Hypertension type: primary hypertension Qualified Code(s): I10 - Essential (primary) hypertension Plan to address problem: Monitor blood pressure every shift, continue medical management. (4) Diabetes Current Visit: Yes Status: Acute Plan to address problem: Consult to help with carbohydrate diet, Accu-Chek, insulin protocol, hypoglycemia protocol. (5) Hyperlipidemia Current Visit: Yes Status: Acute Qualifiers: Hyperlipidemia type: mixed hyperlipidemia Qualified Code(s): E78.2 - Mixed hyperlipidemia Plan to address problem: Low-cholesterol diet, statin therapy as clinically indicated. (6) Hypothyroidism Current Visit: Yes Status: Acute Plan to address problem: Continue Synthroid therapy, supportive care. (7) Advance care planning Current Visit: Yes Status: Acute Plan to address problem: Disease education data, care plan discussed, diagnosis discussed, prognosis discussed, +30 minutes. History Interval history: 80 YO Male with Vascular Dementia with Behavioral Disturbance, Cerebral Atherosclerosis, DM, HTN, HLD, Hypothyroidism. Pt is admitted to [facility] psych [facility] for psychiatric stabilization. Consult placed by Dr. Frankel for medical management. Patient seen and evaluated in the recreation room. Patient resting. Patient exhibits tangential thinking with diminished cognition and intermittent agitation. No reported nursing events. Patient remains at baseline level of cognition and function. Hospitalist Physical - Constitutional Vitals: Temp Pulse Resp BP Pulse Ox 98.4 F 95 H 16 188/86 97 04/03/22 21:02 04/05/22 13:59 04/03/22 21:02 04/05/22 13:59 04/04/22 12:34 General appearance: Present: no acute distress, well-nourished, other (Cheerful today) - EENT Eyes: Present: PERRL ENT: hearing decreased - Neck Neck: Present: supple - Respiratory Respiratory effort: normal Respiratory: bilateral: diminished - Cardiovascular Rhythm: regular Heart Sounds: Present: S1 & S2 - Extremities Extremities: no ischemia Peripheral Pulses: within normal limits - Abdominal General gastrointestinal: soft, non-tender, non-distended - Integumentary Integumentary: Present: clear, dry - Psychiatric Psychiatric: cooperative - Neurologic Neurologic: CNII-XII intact Results - Labs CBC & Chem 7: 03/18/22 17:18 03/18/22 17:18 Labs: Laboratory Last Values WBC 6.3 K/mm3 (4.5-11.0) 03/18/22 17:18 RBC 4.33 M/mm3 (3.65-5.03) 03/18/22 17:18 Hgb 11.8 gm/dl (11.8-15.2) 03/18/22 17:18 Hct 35.4 % (35.5-45.6) L 03/18/22 17:18 MCV 82 fl (84-94) L 03/18/22 17:18 MCH 27 pg (28-32) L 03/18/22 17:18 MCHC 33 % (32-34) 03/18/22 17:18 RDW 16.0 % (13.2-15.2) H 03/18/22 17:18 Plt Count 270 K/mm3 (140-440) 03/18/22 17:18 Lymph % (Auto) 27.9 % (13.4-35.0) 03/18/22 17:18 [place] % (Auto) 11.1 % (0.0-7.3) H 03/18/22 17:18 Eos % (Auto) 1.8 % (0.0-4.3) 03/18/22 17:18 Baso % (Auto) 1.1 % (0.0-1.8) 03/18/22 17:18 Lymph # (Auto) 1.8 K/mm3 (1.2-5.4) 03/18/22 17:18 [place] # (Auto) 0.7 K/mm3 (0.0-0.8) 03/18/22 17:18 Eos # (Auto) 0.1 K/mm3 (0.0-0.4) 03/18/22 17:18 Baso # (Auto) 0.1 K/mm3 (0.0-0.1) 03/18/22 17:18 Seg Neutrophils % 58.1 % (40.0-70.0) 03/18/22 17:18 Seg Neutrophils # 3.7 K/mm3 (1.8-7.7) 03/18/22 17:18 Sodium 139 mmol/L (137-145) 03/18/22 17:18 Potassium 3.8 mmol/L (3.6-5.0) 03/18/22 17:18 Chloride 103.4 mmol/L (98-107) 03/18/22 17:18 Carbon Dioxide 20 mmol/L (22-30) L 03/18/22 17:18 Anion Gap 19 mmol/L 03/18/22 17:18 BUN 52 mg/dL (9-20) H 03/18/22 17:18 Creatinine 2.9 mg/dL (0.8-1.3) H 03/18/22 17:18 Estimated GFR 21 ml/min 03/18/22 17:18 BUN/Creatinine Ratio 18 % 03/18/22 17:18 Glucose 63 mg/dL (75-100) L 03/18/22 17:18 POC Glucose 123 mg/dL (70-105) H 04/06/22 06:27 Hemoglobin A1c 8.5 % (4-6) H 03/18/22 17:18 Calcium 9.3 mg/dL (8.4-10.2) 03/18/22 17:18 Total Bilirubin 0.20 mg/dL (0.1-1.2) 03/18/22 17:18 AST 16 units/L (5-40) 03/18/22 17:18 ALT 8 units/L (7-56) 03/18/22 17:18 Alkaline Phosphatase 76 units/L (35-129) 03/18/22 17:18 Total Protein 7.3 g/dL (6.3-8.2) 03/18/22 17:18 Albumin 4.5 g/dL (3.9-5) 03/18/22 17:18 Albumin/Globulin Ratio 1.6 % 03/18/22 17:18 Triglycerides 69 mg/dL (2-149) 03/18/22 17:18 Cholesterol 230 mg/dL (50-199) H 03/18/22 17:18 LDL Cholesterol Direct 134 mg/dL (50-130) H 03/18/22 17:18 HDL Cholesterol 74 mg/dL (40-59) H 03/18/22 17:18 Cholesterol/HDL Ratio 3.10 % 03/18/22 17:18 TSH 1.190 mlU/mL (0.270-4.200) 03/18/22 17:18 Chan/IV: Voiding Method Toilet Active Medications - Current Medications Current Medications: Generic Name Dose Route Start Last Admin Trade Name Freq PRN Reason Stop Dose Admin Brimonidine/Timolol 1 drops 03/18/22 12:00 04/06/22 11:29 Combigan 0.2-0.5% Ophth Soln OU Not Given Q12HR [facility] Divalproex Sodium 125 mg 03/23/22 14:00 04/06/22 11:29 Divalproex Sprinkle 125 Mg Cap PO Not Given TID [facility] Ferrous Sulfate 325 mg 03/18/22 10:00 04/05/22 09:32 Ferrous Sulfate 325 Mg Tab PO 325 mg DAILY [facility] Administration Glipizide 2.5 mg 03/22/22 08:00 04/06/22 11:29 Glipizide Xl 2.5 Mg Tab PO Not Given DAILY@0800 [facility] Hydralazine HCl 50 mg 03/18/22 10:00 04/06/22 07:32 Hydralazine 25 Mg Tab PO Not Given Q8HR [facility] Insulin Human Lispro 0 unit 03/18/22 11:30 04/06/22 11:29 Insulin Lispro 100 Unit/Ml SUB-Q Not Given ACHS [facility] Protocol Lactulose 20 gm 03/18/22 10:00 Lactulose 20 Gm/30 Ml Oral Liqd PO TID PRN Edema Levothyroxine Sodium 200 mcg 03/19/22 06:00 04/06/22 07:32 Levothyroxine 100 Mcg Tab PO Not Given DAILY@0600 [facility] Melatonin 5 mg 03/18/22 22:00 04/05/22 22:26 Melatonin 5 Mg Tab PO Not Given QHS [facility] Olanzapine 2.5 mg 03/18/22 22:00 04/05/22 22:26 Olanzapine 2.5 Mg Tab PO Not Given QHS [facility] Trazodone HCl 50 mg 03/18/22 22:00 04/05/22 22:26 Trazodone 50 Mg Tab PO Not Given QHS [facility] Triamterene/Hydrochlorothiazide 1 each 03/18/22 10:00 04/05/22 09:36 Triamter/Hctz 37.5-25 Mg Tab PO 1 each [facility] Administration Ziprasidone 20 mg 03/18/22 10:00 Ziprasidone Mesylate 20 Mg Vial IM Q4H PRN Agitation Nutrition/Malnutrition Assess - Dietary Evaluation Nutrition/Malnutrition Findings: Nutrition Notes Start: 03/18/22 16:11 Freq: Status: Active Protocol: Document 03/25/22 16:49 KAM (Rec: 03/25/22 17:00 KAM [id number]) Nutrition Notes Initial or Follow up Reassessment Current Diet Cardiac/Consistent Carbohydrates -Chopped Meats- Diet (since B 03/18). Height 5 ft 8 in Weight 72.121 kg [place] Body Weight (kg) 70.00 BMI 24.1 Weight change and time frame No body weight change reported in 1 week. Weight Status Appropriate Subjective/Other Information RD consult for routine F/U on dietary advancement. Pt's PO intake of meals has been Good (75%), according to ADL notes. Pt is on Room Air, O2 saturation @ 100%, according to Vital Signs notes. Plans for discharge Pt to a more safe environment facility , according to Progress notes. Percent of energy/protein needs met: Prescribed Cardiac/Consistent Carbohydrates -Chopped Meats- Diet provides for energy/ protein needs (1,977 Kcal/86 g ) during LOS. Burn Absent Trauma Absent GI Symptoms None Difficulty In Chewing Food Allergy No Skin Integrity/Comment Unspecified Dryness. Current % PO Good (75-100%) Minimum of two criteria No #1 Nutrition Diagnosis Biting/Chewing (masticatory) difficulty Diagnosis Progress(for reassessment Continues documentation) Is patient on ventilator? No Is Patient Ambulatory and/or Out of Bed Yes REE-([place]-St. Jeor-ambulatory/OOB) [ [id number] [id number]] Calculation Used for Recommendations [place] Jeor Additional Notes Protein: 1-1.2 g/Kg ABW; 72-86 g/day. Fluids: 1 ml/Kcal, or as per MD. Nutrition Intervention Change Diet Order: Modify to Cardiac/Consistent Carbohydrates -Chopped Meats- Diet. Goal #1 Facilitate PO intake of meals with elemental, textural, or mechanical modification during LOS. Goal #2 Maintain body weight within +/ -3% of admission body weight during LOS. Revisit per MD consult or patient Sign Off request: Additional Comments Continue monitoring food tolerance, %PO intake of meals , and BM.
--- NOTE | 2022-04-06 11:44 | Progress Note ---
Assessment and Plan - Patient Problems (1) Vascular dementia with behavioral disturbance Current Visit: Yes Status: Acute Plan to address problem: Verbal prompting, verbal redirection, benzodiazepine therapy as clinically indicated. (2) Cerebral atherosclerosis Current Visit: Yes Status: Acute Plan to address problem: Risk factor reduction, antiplatelet therapy as clinically indicated. (3) Hypertension Current Visit: Yes Status: Acute Qualifiers: Hypertension type: primary hypertension Qualified Code(s): I10 - Essential (primary) hypertension Plan to address problem: Monitor blood pressure every shift, continue medical management. (4) Diabetes Current Visit: Yes Status: Acute Plan to address problem: Consult to help with carbohydrate diet, Accu-Chek, insulin protocol, hypoglycemia protocol. (5) Hyperlipidemia Current Visit: Yes Status: Acute Qualifiers: Hyperlipidemia type: mixed hyperlipidemia Qualified Code(s): E78.2 - Mixed hyperlipidemia Plan to address problem: Low-cholesterol diet, statin therapy as clinically indicated. (6) Hypothyroidism Current Visit: Yes Status: Acute Plan to address problem: Continue Synthroid therapy, supportive care. (7) Advance care planning Current Visit: Yes Status: Acute Plan to address problem: Disease education data, care plan discussed, diagnosis discussed, prognosis discussed, +30 minutes. History Interval history: 80 YO Male with Vascular Dementia with Behavioral Disturbance, Cerebral Atherosclerosis, DM, HTN, HLD, Hypothyroidism. Pt is admitted to [facility] unit for psychiatric stabilization. Consult placed by Dr. Frankel for medical management. Patient seen and evaluated in the recreation room. Patient resting. Patient exhibits tangential thinking with diminished cognition and intermittent agitation. No reported nursing events. Patient remains at baseline level of cognition and function. Hospitalist Physical - Constitutional Vitals: Temp Pulse Resp BP Pulse Ox 98.4 F 95 H 16 188/86 97 04/03/22 21:02 04/05/22 13:59 04/03/22 21:02 04/05/22 13:59 04/04/22 12:34 General appearance: Present: no acute distress, well-nourished, other (Cheerful today) - EENT Eyes: Present: PERRL ENT: hearing decreased - Neck Neck: Present: supple - Respiratory Respiratory effort: normal Respiratory: bilateral: diminished - Cardiovascular Rhythm: regular Heart Sounds: Present: S1 & S2 - Extremities Extremities: no ischemia Peripheral Pulses: within normal limits - Abdominal General gastrointestinal: soft, non-tender, non-distended - Integumentary Integumentary: Present: clear, dry - Psychiatric Psychiatric: cooperative - Neurologic Neurologic: CNII-XII intact Results - Labs CBC & Chem 7: 03/18/22 17:18 03/18/22 17:18 Labs: Laboratory Last Values WBC 6.3 K/mm3 (4.5-11.0) 03/18/22 17:18 RBC 4.33 M/mm3 (3.65-5.03) 03/18/22 17:18 Hgb 11.8 gm/dl (11.8-15.2) 03/18/22 17:18 Hct 35.4 % (35.5-45.6) L 03/18/22 17:18 MCV 82 fl (84-94) L 03/18/22 17:18 MCH 27 pg (28-32) L 03/18/22 17:18 MCHC 33 % (32-34) 03/18/22 17:18 RDW 16.0 % (13.2-15.2) H 03/18/22 17:18 Plt Count 270 K/mm3 (140-440) 03/18/22 17:18 Lymph % (Auto) 27.9 % (13.4-35.0) 03/18/22 17:18 [place] % (Auto) 11.1 % (0.0-7.3) H 03/18/22 17:18 Eos % (Auto) 1.8 % (0.0-4.3) 03/18/22 17:18 Baso % (Auto) 1.1 % (0.0-1.8) 03/18/22 17:18 Lymph # (Auto) 1.8 K/mm3 (1.2-5.4) 03/18/22 17:18 [place] # (Auto) 0.7 K/mm3 (0.0-0.8) 03/18/22 17:18 Eos # (Auto) 0.1 K/mm3 (0.0-0.4) 03/18/22 17:18 Baso # (Auto) 0.1 K/mm3 (0.0-0.1) 03/18/22 17:18 Seg Neutrophils % 58.1 % (40.0-70.0) 03/18/22 17:18 Seg Neutrophils # 3.7 K/mm3 (1.8-7.7) 03/18/22 17:18 Sodium 139 mmol/L (137-145) 03/18/22 17:18 Potassium 3.8 mmol/L (3.6-5.0) 03/18/22 17:18 Chloride 103.4 mmol/L (98-107) 03/18/22 17:18 Carbon Dioxide 20 mmol/L (22-30) L 03/18/22 17:18 Anion Gap 19 mmol/L 03/18/22 17:18 BUN 52 mg/dL (9-20) H 03/18/22 17:18 Creatinine 2.9 mg/dL (0.8-1.3) H 03/18/22 17:18 Estimated GFR 21 ml/min 03/18/22 17:18 BUN/Creatinine Ratio 18 % 03/18/22 17:18 Glucose 63 mg/dL (75-100) L 03/18/22 17:18 POC Glucose 123 mg/dL (70-105) H 04/06/22 06:27 Hemoglobin A1c 8.5 % (4-6) H 03/18/22 17:18 Calcium 9.3 mg/dL (8.4-10.2) 03/18/22 17:18 Total Bilirubin 0.20 mg/dL (0.1-1.2) 03/18/22 17:18 AST 16 units/L (5-40) 03/18/22 17:18 ALT 8 units/L (7-56) 03/18/22 17:18 Alkaline Phosphatase 76 units/L (35-129) 03/18/22 17:18 Total Protein 7.3 g/dL (6.3-8.2) 03/18/22 17:18 Albumin 4.5 g/dL (3.9-5) 03/18/22 17:18 Albumin/Globulin Ratio 1.6 % 03/18/22 17:18 Triglycerides 69 mg/dL (2-149) 03/18/22 17:18 Cholesterol 230 mg/dL (50-199) H 03/18/22 17:18 LDL Cholesterol Direct 134 mg/dL (50-130) H 03/18/22 17:18 HDL Cholesterol 74 mg/dL (40-59) H 03/18/22 17:18 Cholesterol/HDL Ratio 3.10 % 03/18/22 17:18 TSH 1.190 mlU/mL (0.270-4.200) 03/18/22 17:18 Chan/IV: Voiding Method Toilet Active Medications - Current Medications Current Medications: Generic Name Dose Route Start Last Admin Trade Name Freq PRN Reason Stop Dose Admin Brimonidine/Timolol 1 drops 03/18/22 12:00 04/06/22 11:29 Combigan 0.2-0.5% Ophth Soln OU Not Given Q12HR [facility] Divalproex Sodium 125 mg 03/23/22 14:00 04/06/22 11:29 Divalproex Sprinkle 125 Mg Cap PO Not Given TID [facility] Ferrous Sulfate 325 mg 03/18/22 10:00 04/05/22 09:32 Ferrous Sulfate 325 Mg Tab PO 325 mg DAILY [facility] Administration Glipizide 2.5 mg 03/22/22 08:00 04/06/22 11:29 Glipizide Xl 2.5 Mg Tab PO Not Given DAILY@0800 [facility] Hydralazine HCl 50 mg 03/18/22 10:00 04/06/22 07:32 Hydralazine 25 Mg Tab PO Not Given Q8HR [facility] Insulin Human Lispro 0 unit 03/18/22 11:30 04/06/22 11:29 Insulin Lispro 100 Unit/Ml SUB-Q Not Given ACHS [facility] Protocol Lactulose 20 gm 03/18/22 10:00 Lactulose 20 Gm/30 Ml Oral Liqd PO TID PRN Edema Levothyroxine Sodium 200 mcg 03/19/22 06:00 04/06/22 07:32 Levothyroxine 100 Mcg Tab PO Not Given DAILY@0600 [facility] Melatonin 5 mg 03/18/22 22:00 04/05/22 22:26 Melatonin 5 Mg Tab PO Not Given QHS [facility] Olanzapine 2.5 mg 03/18/22 22:00 04/05/22 22:26 Olanzapine 2.5 Mg Tab PO Not Given QHS [facility] Trazodone HCl 50 mg 03/18/22 22:00 04/05/22 22:26 Trazodone 50 Mg Tab PO Not Given QHS [facility] Triamterene/Hydrochlorothiazide 1 each 03/18/22 10:00 04/05/22 09:36 Triamter/Hctz 37.5-25 Mg Tab PO 1 each [facility] Administration Ziprasidone 20 mg 03/18/22 10:00 Ziprasidone Mesylate 20 Mg Vial IM Q4H PRN Agitation Nutrition/Malnutrition Assess - Dietary Evaluation Nutrition/Malnutrition Findings: Nutrition Notes Start: 03/18/22 16:11 Freq: Status: Active Protocol: Document 03/25/22 16:49 KAM (Rec: 03/25/22 17:00 KAM [id number]) Nutrition Notes Initial or Follow up Reassessment Current Diet Cardiac/Consistent Carbohydrates -Chopped Meats- Diet (since B 03/18). Height 5 ft 8 in Weight 72.121 kg [place] Body Weight (kg) 70.00 BMI 24.1 Weight change and time frame No body weight change reported in 1 week. Weight Status Appropriate Subjective/Other Information RD consult for routine F/U on dietary advancement. Pt's PO intake of meals has been Good (75%), according to ADL notes. Pt is on Room Air, O2 saturation @ 100%, according to Vital Signs notes. Plans for discharge Pt to a more safe environment facility , according to Progress notes. Percent of energy/protein needs met: Prescribed Cardiac/Consistent Carbohydrates -Chopped Meats- Diet provides for energy/ protein needs (1,977 Kcal/86 g ) during LOS. Burn Absent Trauma Absent GI Symptoms None Difficulty In Chewing Food Allergy No Skin Integrity/Comment Unspecified Dryness. Current % PO Good (75-100%) Minimum of two criteria No #1 Nutrition Diagnosis Biting/Chewing (masticatory) difficulty Diagnosis Progress(for reassessment Continues documentation) Is patient on ventilator? No Is Patient Ambulatory and/or Out of Bed Yes REE-([place]-St. Jeor-ambulatory/OOB) [ 1801.423 NUTR.[id number]] Calculation Used for Recommendations [place]-St Jeor Additional Notes Protein: 1-1.2 g/Kg ABW; 72-86 g/day. Fluids: 1 ml/Kcal, or as per MD. Nutrition Intervention Change Diet Order: Modify to Cardiac/Consistent Carbohydrates -Chopped Meats- Diet. Goal #1 Facilitate PO intake of meals with elemental, textural, or mechanical modification during LOS. Goal #2 Maintain body weight within +/ -3% of admission body weight during LOS. Revisit per MD consult or patient Sign Off request: Additional Comments Continue monitoring food tolerance, %PO intake of meals , and BM.
--- NOTE | 2022-04-06 11:45 | Progress Note ---
Assessment and Plan - Patient Problems (1) Vascular dementia with behavioral disturbance Current Visit: Yes Status: Acute Plan to address problem: Verbal prompting, verbal redirection, benzodiazepine therapy as clinically indicated. (2) Cerebral atherosclerosis Current Visit: Yes Status: Acute Plan to address problem: Risk factor reduction, antiplatelet therapy as clinically indicated. (3) Hypertension Current Visit: Yes Status: Acute Qualifiers: Hypertension type: primary hypertension Qualified Code(s): I10 - Essential (primary) hypertension Plan to address problem: Monitor blood pressure every shift, continue medical management. (4) Diabetes Current Visit: Yes Status: Acute Plan to address problem: Consult to help with carbohydrate diet, Accu-Chek, insulin protocol, hypoglycemia protocol. (5) Hyperlipidemia Current Visit: Yes Status: Acute Qualifiers: Hyperlipidemia type: mixed hyperlipidemia Qualified Code(s): E78.2 - Mixed hyperlipidemia Plan to address problem: Low-cholesterol diet, statin therapy as clinically indicated. (6) Hypothyroidism Current Visit: Yes Status: Acute Plan to address problem: Continue Synthroid therapy, supportive care. (7) Advance care planning Current Visit: Yes Status: Acute Plan to address problem: Disease education data, care plan discussed, diagnosis discussed, prognosis discussed, +30 minutes. History Interval history: 80 YO Male with Vascular Dementia with Behavioral Disturbance, Cerebral Atherosclerosis, DM, HTN, HLD, Hypothyroidism. Pt is admitted to [facility] unit for psychiatric stabilization. Consult placed by Dr. Frankel for medical management. Patient seen and evaluated in the recreation room. Patient resting. Patient exhibits tangential thinking with diminished cognition and intermittent agitation. No reported nursing events. Patient remains at baseline level of cognition and function. Hospitalist Physical - Constitutional Vitals: Temp Pulse Resp BP Pulse Ox 98.4 F 95 H 16 188/86 97 04/03/22 21:02 04/05/22 13:59 04/03/22 21:02 04/05/22 13:59 04/04/22 12:34 General appearance: Present: no acute distress, well-nourished, other (Cheerful today) - EENT Eyes: Present: PERRL ENT: hearing decreased - Neck Neck: Present: supple - Respiratory Respiratory effort: normal Respiratory: bilateral: diminished - Cardiovascular Rhythm: regular Heart Sounds: Present: S1 & S2 - Extremities Extremities: no ischemia Peripheral Pulses: within normal limits - Abdominal General gastrointestinal: soft, non-tender, non-distended - Integumentary Integumentary: Present: warm, dry - Psychiatric Psychiatric: cooperative - Neurologic Neurologic: CNII-XII intact Results - Labs CBC & Chem 7: 03/18/22 17:18 03/18/22 17:18 Labs: Laboratory Last Values WBC 6.3 K/mm3 (4.5-11.0) 03/18/22 17:18 RBC 4.33 M/mm3 (3.65-5.03) 03/18/22 17:18 Hgb 11.8 gm/dl (11.8-15.2) 03/18/22 17:18 Hct 35.4 % (35.5-45.6) L 03/18/22 17:18 MCV 82 fl (84-94) L 03/18/22 17:18 MCH 27 pg (28-32) L 03/18/22 17:18 MCHC 33 % (32-34) 03/18/22 17:18 RDW 16.0 % (13.2-15.2) H 03/18/22 17:18 Plt Count 270 K/mm3 (140-440) 03/18/22 17:18 Lymph % (Auto) 27.9 % (13.4-35.0) 03/18/22 17:18 [place] % (Auto) 11.1 % (0.0-7.3) H 03/18/22 17:18 Eos % (Auto) 1.8 % (0.0-4.3) 03/18/22 17:18 Baso % (Auto) 1.1 % (0.0-1.8) 03/18/22 17:18 Lymph # (Auto) 1.8 K/mm3 (1.2-5.4) 03/18/22 17:18 [place] # (Auto) 0.7 K/mm3 (0.0-0.8) 03/18/22 17:18 Eos # (Auto) 0.1 K/mm3 (0.0-0.4) 03/18/22 17:18 Baso # (Auto) 0.1 K/mm3 (0.0-0.1) 03/18/22 17:18 Seg Neutrophils % 58.1 % (40.0-70.0) 03/18/22 17:18 Seg Neutrophils # 3.7 K/mm3 (1.8-7.7) 03/18/22 17:18 Sodium 139 mmol/L (137-145) 03/18/22 17:18 Potassium 3.8 mmol/L (3.6-5.0) 03/18/22 17:18 Chloride 103.4 mmol/L (98-107) 03/18/22 17:18 Carbon Dioxide 20 mmol/L (22-30) L 03/18/22 17:18 Anion Gap 19 mmol/L 03/18/22 17:18 BUN 52 mg/dL (9-20) H 03/18/22 17:18 Creatinine 2.9 mg/dL (0.8-1.3) H 03/18/22 17:18 Estimated GFR 21 ml/min 03/18/22 17:18 BUN/Creatinine Ratio 18 % 03/18/22 17:18 Glucose 63 mg/dL (75-100) L 03/18/22 17:18 POC Glucose 123 mg/dL (70-105) H 04/06/22 06:27 Hemoglobin A1c 8.5 % (4-6) H 03/18/22 17:18 Calcium 9.3 mg/dL (8.4-10.2) 03/18/22 17:18 Total Bilirubin 0.20 mg/dL (0.1-1.2) 03/18/22 17:18 AST 16 units/L (5-40) 03/18/22 17:18 ALT 8 units/L (7-56) 03/18/22 17:18 Alkaline Phosphatase 76 units/L (35-129) 03/18/22 17:18 Total Protein 7.3 g/dL (6.3-8.2) 03/18/22 17:18 Albumin 4.5 g/dL (3.9-5) 03/18/22 17:18 Albumin/Globulin Ratio 1.6 % 03/18/22 17:18 Triglycerides 69 mg/dL (2-149) 03/18/22 17:18 Cholesterol 230 mg/dL (50-199) H 03/18/22 17:18 LDL Cholesterol Direct 134 mg/dL (50-130) H 03/18/22 17:18 HDL Cholesterol 74 mg/dL (40-59) H 03/18/22 17:18 Cholesterol/HDL Ratio 3.10 % 03/18/22 17:18 TSH 1.190 mlU/mL (0.270-4.200) 03/18/22 17:18 Chan/IV: Voiding Method Toilet Active Medications - Current Medications Current Medications: Generic Name Dose Route Start Last Admin Trade Name Freq PRN Reason Stop Dose Admin Brimonidine/Timolol 1 drops 03/18/22 12:00 04/06/22 11:29 Combigan 0.2-0.5% Ophth Soln OU Not Given Q12HR [facility] Divalproex Sodium 125 mg 03/23/22 14:00 04/06/22 11:29 Divalproex Sprinkle 125 Mg Cap PO Not Given TID [facility] Ferrous Sulfate 325 mg 03/18/22 10:00 04/05/22 09:32 Ferrous Sulfate 325 Mg Tab PO 325 mg DAILY [facility] Administration Glipizide 2.5 mg 03/22/22 08:00 04/06/22 11:29 Glipizide Xl 2.5 Mg Tab PO Not Given DAILY@0800 [facility] Hydralazine HCl 50 mg 03/18/22 10:00 04/06/22 07:32 Hydralazine 25 Mg Tab PO Not Given Q8HR [facility] Insulin Human Lispro 0 unit 03/18/22 11:30 04/06/22 11:29 Insulin Lispro 100 Unit/Ml SUB-Q Not Given ACHS [facility] Protocol Lactulose 20 gm 03/18/22 10:00 Lactulose 20 Gm/30 Ml Oral Liqd PO TID PRN Edema Levothyroxine Sodium 200 mcg 03/19/22 06:00 04/06/22 07:32 Levothyroxine 100 Mcg Tab PO Not Given DAILY@0600 [facility] Melatonin 5 mg 03/18/22 22:00 04/05/22 22:26 Melatonin 5 Mg Tab PO Not Given QHS [facility] Olanzapine 2.5 mg 03/18/22 22:00 04/05/22 22:26 Olanzapine 2.5 Mg Tab PO Not Given QHS [facility] Trazodone HCl 50 mg 03/18/22 22:00 04/05/22 22:26 Trazodone 50 Mg Tab PO Not Given QHS [facility] Triamterene/Hydrochlorothiazide 1 each 03/18/22 10:00 04/05/22 09:36 Triamter/Hctz 37.5-25 Mg Tab PO 1 each [facility] Administration Ziprasidone 20 mg 03/18/22 10:00 Ziprasidone Mesylate 20 Mg Vial IM Q4H PRN Agitation Nutrition/Malnutrition Assess - Dietary Evaluation Nutrition/Malnutrition Findings: Nutrition Notes Start: 03/18/22 16:11 Freq: Status: Active Protocol: Document 03/25/22 16:49 KAM (Rec: 03/25/22 17:00 KAM [id number]) Nutrition Notes Initial or Follow up Reassessment Current Diet Cardiac/Consistent Carbohydrates -Chopped Meats- Diet (since B 03/18). Height 5 ft 8 in Weight 72.121 kg [place] Body Weight (kg) 70.00 BMI 24.1 Weight change and time frame No body weight change reported in 1 week. Weight Status Appropriate Subjective/Other Information RD consult for routine F/U on dietary advancement. Pt's PO intake of meals has been Good (75%), according to ADL notes. Pt is on Room Air, O2 saturation @ 100%, according to Vital Signs notes. Plans for discharge Pt to a more safe environment facility , according to Progress notes. Percent of energy/protein needs met: Prescribed Cardiac/Consistent Carbohydrates -Chopped Meats- Diet provides for energy/ protein needs (1,977 Kcal/86 g ) during LOS. Burn Absent Trauma Absent GI Symptoms None Difficulty In Chewing Food Allergy No Skin Integrity/Comment Unspecified Dryness. Current % PO Good (75-100%) Minimum of two criteria No #1 Nutrition Diagnosis Biting/Chewing (masticatory) difficulty Diagnosis Progress(for reassessment Continues documentation) Is patient on ventilator? No Is Patient Ambulatory and/or Out of Bed Yes REE-([place]-St. Jeor-ambulatory/OOB) [ 1801.423 NUTR.[id number]] Calculation Used for Recommendations [place]-St Jeor Additional Notes Protein: 1-1.2 g/Kg ABW; 72-86 g/day. Fluids: 1 ml/Kcal, or as per MD. Nutrition Intervention Change Diet Order: Modify to Cardiac/Consistent Carbohydrates -Chopped Meats- Diet. Goal #1 Facilitate PO intake of meals with elemental, textural, or mechanical modification during LOS. Goal #2 Maintain body weight within +/ -3% of admission body weight during LOS. Revisit per MD consult or patient Sign Off request: Additional Comments Continue monitoring food tolerance, %PO intake of meals , and BM.
--- NOTE | 2022-04-06 12:26 | Progress Note ---
Subjective Date of service: 04/06/22 Principal diagnosis: MDD Subjective Comment: The patient was seen today. He appears down, but he says he's doing "pretty good." The patient says he didn't sleep well night, because people kept waking him up. He denies SI/HI or hallucinations of any kind. He is awaiting placement. 04/05 The patient was today. He is sitting up in the bed awake. he says he is doing okay. He says "just ready to get out of here." I told the patient we were working on it. He denies SI/HI or hallucinations of any kind. 04/04 The patient was seen today. He is sleeping. He easily arouses but drifts back to sleep at times. He says he feels alright. The patient says "they still came in and woke me up last night." He denies SI/HI or hallucinations of any kind. He is awaiting placement. REVIEW OF SYSTEMS Constitutional: Negative for weight loss ENT: Negative for stridor Respiratory: Negative for cough or hemoptysis All other systems reviewed and are negative MENTAL STATUS EXAMINATION General Appearance and Behavior: Age appropriate, good hygiene, wearing appropriate clothes, good eye contact, calm, cooperative Cooperation: Participating/engaged, but Guarded Psychomotor Behavior: Psychomotor normal Mood: okay Affect and affective range: congruent with stated mood Thought Process: Goal directed Thought Content: Reality oriented Speech: normal tone and pace Suicidal Ideation: Passive Homicidal Ideation: Denies Hallucinations: Denies Delusions: None Impulse Control: Limited Insight and Judgment: Limited insight and judgment Memory: Limited Attention: attentive Orientation: Alert, oriented Diagnoses: Dementia with behavioral disturbances Treatment Plan Patient admitted for inpatient psychiatric evaluation, medication adjustment and close monitoring The patient's behavior, mood, sleep and appetite will be closely monitored. Patient enrolled in individual and group therapeutic sessions and encouraged to attend. Patient provided with a safe and structured environment. Patient's physical health needs will be addressed by the Hospitalist. Hospitalist Consulted Labs including CBC, CMP, Lipid profile and Hemoglobin A1C levels ordered for baseline reference Social Assessment will be completed and the Track Coach will work with patient and family to ensure a suitable and safe disposition Medication adjustment will be made as clinically indicated Depakote 125mg po TID Usual Wellness Orthodoxy/Preservation: - Start Trazodone 50 mg po QHS & 50 mg po QHS PRN between 10 PM & 2 AM for insomnia - Start Melatonin 5 mg po QHS to promote circadian rhythm The patient agreed on the treatment plan, understood the risk, benefit, alternative treatment, potential consequence of no treatment, and gave informed consent. Estimated days:6 Post hospital care: primary care provider, psychiatric provider Case staffed with Dr. Hwang Medications and Allergies Allergies Allergy/AdvReac Type Severity Reaction Status Date / Time No Known Allergies Allergy Unverified 03/17/22 17:19 Home Medications Medication Instructions Recorded Confirmed Last Taken Type Divalproex Sodium [Depakote 125 mg PO BID 03/18/22 03/18/22 Unknown History Sprinkle] Dorzolamide HCl/Timolol Maleat 10 ml OP HS 03/18/22 03/18/22 Unknown History [Dorzolamide-Timolol Eye Drops] Ferrous Sulfate [Iron 325 MG] 325 mg PO DAILY 03/18/22 03/18/22 Unknown History Hydralazine HCl 50 mg PO TID 03/18/22 03/18/22 Unknown History Insulin Lispro [Admelog] See Protocol SQ ACHS 03/18/22 03/18/22 Unknown History Lactulose [Cephulac] 20 gm PO TID PRN 03/18/22 03/18/22 Unknown History Levothyroxine Sodium [Synthroid] 200 mcg PO DAILY 03/18/22 03/18/22 Unknown History Melatonin [Melatonin 3MG TAB] 3 mg PO HS 03/18/22 03/18/22 Unknown History Pioglitazone HCl [Actos] 30 mg PO DAILY 03/18/22 03/18/22 Unknown History Triamter/Hctz 37.5-25 mg 1 tab PO QDAY 03/18/22 03/18/22 Unknown History [Maxzide-25] amLODIPine [Norvasc] 10 mg PO DAILY 03/18/22 03/18/22 Unknown History glipiZIDE [Glucotrol] 5 mg PO QDAY 03/18/22 03/18/22 Unknown History Active Meds: Active Medications Brimonidine/Timolol (Combigan 0.2-0.5% [facility]) 1 drops OU Q12HR [facility] Last Admin: 04/06/22 11:29 Dose: Not Given Divalproex Sodium (Divalproex Sprinkle 125 Mg Cap) 125 mg PO TID [facility] Last Admin: 04/06/22 11:29 Dose: Not Given Ferrous Sulfate (Ferrous Sulfate 325 Mg Tab) 325 mg PO DAILY [facility] Last Admin: 04/05/22 09:32 Dose: 325 mg Glipizide (Glipizide Xl 2.5 Mg Tab) 2.5 mg PO DAILY@0800 [facility] Last Admin: 04/06/22 11:29 Dose: Not Given Hydralazine HCl (Hydralazine 25 Mg Tab) 50 mg PO Q8HR [facility] Last Admin: 04/06/22 07:32 Dose: Not Given Insulin Human Lispro (Insulin Lispro 100 Unit/Ml) 0 unit SUB-Q [facility]; Protocol Last Admin: 04/06/22 11:29 Dose: Not Given Lactulose (Lactulose 20 Gm/30 Ml Oral Liqd) 20 gm PO TID PRN PRN Reason: Edema Levothyroxine Sodium (Levothyroxine 100 Mcg Tab) 200 mcg PO DAILY@0600 [facility] Last Admin: 04/06/22 07:32 Dose: Not Given Melatonin (Melatonin 5 Mg Tab) 5 mg PO QHS [facility] Last Admin: 04/05/22 22:26 Dose: Not Given Olanzapine (Olanzapine 2.5 Mg Tab) 2.5 mg PO QHS [facility] Last Admin: 04/05/22 22:26 Dose: Not Given Trazodone HCl (Trazodone 50 Mg Tab) 50 mg PO QHS [facility] Last Admin: 04/05/22 22:26 Dose: Not Given Triamterene/Hydrochlorothiazide (Triamter/Hctz 37.5-25 Mg Tab) 1 each PO QDAY [facility] Last Admin: 04/05/22 09:36 Dose: 1 each Ziprasidone (Ziprasidone Mesylate 20 Mg Vial) 20 mg IM Q4H PRN PRN Reason: Agitation Results - Results Labs/Vitals: Laboratory Last Values WBC 6.3 K/mm3 (4.5-11.0) 03/18/22 17:18 RBC 4.33 M/mm3 (3.65-5.03) 03/18/22 17:18 Hgb 11.8 gm/dl (11.8-15.2) 03/18/22 17:18 Hct 35.4 % (35.5-45.6) L 03/18/22 17:18 MCV 82 fl (84-94) L 03/18/22 17:18 MCH 27 pg (28-32) L 03/18/22 17:18 MCHC 33 % (32-34) 03/18/22 17:18 RDW 16.0 % (13.2-15.2) H 03/18/22 17:18 Plt Count 270 K/mm3 (140-440) 03/18/22 17:18 Lymph % (Auto) 27.9 % (13.4-35.0) 03/18/22 17:18 [place] % (Auto) 11.1 % (0.0-7.3) H 03/18/22 17:18 Eos % (Auto) 1.8 % (0.0-4.3) 03/18/22 17:18 Baso % (Auto) 1.1 % (0.0-1.8) 03/18/22 17:18 Lymph # (Auto) 1.8 K/mm3 (1.2-5.4) 03/18/22 17:18 [place] # (Auto) 0.7 K/mm3 (0.0-0.8) 03/18/22 17:18 Eos # (Auto) 0.1 K/mm3 (0.0-0.4) 03/18/22 17:18 Baso # (Auto) 0.1 K/mm3 (0.0-0.1) 03/18/22 17:18 Seg Neutrophils % 58.1 % (40.0-70.0) 03/18/22 17:18 Seg Neutrophils # 3.7 K/mm3 (1.8-7.7) 03/18/22 17:18 Sodium 139 mmol/L (137-145) 03/18/22 17:18 Potassium 3.8 mmol/L (3.6-5.0) 03/18/22 17:18 Chloride 103.4 mmol/L (98-107) 03/18/22 17:18 Carbon Dioxide 20 mmol/L (22-30) L 03/18/22 17:18 Anion Gap 19 mmol/L 03/18/22 17:18 BUN 52 mg/dL (9-20) H 03/18/22 17:18 Creatinine 2.9 mg/dL (0.8-1.3) H 03/18/22 17:18 Estimated GFR 21 ml/min 03/18/22 17:18 BUN/Creatinine Ratio 18 % 03/18/22 17:18 Glucose 63 mg/dL (75-100) L 03/18/22 17:18 POC Glucose 123 mg/dL (70-105) H 04/06/22 06:27 Hemoglobin A1c 8.5 % (4-6) H 03/18/22 17:18 Calcium 9.3 mg/dL (8.4-10.2) 03/18/22 17:18 Total Bilirubin 0.20 mg/dL (0.1-1.2) 03/18/22 17:18 AST 16 units/L (5-40) 03/18/22 17:18 ALT 8 units/L (7-56) 03/18/22 17:18 Alkaline Phosphatase 76 units/L (35-129) 03/18/22 17:18 Total Protein 7.3 g/dL (6.3-8.2) 03/18/22 17:18 Albumin 4.5 g/dL (3.9-5) 03/18/22 17:18 Albumin/Globulin Ratio 1.6 % 03/18/22 17:18 Triglycerides 69 mg/dL (2-149) 03/18/22 17:18 Cholesterol 230 mg/dL (50-199) H 03/18/22 17:18 LDL Cholesterol Direct 134 mg/dL (50-130) H 03/18/22 17:18 HDL Cholesterol 74 mg/dL (40-59) H 03/18/22 17:18 Cholesterol/HDL Ratio 3.10 % 03/18/22 17:18 TSH 1.190 mlU/mL (0.270-4.200) 03/18/22 17:18 Last Vital Signs Temp 98.4 F 04/03/22 21:02 Pulse 95 H 04/05/22 13:59 Resp 16 04/03/22 21:02 BP 188/86 04/05/22 13:59 Pulse Ox 97 04/04/22 12:34
[2022-04-06] MEDS: FERROUS SULFATE 325 MG TAB PO SCH (14:04)
[2022-04-06] MEDS: TRIAMTER/HCTZ 37.5-25 MG TAB PO SCH (14:06)
[2022-04-06] MEDS: traZODone 50 MG TAB PO SCH (21:02)
[2022-04-06] MEDS: MELATONIN 5 MG TAB PO SCH (21:02)
[2022-04-07] MEDS: hydrALAZINE 25 MG TAB PO SCH ×3 (07:17→22:26)
[2022-04-07] MEDS: LEVOTHYROXINE 100 MCG TAB PO SCH (07:17)
[2022-04-07] MEDS: INSULIN LISPRO 100 UNIT/ML SUB-Q SCH ×4 (07:30→22:28)
[2022-04-07] MEDS: DIVALPROEX SPRINKLE 125 MG CAP PO SCH ×3 (07:32→22:26)
--- NOTE | 2022-04-07 10:09 | Progress Note ---
Subjective Date of service: 04/07/22 Principal diagnosis: MDD Subjective Comment: The patient was seen today. He is lying in bed. He says he doesn't feel too good because he is tired. I encourage the patient to get up out of bed to feel better and maintain his strength. He denies SI/HI or hallucinations of any kind. 04/06 The patient was seen today. He appears down, but he says he's doing "pretty good." The patient says he didn't sleep well night, because people kept waking him up. He denies SI/HI or hallucinations of any kind. He is awaiting placement. 04/05 The patient was today. He is sitting up in the bed awake. he says he is doing okay. He says "just ready to get out of here." I told the patient we were working on it. He denies SI/HI or hallucinations of any kind. 04/04 The patient was seen today. He is sleeping. He easily arouses but drifts back to sleep at times. He says he feels alright. The patient says "they still came in and woke me up last night." He denies SI/HI or hallucinations of any kind. He is awaiting placement. REVIEW OF SYSTEMS Constitutional: Negative for weight loss ENT: Negative for stridor Respiratory: Negative for cough or hemoptysis All other systems reviewed and are negative MENTAL STATUS EXAMINATION General Appearance and Behavior: Age appropriate, good hygiene, wearing appropriate clothes, good eye contact, calm, cooperative Cooperation: Participating/engaged, but Guarded Psychomotor Behavior: Psychomotor normal Mood: okay Affect and affective range: congruent with stated mood Thought Process: Goal directed Thought Content: Reality oriented Speech: normal tone and pace Suicidal Ideation: Passive Homicidal Ideation: Denies Hallucinations: Denies Delusions: None Impulse Control: Limited Insight and Judgment: Limited insight and judgment Memory: Limited Attention: attentive Orientation: Alert, oriented Diagnoses: Dementia with behavioral disturbances Treatment Plan Patient admitted for inpatient psychiatric evaluation, medication adjustment and close monitoring The patient's behavior, mood, sleep and appetite will be closely monitored. Patient enrolled in individual and group therapeutic sessions and encouraged to attend. Patient provided with a safe and structured environment. Patient's physical health needs will be addressed by the Hospitalist. Hospitalist Consulted Labs including CBC, CMP, Lipid profile and Hemoglobin A1C levels ordered for baseline reference Social Assessment will be completed and the Supervisor Labor Gang will work with patient and family to ensure a suitable and safe disposition Medication adjustment will be made as clinically indicated Depakote 125mg po TID Usual Wellness Jewish/Preservation: - Start Trazodone 50 mg po QHS & 50 mg po QHS PRN between 10 PM & 2 AM for insomnia - Start Melatonin 5 mg po QHS to promote circadian rhythm The patient agreed on the treatment plan, understood the risk, benefit, alternative treatment, potential consequence of no treatment, and gave informed consent. Estimated days:6 Post hospital care: primary care provider, psychiatric provider Case staffed with Dr. Hwang Medications and Allergies Allergies Allergy/AdvReac Type Severity Reaction Status Date / Time No Known Allergies Allergy Unverified 03/17/22 17:19 Home Medications Medication Instructions Recorded Confirmed Last Taken Type Divalproex Sodium [Depakote 125 mg PO BID 03/18/22 03/18/22 Unknown History Sprinkle] Dorzolamide HCl/Timolol Maleat 10 ml OP HS 03/18/22 03/18/22 Unknown History [Dorzolamide-Timolol Eye Drops] Ferrous Sulfate [Iron 325 MG] 325 mg PO DAILY 03/18/22 03/18/22 Unknown History Hydralazine HCl 50 mg PO TID 03/18/22 03/18/22 Unknown History Insulin Lispro [Admelog] See Protocol SQ ACHS 03/18/22 03/18/22 Unknown History Lactulose [Cephulac] 20 gm PO TID PRN 03/18/22 03/18/22 Unknown History Levothyroxine Sodium [Synthroid] 200 mcg PO DAILY 03/18/22 03/18/22 Unknown History Melatonin [Melatonin 3MG TAB] 3 mg PO HS 03/18/22 03/18/22 Unknown History Pioglitazone HCl [Actos] 30 mg PO DAILY 03/18/22 03/18/22 Unknown History Triamter/Hctz 37.5-25 mg 1 tab PO QDAY 03/18/22 03/18/22 Unknown History [Maxzide-25] amLODIPine [Norvasc] 10 mg PO DAILY 03/18/22 03/18/22 Unknown History glipiZIDE [Glucotrol] 5 mg PO QDAY 03/18/22 03/18/22 Unknown History Active Meds: Active Medications Brimonidine/Timolol (Combigan 0.2-0.5% [facility]) 1 drops OU Q12HR [facility] Last Admin: 04/06/22 21:01 Dose: 1 drops Divalproex Sodium (Divalproex Sprinkle 125 Mg Cap) 125 mg PO TID [facility] Last Admin: 04/07/22 07:32 Dose: Not Given Ferrous Sulfate (Ferrous Sulfate 325 Mg Tab) 325 mg PO DAILY [facility] Last Admin: 04/06/22 14:04 Dose: 325 mg Glipizide (Glipizide Xl 2.5 Mg Tab) 2.5 mg PO DAILY@0800 [facility] Last Admin: 04/07/22 07:31 Dose: Not Given Hydralazine HCl (Hydralazine 25 Mg Tab) 50 mg PO Q8HR [facility] Last Admin: 04/07/22 07:17 Dose: Not Given Insulin Human Lispro (Insulin Lispro 100 Unit/Ml) 0 unit SUB-Q [facility]; Protocol Last Admin: 04/07/22 07:30 Dose: Not Given Lactulose (Lactulose 20 Gm/30 Ml Oral Liqd) 20 gm PO TID PRN PRN Reason: Edema Levothyroxine Sodium (Levothyroxine 100 Mcg Tab) 200 mcg PO DAILY@0600 [facility] Last Admin: 04/07/22 07:17 Dose: Not Given Melatonin (Melatonin 5 Mg Tab) 5 mg PO QHS [facility] Last Admin: 04/06/22 21:02 Dose: 5 mg Olanzapine (Olanzapine 2.5 Mg Tab) 2.5 mg PO QHS [facility] Last Admin: 04/06/22 21:08 Dose: 2.5 mg Trazodone HCl (Trazodone 50 Mg Tab) 50 mg PO QHS [facility] Last Admin: 04/06/22 21:02 Dose: 50 mg Triamterene/Hydrochlorothiazide (Triamter/Hctz 37.5-25 Mg Tab) 1 each PO QDAY [facility] Last Admin: 04/06/22 14:06 Dose: 1 each Ziprasidone (Ziprasidone Mesylate 20 Mg Vial) 20 mg IM Q4H PRN PRN Reason: Agitation Results - Results Labs/Vitals: Laboratory Last Values WBC 6.3 K/mm3 (4.5-11.0) 03/18/22 17:18 RBC 4.33 M/mm3 (3.65-5.03) 03/18/22 17:18 Hgb 11.8 gm/dl (11.8-15.2) 03/18/22 17:18 Hct 35.4 % (35.5-45.6) L 03/18/22 17:18 MCV 82 fl (84-94) L 03/18/22 17:18 MCH 27 pg (28-32) L 03/18/22 17:18 MCHC 33 % (32-34) 03/18/22 17:18 RDW 16.0 % (13.2-15.2) H 03/18/22 17:18 Plt Count 270 K/mm3 (140-440) 03/18/22 17:18 Lymph % (Auto) 27.9 % (13.4-35.0) 03/18/22 17:18 [place] % (Auto) 11.1 % (0.0-7.3) H 03/18/22 17:18 Eos % (Auto) 1.8 % (0.0-4.3) 03/18/22 17:18 Baso % (Auto) 1.1 % (0.0-1.8) 03/18/22 17:18 Lymph # (Auto) 1.8 K/mm3 (1.2-5.4) 03/18/22 17:18 [place] # (Auto) 0.7 K/mm3 (0.0-0.8) 03/18/22 17:18 Eos # (Auto) 0.1 K/mm3 (0.0-0.4) 03/18/22 17:18 Baso # (Auto) 0.1 K/mm3 (0.0-0.1) 03/18/22 17:18 Seg Neutrophils % 58.1 % (40.0-70.0) 03/18/22 17:18 Seg Neutrophils # 3.7 K/mm3 (1.8-7.7) 03/18/22 17:18 Sodium 139 mmol/L (137-145) 03/18/22 17:18 Potassium 3.8 mmol/L (3.6-5.0) 03/18/22 17:18 Chloride 103.4 mmol/L (98-107) 03/18/22 17:18 Carbon Dioxide 20 mmol/L (22-30) L 03/18/22 17:18 Anion Gap 19 mmol/L 03/18/22 17:18 BUN 52 mg/dL (9-20) H 03/18/22 17:18 Creatinine 2.9 mg/dL (0.8-1.3) H 03/18/22 17:18 Estimated GFR 21 ml/min 03/18/22 17:18 BUN/Creatinine Ratio 18 % 03/18/22 17:18 Glucose 63 mg/dL (75-100) L 03/18/22 17:18 POC Glucose 192 mg/dL (70-105) H 04/06/22 19:56 Hemoglobin A1c 8.5 % (4-6) H 03/18/22 17:18 Calcium 9.3 mg/dL (8.4-10.2) 03/18/22 17:18 Total Bilirubin 0.20 mg/dL (0.1-1.2) 03/18/22 17:18 AST 16 units/L (5-40) 03/18/22 17:18 ALT 8 units/L (7-56) 03/18/22 17:18 Alkaline Phosphatase 76 units/L (35-129) 03/18/22 17:18 Total Protein 7.3 g/dL (6.3-8.2) 03/18/22 17:18 Albumin 4.5 g/dL (3.9-5) 03/18/22 17:18 Albumin/Globulin Ratio 1.6 % 03/18/22 17:18 Triglycerides 69 mg/dL (2-149) 03/18/22 17:18 Cholesterol 230 mg/dL (50-199) H 03/18/22 17:18 LDL Cholesterol Direct 134 mg/dL (50-130) H 03/18/22 17:18 HDL Cholesterol 74 mg/dL (40-59) H 03/18/22 17:18 Cholesterol/HDL Ratio 3.10 % 03/18/22 17:18 TSH 1.190 mlU/mL (0.270-4.200) 03/18/22 17:18 Last Vital Signs Temp 97.7 F 04/06/22 20:43 Pulse 85 04/06/22 21:00 Resp 18 04/06/22 20:43 BP 165/96 04/06/22 21:00 Pulse Ox 100 04/06/22 20:43
[2022-04-07] MEDS: TRIAMTER/HCTZ 37.5-25 MG TAB PO SCH (10:11)
[2022-04-07] MEDS: COMBIGAN 0.2-0.5% OPHTH SOLN OU SCH ×2 (10:11→22:25)
[2022-04-07] MEDS: FERROUS SULFATE 325 MG TAB PO SCH (10:11)
[2022-04-07] MEDS: MELATONIN 5 MG TAB PO SCH (22:26)
[2022-04-07] MEDS: traZODone 50 MG TAB PO SCH (22:27)
[2022-04-08] MEDS: hydrALAZINE 25 MG TAB PO SCH ×3 (07:00→23:24)
[2022-04-08] MEDS: LEVOTHYROXINE 100 MCG TAB PO SCH (07:02)
[2022-04-08] MEDS: INSULIN LISPRO 100 UNIT/ML SUB-Q SCH ×4 (09:42→23:24)
[2022-04-08] MEDS: DIVALPROEX SPRINKLE 125 MG CAP PO SCH ×3 (09:43→22:06)
[2022-04-08] MEDS: FERROUS SULFATE 325 MG TAB PO SCH (09:48)
[2022-04-08] MEDS: TRIAMTER/HCTZ 37.5-25 MG TAB PO SCH (09:48)
[2022-04-08] MEDS: COMBIGAN 0.2-0.5% OPHTH SOLN OU SCH ×2 (09:48→22:05)
--- NOTE | 2022-04-08 11:09 | Progress Note ---
Subjective Date of service: 04/08/22 Principal diagnosis: MDD Subjective Comment: The patient was seen today. He says he feels pretty good, but "wishes we would leave him alone." He says he was about to get up and eat breakfast. He denies SI/HI or hallucinations of any kind. 04/07 The patient was seen today. He is lying in bed. He says he doesn't feel too good because he is tired. I encourage the patient to get up out of bed to feel better and maintain his strength. He denies SI/HI or hallucinations of any kind. 04/06 The patient was seen today. He appears down, but he says he's doing "pretty good." The patient says he didn't sleep well night, because people kept waking him up. He denies SI/HI or hallucinations of any kind. He is awaiting placement. 04/05 The patient was today. He is sitting up in the bed awake. he says he is doing okay. He says "just ready to get out of here." I told the patient we were working on it. He denies SI/HI or hallucinations of any kind. 04/04 The patient was seen today. He is sleeping. He easily arouses but drifts back to sleep at times. He says he feels alright. The patient says "they still came in and woke me up last night." He denies SI/HI or hallucinations of any kind. He is awaiting placement. REVIEW OF SYSTEMS Constitutional: Negative for weight loss ENT: Negative for stridor Respiratory: Negative for cough or hemoptysis All other systems reviewed and are negative MENTAL STATUS EXAMINATION General Appearance and Behavior: Age appropriate, good hygiene, wearing appropriate clothes, good eye contact, calm, cooperative Cooperation: Participating/engaged, but Guarded Psychomotor Behavior: Psychomotor normal Mood: okay Affect and affective range: congruent with stated mood Thought Process: Goal directed Thought Content: Reality oriented Speech: normal tone and pace Suicidal Ideation: Passive Homicidal Ideation: Denies Hallucinations: Denies Delusions: None Impulse Control: Limited Insight and Judgment: Limited insight and judgment Memory: Limited Attention: attentive Orientation: Alert, oriented Diagnoses: Dementia with behavioral disturbances Treatment Plan Patient admitted for inpatient psychiatric evaluation, medication adjustment and close monitoring The patient's behavior, mood, sleep and appetite will be closely monitored. Patient enrolled in individual and group therapeutic sessions and encouraged to attend. Patient provided with a safe and structured environment. Patient's physical health needs will be addressed by the Hospitalist. Hospitalist Consulted Labs including CBC, CMP, Lipid profile and Hemoglobin A1C levels ordered for baseline reference Social Assessment will be completed and the Coffee Supervisor will work with patient and family to ensure a suitable and safe disposition Medication adjustment will be made as clinically indicated No changes made today Usual Wellness Worship/Preservation: - Start Trazodone 50 mg po QHS & 50 mg po QHS PRN between 10 PM & 2 AM for insomnia - Start Melatonin 5 mg po QHS to promote circadian rhythm The patient agreed on the treatment plan, understood the risk, benefit, alternative treatment, potential consequence of no treatment, and gave informed consent. Estimated days:6 Post hospital care: primary care provider, psychiatric provider Case staffed with Dr. Hwang Medications and Allergies Allergies Allergy/AdvReac Type Severity Reaction Status Date / Time No Known Allergies Allergy Unverified 03/17/22 17:19 Home Medications Medication Instructions Recorded Confirmed Last Taken Type Divalproex Sodium [Depakote 125 mg PO BID 03/18/22 03/18/22 Unknown History Sprinkle] Dorzolamide HCl/Timolol Maleat 10 ml OP HS 03/18/22 03/18/22 Unknown History [Dorzolamide-Timolol Eye Drops] Ferrous Sulfate [Iron 325 MG] 325 mg PO DAILY 03/18/22 03/18/22 Unknown History Hydralazine HCl 50 mg PO TID 03/18/22 03/18/22 Unknown History Insulin Lispro [Admelog] See Protocol SQ ACHS 03/18/22 03/18/22 Unknown History Lactulose [Cephulac] 20 gm PO TID PRN 03/18/22 03/18/22 Unknown History Levothyroxine Sodium [Synthroid] 200 mcg PO DAILY 03/18/22 03/18/22 Unknown History Melatonin [Melatonin 3MG TAB] 3 mg PO HS 03/18/22 03/18/22 Unknown History Pioglitazone HCl [Actos] 30 mg PO DAILY 03/18/22 03/18/22 Unknown History Triamter/Hctz 37.5-25 mg 1 tab PO QDAY 03/18/22 03/18/22 Unknown History [Maxzide-25] amLODIPine [Norvasc] 10 mg PO DAILY 03/18/22 03/18/22 Unknown History glipiZIDE [Glucotrol] 5 mg PO QDAY 03/18/22 03/18/22 Unknown History Active Meds: Active Medications Brimonidine/Timolol (Combigan 0.2-0.5% Oph Soln) 1 drops OU Q12HR [facility] Last Admin: 04/08/22 09:48 Dose: Not Given Divalproex Sodium (Divalproex Sprinkle 125 Mg Cap) 125 mg PO TID [facility] Last Admin: 04/08/22 09:43 Dose: Not Given Ferrous Sulfate (Ferrous Sulfate 325 Mg Tab) 325 mg PO DAILY [facility] Last Admin: 04/08/22 09:48 Dose: Not Given Glipizide (Glipizide Xl 2.5 Mg Tab) 2.5 mg PO DAILY@0800 [facility] Last Admin: 04/08/22 09:43 Dose: Not Given Hydralazine HCl (Hydralazine 25 Mg Tab) 50 mg PO Q8HR [facility] Last Admin: 04/08/22 07:00 Dose: Not Given Insulin Human Lispro (Insulin Lispro 100 Unit/Ml) 0 unit SUB-Q [facility]; Protocol Last Admin: 04/08/22 09:42 Dose: Not Given Lactulose (Lactulose 20 Gm/30 Ml Oral Liqd) 20 gm PO TID PRN PRN Reason: Edema Levothyroxine Sodium (Levothyroxine 100 Mcg Tab) 200 mcg PO DAILY@0600 [facility] Last Admin: 04/08/22 07:02 Dose: Not Given Melatonin (Melatonin 5 Mg Tab) 5 mg PO QHS [facility] Last Admin: 04/07/22 22:26 Dose: 5 mg Olanzapine (Olanzapine 2.5 Mg Tab) 2.5 mg PO QHS [facility] Last Admin: 04/07/22 22:33 Dose: 2.5 mg Trazodone HCl (Trazodone 50 Mg Tab) 50 mg PO QHS [facility] Last Admin: 04/07/22 22:27 Dose: 50 mg Triamterene/Hydrochlorothiazide (Triamter/Hctz 37.5-25 Mg Tab) 1 each PO QDAY [facility] Last Admin: 04/08/22 09:48 Dose: Not Given Ziprasidone (Ziprasidone Mesylate 20 Mg Vial) 20 mg IM Q4H PRN PRN Reason: Agitation Results - Results Labs/Vitals: Laboratory Last Values WBC 6.3 K/mm3 (4.5-11.0) 03/18/22 17:18 RBC 4.33 M/mm3 (3.65-5.03) 03/18/22 17:18 Hgb 11.8 gm/dl (11.8-15.2) 03/18/22 17:18 Hct 35.4 % (35.5-45.6) L 03/18/22 17:18 MCV 82 fl (84-94) L 03/18/22 17:18 MCH 27 pg (28-32) L 03/18/22 17:18 MCHC 33 % (32-34) 03/18/22 17:18 RDW 16.0 % (13.2-15.2) H 03/18/22 17:18 Plt Count 270 K/mm3 (140-440) 03/18/22 17:18 Lymph % (Auto) 27.9 % (13.4-35.0) 03/18/22 17:18 [place] % (Auto) 11.1 % (0.0-7.3) H 03/18/22 17:18 Eos % (Auto) 1.8 % (0.0-4.3) 03/18/22 17:18 Baso % (Auto) 1.1 % (0.0-1.8) 03/18/22 17:18 Lymph # (Auto) 1.8 K/mm3 (1.2-5.4) 03/18/22 17:18 [place] # (Auto) 0.7 K/mm3 (0.0-0.8) 03/18/22 17:18 Eos # (Auto) 0.1 K/mm3 (0.0-0.4) 03/18/22 17:18 Baso # (Auto) 0.1 K/mm3 (0.0-0.1) 03/18/22 17:18 Seg Neutrophils % 58.1 % (40.0-70.0) 03/18/22 17:18 Seg Neutrophils # 3.7 K/mm3 (1.8-7.7) 03/18/22 17:18 Sodium 139 mmol/L (137-145) 03/18/22 17:18 Potassium 3.8 mmol/L (3.6-5.0) 03/18/22 17:18 Chloride 103.4 mmol/L (98-107) 03/18/22 17:18 Carbon Dioxide 20 mmol/L (22-30) L 03/18/22 17:18 Anion Gap 19 mmol/L 03/18/22 17:18 BUN 52 mg/dL (9-20) H 03/18/22 17:18 Creatinine 2.9 mg/dL (0.8-1.3) H 03/18/22 17:18 Estimated GFR 21 ml/min 03/18/22 17:18 BUN/Creatinine Ratio 18 % 03/18/22 17:18 Glucose 63 mg/dL (75-100) L 03/18/22 17:18 POC Glucose 192 mg/dL (70-105) H 04/06/22 19:56 Hemoglobin A1c 8.5 % (4-6) H 03/18/22 17:18 Calcium 9.3 mg/dL (8.4-10.2) 03/18/22 17:18 Total Bilirubin 0.20 mg/dL (0.1-1.2) 03/18/22 17:18 AST 16 units/L (5-40) 03/18/22 17:18 ALT 8 units/L (7-56) 03/18/22 17:18 Alkaline Phosphatase 76 units/L (35-129) 03/18/22 17:18 Total Protein 7.3 g/dL (6.3-8.2) 03/18/22 17:18 Albumin 4.5 g/dL (3.9-5) 03/18/22 17:18 Albumin/Globulin Ratio 1.6 % 03/18/22 17:18 Triglycerides 69 mg/dL (2-149) 03/18/22 17:18 Cholesterol 230 mg/dL (50-199) H 03/18/22 17:18 LDL Cholesterol Direct 134 mg/dL (50-130) H 03/18/22 17:18 HDL Cholesterol 74 mg/dL (40-59) H 03/18/22 17:18 Cholesterol/HDL Ratio 3.10 % 03/18/22 17:18 TSH 1.190 mlU/mL (0.270-4.200) 03/18/22 17:18 Last Vital Signs Temp 98.7 F 04/07/22 20:00 Pulse 76 04/07/22 22:26 Resp 18 04/07/22 20:00 BP 125/80 04/07/22 22:26 Pulse Ox 98 04/07/22 20:00
--- NOTE | 2022-04-08 11:17 | Event Note ---
Date: 04/08/22 Attempted to speak with the patient's niece, Tiff [phone]. She did not citrus picker, but left a voice message for the niece to call back.
--- NOTE | 2022-04-08 19:52 | Progress Note ---
Assessment and Plan - Patient Problems (1) Vascular dementia with behavioral disturbance Current Visit: Yes Status: Acute Plan to address problem: Verbal prompting, verbal redirection, benzodiazepine therapy as clinically indicated. (2) Cerebral atherosclerosis Current Visit: Yes Status: Acute Plan to address problem: Risk factor reduction, antiplatelet therapy as clinically indicated. (3) Hypertension Current Visit: Yes Status: Acute Qualifiers: Hypertension type: primary hypertension Qualified Code(s): I10 - Essential (primary) hypertension Plan to address problem: Monitor blood pressure every shift, continue medical management. (4) Diabetes Current Visit: Yes Status: Acute Plan to address problem: Consult to help with carbohydrate diet, Accu-Chek, insulin protocol, hypoglycemia protocol. (5) Hyperlipidemia Current Visit: Yes Status: Acute Qualifiers: Hyperlipidemia type: mixed hyperlipidemia Qualified Code(s): E78.2 - Mixed hyperlipidemia Plan to address problem: Low-cholesterol diet, statin therapy as clinically indicated. (6) Hypothyroidism Current Visit: Yes Status: Acute Plan to address problem: Continue Synthroid therapy, supportive care. (7) Advance care planning Current Visit: Yes Status: Acute Plan to address problem: Disease education data, care plan discussed, diagnosis discussed, prognosis discussed, +30 minutes. History Interval history: 80 YO Male with Vascular Dementia with Behavioral Disturbance, Cerebral Atherosclerosis, DM, HTN, HLD, Hypothyroidism. Pt is admitted to [facility] psych [facility] for psychiatric stabilization. Consult placed by Dr. Frankel for medical management. Patient seen and evaluated in the recreation room. Patient resting. Patient exhibits tangential thinking with diminished cognition and intermittent agitation. No reported nursing events. Patient remains at baseline level of cognition and function. Hospitalist Physical - Constitutional Vitals: Temp Pulse Resp BP Pulse Ox 98.7 F 76 18 125/80 98 04/07/22 20:00 04/07/22 22:26 04/07/22 20:00 04/07/22 22:26 04/07/22 20:00 General appearance: Present: no acute distress, well-nourished, other (Cheerful today) - EENT Eyes: Present: PERRL ENT: hearing decreased - Neck Neck: Present: supple - Respiratory Respiratory effort: normal Respiratory: bilateral: diminished - Cardiovascular Rhythm: regular Heart Sounds: Present: S1 & S2 - Extremities Extremities: no ischemia Peripheral Pulses: within normal limits - Abdominal General gastrointestinal: soft, non-tender, non-distended - Integumentary Integumentary: Present: clear, dry - Psychiatric Psychiatric: cooperative - Neurologic Neurologic: CNII-XII intact Results - Labs CBC & Chem 7: 03/18/22 17:18 03/18/22 17:18 Labs: Laboratory Last Values WBC 6.3 K/mm3 (4.5-11.0) 03/18/22 17:18 RBC 4.33 M/mm3 (3.65-5.03) 03/18/22 17:18 Hgb 11.8 gm/dl (11.8-15.2) 03/18/22 17:18 Hct 35.4 % (35.5-45.6) L 03/18/22 17:18 MCV 82 fl (84-94) L 03/18/22 17:18 MCH 27 pg (28-32) L 03/18/22 17:18 MCHC 33 % (32-34) 03/18/22 17:18 RDW 16.0 % (13.2-15.2) H 03/18/22 17:18 Plt Count 270 K/mm3 (140-440) 03/18/22 17:18 Lymph % (Auto) 27.9 % (13.4-35.0) 03/18/22 17:18 [place] % (Auto) 11.1 % (0.0-7.3) H 03/18/22 17:18 Eos % (Auto) 1.8 % (0.0-4.3) 03/18/22 17:18 Baso % (Auto) 1.1 % (0.0-1.8) 03/18/22 17:18 Lymph # (Auto) 1.8 K/mm3 (1.2-5.4) 03/18/22 17:18 [place] # (Auto) 0.7 K/mm3 (0.0-0.8) 03/18/22 17:18 Eos # (Auto) 0.1 K/mm3 (0.0-0.4) 03/18/22 17:18 Baso # (Auto) 0.1 K/mm3 (0.0-0.1) 03/18/22 17:18 Seg Neutrophils % 58.1 % (40.0-70.0) 03/18/22 17:18 Seg Neutrophils # 3.7 K/mm3 (1.8-7.7) 03/18/22 17:18 Sodium 139 mmol/L (137-145) 03/18/22 17:18 Potassium 3.8 mmol/L (3.6-5.0) 03/18/22 17:18 Chloride 103.4 mmol/L (98-107) 03/18/22 17:18 Carbon Dioxide 20 mmol/L (22-30) L 03/18/22 17:18 Anion Gap 19 mmol/L 03/18/22 17:18 BUN 52 mg/dL (9-20) H 03/18/22 17:18 Creatinine 2.9 mg/dL (0.8-1.3) H 03/18/22 17:18 Estimated GFR 21 ml/min 03/18/22 17:18 BUN/Creatinine Ratio 18 % 03/18/22 17:18 Glucose 63 mg/dL (75-100) L 03/18/22 17:18 POC Glucose 149 mg/dL (70-105) H 04/08/22 16:09 Hemoglobin A1c 8.5 % (4-6) H 03/18/22 17:18 Calcium 9.3 mg/dL (8.4-10.2) 03/18/22 17:18 Total Bilirubin 0.20 mg/dL (0.1-1.2) 03/18/22 17:18 AST 16 units/L (5-40) 03/18/22 17:18 ALT 8 units/L (7-56) 03/18/22 17:18 Alkaline Phosphatase 76 units/L (35-129) 03/18/22 17:18 Total Protein 7.3 g/dL (6.3-8.2) 03/18/22 17:18 Albumin 4.5 g/dL (3.9-5) 03/18/22 17:18 Albumin/Globulin Ratio 1.6 % 03/18/22 17:18 Triglycerides 69 mg/dL (2-149) 03/18/22 17:18 Cholesterol 230 mg/dL (50-199) H 03/18/22 17:18 LDL Cholesterol Direct 134 mg/dL (50-130) H 03/18/22 17:18 HDL Cholesterol 74 mg/dL (40-59) H 03/18/22 17:18 Cholesterol/HDL Ratio 3.10 % 03/18/22 17:18 TSH 1.190 mlU/mL (0.270-4.200) 03/18/22 17:18 Chan/IV: Voiding Method Toilet Active Medications - Current Medications Current Medications: Generic Name Dose Route Start Last Admin Trade Name Freq PRN Reason Stop Dose Admin Brimonidine/Timolol 1 drops 03/18/22 12:00 04/08/22 09:48 Combigan 0.2-0.5% Ophth Soln OU Not Given Q12HR [facility] Divalproex Sodium 125 mg 03/23/22 14:00 04/08/22 13:44 Divalproex Sprinkle 125 Mg Cap PO Not Given TID [facility] Ferrous Sulfate 325 mg 03/18/22 10:00 04/08/22 09:48 Ferrous Sulfate 325 Mg Tab PO Not Given DAILY [facility] Glipizide 2.5 mg 03/22/22 08:00 04/08/22 09:43 Glipizide Xl 2.5 Mg Tab PO Not Given DAILY@0800 [facility] Hydralazine HCl 50 mg 03/18/22 10:00 04/08/22 13:44 Hydralazine 25 Mg Tab PO Not Given Q8HR [facility] Insulin Human Lispro 0 unit 03/18/22 11:30 04/08/22 17:38 Insulin Lispro 100 Unit/Ml SUB-Q Not Given ACHS [facility] Protocol Lactulose 20 gm 03/18/22 10:00 Lactulose 20 Gm/30 Ml Oral Liqd PO TID PRN Edema Levothyroxine Sodium 200 mcg 03/19/22 06:00 04/08/22 07:02 Levothyroxine 100 Mcg Tab PO Not Given DAILY@0600 [facility] Melatonin 5 mg 03/18/22 22:00 04/07/22 22:26 Melatonin 5 Mg Tab PO 5 mg QHS [facility] Administration Olanzapine 2.5 mg 03/18/22 22:00 04/07/22 22:33 Olanzapine 2.5 Mg Tab PO 2.5 mg QHS [facility] Administration Trazodone HCl 50 mg 03/18/22 22:00 04/07/22 22:27 Trazodone 50 Mg Tab PO 50 mg QHS [facility] Administration Triamterene/Hydrochlorothiazide 1 each 03/18/22 10:00 04/08/22 09:48 Triamter/Hctz 37.5-25 Mg Tab PO Not Given QDAY [facility] Ziprasidone 20 mg 03/18/22 10:00 Ziprasidone Mesylate 20 Mg Vial IM Q4H PRN Agitation Nutrition/Malnutrition Assess - Dietary Evaluation Nutrition/Malnutrition Findings: Nutrition Notes Start: 03/18/22 16:11 Freq: Status: Active Protocol: Document 03/25/22 16:49 KAM (Rec: 03/25/22 17:00 KAM [id number]) Nutrition Notes Initial or Follow up Reassessment Current Diet Cardiac/Consistent Carbohydrates -Chopped Meats- Diet (since B 03/18). Height 5 ft 8 in Weight 72.121 kg [place] Body Weight (kg) 70.00 BMI 24.1 Weight change and time frame No body weight change reported in 1 week. Weight Status Appropriate Subjective/Other Information RD consult for routine F/U on dietary advancement. Pt's PO intake of meals has been Good (75%), according to ADL notes. Pt is on Room Air, O2 saturation @ 100%, according to Vital Signs notes. Plans for discharge Pt to a more safe environment facility , according to Progress notes. Percent of energy/protein needs met: Prescribed Cardiac/Consistent Carbohydrates -Chopped Meats- Diet provides for energy/ protein needs (1,977 Kcal/86 g ) during LOS. Burn Absent Trauma Absent GI Symptoms None Difficulty In Chewing Food Allergy No Skin Integrity/Comment Unspecified Dryness. Current % PO Good (75-100%) Minimum of two criteria No #1 Nutrition Diagnosis Biting/Chewing (masticatory) difficulty Diagnosis Progress(for reassessment Continues documentation) Is patient on ventilator? No Is Patient Ambulatory and/or Out of Bed Yes REE-(Callao-St. Jeor-ambulatory/OOB) [ [id number] [id number]] Calculation Used for Recommendations [place]-St Jeor Additional Notes Protein: 1-1.2 g/Kg ABW; 72-86 g/day. Fluids: 1 ml/Kcal, or as per MD. Nutrition Intervention Change Diet Order: Modify to Cardiac/Consistent Carbohydrates -Chopped Meats- Diet. Goal #1 Facilitate PO intake of meals with elemental, textural, or mechanical modification during LOS. Goal #2 Maintain body weight within +/ -3% of admission body weight during LOS. Revisit per MD consult or patient Sign Off request: Additional Comments Continue monitoring food tolerance, %PO intake of meals , and BM.
--- NOTE | 2022-04-08 19:53 | Progress Note ---
Assessment and Plan - Patient Problems (1) Vascular dementia with behavioral disturbance Current Visit: Yes Status: Acute Plan to address problem: Verbal prompting, verbal redirection, benzodiazepine therapy as clinically indicated. (2) Cerebral atherosclerosis Current Visit: Yes Status: Acute Plan to address problem: Risk factor reduction, antiplatelet therapy as clinically indicated. (3) Hypertension Current Visit: Yes Status: Acute Qualifiers: Hypertension type: primary hypertension Qualified Code(s): I10 - Essential (primary) hypertension Plan to address problem: Monitor blood pressure every shift, continue medical management. (4) Diabetes Current Visit: Yes Status: Acute Plan to address problem: Consult to help with carbohydrate diet, Accu-Chek, insulin protocol, hypoglycemia protocol. (5) Hyperlipidemia Current Visit: Yes Status: Acute Qualifiers: Hyperlipidemia type: mixed hyperlipidemia Qualified Code(s): E78.2 - Mixed hyperlipidemia Plan to address problem: Low-cholesterol diet, statin therapy as clinically indicated. (6) Hypothyroidism Current Visit: Yes Status: Acute Plan to address problem: Continue Synthroid therapy, supportive care. (7) Advance care planning Current Visit: Yes Status: Acute Plan to address problem: Disease education data, care plan discussed, diagnosis discussed, prognosis discussed, +30 minutes. History Interval history: 80 YO Male with Vascular Dementia with Behavioral Disturbance, Cerebral Atherosclerosis, DM, HTN, HLD, Hypothyroidism. Pt is admitted to [facility] for psychiatric stabilization. Consult placed by Dr. Frankel for medical management. Patient seen and evaluated in the recreation room. Patient resting. Patient exhibits tangential thinking with diminished cognition and intermittent agitation. No reported nursing events. Patient remains at baseline level of cognition and function. Hospitalist Physical - Constitutional Vitals: Temp Pulse Resp BP Pulse Ox 98.7 F 76 18 125/80 98 04/07/22 20:00 04/07/22 22:26 04/07/22 20:00 04/07/22 22:26 04/07/22 20:00 General appearance: Present: no acute distress, well-nourished, other (Cheerful today) - EENT Eyes: Present: PERRL ENT: hearing decreased - Neck Neck: Present: supple - Respiratory Respiratory effort: normal Respiratory: bilateral: diminished - Cardiovascular Rhythm: regular Heart Sounds: Present: S1 & S2 - Extremities Extremities: no ischemia Peripheral Pulses: within normal limits - Abdominal General gastrointestinal: soft, non-tender, non-distended - Integumentary Integumentary: Present: clear, dry - Psychiatric Psychiatric: cooperative - Neurologic Neurologic: CNII-XII intact Results - Labs CBC & Chem 7: 03/18/22 17:18 03/18/22 17:18 Labs: Laboratory Last Values WBC 6.3 K/mm3 (4.5-11.0) 03/18/22 17:18 RBC 4.33 M/mm3 (3.65-5.03) 03/18/22 17:18 Hgb 11.8 gm/dl (11.8-15.2) 03/18/22 17:18 Hct 35.4 % (35.5-45.6) L 03/18/22 17:18 MCV 82 fl (84-94) L 03/18/22 17:18 MCH 27 pg (28-32) L 03/18/22 17:18 MCHC 33 % (32-34) 03/18/22 17:18 RDW 16.0 % (13.2-15.2) H 03/18/22 17:18 Plt Count 270 K/mm3 (140-440) 03/18/22 17:18 Lymph % (Auto) 27.9 % (13.4-35.0) 03/18/22 17:18 [place] % (Auto) 11.1 % (0.0-7.3) H 03/18/22 17:18 Eos % (Auto) 1.8 % (0.0-4.3) 03/18/22 17:18 Baso % (Auto) 1.1 % (0.0-1.8) 03/18/22 17:18 Lymph # (Auto) 1.8 K/mm3 (1.2-5.4) 03/18/22 17:18 [place] # (Auto) 0.7 K/mm3 (0.0-0.8) 03/18/22 17:18 Eos # (Auto) 0.1 K/mm3 (0.0-0.4) 03/18/22 17:18 Baso # (Auto) 0.1 K/mm3 (0.0-0.1) 03/18/22 17:18 Seg Neutrophils % 58.1 % (40.0-70.0) 03/18/22 17:18 Seg Neutrophils # 3.7 K/mm3 (1.8-7.7) 03/18/22 17:18 Sodium 139 mmol/L (137-145) 03/18/22 17:18 Potassium 3.8 mmol/L (3.6-5.0) 03/18/22 17:18 Chloride 103.4 mmol/L (98-107) 03/18/22 17:18 Carbon Dioxide 20 mmol/L (22-30) L 03/18/22 17:18 Anion Gap 19 mmol/L 03/18/22 17:18 BUN 52 mg/dL (9-20) H 03/18/22 17:18 Creatinine 2.9 mg/dL (0.8-1.3) H 03/18/22 17:18 Estimated GFR 21 ml/min 03/18/22 17:18 BUN/Creatinine Ratio 18 % 03/18/22 17:18 Glucose 63 mg/dL (75-100) L 03/18/22 17:18 POC Glucose 149 mg/dL (70-105) H 04/08/22 16:09 Hemoglobin A1c 8.5 % (4-6) H 03/18/22 17:18 Calcium 9.3 mg/dL (8.4-10.2) 03/18/22 17:18 Total Bilirubin 0.20 mg/dL (0.1-1.2) 03/18/22 17:18 AST 16 units/L (5-40) 03/18/22 17:18 ALT 8 units/L (7-56) 03/18/22 17:18 Alkaline Phosphatase 76 units/L (35-129) 03/18/22 17:18 Total Protein 7.3 g/dL (6.3-8.2) 03/18/22 17:18 Albumin 4.5 g/dL (3.9-5) 03/18/22 17:18 Albumin/Globulin Ratio 1.6 % 03/18/22 17:18 Triglycerides 69 mg/dL (2-149) 03/18/22 17:18 Cholesterol 230 mg/dL (50-199) H 03/18/22 17:18 LDL Cholesterol Direct 134 mg/dL (50-130) H 03/18/22 17:18 HDL Cholesterol 74 mg/dL (40-59) H 03/18/22 17:18 Cholesterol/HDL Ratio 3.10 % 03/18/22 17:18 TSH 1.190 mlU/mL (0.270-4.200) 03/18/22 17:18 Chan/IV: Voiding Method Toilet Active Medications - Current Medications Current Medications: Generic Name Dose Route Start Last Admin Trade Name Freq PRN Reason Stop Dose Admin Brimonidine/Timolol 1 drops 03/18/22 12:00 04/08/22 09:48 Combigan 0.2-0.5% Ophth Soln OU Not Given Q12HR COUNTS INCLUDE 234 BEDS AT THE [facility] Divalproex Sodium 125 mg 03/23/22 14:00 04/08/22 13:44 Divalproex Sprinkle 125 Mg Cap PO Not Given TID COUNTS INCLUDE 234 BEDS AT THE [facility] Ferrous Sulfate 325 mg 03/18/22 10:00 04/08/22 09:48 Ferrous Sulfate 325 Mg Tab PO Not Given DAILY COUNTS INCLUDE 234 BEDS AT THE [facility] Glipizide 2.5 mg 03/22/22 08:00 04/08/22 09:43 Glipizide Xl 2.5 Mg Tab PO Not Given DAILY@0800 COUNTS INCLUDE 234 BEDS AT THE [facility] Hydralazine HCl 50 mg 03/18/22 10:00 04/08/22 13:44 Hydralazine 25 Mg Tab PO Not Given Q8HR COUNTS INCLUDE 234 BEDS AT THE [facility] Insulin Human Lispro 0 unit 03/18/22 11:30 04/08/22 17:38 Insulin Lispro 100 Unit/Ml SUB-Q Not Given ACHS COUNTS INCLUDE 234 BEDS AT THE [facility] Protocol Lactulose 20 gm 03/18/22 10:00 Lactulose 20 Gm/30 Ml Oral Liqd PO TID PRN Edema Levothyroxine Sodium 200 mcg 03/19/22 06:00 04/08/22 07:02 Levothyroxine 100 Mcg Tab PO Not Given DAILY@0600 COUNTS INCLUDE 234 BEDS AT THE [facility] Melatonin 5 mg 03/18/22 22:00 04/07/22 22:26 Melatonin 5 Mg Tab PO 5 mg QHS [facility] Administration Olanzapine 2.5 mg 03/18/22 22:00 04/07/22 22:33 Olanzapine 2.5 Mg Tab PO 2.5 mg QHS [facility] Administration Trazodone HCl 50 mg 03/18/22 22:00 04/07/22 22:27 Trazodone 50 Mg Tab PO 50 mg QHS [facility] Administration Triamterene/Hydrochlorothiazide 1 each 03/18/22 10:00 04/08/22 09:48 Triamter/Hctz 37.5-25 Mg Tab PO Not Given QDAY [facility] Ziprasidone 20 mg 03/18/22 10:00 Ziprasidone Mesylate 20 Mg Vial IM Q4H PRN Agitation Nutrition/Malnutrition Assess - Dietary Evaluation Nutrition/Malnutrition Findings: Nutrition Notes Start: 03/18/22 16:11 Freq: Status: Active Protocol: Document 03/25/22 16:49 KAM (Rec: 03/25/22 17:00 KAM [id number]) Nutrition Notes Initial or Follow up Reassessment Current Diet Cardiac/Consistent Carbohydrates -Chopped Meats- Diet (since B 03/18). Height 5 ft 8 in Weight 72.121 kg [place] Body Weight (kg) 70.00 BMI 24.1 Weight change and time frame No body weight change reported in 1 week. Weight Status Appropriate Subjective/Other Information RD consult for routine F/U on dietary advancement. Pt's PO intake of meals has been Good (75%), according to ADL notes. Pt is on Room Air, O2 saturation @ 100%, according to Vital Signs notes. Plans for discharge Pt to a more safe environment facility , according to Progress notes. Percent of energy/protein needs met: Prescribed Cardiac/Consistent Carbohydrates -Chopped Meats- Diet provides for energy/ protein needs (1,977 Kcal/86 g ) during LOS. Burn Absent Trauma Absent GI Symptoms None Difficulty In Chewing Food Allergy No Skin Integrity/Comment Unspecified Dryness. Current % PO Good (75-100%) Minimum of two criteria No #1 Nutrition Diagnosis Biting/Chewing (masticatory) difficulty Diagnosis Progress(for reassessment Continues documentation) Is patient on ventilator? No Is Patient Ambulatory and/or Out of Bed Yes REE-([place]-St. Jeor-ambulatory/OOB) [ [id number] [id number]] Calculation Used for Recommendations [place] Jeor Additional Notes Protein: 1-1.2 g/Kg ABW; 72-86 g/day. Fluids: 1 ml/Kcal, or as per MD. Nutrition Intervention Change Diet Order: Modify to Cardiac/Consistent Carbohydrates -Chopped Meats- Diet. Goal #1 Facilitate PO intake of meals with elemental, textural, or mechanical modification during LOS. Goal #2 Maintain body weight within +/ -3% of admission body weight during LOS. Revisit per MD consult or patient Sign Off request: Additional Comments Continue monitoring food tolerance, %PO intake of meals , and BM.
[2022-04-08] MEDS: MELATONIN 5 MG TAB PO SCH (22:03)
[2022-04-08] MEDS: traZODone 50 MG TAB PO SCH (22:03)
[2022-04-09] MEDS: LEVOTHYROXINE 100 MCG TAB PO SCH ×2 (06:22→06:28)
[2022-04-09] MEDS: hydrALAZINE 25 MG TAB PO SCH ×4 (06:22→21:59)
[2022-04-09] MEDS: DIVALPROEX SPRINKLE 125 MG CAP PO SCH ×3 (08:41→21:58)
[2022-04-09] MEDS: INSULIN LISPRO 100 UNIT/ML SUB-Q SCH ×4 (08:41→21:59)
--- NOTE | 2022-04-09 09:07 | Progress Note ---
Subjective Date of service: 04/09/22 Principal diagnosis: MDD Subjective Comment: The patient was seen today. He is sleeping but easily arouses. He says "I don't feel like being bothered right now." I encourage the patient to get up for breakfast. He says "I'll get up when I'm ready." He denies SI/HI or hallucinations of any kind. 04/08 The patient was seen today. He says he feels pretty good, but "wishes we would leave him alone." He says he was about to get up and eat breakfast. He denies SI/HI or hallucinations of any kind. 04/07 The patient was seen today. He is lying in bed. He says he doesn't feel too good because he is tired. I encourage the patient to get up out of bed to feel better and maintain his strength. He denies SI/HI or hallucinations of any kind. 04/06 The patient was seen today. He appears down, but he says he's doing "pretty good." The patient says he didn't sleep well night, because people kept waking him up. He denies SI/HI or hallucinations of any kind. He is awaiting placement. 04/05 The patient was today. He is sitting up in the bed awake. he says he is doing okay. He says "just ready to get out of here." I told the patient we were working on it. He denies SI/HI or hallucinations of any kind. 04/04 The patient was seen today. He is sleeping. He easily arouses but drifts back to sleep at times. He says he feels alright. The patient says "they still came in and woke me up last night." He denies SI/HI or hallucinations of any kind. He is awaiting placement. REVIEW OF SYSTEMS Constitutional: Negative for weight loss ENT: Negative for stridor Respiratory: Negative for cough or hemoptysis All other systems reviewed and are negative MENTAL STATUS EXAMINATION General Appearance and Behavior: Age appropriate, good hygiene, wearing appropriate clothes, good eye contact, calm, cooperative Cooperation: Participating/engaged, but Guarded Psychomotor Behavior: Psychomotor normal Mood: okay Affect and affective range: congruent with stated mood Thought Process: Goal directed Thought Content: Reality oriented Speech: normal tone and pace Suicidal Ideation: Passive Homicidal Ideation: Denies Hallucinations: Denies Delusions: None Impulse Control: Limited Insight and Judgment: Limited insight and judgment Memory: Limited Attention: attentive Orientation: Alert, oriented Diagnoses: Dementia with behavioral disturbances Treatment Plan Patient admitted for inpatient psychiatric evaluation, medication adjustment and close monitoring The patient's behavior, mood, sleep and appetite will be closely monitored. Patient enrolled in individual and group therapeutic sessions and encouraged to attend. Patient provided with a safe and structured environment. Patient's physical health needs will be addressed by the Hospitalist. Hospitalist Consulted Labs including CBC, CMP, Lipid profile and Hemoglobin A1C levels ordered for baseline reference Social Assessment will be completed and the [employer] will work with patient and family to ensure a suitable and safe disposition Medication adjustment will be made as clinically indicated No changes made today Usual Wellness Catholic/Preservation: - Start Trazodone 50 mg po QHS & 50 mg po QHS PRN between 10 PM & 2 AM for insomnia - Start Melatonin 5 mg po QHS to promote circadian rhythm The patient agreed on the treatment plan, understood the risk, benefit, alternative treatment, potential consequence of no treatment, and gave informed consent. Estimated days:6 Post hospital care: primary care provider, psychiatric provider Case staffed with Dr. Hwang Medications and Allergies Allergies Allergy/AdvReac Type Severity Reaction Status Date / Time No Known Allergies Allergy Unverified 03/17/22 17:19 Home Medications Medication Instructions Recorded Confirmed Last Taken Type Divalproex Sodium [Depakote 125 mg PO BID 03/18/22 03/18/22 Unknown History Sprinkle] Dorzolamide HCl/Timolol Maleat 10 ml OP HS 03/18/22 03/18/22 Unknown History [Dorzolamide-Timolol Eye Drops] Ferrous Sulfate [Iron 325 MG] 325 mg PO DAILY 03/18/22 03/18/22 Unknown History Hydralazine HCl 50 mg PO TID 03/18/22 03/18/22 Unknown History Insulin Lispro [Admelog] See Protocol SQ ACHS 03/18/22 03/18/22 Unknown History Lactulose [Cephulac] 20 gm PO TID PRN 03/18/22 03/18/22 Unknown History Levothyroxine Sodium [Synthroid] 200 mcg PO DAILY 03/18/22 03/18/22 Unknown History Melatonin [Melatonin 3MG TAB] 3 mg PO HS 03/18/22 03/18/22 Unknown History Pioglitazone HCl [Actos] 30 mg PO DAILY 03/18/22 03/18/22 Unknown History Triamter/Hctz 37.5-25 mg 1 tab PO QDAY 03/18/22 03/18/22 Unknown History [Maxzide-25] amLODIPine [Norvasc] 10 mg PO DAILY 03/18/22 03/18/22 Unknown History glipiZIDE [Glucotrol] 5 mg PO QDAY 03/18/22 03/18/22 Unknown History Active Meds: Active Medications Brimonidine/Timolol (Combigan 0.2-0.5% [facility]) 1 drops OU Q12HR [facility] Last Admin: 04/08/22 22:05 Dose: 1 drops Divalproex Sodium (Divalproex Sprinkle 125 Mg Cap) 125 mg PO TID [facility] Last Admin: 04/09/22 08:41 Dose: Not Given Ferrous Sulfate (Ferrous Sulfate 325 Mg Tab) 325 mg PO DAILY [facility] Last Admin: 04/08/22 09:48 Dose: Not Given Glipizide (Glipizide Xl 2.5 Mg Tab) 2.5 mg PO DAILY@0800 [facility] Last Admin: 04/09/22 08:41 Dose: Not Given Hydralazine HCl (Hydralazine 25 Mg Tab) 50 mg PO Q8HR [facility] Last Admin: 04/09/22 06:27 Dose: Not Given Insulin Human Lispro (Insulin Lispro 100 Unit/Ml) 0 unit SUB-Q [facility]; Protocol Last Admin: 04/09/22 08:41 Dose: Not Given Lactulose (Lactulose 20 Gm/30 Ml Oral Liqd) 20 gm PO TID PRN PRN Reason: Edema Levothyroxine Sodium (Levothyroxine 100 Mcg Tab) 200 mcg PO DAILY@0600 [facility] Last Admin: 04/09/22 06:28 Dose: Not Given Melatonin (Melatonin 5 Mg Tab) 5 mg PO QHS [facility] Last Admin: 04/08/22 22:03 Dose: 5 mg Olanzapine (Olanzapine 2.5 Mg Tab) 2.5 mg PO QHS [facility] Last Admin: 04/08/22 22:04 Dose: 2.5 mg Trazodone HCl (Trazodone 50 Mg Tab) 50 mg PO QHS [facility] Last Admin: 04/08/22 22:03 Dose: 50 mg Triamterene/Hydrochlorothiazide (Triamter/Hctz 37.5-25 Mg Tab) 1 each PO QDAY [facility] Last Admin: 04/08/22 09:48 Dose: Not Given Ziprasidone (Ziprasidone Mesylate 20 Mg Vial) 20 mg IM Q4H PRN PRN Reason: Agitation Results - Results Labs/Vitals: Laboratory Last Values WBC 6.3 K/mm3 (4.5-11.0) 03/18/22 17:18 RBC 4.33 M/mm3 (3.65-5.03) 03/18/22 17:18 Hgb 11.8 gm/dl (11.8-15.2) 03/18/22 17:18 Hct 35.4 % (35.5-45.6) L 03/18/22 17:18 MCV 82 fl (84-94) L 03/18/22 17:18 MCH 27 pg (28-32) L 03/18/22 17:18 MCHC 33 % (32-34) 03/18/22 17:18 RDW 16.0 % (13.2-15.2) H 03/18/22 17:18 Plt Count 270 K/mm3 (140-440) 03/18/22 17:18 Lymph % (Auto) 27.9 % (13.4-35.0) 03/18/22 17:18 [place] % (Auto) 11.1 % (0.0-7.3) H 03/18/22 17:18 Eos % (Auto) 1.8 % (0.0-4.3) 03/18/22 17:18 Baso % (Auto) 1.1 % (0.0-1.8) 03/18/22 17:18 Lymph # (Auto) 1.8 K/mm3 (1.2-5.4) 03/18/22 17:18 [place] # (Auto) 0.7 K/mm3 (0.0-0.8) 03/18/22 17:18 Eos # (Auto) 0.1 K/mm3 (0.0-0.4) 03/18/22 17:18 Baso # (Auto) 0.1 K/mm3 (0.0-0.1) 03/18/22 17:18 Seg Neutrophils % 58.1 % (40.0-70.0) 03/18/22 17:18 Seg Neutrophils # 3.7 K/mm3 (1.8-7.7) 03/18/22 17:18 Sodium 139 mmol/L (137-145) 03/18/22 17:18 Potassium 3.8 mmol/L (3.6-5.0) 03/18/22 17:18 Chloride 103.4 mmol/L (98-107) 03/18/22 17:18 Carbon Dioxide 20 mmol/L (22-30) L 03/18/22 17:18 Anion Gap 19 mmol/L 03/18/22 17:18 BUN 52 mg/dL (9-20) H 03/18/22 17:18 Creatinine 2.9 mg/dL (0.8-1.3) H 03/18/22 17:18 Estimated GFR 21 ml/min 03/18/22 17:18 BUN/Creatinine Ratio 18 % 03/18/22 17:18 Glucose 63 mg/dL (75-100) L 03/18/22 17:18 POC Glucose 178 mg/dL (70-105) H 04/09/22 05:24 Hemoglobin A1c 8.5 % (4-6) H 03/18/22 17:18 Calcium 9.3 mg/dL (8.4-10.2) 03/18/22 17:18 Total Bilirubin 0.20 mg/dL (0.1-1.2) 03/18/22 17:18 AST 16 units/L (5-40) 03/18/22 17:18 ALT 8 units/L (7-56) 03/18/22 17:18 Alkaline Phosphatase 76 units/L (35-129) 03/18/22 17:18 Total Protein 7.3 g/dL (6.3-8.2) 03/18/22 17:18 Albumin 4.5 g/dL (3.9-5) 03/18/22 17:18 Albumin/Globulin Ratio 1.6 % 03/18/22 17:18 Triglycerides 69 mg/dL (2-149) 03/18/22 17:18 Cholesterol 230 mg/dL (50-199) H 03/18/22 17:18 LDL Cholesterol Direct 134 mg/dL (50-130) H 03/18/22 17:18 HDL Cholesterol 74 mg/dL (40-59) H 03/18/22 17:18 Cholesterol/HDL Ratio 3.10 % 03/18/22 17:18 TSH 1.190 mlU/mL (0.270-4.200) 03/18/22 17:18 Last Vital Signs Temp 98.0 F 04/09/22 05:26 Pulse 69 04/09/22 05:26 Resp 18 04/09/22 05:26 BP 122/63 04/09/22 05:26 Pulse Ox 98 04/09/22 05:26
[2022-04-09] MEDS: FERROUS SULFATE 325 MG TAB PO SCH (09:08)
[2022-04-09] MEDS: COMBIGAN 0.2-0.5% OPHTH SOLN OU SCH ×2 (09:08→21:58)
[2022-04-09] MEDS: TRIAMTER/HCTZ 37.5-25 MG TAB PO SCH (09:08)
--- NOTE | 2022-04-09 19:10 | Progress Note ---
Assessment and Plan - Patient Problems (1) Vascular dementia with behavioral disturbance Current Visit: Yes Status: Acute Plan to address problem: Verbal prompting, verbal redirection, benzodiazepine therapy as clinically indicated. (2) Cerebral atherosclerosis Current Visit: Yes Status: Acute Plan to address problem: Risk factor reduction, antiplatelet therapy as clinically indicated. (3) Hypertension Current Visit: Yes Status: Acute Qualifiers: Hypertension type: primary hypertension Qualified Code(s): I10 - Essential (primary) hypertension Plan to address problem: Monitor blood pressure every shift, continue medical management. (4) Diabetes Current Visit: Yes Status: Acute Plan to address problem: Consult to help with carbohydrate diet, Accu-Chek, insulin protocol, hypoglycemia protocol. (5) Hyperlipidemia Current Visit: Yes Status: Acute Qualifiers: Hyperlipidemia type: mixed hyperlipidemia Qualified Code(s): E78.2 - Mixed hyperlipidemia Plan to address problem: Low-cholesterol diet, statin therapy as clinically indicated. (6) Hypothyroidism Current Visit: Yes Status: Acute Plan to address problem: Continue Synthroid therapy, supportive care. (7) Advance care planning Current Visit: Yes Status: Acute Plan to address problem: Disease education data, care plan discussed, diagnosis discussed, prognosis discussed, +30 minutes. History Interval history: 80 YO Male with Vascular Dementia with Behavioral Disturbance, Cerebral Atherosclerosis, DM, HTN, HLD, Hypothyroidism. Pt is admitted to [facility] for psychiatric stabilization. Consult placed by Dr. Frankel for medical management. Patient seen and evaluated in the recreation room. Patient resting. Patient exhibits tangential thinking with diminished cognition and intermittent agitation. No reported nursing events. Patient remains at baseline level of cognition and function. Hospitalist Physical - Constitutional Vitals: Temp Pulse Resp BP Pulse Ox 98.0 F 69 18 122/63 98 04/09/22 05:26 04/09/22 05:26 04/09/22 05:26 04/09/22 05:26 04/09/22 05:26 General appearance: Present: no acute distress, well-nourished, other (Cheerful today) - EENT Eyes: Present: PERRL ENT: hearing intact, hearing decreased - Neck Neck: Present: supple - Respiratory Respiratory effort: normal Respiratory: bilateral: CTA - Cardiovascular Rhythm: regular Heart Sounds: Present: S1 & S2 - Extremities Extremities: no ischemia Peripheral Pulses: within normal limits - Abdominal General gastrointestinal: soft, non-tender, non-distended - Integumentary Integumentary: Present: clear, dry - Psychiatric Psychiatric: cooperative - Neurologic Neurologic: CNII-XII intact Results - Labs CBC & Chem 7: 03/18/22 17:18 03/18/22 17:18 Labs: Laboratory Last Values WBC 6.3 K/mm3 (4.5-11.0) 03/18/22 17:18 RBC 4.33 M/mm3 (3.65-5.03) 03/18/22 17:18 Hgb 11.8 gm/dl (11.8-15.2) 03/18/22 17:18 Hct 35.4 % (35.5-45.6) L 03/18/22 17:18 MCV 82 fl (84-94) L 03/18/22 17:18 MCH 27 pg (28-32) L 03/18/22 17:18 MCHC 33 % (32-34) 03/18/22 17:18 RDW 16.0 % (13.2-15.2) H 03/18/22 17:18 Plt Count 270 K/mm3 (140-440) 03/18/22 17:18 Lymph % (Auto) 27.9 % (13.4-35.0) 03/18/22 17:18 [place] % (Auto) 11.1 % (0.0-7.3) H 03/18/22 17:18 Eos % (Auto) 1.8 % (0.0-4.3) 03/18/22 17:18 Baso % (Auto) 1.1 % (0.0-1.8) 03/18/22 17:18 Lymph # (Auto) 1.8 K/mm3 (1.2-5.4) 03/18/22 17:18 [place] # (Auto) 0.7 K/mm3 (0.0-0.8) 03/18/22 17:18 Eos # (Auto) 0.1 K/mm3 (0.0-0.4) 03/18/22 17:18 Baso # (Auto) 0.1 K/mm3 (0.0-0.1) 03/18/22 17:18 Seg Neutrophils % 58.1 % (40.0-70.0) 03/18/22 17:18 Seg Neutrophils # 3.7 K/mm3 (1.8-7.7) 03/18/22 17:18 Sodium 139 mmol/L (137-145) 03/18/22 17:18 Potassium 3.8 mmol/L (3.6-5.0) 03/18/22 17:18 Chloride 103.4 mmol/L (98-107) 03/18/22 17:18 Carbon Dioxide 20 mmol/L (22-30) L 03/18/22 17:18 Anion Gap 19 mmol/L 03/18/22 17:18 BUN 52 mg/dL (9-20) H 03/18/22 17:18 Creatinine 2.9 mg/dL (0.8-1.3) H 03/18/22 17:18 Estimated GFR 21 ml/min 03/18/22 17:18 BUN/Creatinine Ratio 18 % 03/18/22 17:18 Glucose 63 mg/dL (75-100) L 03/18/22 17:18 POC Glucose 178 mg/dL (70-105) H 04/09/22 05:24 Hemoglobin A1c 8.5 % (4-6) H 03/18/22 17:18 Calcium 9.3 mg/dL (8.4-10.2) 03/18/22 17:18 Total Bilirubin 0.20 mg/dL (0.1-1.2) 03/18/22 17:18 AST 16 units/L (5-40) 03/18/22 17:18 ALT 8 units/L (7-56) 03/18/22 17:18 Alkaline Phosphatase 76 units/L (35-129) 03/18/22 17:18 Total Protein 7.3 g/dL (6.3-8.2) 03/18/22 17:18 Albumin 4.5 g/dL (3.9-5) 03/18/22 17:18 Albumin/Globulin Ratio 1.6 % 03/18/22 17:18 Triglycerides 69 mg/dL (2-149) 03/18/22 17:18 Cholesterol 230 mg/dL (50-199) H 03/18/22 17:18 LDL Cholesterol Direct 134 mg/dL (50-130) H 03/18/22 17:18 HDL Cholesterol 74 mg/dL (40-59) H 03/18/22 17:18 Cholesterol/HDL Ratio 3.10 % 03/18/22 17:18 TSH 1.190 mlU/mL (0.270-4.200) 03/18/22 17:18 Chan/IV: Voiding Method Toilet Active Medications - Current Medications Current Medications: Generic Name Dose Route Start Last Admin Trade Name Freq PRN Reason Stop Dose Admin Brimonidine/Timolol 1 drops 03/18/22 12:00 04/09/22 09:08 Combigan 0.2-0.5% Ophth Soln OU Not Given Q12HR [facility] Divalproex Sodium 125 mg 03/23/22 14:00 04/09/22 13:37 Divalproex Sprinkle 125 Mg Cap PO Not Given TID [facility] Ferrous Sulfate 325 mg 03/18/22 10:00 04/09/22 09:08 Ferrous Sulfate 325 Mg Tab PO Not Given DAILY [facility] Glipizide 2.5 mg 03/22/22 08:00 04/09/22 08:41 Glipizide Xl 2.5 Mg Tab PO Not Given DAILY@0800 [facility] Hydralazine HCl 50 mg 03/18/22 10:00 04/09/22 13:37 Hydralazine 25 Mg Tab PO Not Given Q8HR [facility] Insulin Human Lispro 0 unit 03/18/22 11:30 04/09/22 16:13 Insulin Lispro 100 Unit/Ml SUB-Q Not Given ACHS [facility] Protocol Lactulose 20 gm 03/18/22 10:00 Lactulose 20 Gm/30 Ml Oral Liqd PO TID PRN Edema Levothyroxine Sodium 200 mcg 03/19/22 06:00 04/09/22 06:28 Levothyroxine 100 Mcg Tab PO Not Given DAILY@0600 [facility] Melatonin 5 mg 03/18/22 22:00 04/08/22 22:03 Melatonin 5 Mg Tab PO 5 mg QHS [facility] Administration Olanzapine 2.5 mg 03/18/22 22:00 04/08/22 22:04 Olanzapine 2.5 Mg Tab PO 2.5 mg QHS [facility] Administration Trazodone HCl 50 mg 03/18/22 22:00 04/08/22 22:03 Trazodone 50 Mg Tab PO 50 mg QHS [facility] Administration Triamterene/Hydrochlorothiazide 1 each 03/18/22 10:00 04/09/22 09:08 Triamter/Hctz 37.5-25 Mg Tab PO Not Given QDAY [facility] Ziprasidone 20 mg 03/18/22 10:00 Ziprasidone Mesylate 20 Mg Vial IM Q4H PRN Agitation Nutrition/Malnutrition Assess - Dietary Evaluation Nutrition/Malnutrition Findings: Nutrition Notes Start: 03/18/22 16:11 Freq: Status: Active Protocol: Document 03/25/22 16:49 KAM (Rec: 03/25/22 17:00 KAM [id number]) Nutrition Notes Initial or Follow up Reassessment Current Diet Cardiac/Consistent Carbohydrates -Chopped Meats- Diet (since B 03/18). Height 5 ft 8 in Weight 72.121 kg [place] Body Weight (kg) 70.00 BMI 24.1 Weight change and time frame No body weight change reported in 1 week. Weight Status Appropriate Subjective/Other Information RD consult for routine F/U on dietary advancement. Pt's PO intake of meals has been Good (75%), according to ADL notes. Pt is on Room Air, O2 saturation @ 100%, according to Vital Signs notes. Plans for discharge Pt to a more safe environment facility , according to Progress notes. Percent of energy/protein needs met: Prescribed Cardiac/Consistent Carbohydrates -Chopped Meats- Diet provides for energy/ protein needs (1,977 Kcal/86 g ) during LOS. Burn Absent Trauma Absent GI Symptoms None Difficulty In Chewing Food Allergy No Skin Integrity/Comment Unspecified Dryness. Current % PO Good (75-100%) Minimum of two criteria No #1 Nutrition Diagnosis Biting/Chewing (masticatory) difficulty Diagnosis Progress(for reassessment Continues documentation) Is patient on ventilator? No Is Patient Ambulatory and/or Out of Bed Yes REE-([place]. Jeor-ambulatory/OOB) [ [id number] [id number]] Calculation [facility] Additional Notes Protein: 1-1.2 g/Kg ABW; 72-86 g/day. Fluids: 1 ml/Kcal, or as per MD. Nutrition Intervention Change Diet Order: Modify to Cardiac/Consistent Carbohydrates -Chopped Meats- Diet. Goal #1 Facilitate PO intake of meals with elemental, textural, or mechanical modification during LOS. Goal #2 Maintain body weight within +/ -3% of admission body weight during LOS. Revisit per MD consult or patient Sign Off request: Additional Comments Continue monitoring food tolerance, %PO intake of meals , and BM.
[2022-04-09] MEDS: MELATONIN 5 MG TAB PO SCH (21:58)
[2022-04-09] MEDS: traZODone 50 MG TAB PO SCH (21:58)
[2022-04-10] MEDS: hydrALAZINE 25 MG TAB PO SCH ×3 (05:49→22:00)
[2022-04-10] MEDS: LEVOTHYROXINE 100 MCG TAB PO SCH (05:50)
[2022-04-10] MEDS: INSULIN LISPRO 100 UNIT/ML SUB-Q SCH ×4 (09:32→22:00)
--- NOTE | 2022-04-10 10:10 | Progress Note ---
Subjective Date of service: 04/10/22 Principal diagnosis: MDD Subjective Comment: 04/10:The patient was seen today. he reports doing well. He reports appetite and sleep as ok. He denies any current suicidal/homicidal ideation and denies hallucinations. No changes made today. 04/09: The patient was seen today. He is sleeping but easily arouses. He says "I don't feel like being bothered right now." I encourage the patient to get up for breakfast. He says "I'll get up when I'm ready." He denies SI/HI or hallucinations of any kind. 04/08 The patient was seen today. He says he feels pretty good, but "wishes we would leave him alone." He says he was about to get up and eat breakfast. He denies SI/HI or hallucinations of any kind. 04/07 The patient was seen today. He is lying in bed. He says he doesn't feel too good because he is tired. I encourage the patient to get up out of bed to feel better and maintain his strength. He denies SI/HI or hallucinations of any kind. 04/06 The patient was seen today. He appears down, but he says he's doing "pretty good." The patient says he didn't sleep well night, because people kept waking him up. He denies SI/HI or hallucinations of any kind. He is awaiting placement. 04/05 The patient was today. He is sitting up in the bed awake. he says he is doing okay. He says "just ready to get out of here." I told the patient we were working on it. He denies SI/HI or hallucinations of any kind. 04/04 The patient was seen today. He is sleeping. He easily arouses but drifts back to sleep at times. He says he feels alright. The patient says "they still came in and woke me up last night." He denies SI/HI or hallucinations of any kind. He is awaiting placement. REVIEW OF SYSTEMS Constitutional: Negative for weight loss ENT: Negative for stridor Respiratory: Negative for cough or hemoptysis All other systems reviewed and are negative MENTAL STATUS EXAMINATION General Appearance and Behavior: Age appropriate, good hygiene, wearing appropriate clothes, good eye contact, calm, cooperative Cooperation: Participating/engaged, but Guarded Psychomotor Behavior: Psychomotor normal Mood: okay Affect and affective range: congruent with stated mood Thought Process: Goal directed Thought Content: Reality oriented Speech: normal tone and pace Suicidal Ideation: Denies Homicidal Ideation: Denies Hallucinations: Denies Delusions: None Impulse Control: Limited Insight and Judgment: Limited insight and judgment Memory: Limited Attention: attentive Orientation: Alert, oriented Diagnoses: Dementia with behavioral disturbances Treatment Plan Patient admitted for inpatient psychiatric evaluation, medication adjustment and close monitoring The patient's behavior, mood, sleep and appetite will be closely monitored. Patient enrolled in individual and group therapeutic sessions and encouraged to attend. Patient provided with a safe and structured environment. Patient's physical health needs will be addressed by the Hospitalist. Hospitalist Consulted Labs including CBC, CMP, Lipid profile and Hemoglobin A1C levels ordered for baseline reference Social Assessment will be completed and the Nurse Substance Abuse will work with patient and family to ensure a suitable and safe disposition Medication adjustment will be made as clinically indicated No changes made today Usual Wellness [place] [employer]/Preservation: - Start Trazodone 50 mg po QHS & 50 mg po QHS PRN between 10 PM & 2 AM for insomnia - Start Melatonin 5 mg po QHS to promote circadian rhythm The patient agreed on the treatment plan, understood the risk, benefit, alternative treatment, potential consequence of no treatment, and gave informed consent. Estimated days:6 Post hospital care: primary care provider, psychiatric provider Case staffed with Dr. Hwang Medications and Allergies Medications and Allergies Allergies Allergy/AdvReac Type Severity Reaction Status Date / Time No Known Allergies Allergy Unverified 03/17/22 17:19 Home Medications Medication Instructions Recorded Confirmed Last Taken Type Divalproex Sodium [Depakote 125 mg PO BID 03/18/22 03/18/22 Unknown History Sprinkle] Dorzolamide HCl/Timolol Maleat 10 ml OP HS 03/18/22 03/18/22 Unknown History [Dorzolamide-Timolol Eye Drops] Ferrous Sulfate [Iron 325 MG] 325 mg PO DAILY 03/18/22 03/18/22 Unknown History Hydralazine HCl 50 mg PO TID 03/18/22 03/18/22 Unknown History Insulin Lispro [Admelog] See Protocol SQ ACHS 03/18/22 03/18/22 Unknown History Lactulose [Cephulac] 20 gm PO TID PRN 03/18/22 03/18/22 Unknown History Levothyroxine Sodium [Synthroid] 200 mcg PO DAILY 03/18/22 03/18/22 Unknown History Melatonin [Melatonin 3MG TAB] 3 mg PO HS 03/18/22 03/18/22 Unknown History Pioglitazone HCl [Actos] 30 mg PO DAILY 03/18/22 03/18/22 Unknown History Triamter/Hctz 37.5-25 mg 1 tab PO QDAY 03/18/22 03/18/22 Unknown History [Maxzide-25] amLODIPine [Norvasc] 10 mg PO DAILY 03/18/22 03/18/22 Unknown History glipiZIDE [Glucotrol] 5 mg PO QDAY 03/18/22 03/18/22 Unknown History Active Meds: Active Medications Brimonidine/Timolol (Combigan 0.2-0.5% [facility]) 1 drops OU Q12HR [facility] Last Admin: 04/09/22 21:58 Dose: 1 drops Divalproex Sodium (Divalproex Sprinkle 125 Mg Cap) 125 mg PO TID [facility] Last Admin: 04/09/22 21:58 Dose: 125 mg Ferrous Sulfate (Ferrous Sulfate 325 Mg Tab) 325 mg PO DAILY [facility] Last Admin: 04/09/22 09:08 Dose: Not Given Glipizide (Glipizide Xl 2.5 Mg Tab) 2.5 mg PO DAILY@0800 [facility] Last Admin: 04/09/22 08:41 Dose: Not Given Hydralazine HCl (Hydralazine 25 Mg Tab) 50 mg PO Q8HR [facility] Last Admin: 04/10/22 05:49 Dose: Not Given Insulin Human Lispro (Insulin Lispro 100 Unit/Ml) 0 unit SUB-Q [facility]; Protocol Last Admin: 04/10/22 09:32 Dose: Not Given Lactulose (Lactulose 20 Gm/30 Ml Oral Liqd) 20 gm PO TID PRN PRN Reason: Edema Levothyroxine Sodium (Levothyroxine 100 Mcg Tab) 200 mcg PO DAILY@0600 [facility] Last Admin: 04/10/22 05:50 Dose: Not Given Melatonin (Melatonin 5 Mg Tab) 5 mg PO QHS [facility] Last Admin: 04/09/22 21:58 Dose: 5 mg Olanzapine (Olanzapine 2.5 Mg Tab) 2.5 mg PO QHS [facility] Last Admin: 04/09/22 21:58 Dose: 2.5 mg Trazodone HCl (Trazodone 50 Mg Tab) 50 mg PO QHS [facility] Last Admin: 04/09/22 21:58 Dose: 50 mg Triamterene/Hydrochlorothiazide (Triamter/Hctz 37.5-25 Mg Tab) 1 each PO QDAY [facility] Last Admin: 04/09/22 09:08 Dose: Not Given Ziprasidone (Ziprasidone Mesylate 20 Mg Vial) 20 mg IM Q4H PRN PRN Reason: Agitation Results - Results Labs/Vitals: Laboratory Last Values WBC 6.3 K/mm3 (4.5-11.0) 03/18/22 17:18 RBC 4.33 M/mm3 (3.65-5.03) 03/18/22 17:18 Hgb 11.8 gm/dl (11.8-15.2) 03/18/22 17:18 Hct 35.4 % (35.5-45.6) L 03/18/22 17:18 MCV 82 fl (84-94) L 03/18/22 17:18 MCH 27 pg (28-32) L 03/18/22 17:18 MCHC 33 % (32-34) 03/18/22 17:18 RDW 16.0 % (13.2-15.2) H 03/18/22 17:18 Plt Count 270 K/mm3 (140-440) 03/18/22 17:18 Lymph % (Auto) 27.9 % (13.4-35.0) 03/18/22 17:18 [place] % (Auto) 11.1 % (0.0-7.3) H 03/18/22 17:18 Eos % (Auto) 1.8 % (0.0-4.3) 03/18/22 17:18 Baso % (Auto) 1.1 % (0.0-1.8) 03/18/22 17:18 Lymph # (Auto) 1.8 K/mm3 (1.2-5.4) 03/18/22 17:18 [place] # (Auto) 0.7 K/mm3 (0.0-0.8) 03/18/22 17:18 Eos # (Auto) 0.1 K/mm3 (0.0-0.4) 03/18/22 17:18 Baso # (Auto) 0.1 K/mm3 (0.0-0.1) 03/18/22 17:18 Seg Neutrophils % 58.1 % (40.0-70.0) 03/18/22 17:18 Seg Neutrophils # 3.7 K/mm3 (1.8-7.7) 03/18/22 17:18 Sodium 139 mmol/L (137-145) 03/18/22 17:18 Potassium 3.8 mmol/L (3.6-5.0) 03/18/22 17:18 Chloride 103.4 mmol/L (98-107) 03/18/22 17:18 Carbon Dioxide 20 mmol/L (22-30) L 03/18/22 17:18 Anion Gap 19 mmol/L 03/18/22 17:18 BUN 52 mg/dL (9-20) H 03/18/22 17:18 Creatinine 2.9 mg/dL (0.8-1.3) H 03/18/22 17:18 Estimated GFR 21 ml/min 03/18/22 17:18 BUN/Creatinine Ratio 18 % 03/18/22 17:18 Glucose 63 mg/dL (75-100) L 03/18/22 17:18 POC Glucose 169 mg/dL (70-105) H 04/10/22 07:56 Hemoglobin A1c 8.5 % (4-6) H 03/18/22 17:18 Calcium 9.3 mg/dL (8.4-10.2) 03/18/22 17:18 Total Bilirubin 0.20 mg/dL (0.1-1.2) 03/18/22 17:18 AST 16 units/L (5-40) 03/18/22 17:18 ALT 8 units/L (7-56) 03/18/22 17:18 Alkaline Phosphatase 76 units/L (35-129) 03/18/22 17:18 Total Protein 7.3 g/dL (6.3-8.2) 03/18/22 17:18 Albumin 4.5 g/dL (3.9-5) 03/18/22 17:18 Albumin/Globulin Ratio 1.6 % 03/18/22 17:18 Triglycerides 69 mg/dL (2-149) 03/18/22 17:18 Cholesterol 230 mg/dL (50-199) H 03/18/22 17:18 LDL Cholesterol Direct 134 mg/dL (50-130) H 03/18/22 17:18 HDL Cholesterol 74 mg/dL (40-59) H 03/18/22 17:18 Cholesterol/HDL Ratio 3.10 % 03/18/22 17:18 TSH 1.190 mlU/mL (0.270-4.200) 03/18/22 17:18 Last Vital Signs Temp 98.0 F 04/09/22 05:26 Pulse 69 04/09/22 05:26 Resp 18 04/09/22 05:26 BP 122/63 04/09/22 05:26 Pulse Ox 98 04/09/22 05:26
[2022-04-10] MEDS: DIVALPROEX SPRINKLE 125 MG CAP PO SCH ×4 (11:02→20:00)
[2022-04-10] MEDS: FERROUS SULFATE 325 MG TAB PO SCH (11:03)
[2022-04-10] MEDS: COMBIGAN 0.2-0.5% OPHTH SOLN OU SCH ×2 (11:03→22:00)
[2022-04-10] MEDS: TRIAMTER/HCTZ 37.5-25 MG TAB PO SCH (11:04)
[2022-04-10] MEDS: MELATONIN 5 MG TAB PO SCH (22:00)
[2022-04-10] MEDS: traZODone 50 MG TAB PO SCH (22:00)
[2022-04-11] MEDS: hydrALAZINE 25 MG TAB PO SCH ×3 (06:11→22:28)
[2022-04-11] MEDS: LEVOTHYROXINE 100 MCG TAB PO SCH (06:11)
[2022-04-11] MEDS: INSULIN LISPRO 100 UNIT/ML SUB-Q SCH ×4 (08:00→22:29)
[2022-04-11] MEDS: DIVALPROEX SPRINKLE 125 MG CAP PO SCH ×3 (08:47→22:28)
[2022-04-11] MEDS: COMBIGAN 0.2-0.5% OPHTH SOLN OU SCH ×2 (09:01→22:28)
[2022-04-11] MEDS: FERROUS SULFATE 325 MG TAB PO SCH (09:01)
--- NOTE | 2022-04-11 09:53 | Progress Note ---
Subjective Date of service: 04/11/22 Principal diagnosis: MDD Subjective Comment: 04/11:The patient was seen today. He reports doing "pretty good." He denies any current suicidal/homicidal ideation and denies hallucinations. No changes made today. 04/10:The patient was seen today. He reports doing well. He reports appetite and sleep as ok. He denies any current suicidal/homicidal ideation and denies hallucinations. No changes made today. 04/09: The patient was seen today. He is sleeping but easily arouses. He says "I don't feel like being bothered right now." I encourage the patient to get up for breakfast. He says "I'll get up when I'm ready." He denies SI/HI or hallucinations of any kind. 04/08 The patient was seen today. He says he feels pretty good, but "wishes we would leave him alone." He says he was about to get up and eat breakfast. He denies SI/HI or hallucinations of any kind. 04/07 The patient was seen today. He is lying in bed. He says he doesn't feel too good because he is tired. I encourage the patient to get up out of bed to feel better and maintain his strength. He denies SI/HI or hallucinations of any kind. 04/06 The patient was seen today. He appears down, but he says he's doing "pretty good." The patient says he didn't sleep well night, because people kept waking him up. He denies SI/HI or hallucinations of any kind. He is awaiting placement. 04/05 The patient was today. He is sitting up in the bed awake. he says he is doing okay. He says "just ready to get out of here." I told the patient we were working on it. He denies SI/HI or hallucinations of any kind. 04/04 The patient was seen today. He is sleeping. He easily arouses but drifts back to sleep at times. He says he feels alright. The patient says "they still came in and woke me up last night." He denies SI/HI or hallucinations of any kind. He is awaiting placement. REVIEW OF SYSTEMS Constitutional: Negative for weight loss ENT: Negative for stridor Respiratory: Negative for cough or hemoptysis All other systems reviewed and are negative MENTAL STATUS EXAMINATION General Appearance and Behavior: Age appropriate, good hygiene, wearing appropriate clothes, good eye contact, calm, cooperative Cooperation: Participating/engaged, but Guarded Psychomotor Behavior: Psychomotor normal Mood: "Pretty good" Affect and affective range: congruent with stated mood Thought Process: Goal directed Thought Content: Reality oriented Speech: normal tone and pace Suicidal Ideation: Denies Homicidal Ideation: Denies Hallucinations: Denies Delusions: None Impulse Control: Limited Insight and Judgment: Limited insight and judgment Memory: Limited Attention: attentive Orientation: Alert, oriented Diagnoses: Dementia with behavioral disturbances Treatment Plan Patient admitted for inpatient psychiatric evaluation, medication adjustment and close monitoring The patient's behavior, mood, sleep and appetite will be closely monitored. Patient enrolled in individual and group therapeutic sessions and encouraged to attend. Patient provided with a safe and structured environment. Patient's physical health needs will be addressed by the Hospitalist. Hospitalist Consulted Labs including CBC, CMP, Lipid profile and Hemoglobin A1C levels ordered for baseline reference Social Assessment will be completed and the Meat Carrier will work with patient and family to ensure a suitable and safe disposition Medication adjustment will be made as clinically indicated No changes made today Usual Wellness Temple/Preservation: - Start Trazodone 50 mg po QHS & 50 mg po QHS PRN between 10 PM & 2 AM for insomnia - Start Melatonin 5 mg po QHS to promote circadian rhythm The patient agreed on the treatment plan, understood the risk, benefit, alternative treatment, potential consequence of no treatment, and gave informed consent. Estimated days:6 Post hospital care: primary care provider, psychiatric provider Case staffed with Dr. Hwang Medications and Allergies Medications and Allergies Medications and Allergies Allergies Allergy/AdvReac Type Severity Reaction Status Date / Time No Known Allergies Allergy Unverified 03/17/22 17:19 Home Medications Medication Instructions Recorded Confirmed Last Taken Type Divalproex Sodium [Depakote 125 mg PO BID 03/18/22 03/18/22 Unknown History Sprinkle] Dorzolamide HCl/Timolol Maleat 10 ml OP HS 03/18/22 03/18/22 Unknown History [Dorzolamide-Timolol Eye Drops] Ferrous Sulfate [Iron 325 MG] 325 mg PO DAILY 03/18/22 03/18/22 Unknown History Hydralazine HCl 50 mg PO TID 03/18/22 03/18/22 Unknown History Insulin Lispro [Admelog] See Protocol SQ ACHS 03/18/22 03/18/22 Unknown History Lactulose [Cephulac] 20 gm PO TID PRN 03/18/22 03/18/22 Unknown History Levothyroxine Sodium [Synthroid] 200 mcg PO DAILY 03/18/22 03/18/22 Unknown History Melatonin [Melatonin 3MG TAB] 3 mg PO HS 03/18/22 03/18/22 Unknown History Pioglitazone HCl [Actos] 30 mg PO DAILY 03/18/22 03/18/22 Unknown History Triamter/Hctz 37.5-25 mg 1 tab PO QDAY 03/18/22 03/18/22 Unknown History [Maxzide-25] amLODIPine [Norvasc] 10 mg PO DAILY 03/18/22 03/18/22 Unknown History glipiZIDE [Glucotrol] 5 mg PO QDAY 03/18/22 03/18/22 Unknown History Active Meds: Active Medications Brimonidine/Timolol (Combigan 0.2-0.5% [facility]) 1 drops OU Q12HR [facility] Last Admin: 04/11/22 09:01 Dose: 1 drops Divalproex Sodium (Divalproex Sprinkle 125 Mg Cap) 125 mg PO TID [facility] Last Admin: 04/11/22 08:47 Dose: 125 mg Ferrous Sulfate (Ferrous Sulfate 325 Mg Tab) 325 mg PO DAILY [facility] Last Admin: 04/11/22 09:01 Dose: 325 mg Glipizide (Glipizide Xl 2.5 Mg Tab) 2.5 mg PO DAILY@0800 [facility] Last Admin: 04/11/22 08:47 Dose: 2.5 mg Hydralazine HCl (Hydralazine 25 Mg Tab) 50 mg PO Q8HR [facility] Last Admin: 04/11/22 06:11 Dose: Not Given Insulin Human Lispro (Insulin Lispro 100 Unit/Ml) 0 unit SUB-Q [facility]; Protocol Last Admin: 04/11/22 08:00 Dose: Not Given Lactulose (Lactulose 20 Gm/30 Ml Oral Liqd) 20 gm PO TID PRN PRN Reason: Edema Levothyroxine Sodium (Levothyroxine 100 Mcg Tab) 200 mcg PO DAILY@0600 [facility] Last Admin: 04/11/22 06:11 Dose: Not Given Melatonin (Melatonin 5 Mg Tab) 5 mg PO QHS [facility] Last Admin: 04/10/22 22:00 Dose: Not Given Olanzapine (Olanzapine 2.5 Mg Tab) 2.5 mg PO QHS [facility] Last Admin: 04/10/22 22:00 Dose: Not Given Trazodone HCl (Trazodone 50 Mg Tab) 50 mg PO QHS [facility] Last Admin: 04/10/22 22:00 Dose: Not Given Triamterene/Hydrochlorothiazide (Triamter/Hctz 37.5-25 Mg Tab) 1 each PO QDAY [facility] Last Admin: 04/10/22 11:04 Dose: Not Given Ziprasidone (Ziprasidone Mesylate 20 Mg Vial) 20 mg IM Q4H PRN PRN Reason: Agitation Results - Results Labs/Vitals: Laboratory Last Values WBC 6.3 K/mm3 (4.5-11.0) 03/18/22 17:18 RBC 4.33 M/mm3 (3.65-5.03) 03/18/22 17:18 Hgb 11.8 gm/dl (11.8-15.2) 03/18/22 17:18 Hct 35.4 % (35.5-45.6) L 03/18/22 17:18 MCV 82 fl (84-94) L 03/18/22 17:18 MCH 27 pg (28-32) L 03/18/22 17:18 MCHC 33 % (32-34) 03/18/22 17:18 RDW 16.0 % (13.2-15.2) H 03/18/22 17:18 Plt Count 270 K/mm3 (140-440) 03/18/22 17:18 Lymph % (Auto) 27.9 % (13.4-35.0) 03/18/22 17:18 Mcleod % (Auto) 11.1 % (0.0-7.3) H 03/18/22 17:18 Eos % (Auto) 1.8 % (0.0-4.3) 03/18/22 17:18 Baso % (Auto) 1.1 % (0.0-1.8) 03/18/22 17:18 Lymph # (Auto) 1.8 K/mm3 (1.2-5.4) 03/18/22 17:18 Mcleod # (Auto) 0.7 K/mm3 (0.0-0.8) 03/18/22 17:18 Eos # (Auto) 0.1 K/mm3 (0.0-0.4) 03/18/22 17:18 Baso # (Auto) 0.1 K/mm3 (0.0-0.1) 03/18/22 17:18 Seg Neutrophils % 58.1 % (40.0-70.0) 03/18/22 17:18 Seg Neutrophils # 3.7 K/mm3 (1.8-7.7) 03/18/22 17:18 Sodium 139 mmol/L (137-145) 03/18/22 17:18 Potassium 3.8 mmol/L (3.6-5.0) 03/18/22 17:18 Chloride 103.4 mmol/L (98-107) 03/18/22 17:18 Carbon Dioxide 20 mmol/L (22-30) L 03/18/22 17:18 Anion Gap 19 mmol/L 03/18/22 17:18 BUN 52 mg/dL (9-20) H 03/18/22 17:18 Creatinine 2.9 mg/dL (0.8-1.3) H 03/18/22 17:18 Estimated GFR 21 ml/min 03/18/22 17:18 BUN/Creatinine Ratio 18 % 03/18/22 17:18 Glucose 63 mg/dL (75-100) L 03/18/22 17:18 POC Glucose 128 mg/dL (70-105) H 04/11/22 06:07 Hemoglobin A1c 8.5 % (4-6) H 03/18/22 17:18 Calcium 9.3 mg/dL (8.4-10.2) 03/18/22 17:18 Total Bilirubin 0.20 mg/dL (0.1-1.2) 03/18/22 17:18 AST 16 units/L (5-40) 03/18/22 17:18 ALT 8 units/L (7-56) 03/18/22 17:18 Alkaline Phosphatase 76 units/L (35-129) 03/18/22 17:18 Total Protein 7.3 g/dL (6.3-8.2) 03/18/22 17:18 Albumin 4.5 g/dL (3.9-5) 03/18/22 17:18 Albumin/Globulin Ratio 1.6 % 03/18/22 17:18 Triglycerides 69 mg/dL (2-149) 03/18/22 17:18 Cholesterol 230 mg/dL (50-199) H 03/18/22 17:18 LDL Cholesterol Direct 134 mg/dL (50-130) H 03/18/22 17:18 HDL Cholesterol 74 mg/dL (40-59) H 03/18/22 17:18 Cholesterol/HDL Ratio 3.10 % 03/18/22 17:18 TSH 1.190 mlU/mL (0.270-4.200) 03/18/22 17:18 Last Vital Signs Temp 98.1 F 04/10/22 19:51 Pulse 69 04/10/22 19:51 Resp 16 04/10/22 19:51 BP 158/81 04/10/22 19:51 Pulse Ox 99 04/10/22 19:51
[2022-04-11] MEDS: TRIAMTER/HCTZ 37.5-25 MG TAB PO SCH (12:37)
[2022-04-11] MEDS: traZODone 50 MG TAB PO SCH (22:28)
[2022-04-11] MEDS: MELATONIN 5 MG TAB PO SCH (22:29)
[2022-04-12] MEDS: hydrALAZINE 25 MG TAB PO SCH ×3 (06:06→21:29)
[2022-04-12] MEDS: LEVOTHYROXINE 100 MCG TAB PO SCH (06:06)
[2022-04-12] MEDS: DIVALPROEX SPRINKLE 125 MG CAP PO SCH ×3 (08:08→20:57)
[2022-04-12] MEDS: INSULIN LISPRO 100 UNIT/ML SUB-Q SCH ×4 (08:08→21:35)
[2022-04-12] MEDS: COMBIGAN 0.2-0.5% OPHTH SOLN OU SCH ×2 (09:04→21:30)
[2022-04-12] MEDS: FERROUS SULFATE 325 MG TAB PO SCH (09:04)
[2022-04-12] MEDS: TRIAMTER/HCTZ 37.5-25 MG TAB PO SCH (09:04)
--- NOTE | 2022-04-12 10:04 | Progress Note ---
Subjective Date of service: 04/12/22 Principal diagnosis: MDD Medications and Allergies Allergies Allergy/AdvReac Type Severity Reaction Status Date / Time No Known Allergies Allergy Unverified 03/17/22 17:19 Home Medications Medication Instructions Recorded Confirmed Last Taken Type Divalproex Sodium [Depakote 125 mg PO BID 03/18/22 03/18/22 Unknown History Sprinkle] Dorzolamide HCl/Timolol Maleat 10 ml OP HS 03/18/22 03/18/22 Unknown History [Dorzolamide-Timolol Eye Drops] Ferrous Sulfate [Iron 325 MG] 325 mg PO DAILY 03/18/22 03/18/22 Unknown History Hydralazine HCl 50 mg PO TID 03/18/22 03/18/22 Unknown History Insulin Lispro [Admelog] See Protocol SQ ACHS 03/18/22 03/18/22 Unknown History Lactulose [Cephulac] 20 gm PO TID PRN 03/18/22 03/18/22 Unknown History Levothyroxine Sodium [Synthroid] 200 mcg PO DAILY 03/18/22 03/18/22 Unknown History Melatonin [Melatonin 3MG TAB] 3 mg PO HS 03/18/22 03/18/22 Unknown History Pioglitazone HCl [Actos] 30 mg PO DAILY 03/18/22 03/18/22 Unknown History Triamter/Hctz 37.5-25 mg 1 tab PO QDAY 03/18/22 03/18/22 Unknown History [Maxzide-25] amLODIPine [Norvasc] 10 mg PO DAILY 03/18/22 03/18/22 Unknown History glipiZIDE [Glucotrol] 5 mg PO QDAY 03/18/22 03/18/22 Unknown History Active Meds: Active Medications Brimonidine/Timolol (Combigan 0.2-0.5% [facility]) 1 drops OU Q12HR [facility] Last Admin: 04/12/22 09:04 Dose: Not Given Divalproex Sodium (Divalproex Sprinkle 125 Mg Cap) 125 mg PO TID [facility] Last Admin: 04/12/22 08:08 Dose: Not Given Ferrous Sulfate (Ferrous Sulfate 325 Mg Tab) 325 mg PO DAILY [facility] Last Admin: 04/12/22 09:04 Dose: Not Given Glipizide (Glipizide Xl 2.5 Mg Tab) 2.5 mg PO DAILY@0800 [facility] Last Admin: 04/12/22 08:08 Dose: Not Given Hydralazine HCl (Hydralazine 25 Mg Tab) 50 mg PO Q8HR [facility] Last Admin: 04/12/22 06:06 Dose: Not Given Insulin Human Lispro (Insulin Lispro 100 Unit/Ml) 0 unit SUB-Q ACHS [facility]; Protocol Last Admin: 04/12/22 08:08 Dose: Not Given Lactulose (Lactulose 20 Gm/30 Ml Oral Liqd) 20 gm PO TID PRN PRN Reason: Edema Levothyroxine Sodium (Levothyroxine 100 Mcg Tab) 200 mcg PO DAILY@0600 [facility] Last Admin: 04/12/22 06:06 Dose: Not Given Melatonin (Melatonin 5 Mg Tab) 5 mg PO QHS [facility] Last Admin: 04/11/22 22:29 Dose: Not Given Olanzapine (Olanzapine 2.5 Mg Tab) 2.5 mg PO QHS [facility] Last Admin: 04/11/22 22:29 Dose: Not Given Trazodone HCl (Trazodone 50 Mg Tab) 50 mg PO QHS [facility] Last Admin: 04/11/22 22:28 Dose: Not Given Triamterene/Hydrochlorothiazide (Triamter/Hctz 37.5-25 Mg Tab) 1 each PO QDAY [facility] Last Admin: 04/12/22 09:04 Dose: Not Given Ziprasidone (Ziprasidone Mesylate 20 Mg Vial) 20 mg IM Q4H PRN PRN Reason: Agitation Results - Results Labs/Vitals: Laboratory Last Values WBC 6.3 K/mm3 (4.5-11.0) 03/18/22 17:18 RBC 4.33 M/mm3 (3.65-5.03) 03/18/22 17:18 Hgb 11.8 gm/dl (11.8-15.2) 03/18/22 17:18 Hct 35.4 % (35.5-45.6) L 03/18/22 17:18 MCV 82 fl (84-94) L 03/18/22 17:18 MCH 27 pg (28-32) L 03/18/22 17:18 MCHC 33 % (32-34) 03/18/22 17:18 RDW 16.0 % (13.2-15.2) H 03/18/22 17:18 Plt Count 270 K/mm3 (140-440) 03/18/22 17:18 Lymph % (Auto) 27.9 % (13.4-35.0) 03/18/22 17:18 [place] % (Auto) 11.1 % (0.0-7.3) H 03/18/22 17:18 Eos % (Auto) 1.8 % (0.0-4.3) 03/18/22 17:18 Baso % (Auto) 1.1 % (0.0-1.8) 03/18/22 17:18 Lymph # (Auto) 1.8 K/mm3 (1.2-5.4) 03/18/22 17:18 [place] # (Auto) 0.7 K/mm3 (0.0-0.8) 03/18/22 17:18 Eos # (Auto) 0.1 K/mm3 (0.0-0.4) 03/18/22 17:18 Baso # (Auto) 0.1 K/mm3 (0.0-0.1) 03/18/22 17:18 Seg Neutrophils % 58.1 % (40.0-70.0) 03/18/22 17:18 Seg Neutrophils # 3.7 K/mm3 (1.8-7.7) 03/18/22 17:18 Sodium 139 mmol/L (137-145) 03/18/22 17:18 Potassium 3.8 mmol/L (3.6-5.0) 03/18/22 17:18 Chloride 103.4 mmol/L (98-107) 03/18/22 17:18 Carbon Dioxide 20 mmol/L (22-30) L 03/18/22 17:18 Anion Gap 19 mmol/L 03/18/22 17:18 BUN 52 mg/dL (9-20) H 03/18/22 17:18 Creatinine 2.9 mg/dL (0.8-1.3) H 03/18/22 17:18 Estimated GFR 21 ml/min 03/18/22 17:18 BUN/Creatinine Ratio 18 % 03/18/22 17:18 Glucose 63 mg/dL (75-100) L 03/18/22 17:18 POC Glucose 146 mg/dL (70-105) H 04/11/22 12:20 Hemoglobin A1c 8.5 % (4-6) H 03/18/22 17:18 Calcium 9.3 mg/dL (8.4-10.2) 03/18/22 17:18 Total Bilirubin 0.20 mg/dL (0.1-1.2) 03/18/22 17:18 AST 16 units/L (5-40) 03/18/22 17:18 ALT 8 units/L (7-56) 03/18/22 17:18 Alkaline Phosphatase 76 units/L (35-129) 03/18/22 17:18 Total Protein 7.3 g/dL (6.3-8.2) 03/18/22 17:18 Albumin 4.5 g/dL (3.9-5) 03/18/22 17:18 Albumin/Globulin Ratio 1.6 % 03/18/22 17:18 Triglycerides 69 mg/dL (2-149) 03/18/22 17:18 Cholesterol 230 mg/dL (50-199) H 03/18/22 17:18 LDL Cholesterol Direct 134 mg/dL (50-130) H 03/18/22 17:18 HDL Cholesterol 74 mg/dL (40-59) H 03/18/22 17:18 Cholesterol/HDL Ratio 3.10 % 03/18/22 17:18 TSH 1.190 mlU/mL (0.270-4.200) 03/18/22 17:18 Last Vital Signs Temp 98.1 F 04/10/22 19:51 Pulse 66 04/11/22 10:26 Resp 18 04/11/22 10:26 BP 122/61 04/11/22 10:26 Pulse Ox 97 04/11/22 10:26
--- NOTE | 2022-04-12 19:20 | Progress Note ---
Assessment and Plan - Patient Problems (1) Vascular dementia with behavioral disturbance Current Visit: Yes Status: Acute Plan to address problem: Verbal prompting, verbal redirection, benzodiazepine therapy as clinically indicated. (2) Cerebral atherosclerosis Current Visit: Yes Status: Acute Plan to address problem: Risk factor reduction, antiplatelet therapy as clinically indicated. (3) Hypertension Current Visit: Yes Status: Acute Qualifiers: Hypertension type: primary hypertension Qualified Code(s): I10 - Essential (primary) hypertension Plan to address problem: Monitor blood pressure every shift, continue medical management. (4) Diabetes Current Visit: Yes Status: Acute Plan to address problem: Consult to help with carbohydrate diet, Accu-Chek, insulin protocol, hypoglycemia protocol. (5) Hyperlipidemia Current Visit: Yes Status: Acute Qualifiers: Hyperlipidemia type: mixed hyperlipidemia Qualified Code(s): E78.2 - Mixed hyperlipidemia Plan to address problem: Low-cholesterol diet, statin therapy as clinically indicated. (6) Hypothyroidism Current Visit: Yes Status: Acute Plan to address problem: Continue Synthroid therapy, supportive care. (7) Advance care planning Current Visit: Yes Status: Acute Plan to address problem: Disease education data, care plan discussed, diagnosis discussed, prognosis discussed, +30 minutes. History Interval history: 80 YO Male with Vascular Dementia with Behavioral Disturbance, Cerebral Atherosclerosis, DM, HTN, HLD, Hypothyroidism. Pt is admitted to [facility] psych unit for psychiatric stabilization. Consult placed by Dr. Frankel for medical management. Patient seen and evaluated in the recreation room. Patient resting. Patient exhibits tangential thinking with diminished cognition and intermittent agitation. No reported nursing events. Patient remains at baseline level of cognition and function. Hospitalist Physical - Constitutional Vitals: Temp Pulse Resp BP Pulse Ox 98.1 F 66 18 122/61 97 04/10/22 19:51 04/11/22 10:26 04/11/22 10:26 04/11/22 10:26 04/11/22 10:26 General appearance: Present: no acute distress, well-nourished, other (Cheerful today) - EENT Eyes: Present: PERRL ENT: hearing intact, hearing decreased - Neck Neck: Present: supple - Respiratory Respiratory effort: normal Respiratory: bilateral: CTA - Cardiovascular Rhythm: regular Heart Sounds: Present: S1 & S2 - Extremities Extremities: no ischemia Peripheral Pulses: within normal limits - Abdominal General gastrointestinal: soft, non-tender, non-distended - Integumentary Integumentary: Present: clear, dry - Psychiatric Psychiatric: cooperative - Neurologic Neurologic: CNII-XII intact Results - Labs CBC & Chem 7: 03/18/22 17:18 03/18/22 17:18 Labs: Laboratory Last Values WBC 6.3 K/mm3 (4.5-11.0) 03/18/22 17:18 RBC 4.33 M/mm3 (3.65-5.03) 03/18/22 17:18 Hgb 11.8 gm/dl (11.8-15.2) 03/18/22 17:18 Hct 35.4 % (35.5-45.6) L 03/18/22 17:18 MCV 82 fl (84-94) L 03/18/22 17:18 MCH 27 pg (28-32) L 03/18/22 17:18 MCHC 33 % (32-34) 03/18/22 17:18 RDW 16.0 % (13.2-15.2) H 03/18/22 17:18 Plt Count 270 K/mm3 (140-440) 03/18/22 17:18 Lymph % (Auto) 27.9 % (13.4-35.0) 03/18/22 17:18 [place] % (Auto) 11.1 % (0.0-7.3) H 03/18/22 17:18 Eos % (Auto) 1.8 % (0.0-4.3) 03/18/22 17:18 Baso % (Auto) 1.1 % (0.0-1.8) 03/18/22 17:18 Lymph # (Auto) 1.8 K/mm3 (1.2-5.4) 03/18/22 17:18 [place] # (Auto) 0.7 K/mm3 (0.0-0.8) 03/18/22 17:18 Eos # (Auto) 0.1 K/mm3 (0.0-0.4) 03/18/22 17:18 Baso # (Auto) 0.1 K/mm3 (0.0-0.1) 03/18/22 17:18 Seg Neutrophils % 58.1 % (40.0-70.0) 03/18/22 17:18 Seg Neutrophils # 3.7 K/mm3 (1.8-7.7) 03/18/22 17:18 Sodium 139 mmol/L (137-145) 03/18/22 17:18 Potassium 3.8 mmol/L (3.6-5.0) 03/18/22 17:18 Chloride 103.4 mmol/L (98-107) 03/18/22 17:18 Carbon Dioxide 20 mmol/L (22-30) L 03/18/22 17:18 Anion Gap 19 mmol/L 03/18/22 17:18 BUN 52 mg/dL (9-20) H 03/18/22 17:18 Creatinine 2.9 mg/dL (0.8-1.3) H 03/18/22 17:18 Estimated GFR 21 ml/min 03/18/22 17:18 BUN/Creatinine Ratio 18 % 03/18/22 17:18 Glucose 63 mg/dL (75-100) L 03/18/22 17:18 POC Glucose 132 mg/dL (70-105) H 04/12/22 19:06 Hemoglobin A1c 8.5 % (4-6) H 03/18/22 17:18 Calcium 9.3 mg/dL (8.4-10.2) 03/18/22 17:18 Total Bilirubin 0.20 mg/dL (0.1-1.2) 03/18/22 17:18 AST 16 units/L (5-40) 03/18/22 17:18 ALT 8 units/L (7-56) 03/18/22 17:18 Alkaline Phosphatase 76 units/L (35-129) 03/18/22 17:18 Total Protein 7.3 g/dL (6.3-8.2) 03/18/22 17:18 Albumin 4.5 g/dL (3.9-5) 03/18/22 17:18 Albumin/Globulin Ratio 1.6 % 03/18/22 17:18 Triglycerides 69 mg/dL (2-149) 03/18/22 17:18 Cholesterol 230 mg/dL (50-199) H 03/18/22 17:18 LDL Cholesterol Direct 134 mg/dL (50-130) H 03/18/22 17:18 HDL Cholesterol 74 mg/dL (40-59) H 03/18/22 17:18 Cholesterol/HDL Ratio 3.10 % 03/18/22 17:18 TSH 1.190 mlU/mL (0.270-4.200) 03/18/22 17:18 Chan/IV: Voiding Method Toilet Active Medications - Current Medications Current Medications: Generic Name Dose Route Start Last Admin Trade Name Freq PRN Reason Stop Dose Admin Brimonidine/Timolol 1 drops 03/18/22 12:00 04/12/22 09:04 Combigan 0.2-0.5% Ophth Soln OU Not Given Q12HR [facility] Divalproex Sodium 125 mg 03/23/22 14:00 04/12/22 13:43 Divalproex Sprinkle 125 Mg Cap PO Not Given TID [facility] Ferrous Sulfate 325 mg 03/18/22 10:00 04/12/22 09:04 Ferrous Sulfate 325 Mg Tab PO Not Given DAILY [facility] Glipizide 2.5 mg 03/22/22 08:00 04/12/22 08:08 Glipizide Xl 2.5 Mg Tab PO Not Given DAILY@0800 [facility] Hydralazine HCl 50 mg 03/18/22 10:00 04/12/22 13:43 Hydralazine 25 Mg Tab PO Not Given Q8HR [facility] Insulin Human Lispro 0 unit 03/18/22 11:30 04/12/22 17:42 Insulin Lispro 100 Unit/Ml SUB-Q Not Given ACHS [facility] Protocol Lactulose 20 gm 03/18/22 10:00 Lactulose 20 Gm/30 Ml Oral Liqd PO TID PRN Edema Levothyroxine Sodium 200 mcg 03/19/22 06:00 04/12/22 06:06 Levothyroxine 100 Mcg Tab PO Not Given DAILY@0600 [facility] Melatonin 5 mg 03/18/22 22:00 04/11/22 22:29 Melatonin 5 Mg Tab PO Not Given QHS [facility] Olanzapine 2.5 mg 03/18/22 22:00 04/11/22 22:29 Olanzapine 2.5 Mg Tab PO Not Given QHS [facility] Trazodone HCl 50 mg 03/18/22 22:00 04/11/22 22:28 Trazodone 50 Mg Tab PO Not Given QHS [facility] Triamterene/Hydrochlorothiazide 1 each 03/18/22 10:00 04/12/22 09:04 Triamter/Hctz 37.5-25 Mg Tab PO Not Given QDAY [facility] Ziprasidone 20 mg 03/18/22 10:00 Ziprasidone Mesylate 20 Mg Vial IM Q4H PRN Agitation Nutrition/Malnutrition Assess - Dietary Evaluation Nutrition/Malnutrition Findings: Nutrition Notes Start: 03/18/22 16:11 Freq: Status: Active Protocol: Document 03/25/22 16:49 KAM (Rec: 03/25/22 17:00 KAM [id number]) Nutrition Notes Initial or Follow up Reassessment Current Diet Cardiac/Consistent Carbohydrates -Chopped Meats- Diet (since B 03/18). Height 5 ft 8 in Weight 72.121 kg [place] Body Weight (kg) 70.00 BMI 24.1 Weight change and time frame No body weight change reported in 1 week. Weight Status Appropriate Subjective/Other Information RD consult for routine F/U on dietary advancement. Pt's PO intake of meals has been Good (75%), according to ADL notes. Pt is on Room Air, O2 saturation @ 100%, according to Vital Signs notes. Plans for discharge Pt to a more safe environment facility , according to Progress notes. Percent of energy/protein needs met: Prescribed Cardiac/Consistent Carbohydrates -Chopped Meats- Diet provides for energy/ protein needs (1,977 Kcal/86 g ) during LOS. Burn Absent Trauma Absent GI Symptoms None Difficulty In Chewing Food Allergy No Skin Integrity/Comment Unspecified Dryness. Current % PO Good (75-100%) Minimum of two criteria No #1 Nutrition Diagnosis Biting/Chewing (masticatory) difficulty Diagnosis Progress(for reassessment Continues documentation) Is patient on ventilator? No Is Patient Ambulatory and/or Out of Bed Yes REE-([place]-St. Jeor-ambulatory/OOB) [ [id number] [id number]] Calculation Used for Recommendations [place] Jeor Additional Notes Protein: 1-1.2 g/Kg ABW; 72-86 g/day. Fluids: 1 ml/Kcal, or as per MD. Nutrition Intervention Change Diet Order: Modify to Cardiac/Consistent Carbohydrates -Chopped Meats- Diet. Goal #1 Facilitate PO intake of meals with elemental, textural, or mechanical modification during LOS. Goal #2 Maintain body weight within +/ -3% of admission body weight during LOS. Revisit per MD consult or patient Sign Off request: Additional Comments Continue monitoring food tolerance, %PO intake of meals , and BM.
--- NOTE | 2022-04-12 19:21 | Progress Note ---
Assessment and Plan - Patient Problems (1) Vascular dementia with behavioral disturbance Current Visit: Yes Status: Acute Plan to address problem: Verbal prompting, verbal redirection, benzodiazepine therapy as clinically indicated. (2) Cerebral atherosclerosis Current Visit: Yes Status: Acute Plan to address problem: Risk factor reduction, antiplatelet therapy as clinically indicated. (3) Hypertension Current Visit: Yes Status: Acute Qualifiers: Hypertension type: primary hypertension Qualified Code(s): I10 - Essential (primary) hypertension Plan to address problem: Monitor blood pressure every shift, continue medical management. (4) Diabetes Current Visit: Yes Status: Acute Plan to address problem: Consult to help with carbohydrate diet, Accu-Chek, insulin protocol, hypoglycemia protocol. (5) Hyperlipidemia Current Visit: Yes Status: Acute Qualifiers: Hyperlipidemia type: mixed hyperlipidemia Qualified Code(s): E78.2 - Mixed hyperlipidemia Plan to address problem: Low-cholesterol diet, statin therapy as clinically indicated. (6) Hypothyroidism Current Visit: Yes Status: Acute Plan to address problem: Continue Synthroid therapy, supportive care. (7) Advance care planning Current Visit: Yes Status: Acute Plan to address problem: Disease education data, care plan discussed, diagnosis discussed, prognosis discussed, +30 minutes. History Interval history: 80 YO Male with Vascular Dementia with Behavioral Disturbance, Cerebral Atherosclerosis, DM, HTN, HLD, Hypothyroidism. Pt is admitted to [facility] psych unit for psychiatric stabilization. Consult placed by Dr. Frankel for medical management. Patient seen and evaluated in the recreation room. Patient resting. Patient exhibits tangential thinking with diminished cognition and intermittent agitation. No reported nursing events. Patient remains at baseline level of cognition and function. Hospitalist Physical - Constitutional Vitals: Temp Pulse Resp BP Pulse Ox 98.1 F 66 18 122/61 97 04/10/22 19:51 04/11/22 10:26 04/11/22 10:26 04/11/22 10:26 04/11/22 10:26 General appearance: Present: no acute distress, well-nourished, other (Cheerful today) - EENT Eyes: Present: PERRL, EOM intact ENT: hearing intact, hearing decreased - Neck Neck: Present: supple - Respiratory Respiratory effort: normal Respiratory: bilateral: CTA - Cardiovascular Rhythm: regular Heart Sounds: Present: S1 & S2 - Extremities Extremities: no ischemia Peripheral Pulses: within normal limits - Abdominal General gastrointestinal: soft, non-tender, non-distended - Integumentary Integumentary: Present: clear, dry - Psychiatric Psychiatric: cooperative - Neurologic Neurologic: CNII-XII intact Results - Labs CBC & Chem 7: 03/18/22 17:18 03/18/22 17:18 Labs: Laboratory Last Values WBC 6.3 K/mm3 (4.5-11.0) 03/18/22 17:18 RBC 4.33 M/mm3 (3.65-5.03) 03/18/22 17:18 Hgb 11.8 gm/dl (11.8-15.2) 03/18/22 17:18 Hct 35.4 % (35.5-45.6) L 03/18/22 17:18 MCV 82 fl (84-94) L 03/18/22 17:18 MCH 27 pg (28-32) L 03/18/22 17:18 MCHC 33 % (32-34) 03/18/22 17:18 RDW 16.0 % (13.2-15.2) H 03/18/22 17:18 Plt Count 270 K/mm3 (140-440) 03/18/22 17:18 Lymph % (Auto) 27.9 % (13.4-35.0) 03/18/22 17:18 [place] % (Auto) 11.1 % (0.0-7.3) H 03/18/22 17:18 Eos % (Auto) 1.8 % (0.0-4.3) 03/18/22 17:18 Baso % (Auto) 1.1 % (0.0-1.8) 03/18/22 17:18 Lymph # (Auto) 1.8 K/mm3 (1.2-5.4) 03/18/22 17:18 [place] # (Auto) 0.7 K/mm3 (0.0-0.8) 03/18/22 17:18 Eos # (Auto) 0.1 K/mm3 (0.0-0.4) 03/18/22 17:18 Baso # (Auto) 0.1 K/mm3 (0.0-0.1) 03/18/22 17:18 Seg Neutrophils % 58.1 % (40.0-70.0) 03/18/22 17:18 Seg Neutrophils # 3.7 K/mm3 (1.8-7.7) 03/18/22 17:18 Sodium 139 mmol/L (137-145) 03/18/22 17:18 Potassium 3.8 mmol/L (3.6-5.0) 03/18/22 17:18 Chloride 103.4 mmol/L (98-107) 03/18/22 17:18 Carbon Dioxide 20 mmol/L (22-30) L 03/18/22 17:18 Anion Gap 19 mmol/L 03/18/22 17:18 BUN 52 mg/dL (9-20) H 03/18/22 17:18 Creatinine 2.9 mg/dL (0.8-1.3) H 03/18/22 17:18 Estimated GFR 21 ml/min 03/18/22 17:18 BUN/Creatinine Ratio 18 % 03/18/22 17:18 Glucose 63 mg/dL (75-100) L 03/18/22 17:18 POC Glucose 132 mg/dL (70-105) H 04/12/22 19:06 Hemoglobin A1c 8.5 % (4-6) H 03/18/22 17:18 Calcium 9.3 mg/dL (8.4-10.2) 03/18/22 17:18 Total Bilirubin 0.20 mg/dL (0.1-1.2) 03/18/22 17:18 AST 16 units/L (5-40) 03/18/22 17:18 ALT 8 units/L (7-56) 03/18/22 17:18 Alkaline Phosphatase 76 units/L (35-129) 03/18/22 17:18 Total Protein 7.3 g/dL (6.3-8.2) 03/18/22 17:18 Albumin 4.5 g/dL (3.9-5) 03/18/22 17:18 Albumin/Globulin Ratio 1.6 % 03/18/22 17:18 Triglycerides 69 mg/dL (2-149) 03/18/22 17:18 Cholesterol 230 mg/dL (50-199) H 03/18/22 17:18 LDL Cholesterol Direct 134 mg/dL (50-130) H 03/18/22 17:18 HDL Cholesterol 74 mg/dL (40-59) H 03/18/22 17:18 Cholesterol/HDL Ratio 3.10 % 03/18/22 17:18 TSH 1.190 mlU/mL (0.270-4.200) 03/18/22 17:18 Chan/IV: Voiding Method Toilet Active Medications - Current Medications Current Medications: Generic Name Dose Route Start Last Admin Trade Name Freq PRN Reason Stop Dose Admin Brimonidine/Timolol 1 drops 03/18/22 12:00 04/12/22 09:04 Combigan 0.2-0.5% Ophth Soln OU Not Given Q12HR [facility] Divalproex Sodium 125 mg 03/23/22 14:00 04/12/22 13:43 Divalproex Sprinkle 125 Mg Cap PO Not Given TID [facility] Ferrous Sulfate 325 mg 03/18/22 10:00 04/12/22 09:04 Ferrous Sulfate 325 Mg Tab PO Not Given DAILY [facility] Glipizide 2.5 mg 03/22/22 08:00 04/12/22 08:08 Glipizide Xl 2.5 Mg Tab PO Not Given DAILY@0800 [facility] Hydralazine HCl 50 mg 03/18/22 10:00 04/12/22 13:43 Hydralazine 25 Mg Tab PO Not Given Q8HR [facility] Insulin Human Lispro 0 unit 03/18/22 11:30 04/12/22 17:42 Insulin Lispro 100 Unit/Ml SUB-Q Not Given ACHS [facility] Protocol Lactulose 20 gm 03/18/22 10:00 Lactulose 20 Gm/30 Ml Oral Liqd PO TID PRN Edema Levothyroxine Sodium 200 mcg 03/19/22 06:00 04/12/22 06:06 Levothyroxine 100 Mcg Tab PO Not Given DAILY@0600 [facility] Melatonin 5 mg 03/18/22 22:00 04/11/22 22:29 Melatonin 5 Mg Tab PO Not Given QHS [facility] Olanzapine 2.5 mg 03/18/22 22:00 04/11/22 22:29 Olanzapine 2.5 Mg Tab PO Not Given QHS [facility] Trazodone HCl 50 mg 03/18/22 22:00 04/11/22 22:28 Trazodone 50 Mg Tab PO Not Given QHS [facility] Triamterene/Hydrochlorothiazide 1 each 03/18/22 10:00 04/12/22 09:04 Triamter/Hctz 37.5-25 Mg Tab PO Not Given QDAY [facility] Ziprasidone 20 mg 03/18/22 10:00 Ziprasidone Mesylate 20 Mg Vial IM Q4H PRN Agitation Nutrition/Malnutrition Assess - Dietary Evaluation Nutrition/Malnutrition Findings: Nutrition Notes Start: 03/18/22 16:11 Freq: Status: Active Protocol: Document 03/25/22 16:49 KAM (Rec: 03/25/22 17:00 KAM [id number]) Nutrition Notes Initial or Follow up Reassessment Current Diet Cardiac/Consistent Carbohydrates -Chopped Meats- Diet (since B 03/18). Height 5 ft 8 in Weight 72.121 kg [place] Body Weight (kg) 70.00 BMI 24.1 Weight change and time frame No body weight change reported in 1 week. Weight Status Appropriate Subjective/Other Information RD consult for routine F/U on dietary advancement. Pt's PO intake of meals has been Good (75%), according to ADL notes. Pt is on Room Air, O2 saturation @ 100%, according to Vital Signs notes. Plans for discharge Pt to a more safe environment facility , according to Progress notes. Percent of energy/protein needs met: Prescribed Cardiac/Consistent Carbohydrates -Chopped Meats- Diet provides for energy/ protein needs (1,977 Kcal/86 g ) during LOS. Burn Absent Trauma Absent GI Symptoms None Difficulty In Chewing Food Allergy No Skin Integrity/Comment Unspecified Dryness. Current % PO Good (75-100%) Minimum of two criteria No #1 Nutrition Diagnosis Biting/Chewing (masticatory) difficulty Diagnosis Progress(for reassessment Continues documentation) Is patient on ventilator? No Is Patient Ambulatory and/or Out of Bed Yes REE-([place]-St. Jeor-ambulatory/OOB) [ 1801.423 [id number]] [facility] Additional Notes Protein: 1-1.2 g/Kg ABW; 72-86 g/day. Fluids: 1 ml/Kcal, or as per MD. Nutrition Intervention Change Diet Order: Modify to Cardiac/Consistent Carbohydrates -Chopped Meats- Diet. Goal #1 Facilitate PO intake of meals with elemental, textural, or mechanical modification during LOS. Goal #2 Maintain body weight within +/ -3% of admission body weight during LOS. Revisit per MD consult or patient Sign Off request: Additional Comments Continue monitoring food tolerance, %PO intake of meals , and BM.
--- NOTE | 2022-04-12 19:22 | Progress Note ---
Assessment and Plan - Patient Problems (1) Vascular dementia with behavioral disturbance Current Visit: Yes Status: Acute Plan to address problem: Verbal prompting, verbal redirection, benzodiazepine therapy as clinically indicated. (2) Cerebral atherosclerosis Current Visit: Yes Status: Acute Plan to address problem: Risk factor reduction, antiplatelet therapy as clinically indicated. (3) Hypertension Current Visit: Yes Status: Acute Qualifiers: Hypertension type: primary hypertension Qualified Code(s): I10 - Essential (primary) hypertension Plan to address problem: Monitor blood pressure every shift, continue medical management. (4) Diabetes Current Visit: Yes Status: Acute Plan to address problem: Consult to help with carbohydrate diet, Accu-Chek, insulin protocol, hypoglycemia protocol. (5) Hyperlipidemia Current Visit: Yes Status: Acute Qualifiers: Hyperlipidemia type: mixed hyperlipidemia Qualified Code(s): E78.2 - Mixed hyperlipidemia Plan to address problem: Low-cholesterol diet, statin therapy as clinically indicated. (6) Hypothyroidism Current Visit: Yes Status: Acute Plan to address problem: Continue Synthroid therapy, supportive care. (7) Advance care planning Current Visit: Yes Status: Acute Plan to address problem: Disease education data, care plan discussed, diagnosis discussed, prognosis discussed, +30 minutes. History Interval history: 80 YO Male with Vascular Dementia with Behavioral Disturbance, Cerebral Atherosclerosis, DM, HTN, HLD, Hypothyroidism. Pt is admitted to [facility] unit for psychiatric stabilization. Consult placed by Dr. Frankel for medical management. Patient seen and evaluated in the recreation room. Patient resting. Patient exhibits tangential thinking with diminished cognition and intermittent agitation. No reported nursing events. Patient remains at baseline level of cognition and function. Hospitalist Physical - Constitutional Vitals: Temp Pulse Resp BP Pulse Ox 98.1 F 66 18 122/61 97 04/10/22 19:51 04/11/22 10:26 04/11/22 10:26 04/11/22 10:26 04/11/22 10:26 General appearance: Present: no acute distress, well-nourished, other (Cheerful today) - EENT Eyes: Present: PERRL - Neck Neck: Present: supple - Respiratory Respiratory effort: normal Respiratory: bilateral: CTA - Cardiovascular Rhythm: regular Heart Sounds: Present: S1 & S2 - Extremities Extremities: no ischemia Peripheral Pulses: within normal limits - Abdominal General gastrointestinal: soft, non-tender, non-distended - Integumentary Integumentary: Present: clear, dry - Psychiatric Psychiatric: cooperative - Neurologic Neurologic: CNII-XII intact Results - Labs CBC & Chem 7: 03/18/22 17:18 03/18/22 17:18 Labs: Laboratory Last Values WBC 6.3 K/mm3 (4.5-11.0) 03/18/22 17:18 RBC 4.33 M/mm3 (3.65-5.03) 03/18/22 17:18 Hgb 11.8 gm/dl (11.8-15.2) 03/18/22 17:18 Hct 35.4 % (35.5-45.6) L 03/18/22 17:18 MCV 82 fl (84-94) L 03/18/22 17:18 MCH 27 pg (28-32) L 03/18/22 17:18 MCHC 33 % (32-34) 03/18/22 17:18 RDW 16.0 % (13.2-15.2) H 03/18/22 17:18 Plt Count 270 K/mm3 (140-440) 03/18/22 17:18 Lymph % (Auto) 27.9 % (13.4-35.0) 03/18/22 17:18 [place] % (Auto) 11.1 % (0.0-7.3) H 03/18/22 17:18 Eos % (Auto) 1.8 % (0.0-4.3) 03/18/22 17:18 Baso % (Auto) 1.1 % (0.0-1.8) 03/18/22 17:18 Lymph # (Auto) 1.8 K/mm3 (1.2-5.4) 03/18/22 17:18 [place] # (Auto) 0.7 K/mm3 (0.0-0.8) 03/18/22 17:18 Eos # (Auto) 0.1 K/mm3 (0.0-0.4) 03/18/22 17:18 Baso # (Auto) 0.1 K/mm3 (0.0-0.1) 03/18/22 17:18 Seg Neutrophils % 58.1 % (40.0-70.0) 03/18/22 17:18 Seg Neutrophils # 3.7 K/mm3 (1.8-7.7) 03/18/22 17:18 Sodium 139 mmol/L (137-145) 03/18/22 17:18 Potassium 3.8 mmol/L (3.6-5.0) 03/18/22 17:18 Chloride 103.4 mmol/L (98-107) 03/18/22 17:18 Carbon Dioxide 20 mmol/L (22-30) L 03/18/22 17:18 Anion Gap 19 mmol/L 03/18/22 17:18 BUN 52 mg/dL (9-20) H 03/18/22 17:18 Creatinine 2.9 mg/dL (0.8-1.3) H 03/18/22 17:18 Estimated GFR 21 ml/min 03/18/22 17:18 BUN/Creatinine Ratio 18 % 03/18/22 17:18 Glucose 63 mg/dL (75-100) L 03/18/22 17:18 POC Glucose 132 mg/dL (70-105) H 04/12/22 19:06 Hemoglobin A1c 8.5 % (4-6) H 03/18/22 17:18 Calcium 9.3 mg/dL (8.4-10.2) 03/18/22 17:18 Total Bilirubin 0.20 mg/dL (0.1-1.2) 03/18/22 17:18 AST 16 units/L (5-40) 03/18/22 17:18 ALT 8 units/L (7-56) 03/18/22 17:18 Alkaline Phosphatase 76 units/L (35-129) 03/18/22 17:18 Total Protein 7.3 g/dL (6.3-8.2) 03/18/22 17:18 Albumin 4.5 g/dL (3.9-5) 03/18/22 17:18 Albumin/Globulin Ratio 1.6 % 03/18/22 17:18 Triglycerides 69 mg/dL (2-149) 03/18/22 17:18 Cholesterol 230 mg/dL (50-199) H 03/18/22 17:18 LDL Cholesterol Direct 134 mg/dL (50-130) H 03/18/22 17:18 HDL Cholesterol 74 mg/dL (40-59) H 03/18/22 17:18 Cholesterol/HDL Ratio 3.10 % 03/18/22 17:18 TSH 1.190 mlU/mL (0.270-4.200) 03/18/22 17:18 Chan/IV: Voiding Method Toilet Active Medications - Current Medications Current Medications: Generic Name Dose Route Start Last Admin Trade Name Freq PRN Reason Stop Dose Admin Brimonidine/Timolol 1 drops 03/18/22 12:00 04/12/22 09:04 Combigan 0.2-0.5% Ophth Soln OU Not Given Q12HR [facility] Divalproex Sodium 125 mg 03/23/22 14:00 04/12/22 13:43 Divalproex Sprinkle 125 Mg Cap PO Not Given TID [facility] Ferrous Sulfate 325 mg 03/18/22 10:00 04/12/22 09:04 Ferrous Sulfate 325 Mg Tab PO Not Given DAILY [facility] Glipizide 2.5 mg 03/22/22 08:00 04/12/22 08:08 Glipizide Xl 2.5 Mg Tab PO Not Given DAILY@0800 [facility] Hydralazine HCl 50 mg 03/18/22 10:00 04/12/22 13:43 Hydralazine 25 Mg Tab PO Not Given Q8HR [facility] Insulin Human Lispro 0 unit 03/18/22 11:30 04/12/22 17:42 Insulin Lispro 100 Unit/Ml SUB-Q Not Given ACHS [facility] Protocol Lactulose 20 gm 03/18/22 10:00 Lactulose 20 Gm/30 Ml Oral Liqd PO TID PRN Edema Levothyroxine Sodium 200 mcg 03/19/22 06:00 04/12/22 06:06 Levothyroxine 100 Mcg Tab PO Not Given DAILY@0600 [facility] Melatonin 5 mg 03/18/22 22:00 04/11/22 22:29 Melatonin 5 Mg Tab PO Not Given QHS [facility] Olanzapine 2.5 mg 03/18/22 22:00 04/11/22 22:29 Olanzapine 2.5 Mg Tab PO Not Given QHS [facility] Trazodone HCl 50 mg 03/18/22 22:00 04/11/22 22:28 Trazodone 50 Mg Tab PO Not Given QHS [facility] Triamterene/Hydrochlorothiazide 1 each 03/18/22 10:00 04/12/22 09:04 Triamter/Hctz 37.5-25 Mg Tab PO Not Given QDAY [facility] Ziprasidone 20 mg 03/18/22 10:00 Ziprasidone Mesylate 20 Mg Vial IM Q4H PRN Agitation Nutrition/Malnutrition Assess - Dietary Evaluation Nutrition/Malnutrition Findings: Nutrition Notes Start: 03/18/22 16:11 Freq: Status: Active Protocol: Document 03/25/22 16:49 KAM (Rec: 03/25/22 17:00 KAM [id number]) Nutrition Notes Initial or Follow up Reassessment Current Diet Cardiac/Consistent Carbohydrates -Chopped Meats- Diet (since B 03/18). Height 5 ft 8 in Weight 72.121 kg [place] Body Weight (kg) 70.00 BMI 24.1 Weight change and time frame No body weight change reported in 1 week. Weight Status Appropriate Subjective/Other Information RD consult for routine F/U on dietary advancement. Pt's PO intake of meals has been Good (75%), according to ADL notes. Pt is on Room Air, O2 saturation @ 100%, according to Vital Signs notes. Plans for discharge Pt to a more safe environment facility , according to Progress notes. Percent of energy/protein needs met: Prescribed Cardiac/Consistent Carbohydrates -Chopped Meats- Diet provides for energy/ protein needs (1,977 Kcal/86 g ) during LOS. Burn Absent Trauma Absent GI Symptoms None Difficulty In Chewing Food Allergy No Skin Integrity/Comment Unspecified Dryness. Current % PO Good (75-100%) Minimum of two criteria No #1 Nutrition Diagnosis Biting/Chewing (masticatory) difficulty Diagnosis Progress(for reassessment Continues documentation) Is patient on ventilator? No Is Patient Ambulatory and/or Out of Bed Yes REE-([place]-St. Jeor-ambulatory/OOB) [ 1801.423 NUTR.[id number]] Calculation Used for Recommendations [place]-St Jeor Additional Notes Protein: 1-1.2 g/Kg ABW; 72-86 g/day. Fluids: 1 ml/Kcal, or as per MD. Nutrition Intervention Change Diet Order: Modify to Cardiac/Consistent Carbohydrates -Chopped Meats- Diet. Goal #1 Facilitate PO intake of meals with elemental, textural, or mechanical modification during LOS. Goal #2 Maintain body weight within +/ -3% of admission body weight during LOS. Revisit per MD consult or patient Sign Off request: Additional Comments Continue monitoring food tolerance, %PO intake of meals , and BM.
[2022-04-12] MEDS: traZODone 50 MG TAB PO SCH (21:29)
[2022-04-12] MEDS: MELATONIN 5 MG TAB PO SCH (21:29)
[2022-04-13] MEDS: hydrALAZINE 25 MG TAB PO SCH ×3 (06:56→22:49)
[2022-04-13] MEDS: LEVOTHYROXINE 100 MCG TAB PO SCH (06:56)
[2022-04-13] MEDS: INSULIN LISPRO 100 UNIT/ML SUB-Q SCH ×4 (07:46→22:50)
[2022-04-13] MEDS: DIVALPROEX SPRINKLE 125 MG CAP PO SCH ×3 (08:05→22:01)
--- NOTE | 2022-04-13 09:23 | Progress Note ---
Subjective Date of service: 04/13/22 Principal diagnosis: MDD Subjective Comment: 04/13: The patient was seen today. He reports not doing well today " I'm just not feeling good." He denies any current suicidal/homicidal ideation and denies hallucinations. No changes made today. 04/12: The patient was seen today. He reports doing "pretty good." He denies any current suicidal/homicidal ideation and denies hallucinations. No changes made today. 04/11:The patient was seen today. He reports doing "pretty good." He denies any current suicidal/homicidal ideation and denies hallucinations. No changes made today. 04/10:The patient was seen today. He reports doing well. He reports appetite and sleep as ok. He denies any current suicidal/homicidal ideation and denies hallucinations. No changes made today. 04/09: The patient was seen today. He is sleeping but easily arouses. He says "I don't feel like being bothered right now." I encourage the patient to get up for breakfast. He says "I'll get up when I'm ready." He denies SI/HI or hallucinations of any kind. 04/08 The patient was seen today. He says he feels pretty good, but "wishes we would leave him alone." He says he was about to get up and eat breakfast. He denies SI/HI or hallucinations of any kind. 04/07 The patient was seen today. He is lying in bed. He says he doesn't feel too good because he is tired. I encourage the patient to get up out of bed to feel better and maintain his strength. He denies SI/HI or hallucinations of any kind. 04/06 The patient was seen today. He appears down, but he says he's doing "pretty good." The patient says he didn't sleep well night, because people kept waking him up. He denies SI/HI or hallucinations of any kind. He is awaiting placement. 04/05 The patient was today. He is sitting up in the bed awake. he says he is doing okay. He says "just ready to get out of here." I told the patient we were working on it. He denies SI/HI or hallucinations of any kind. 05/21 The patient was seen today. He is sleeping. He easily arouses but drifts back to sleep at times. He says he feels alright. The patient says "they still came in and woke me up last night." He denies SI/HI or hallucinations of any kind. He is awaiting placement. REVIEW OF SYSTEMS Constitutional: Negative for weight loss ENT: Negative for stridor Respiratory: Negative for cough or hemoptysis All other systems reviewed and are negative MENTAL STATUS EXAMINATION General Appearance and Behavior: Age appropriate, good hygiene, wearing appropriate clothes, good eye contact, calm, cooperative Cooperation: Participating/engaged, but Guarded Psychomotor Behavior: Psychomotor normal Mood: sad Affect and affective range: congruent with stated mood Thought Process: Goal directed Thought Content: Reality oriented Speech: normal tone and pace Suicidal Ideation: Denies Homicidal Ideation: Denies Hallucinations: Denies Delusions: None Impulse Control: Limited Insight and Judgment: Limited insight and judgment Memory: Limited Attention: attentive Orientation: Alert, oriented Diagnoses: Dementia with behavioral disturbances Treatment Plan Patient admitted for inpatient psychiatric evaluation, medication adjustment and close monitoring The patient's behavior, mood, sleep and appetite will be closely monitored. Patient enrolled in individual and group therapeutic sessions and encouraged to attend. Patient provided with a safe and structured environment. Patient's physical health needs will be addressed by the Hospitalist. Hospitalist Consulted Labs including CBC, CMP, Lipid profile and Hemoglobin A1C levels ordered for baseline reference Social Assessment will be completed and the [employer]ed Science Research Technician will work with patient and family to ensure a suitable and safe disposition Medication adjustment will be made as clinically indicated No changes made today Usual Wellness Yazidism/Preservation: - Start Trazodone 50 mg po QHS & 50 mg po QHS PRN between 10 PM & 2 AM for insomnia - Start Melatonin 5 mg po QHS to promote circadian rhythm The patient agreed on the treatment plan, understood the risk, benefit, alternative treatment, potential consequence of no treatment, and gave informed consent. Estimated days:6 Post hospital care: primary care provider, psychiatric provider Case staffed with Dr. Hwang Medications and Allergies Medications and Allergies Allergies Allergy/AdvReac Type Severity Reaction Status Date / Time No Known Allergies Allergy Unverified 03/17/22 17:19 Home Medications Medication Instructions Recorded Confirmed Last Taken Type Divalproex Sodium [Depakote 125 mg PO BID 03/18/22 03/18/22 Unknown History Sprinkle] Dorzolamide HCl/Timolol Maleat 10 ml OP HS 03/18/22 03/18/22 Unknown History [Dorzolamide-Timolol Eye Drops] Ferrous Sulfate [Iron 325 MG] 325 mg PO DAILY 03/18/22 03/18/22 Unknown History Hydralazine HCl 50 mg PO TID 03/18/22 03/18/22 Unknown History Insulin Lispro [Admelog] See Protocol SQ ACHS 03/18/22 03/18/22 Unknown History Lactulose [Cephulac] 20 gm PO TID PRN 03/18/22 03/18/22 Unknown History Levothyroxine Sodium [Synthroid] 200 mcg PO DAILY 03/18/22 03/18/22 Unknown History Melatonin [Melatonin 3MG TAB] 3 mg PO HS 03/18/22 03/18/22 Unknown History Pioglitazone HCl [Actos] 30 mg PO DAILY 03/18/22 03/18/22 Unknown History Triamter/Hctz 37.5-25 mg 1 tab PO QDAY 03/18/22 03/18/22 Unknown History [Maxzide-25] amLODIPine [Norvasc] 10 mg PO DAILY 03/18/22 03/18/22 Unknown History glipiZIDE [Glucotrol] 5 mg PO QDAY 03/18/22 03/18/22 Unknown History Active Meds: Active Medications Brimonidine/Timolol (Combigan 0.2-0.5% [facility]) 1 drops OU Q12HR [facility] Last Admin: 04/12/22 21:30 Dose: 1 drops Divalproex Sodium (Divalproex Sprinkle 125 Mg Cap) 125 mg PO TID [facility] Last Admin: 04/12/22 20:57 Dose: 125 mg Ferrous Sulfate (Ferrous Sulfate 325 Mg Tab) 325 mg PO DAILY [facility] Last Admin: 04/12/22 09:04 Dose: Not Given Glipizide (Glipizide Xl 2.5 Mg Tab) 2.5 mg PO DAILY@0800 [facility] Last Admin: 04/12/22 08:08 Dose: Not Given Hydralazine HCl (Hydralazine 25 Mg Tab) 50 mg PO Q8HR [facility] Last Admin: 04/13/22 06:56 Dose: Not Given Insulin Human Lispro (Insulin Lispro 100 Unit/Ml) 0 unit SUB-Q [facility]; Protocol Last Admin: 04/12/22 21:35 Dose: Not Given Lactulose (Lactulose 20 Gm/30 Ml Oral Liqd) 20 gm PO TID PRN PRN Reason: Edema Levothyroxine Sodium (Levothyroxine 100 Mcg Tab) 200 mcg PO DAILY@0600 [facility] Last Admin: 04/13/22 06:56 Dose: Not Given Melatonin (Melatonin 5 Mg Tab) 5 mg PO QHS [facility] Last Admin: 04/12/22 21:29 Dose: 5 mg Olanzapine (Olanzapine 2.5 Mg Tab) 2.5 mg PO QHS [facility] Last Admin: 04/12/22 21:29 Dose: 2.5 mg Trazodone HCl (Trazodone 50 Mg Tab) 50 mg PO QHS [facility] Last Admin: 04/12/22 21:29 Dose: 50 mg Triamterene/Hydrochlorothiazide (Triamter/Hctz 37.5-25 Mg Tab) 1 each PO QDAY [facility] Last Admin: 04/12/22 09:04 Dose: Not Given Ziprasidone (Ziprasidone Mesylate 20 Mg Vial) 20 mg IM Q4H PRN PRN Reason: Agitation Results - Results Labs/Vitals: Laboratory Last Values WBC 6.3 K/mm3 (4.5-11.0) 03/18/22 17:18 RBC 4.33 M/mm3 (3.65-5.03) 03/18/22 17:18 Hgb 11.8 gm/dl (11.8-15.2) 03/18/22 17:18 Hct 35.4 % (35.5-45.6) L 03/18/22 17:18 MCV 82 fl (84-94) L 03/18/22 17:18 MCH 27 pg (28-32) L 03/18/22 17:18 MCHC 33 % (32-34) 03/18/22 17:18 RDW 16.0 % (13.2-15.2) H 03/18/22 17:18 Plt Count 270 K/mm3 (140-440) 03/18/22 17:18 Lymph % (Auto) 27.9 % (13.4-35.0) 03/18/22 17:18 [place] % (Auto) 11.1 % (0.0-7.3) H 03/18/22 17:18 Eos % (Auto) 1.8 % (0.0-4.3) 03/18/22 17:18 Baso % (Auto) 1.1 % (0.0-1.8) 03/18/22 17:18 Lymph # (Auto) 1.8 K/mm3 (1.2-5.4) 03/18/22 17:18 [place] # (Auto) 0.7 K/mm3 (0.0-0.8) 03/18/22 17:18 Eos # (Auto) 0.1 K/mm3 (0.0-0.4) 03/18/22 17:18 Baso # (Auto) 0.1 K/mm3 (0.0-0.1) 03/18/22 17:18 Seg Neutrophils % 58.1 % (40.0-70.0) 03/18/22 17:18 Seg Neutrophils # 3.7 K/mm3 (1.8-7.7) 03/18/22 17:18 Sodium 139 mmol/L (137-145) 03/18/22 17:18 Potassium 3.8 mmol/L (3.6-5.0) 03/18/22 17:18 Chloride 103.4 mmol/L (98-107) 03/18/22 17:18 Carbon Dioxide 20 mmol/L (22-30) L 03/18/22 17:18 Anion Gap 19 mmol/L 03/18/22 17:18 BUN 52 mg/dL (9-20) H 03/18/22 17:18 Creatinine 2.9 mg/dL (0.8-1.3) H 03/18/22 17:18 Estimated GFR 21 ml/min 03/18/22 17:18 BUN/Creatinine Ratio 18 % 03/18/22 17:18 Glucose 63 mg/dL (75-100) L 03/18/22 17:18 POC Glucose 132 mg/dL (70-105) H 04/12/22 19:06 Hemoglobin A1c 8.5 % (4-6) H 03/18/22 17:18 Calcium 9.3 mg/dL (8.4-10.2) 03/18/22 17:18 Total Bilirubin 0.20 mg/dL (0.1-1.2) 03/18/22 17:18 AST 16 units/L (5-40) 03/18/22 17:18 ALT 8 units/L (7-56) 03/18/22 17:18 Alkaline Phosphatase 76 units/L (35-129) 03/18/22 17:18 Total Protein 7.3 g/dL (6.3-8.2) 03/18/22 17:18 Albumin 4.5 g/dL (3.9-5) 03/18/22 17:18 Albumin/Globulin Ratio 1.6 % 03/18/22 17:18 Triglycerides 69 mg/dL (2-149) 03/18/22 17:18 Cholesterol 230 mg/dL (50-199) H 03/18/22 17:18 LDL Cholesterol Direct 134 mg/dL (50-130) H 03/18/22 17:18 HDL Cholesterol 74 mg/dL (40-59) H 03/18/22 17:18 Cholesterol/HDL Ratio 3.10 % 03/18/22 17:18 TSH 1.190 mlU/mL (0.270-4.200) 03/18/22 17:18 Last Vital Signs Temp 97.3 F L 04/12/22 21:10 Pulse 64 04/12/22 21:29 Resp 18 04/12/22 21:10 BP 179/79 04/12/22 21:29 Pulse Ox 96 04/12/22 21:10
[2022-04-13] MEDS: COMBIGAN 0.2-0.5% OPHTH SOLN OU SCH ×2 (11:45→22:02)
[2022-04-13] MEDS: TRIAMTER/HCTZ 37.5-25 MG TAB PO SCH (11:45)
[2022-04-13] MEDS: FERROUS SULFATE 325 MG TAB PO SCH (11:45)
[2022-04-13] MEDS: MELATONIN 5 MG TAB PO SCH (21:59)
[2022-04-13] MEDS: traZODone 50 MG TAB PO SCH (22:00)
[2022-04-13 22:50] VITALS: BP 146/70
[2022-04-14] MEDS: hydrALAZINE 25 MG TAB PO SCH ×3 (05:42→22:01)
[2022-04-14] MEDS: LEVOTHYROXINE 100 MCG TAB PO SCH (05:43)
--- NOTE | 2022-04-14 08:00 | Progress Note ---
Assessment and Plan Assessment and Plan - Patient Problems (1) Vascular dementia with behavioral disturbance Current Visit: Yes Status: Acute Plan to address problem: Verbal prompting, verbal redirection, benzodiazepine therapy as clinically indicated. (2) Cerebral atherosclerosis Current Visit: Yes Status: Acute Plan to address problem: Risk factor reduction, antiplatelet therapy as clinically indicated. (3) Hypertension Current Visit: Yes Status: Acute Qualifiers: Hypertension type: primary hypertension Qualified Code(s): I10 - Essential (primary) hypertension Plan to address problem: Monitor blood pressure every shift, continue medical management. (4) Diabetes Current Visit: Yes Status: Acute Plan to address problem: Consult to help with carbohydrate diet, Accu-Chek, insulin protocol, hypoglycemia protocol. (5) Hyperlipidemia Current Visit: Yes Status: Acute Qualifiers: Hyperlipidemia type: mixed hyperlipidemia Qualified Code(s): E78.2 - Mixed hyperlipidemia Plan to address problem: Low-cholesterol diet, statin therapy as clinically indicated. (6) Hypothyroidism Current Visit: Yes Status: Acute Plan to address problem: Continue Synthroid therapy, supportive care. (7) Advance care planning Current Visit: Yes Status: Acute Plan to address problem: Disease education data, care plan discussed, diagnosis discussed, prognosis discussed, +30 minutes. Subjective Date of service: 04/13/22 Principal diagnosis: MDD Interval history: History Interval history: 80 YO Male with Vascular Dementia with Behavioral Disturbance, Cerebral Atherosclerosis, DM, HTN, HLD, Hypothyroidism. Pt is admitted to [facility] psych [facility] for psychiatric stabilization. Consult placed by Dr. Frankel for medical management. Patient seen and evaluated in the recreation room. Patient resting. Patient exhibits tangential thinking with diminished cognition and intermittent agitation. No reported nursing events. Patient remains at baseline level of cognition and function. Objective - Constitutional Vitals: Vital Signs - 12hr 04/13/22 22:49 Blood Pressure 146/70 General appearance: Present: no acute distress, well-nourished - EENT Eyes: PERRL, EOM intact ENT: hearing intact, clear oral mucosa Ears: bilateral: normal - Neck Neck: supple, normal ROM - Respiratory Respiratory effort: normal Respiratory: bilateral: CTA - Breasts Breasts: normal - Cardiovascular Rhythm: regular Heart Sounds: Present: S1 & S2. Absent: gallop, rub Extremities: pulses intact, No edema, normal color, Full ROM - Gastrointestinal General gastrointestinal: Present: soft, non-tender, non-distended, normal bowel sounds - Genitourinary Male genitourinary: normal - Integumentary Integumentary: clear, warm, dry - Musculoskeletal Musculoskeletal: 1, strength equal bilaterally - Neurologic Neurologic: moves all extremities - Psychiatric Psychiatric: memory intact, appropriate mood/affect, intact judgment & insight - Labs CBC & Chem 7: 03/18/22 17:18 03/18/22 17:18 Labs: Abnormal lab results 04/13/22 Range/Units 21:14 POC Glucose 141 H (70-105) mg/dL
[2022-04-14] MEDS: INSULIN LISPRO 100 UNIT/ML SUB-Q SCH ×4 (09:38→22:03)
[2022-04-14] MEDS: DIVALPROEX SPRINKLE 125 MG CAP PO SCH ×3 (09:38→22:00)
[2022-04-14] MEDS: COMBIGAN 0.2-0.5% OPHTH SOLN OU SCH ×2 (09:39→22:00)
[2022-04-14] MEDS: FERROUS SULFATE 325 MG TAB PO SCH (09:40)
[2022-04-14] MEDS: TRIAMTER/HCTZ 37.5-25 MG TAB PO SCH (09:40)
--- NOTE | 2022-04-14 10:04 | Progress Note ---
Subjective Date of service: 04/14/22 Principal diagnosis: MDD Subjective Comment: 04/14:The patient was seen today. He states " I don't want to be bothered." Unable to assess SI/HI/AVHs 04/13: The patient was seen today. He reports not doing well today " I'm just not feeling good." He denies any current suicidal/homicidal ideation and denies hallucinations. No changes made today. 04/12: The patient was seen today. He reports doing "pretty good." He denies any current suicidal/homicidal ideation and denies hallucinations. No changes made today. 04/11:The patient was seen today. He reports doing "pretty good." He denies any current suicidal/homicidal ideation and denies hallucinations. No changes made today. 04/10:The patient was seen today. He reports doing well. He reports appetite and sleep as ok. He denies any current suicidal/homicidal ideation and denies hallucinations. No changes made today. 04/09: The patient was seen today. He is sleeping but easily arouses. He says "I don't feel like being bothered right now." I encourage the patient to get up for breakfast. He says "I'll get up when I'm ready." He denies SI/HI or hallucinations of any kind. 04/08 The patient was seen today. He says he feels pretty good, but "wishes we would leave him alone." He says he was about to get up and eat breakfast. He denies SI/HI or hallucinations of any kind. 04/07 The patient was seen today. He is lying in bed. He says he doesn't feel too good because he is tired. I encourage the patient to get up out of bed to feel better and maintain his strength. He denies SI/HI or hallucinations of any kind. 04/06 The patient was seen today. He appears down, but he says he's doing "pretty good." The patient says he didn't sleep well night, because people kept waking him up. He denies SI/HI or hallucinations of any kind. He is awaiting placement. 04/05 The patient was today. He is sitting up in the bed awake. he says he is doing okay. He says "just ready to get out of here." I told the patient we were working on it. He denies SI/HI or hallucinations of any kind. 04/04 The patient was seen today. He is sleeping. He easily arouses but drifts back to sleep at times. He says he feels alright. The patient says "they still came in and woke me up last night." He denies SI/HI or hallucinations of any kind. He is awaiting placement. REVIEW OF SYSTEMS MENTAL STATUS EXAMINATION Diagnoses: Dementia with behavioral disturbances Treatment Plan Patient admitted for inpatient psychiatric evaluation, medication adjustment and close monitoring The patient's behavior, mood, sleep and appetite will be closely monitored. Patient enrolled in individual and group therapeutic sessions and encouraged to attend. Patient provided with a safe and structured environment. Patient's physical health needs will be addressed by the Hospitalist. Hospitalist Consulted Labs including CBC, CMP, Lipid profile and Hemoglobin A1C levels ordered for baseline reference Social Assessment will be completed and the Watch Crystal Cutter will work with patient and family to ensure a suitable and safe disposition Medication adjustment will be made as clinically indicated No changes made today Usual Wellness Faith/Preservation: - Start Trazodone 50 mg po QHS & 50 mg po QHS PRN between 10 PM & 2 AM for insomnia - Start Melatonin 5 mg po QHS to promote circadian rhythm The patient agreed on the treatment plan, understood the risk, benefit, alternative treatment, potential consequence of no treatment, and gave informed consent. Estimated days:6 Post hospital care: primary care provider, psychiatric provider Case staffed with Dr. Hwang Medications and Allergies Medications and Allergies Allergies Allergy/AdvReac Type Severity Reaction Status Date / Time No Known Allergies Allergy Unverified 03/17/22 17:19 Home Medications Medication Instructions Recorded Confirmed Last Taken Type Divalproex Sodium [Depakote 125 mg PO BID 03/18/22 03/18/22 Unknown History Sprinkle] Dorzolamide HCl/Timolol Maleat 10 ml OP HS 03/18/22 03/18/22 Unknown History [Dorzolamide-Timolol Eye Drops] Ferrous Sulfate [Iron 325 MG] 325 mg PO DAILY 03/18/22 03/18/22 Unknown History Hydralazine HCl 50 mg PO TID 03/18/22 03/18/22 Unknown History Insulin Lispro [Admelog] See Protocol SQ ACHS 03/18/22 03/18/22 Unknown History Lactulose [Cephulac] 20 gm PO TID PRN 03/18/22 03/18/22 Unknown History Levothyroxine Sodium [Synthroid] 200 mcg PO DAILY 03/18/22 03/18/22 Unknown History Melatonin [Melatonin 3MG TAB] 3 mg PO HS 03/18/22 03/18/22 Unknown History Pioglitazone HCl [Actos] 30 mg PO DAILY 03/18/22 03/18/22 Unknown History Triamter/Hctz 37.5-25 mg 1 tab PO QDAY 03/18/22 03/18/22 Unknown History [Maxzide-25] amLODIPine [Norvasc] 10 mg PO DAILY 03/18/22 03/18/22 Unknown History glipiZIDE [Glucotrol] 5 mg PO QDAY 03/18/22 03/18/22 Unknown History Active Meds: Active Medications Brimonidine/Timolol (Combigan 0.2-0.5% [facility]) 1 drops OU Q12HR [facility] Last Admin: 04/14/22 09:39 Dose: Not Given Divalproex Sodium (Divalproex Sprinkle 125 Mg Cap) 125 mg PO TID [facility] Last Admin: 04/14/22 09:38 Dose: Not Given Ferrous Sulfate (Ferrous Sulfate 325 Mg Tab) 325 mg PO DAILY [facility] Last Admin: 04/14/22 09:40 Dose: Not Given Glipizide (Glipizide Xl 2.5 Mg Tab) 2.5 mg PO DAILY@0800 [facility] Last Admin: 04/14/22 09:39 Dose: Not Given Hydralazine HCl (Hydralazine 25 Mg Tab) 50 mg PO Q8HR [facility] Last Admin: 04/14/22 05:42 Dose: Not Given Insulin Human Lispro (Insulin Lispro 100 Unit/Ml) 0 unit SUB-Q ACHS [facility]; Pr otocol Last Admin: 04/14/22 09:38 Dose: Not Given Lactulose (Lactulose 20 Gm/30 Ml Oral Liqd) 20 gm PO TID PRN PRN Reason: Edema Levothyroxine Sodium (Levothyroxine 100 Mcg Tab) 200 mcg PO DAILY@0600 [facility] Last Admin: 04/14/22 05:43 Dose: Not Given Melatonin (Melatonin 5 Mg Tab) 5 mg PO QHS [facility] Last Admin: 04/13/22 21:59 Dose: 5 mg Olanzapine (Olanzapine 2.5 Mg Tab) 2.5 mg PO QHS [facility] Last Admin: 04/13/22 22:00 Dose: 2.5 mg Trazodone HCl (Trazodone 50 Mg Tab) 50 mg PO QHS [facility] Last Admin: 04/13/22 22:00 Dose: 50 mg Triamterene/Hydrochlorothiazide (Triamter/Hctz 37.5-25 Mg Tab) 1 each PO QDAY [facility] Last Admin: 04/14/22 09:40 Dose: Not Given Ziprasidone (Ziprasidone Mesylate 20 Mg Vial) 20 mg IM Q4H PRN PRN Reason: Agitation Results - Results Labs/Vitals: Laboratory Last Values WBC 6.3 K/mm3 (4.5-11.0) 03/18/22 17:18 RBC 4.33 M/mm3 (3.65-5.03) 03/18/22 17:18 Hgb 11.8 gm/dl (11.8-15.2) 03/18/22 17:18 Hct 35.4 % (35.5-45.6) L 03/18/22 17:18 MCV 82 fl (84-94) L 03/18/22 17:18 MCH 27 pg (28-32) L 03/18/22 17:18 MCHC 33 % (32-34) 03/18/22 17:18 RDW 16.0 % (13.2-15.2) H 03/18/22 17:18 Plt Count 270 K/mm3 (140-440) 03/18/22 17:18 Lymph % (Auto) 27.9 % (13.4-35.0) 03/18/22 17:18 [place] % (Auto) 11.1 % (0.0-7.3) H 03/18/22 17:18 Eos % (Auto) 1.8 % (0.0-4.3) 03/18/22 17:18 Baso % (Auto) 1.1 % (0.0-1.8) 03/18/22 17:18 Lymph # (Auto) 1.8 K/mm3 (1.2-5.4) 03/18/22 17:18 [place] # (Auto) 0.7 K/mm3 (0.0-0.8) 03/18/22 17:18 Eos # (Auto) 0.1 K/mm3 (0.0-0.4) 03/18/22 17:18 Baso # (Auto) 0.1 K/mm3 (0.0-0.1) 03/18/22 17:18 Seg Neutrophils % 58.1 % (40.0-70.0) 03/18/22 17:18 Seg Neutrophils # 3.7 K/mm3 (1.8-7.7) 03/18/22 17:18 Sodium 139 mmol/L (137-145) 03/18/22 17:18 Potassium 3.8 mmol/L (3.6-5.0) 03/18/22 17:18 Chloride 103.4 mmol/L (98-107) 03/18/22 17:18 Carbon Dioxide 20 mmol/L (22-30) L 03/18/22 17:18 Anion Gap 19 mmol/L 03/18/22 17:18 BUN 52 mg/dL (9-20) H 03/18/22 17:18 Creatinine 2.9 mg/dL (0.8-1.3) H 03/18/22 17:18 Estimated GFR 21 ml/min 03/18/22 17:18 BUN/Creatinine Ratio 18 % 03/18/22 17:18 Glucose 63 mg/dL (75-100) L 03/18/22 17:18 POC Glucose 141 mg/dL (70-105) H 04/13/22 21:14 Hemoglobin A1c 8.5 % (4-6) H 03/18/22 17:18 Calcium 9.3 mg/dL (8.4-10.2) 03/18/22 17:18 Total Bilirubin 0.20 mg/dL (0.1-1.2) 03/18/22 17:18 AST 16 units/L (5-40) 03/18/22 17:18 ALT 8 units/L (7-56) 03/18/22 17:18 Alkaline Phosphatase 76 units/L (35-129) 03/18/22 17:18 Total Protein 7.3 g/dL (6.3-8.2) 03/18/22 17:18 Albumin 4.5 g/dL (3.9-5) 03/18/22 17:18 Albumin/Globulin Ratio 1.6 % 03/18/22 17:18 Triglycerides 69 mg/dL (2-149) 03/18/22 17:18 Cholesterol 230 mg/dL (50-199) H 03/18/22 17:18 LDL Cholesterol Direct 134 mg/dL (50-130) H 03/18/22 17:18 HDL Cholesterol 74 mg/dL (40-59) H 03/18/22 17:18 Cholesterol/HDL Ratio 3.10 % 03/18/22 17:18 TSH 1.190 mlU/mL (0.270-4.200) 03/18/22 17:18 Last Vital Signs Temp 97.6 F 04/13/22 10:22 Pulse 61 04/13/22 10:22 Resp 18 04/13/22 10:22 BP 146/70 04/13/22 22:49 Pulse Ox 97 04/13/22 10:22
[2022-04-14] MEDS: traZODone 50 MG TAB PO SCH (22:00)
[2022-04-14] MEDS: MELATONIN 5 MG TAB PO SCH (22:00)
[2022-04-15] MEDS: hydrALAZINE 25 MG TAB PO SCH ×2 (06:31→13:28)
[2022-04-15] MEDS: LEVOTHYROXINE 100 MCG TAB PO SCH (06:41)
--- NOTE | 2022-04-15 07:56 | Progress Note ---
Assessment and Plan Assessment and Plan - Patient Problems (1) Vascular dementia with behavioral disturbance Current Visit: Yes Status: Acute Plan to address problem: Verbal prompting, verbal redirection, benzodiazepine therapy as clinically indicated. (2) Cerebral atherosclerosis Current Visit: Yes Status: Acute Plan to address problem: Risk factor reduction, antiplatelet therapy as clinically indicated. (3) Hypertension Current Visit: Yes Status: Acute Qualifiers: Hypertension type: primary hypertension Qualified Code(s): I10 - Essential (primary) hypertension Plan to address problem: Monitor blood pressure every shift, continue medical management. (4) Diabetes Current Visit: Yes Status: Acute Plan to address problem: Consult to help with carbohydrate diet, Accu-Chek, insulin protocol, hypoglycemia protocol. (5) Hyperlipidemia Current Visit: Yes Status: Acute Qualifiers: Hyperlipidemia type: mixed hyperlipidemia Qualified Code(s): E78.2 - Mixed hyperlipidemia Plan to address problem: Low-cholesterol diet, statin therapy as clinically indicated. (6) Hypothyroidism Current Visit: Yes Status: Acute Plan to address problem: Continue Synthroid therapy, supportive care. (7) Advance care planning Current Visit: Yes Status: Acute Plan to address problem: Disease education data, care plan discussed, diagnosis discussed, prognosis discussed, +30 minutes. Subjective Date of service: 04/14/22 Principal diagnosis: MDD Interval history: History Interval history: 80 YO Male with Vascular Dementia with Behavioral Disturbance, Cerebral Atherosclerosis, DM, HTN, HLD, Hypothyroidism. Pt is admitted to [facility] for psychiatric stabilization. Consult placed by Dr. Frankel for medical management. Patient seen and evaluated in the recreation room. Patient resting. Patient exhibits tangential thinking with diminished cognition and intermittent agitation. No reported nursing events. Patient remains at baseline level of cognition and function. Objective - Constitutional General appearance: Present: no acute distress, well-nourished - EENT Eyes: PERRL, EOM intact ENT: hearing intact, clear oral mucosa Ears: bilateral: normal - Neck Neck: supple, normal ROM - Respiratory Respiratory effort: normal Respiratory: bilateral: CTA - Breasts Breasts: normal - Cardiovascular Rhythm: regular Heart Sounds: Present: S1 & S2. Absent: gallop, rub Extremities: pulses intact, No edema, normal color, Full ROM - Gastrointestinal General gastrointestinal: Present: soft, non-tender, non-distended, normal bowel sounds - Genitourinary Male genitourinary: normal - Integumentary Integumentary: clear, warm, dry - Musculoskeletal Musculoskeletal: 1, strength equal bilaterally - Neurologic Neurologic: moves all extremities - Psychiatric Psychiatric: memory intact, appropriate mood/affect, intact judgment & insight - Labs CBC & Chem 7: 03/18/22 17:18 03/18/22 17:18
[2022-04-15] MEDS: INSULIN LISPRO 100 UNIT/ML SUB-Q SCH ×2 (08:18→11:30)
[2022-04-15] MEDS: DIVALPROEX SPRINKLE 125 MG CAP PO SCH ×2 (08:19→13:28)
--- NOTE | 2022-04-15 08:53 | Discharge Summary ---
Providers - Providers Date of Admission: 03/18/22 06:26 Date of discharge: 04/15/22 Attending physician: BHAVIN SANTAMARIA MD 03/18/22 03:46 Consult to Physician [CONS] Routine Comment: Consulting Provider: DARRIUS ALEMAN Physician Instructions: Reason For Exam: New psych admission 03/18/22 11:49 Consult to Dietitian/Nutrition [CONS] Routine Physician Instructions: Reason For Exam: Reason for Consult: Poor oral intake 04/07/22 10:09 Physical Therapy Evaluation and Treat [CONS] Routine Comment: Reason For Exam: evaluate strenth and treat 04/07/22 10:10 Occupational Therapy Evaluate and Treat [CONS] Routine Comment: Reason For Exam: evaluate abilties to perform ADL, and treat Primary care physician: [facility] [employer] Hospitalization Reason for admission: suicidal ideation Admitting Diagnosis: F32.A - DEPRESSION, UNSPECIFIED Condition: Stable Hospital course: The patient was provided inpatient psychiatric treatment with safe and supportive environment, group/individual therapy, psychiatric medication, medication adjustment, adverse effect monitor, medical evaluation, medical treatment, social service assessment, social support meeting, placement assessment and psycho-education. The patients mood, cognition, behavior, motivation, compliance to treatment and appreciation on family/social support are improved and stabilized. At the time of discharge, the patient had no suicidal ideas, no homicidal ideas, no aggressive thoughts, no endangering behavior and no debilitating adverse effects. The patient agreed on the treatment plan, understood the risk, benefit, alternative treatment, potential consequence of no treatment, and gave informed consent. Progress Note: 04/14:The patient was seen today. He states " I don't want to be bothered." Unable to assess SI/HI/AVHs 04/13: The patient was seen today. He reports not doing well today " I'm just not feeling good." He denies any current suicidal/homicidal ideation and denies hallucinations. No changes made today. 04/12: The patient was seen today. He reports doing "pretty good." He denies any current suicidal/homicidal ideation and denies hallucinations. No changes made today. 04/11:The patient was seen today. He reports doing "pretty good." He denies any current suicidal/homicidal ideation and denies hallucinations. No changes made today. 04/10:The patient was seen today. He reports doing well. He reports appetite and sleep as ok. He denies any current suicidal/homicidal ideation and denies hallucinations. No changes made today. 04/09: The patient was seen today. He is sleeping but easily arouses. He says "I don't feel like being bothered right now." I encourage the patient to get up for breakfast. He says "I'll get up when I'm ready." He denies SI/HI or hallucinations of any kind. 04/08 The patient was seen today. He says he feels pretty good, but "wishes we would leave him alone." He says he was about to get up and eat breakfast. He denies SI/HI or hallucinations of any kind. 04/07 The patient was seen today. He is lying in bed. He says he doesn't feel too good because he is tired. I encourage the patient to get up out of bed to feel better and maintain his strength. He denies SI/HI or hallucinations of any kind. 04/06 The patient was seen today. He appears down, but he says he's doing "pretty good." The patient says he didn't sleep well night, because people kept waking him up. He denies SI/HI or hallucinations of any kind. He is awaiting placement. 04/05 The patient was today. He is sitting up in the bed awake. he says he is doing okay. He says "just ready to get out of here." I told the patient we were working on it. He denies SI/HI or hallucinations of any kind. 04/04 The patient was seen today. He is sleeping. He easily arouses but drifts back to sleep at times. He says he feels alright. The patient says "they still came in and woke me up last night." He denies SI/HI or hallucinations of any kind. He is awaiting placement. 04/03: The patient was seen today. He is calm and cooperative. He says he's ready to go and was told that he would be leaving. He says "I feel okay, just ready to get out of here." The patient says he doesn't sleep well because as soon as he gets to sleep someone is waking him up. He denies SI/HI or hallucinations. Staff says the patient has been irritable and refusing BP meds and BG. I talked to the patient and told him this need for us to work on getting him home. He agrees to cooperate. Staff nurse came in and performed care on patient without difficulty. The patient is awaiting placement. 04/02: The patient was seen resting quietly in bed. He denies any current suicidal/homicidal and denies hallucinations. No changes made today.The patient is awaiting placement. 04/01:The patient was seen this morning. He states he is not doing so well " I'm being bothered with you all." The patient denies any current suicidal/homicidal and denies hallucinations. No changes made today.The patient is awaiting placement. 03/31:The patient was seen this morning. He states he is doing ok. The patient denies any current suicidal/homicidal and denies hallucinations. No changes made today.The patient is awaiting placement. 03/30:The patient was seen this morning. He states he is doing well. The patient denies any current suicidal/homicidal and denies hallucinations. No changes made today.The patient is awaiting placement. 03/29:The patient was at breakfast. He states he is doing pretty well. The patient denies any current suicidal/homicidal and denies hallucinations. No changes made today.The patient is awaiting placement. 03/28: The patient was seen this morning. He states he is doing well. The patient denies any current suicidal/homicidal and denies hallucinations. No changes made today.The patient is awaiting placement. 03/27: The patient was seen this morning. He reports doing pretty good " I feel good." He denies depression. The patient denies any current suicidal/homicidal and denies hallucinations. No changes made today.The patient is awaiting placement. 03/26: The patient was seen today. He is sleeping, but easily arouses. His mood has been much better over the last few days since starting the depakote. He denies SI/HI or hallucinations of any kind. The patient is awaiting placement. 03/25 The patient was seen today. He is calm and cooperative. He says he slept well and feels okay. He denies SI/HI or hallucinations. The patient says he does not want to go back to his previous place of residence. The is coordinating his discharge to ensure the patient discharges to a safe place. 03/24 The patient was seen today. He is sitting in the dayroom. He's more pleasant today than yesterday. He says he's a little tired. He denies SI/HI or hallucinations of any kind. 03/23 The patient was seen today. He is irritable and tells me to go back where I came from. He says "I don't want to be bothered." I ask him how was he feeling, he replies "I'm not going to tell you." He then says "I'm alright." When asking the patient was he having thoughts of self harm, he says "no, there's nothing in here to hurt myself." I ask him if there were something to hurt himself would he use it. The patient becomes angry and shouts "you heard what I said." He denies homicidal ideation. He also denies hallucinations. Staff says the patient's moods have been up and down. The patient also appears to have some passive thoughts of suicide. Will adjust depakote to improve mood. 03/22 The patient was seen today. He is lying in bed resting. He is irritable at me talking to him, but cooperative. I ask him how was he feeling this morning. He replies "pretty well, lashonda sky." He denies SI/HI or hallucinations of any kind. 03/21 The patient was seen today. He is lying in bed awake. He says he's "not doing too hot" because he's in here. He then asked why was he here. I reminded the patient that he had climbed on top of the roof at his living place. He says "I climbed up there. I wanted to leave and get away from yall." He says "I sure did." He denies SI/HI or hallucinations. 03/20 The patient was seen today. He is lying in bed awake. He says he's doing pretty good and he slept well. The patient says he came from the snf but didn't remember why he came, he says. He denies SI/HI. He says "where did that question come from." He also denies hallucinations. Allergies/Adverse Reactions: Allergies No Known Allergies Allergy (Unverified 03/17/22 17:19) Vital Signs: Last Vital Signs Temp 97.6 F 04/13/22 10:22 Pulse 61 04/13/22 10:22 Resp 18 04/13/22 10:22 BP 146/70 04/13/22 22:49 Pulse Ox 97 04/13/22 10:22 Last Lab: Laboratory Last Values WBC 6.3 K/mm3 (4.5-11.0) 03/18/22 17:18 RBC 4.33 M/mm3 (3.65-5.03) 03/18/22 17:18 Hgb 11.8 gm/dl (11.8-15.2) 03/18/22 17:18 Hct 35.4 % (35.5-45.6) L 03/18/22 17:18 MCV 82 fl (84-94) L 03/18/22 17:18 MCH 27 pg (28-32) L 03/18/22 17:18 MCHC 33 % (32-34) 03/18/22 17:18 RDW 16.0 % (13.2-15.2) H 03/18/22 17:18 Plt Count 270 K/mm3 (140-440) 03/18/22 17:18 Lymph % (Auto) 27.9 % (13.4-35.0) 03/18/22 17:18 Archer % (Auto) 11.1 % (0.0-7.3) H 03/18/22 17:18 Eos % (Auto) 1.8 % (0.0-4.3) 03/18/22 17:18 Baso % (Auto) 1.1 % (0.0-1.8) 03/18/22 17:18 Lymph # (Auto) 1.8 K/mm3 (1.2-5.4) 03/18/22 17:18 Archer # (Auto) 0.7 K/mm3 (0.0-0.8) 03/18/22 17:18 Eos # (Auto) 0.1 K/mm3 (0.0-0.4) 03/18/22 17:18 Baso # (Auto) 0.1 K/mm3 (0.0-0.1) 03/18/22 17:18 Seg Neutrophils % 58.1 % (40.0-70.0) 03/18/22 17:18 Seg Neutrophils # 3.7 K/mm3 (1.8-7.7) 03/18/22 17:18 Sodium 139 mmol/L (137-145) 03/18/22 17:18 Potassium 3.8 mmol/L (3.6-5.0) 03/18/22 17:18 Chloride 103.4 mmol/L (98-107) 03/18/22 17:18 Carbon Dioxide 20 mmol/L (22-30) L 03/18/22 17:18 Anion Gap 19 mmol/L 03/18/22 17:18 BUN 52 mg/dL (9-20) H 03/18/22 17:18 Creatinine 2.9 mg/dL (0.8-1.3) H 03/18/22 17:18 Estimated GFR 21 ml/min 03/18/22 17:18 BUN/Creatinine Ratio 18 % 03/18/22 17:18 Glucose 63 mg/dL (75-100) L 03/18/22 17:18 POC Glucose 141 mg/dL (70-105) H 04/13/22 21:14 Hemoglobin A1c 8.5 % (4-6) H 03/18/22 17:18 Calcium 9.3 mg/dL (8.4-10.2) 03/18/22 17:18 Total Bilirubin 0.20 mg/dL (0.1-1.2) 03/18/22 17:18 AST 16 units/L (5-40) 03/18/22 17:18 ALT 8 units/L (7-56) 03/18/22 17:18 Alkaline Phosphatase 76 units/L (35-129) 03/18/22 17:18 Total Protein 7.3 g/dL (6.3-8.2) 03/18/22 17:18 Albumin 4.5 g/dL (3.9-5) 03/18/22 17:18 Albumin/Globulin Ratio 1.6 % 03/18/22 17:18 Triglycerides 69 mg/dL (2-149) 03/18/22 17:18 Cholesterol 230 mg/dL (50-199) H 03/18/22 17:18 LDL Cholesterol Direct 134 mg/dL (50-130) H 03/18/22 17:18 HDL Cholesterol 74 mg/dL (40-59) H 03/18/22 17:18 Cholesterol/HDL Ratio 3.10 % 03/18/22 17:18 TSH 1.190 mlU/mL (0.270-4.200) 03/18/22 17:18 Core Measure Documentation - Palliative Care Palliative Care/ Comfort Measures: Not Applicable - Core Measures Any of the following diagnoses?: none - VTE Discharge Requirements Deep Vein Thrombosis/Pulmonary Embolism Present on Admission: No Exam - Constitutional Vitals: Temp Pulse Resp BP Pulse Ox 97.6 F 61 18 146/70 97 04/13/22 10:22 04/13/22 10:22 04/13/22 10:22 04/13/22 22:49 04/13/22 10:22 Plan Activity: advance as tolerated Weight Bearing Status: Weight Bear as Tolerated Care Plan Goals: Maintain good and stable mental health. Plan of Treatment: The patient should be compliant with medications, not to use drugs and not to drink alcohol.The patient understands that if suicidal ideas, homicidal ideas, or any endangering thoughts/behavior arise, they should immediately seek for emergent assistance including but not limited to crisis hot line and emergency room. Follow up with outpatient Psychiatrist and PCP within 7 - 14 days of discharge. Follow up with: PRIMARY CARE, [Primary Care Provider] - 7 Days Prescriptions: traZODone [Desyrel] 50 mg PO QHS 30 Days #30 tablet OLANzapine [ZyPREXA] 2.5 mg PO QHS 30 Days #30 tablet Divalproex Sodium [Depakote Sprinkle] 125 mg PO BID 30 Days #60
[2022-04-15] MEDS: FERROUS SULFATE 325 MG TAB PO SCH (11:29)
[2022-04-15] MEDS: COMBIGAN 0.2-0.5% OPHTH SOLN OU SCH (11:29)
[2022-04-15] MEDS: TRIAMTER/HCTZ 37.5-25 MG TAB PO SCH (11:29)
== END 2022-04-15 15:40 | DRG 884 ==
LOC: UNDOADMIN 16:08 → 3A 16:08 → 5A 03-18 06:26
PROVIDERS: ADMIT Psychiatry & Neurology Psychiatry; ATTEND Psychiatry & Neurology Psychiatry
DX: F03.91 Unspecified dementia, unspecified severity, with behavioral disturbance (principal); R45.851 Suicidal ideations; F32.A Depression, unspecified; E11.9 Type 2 diabetes mellitus without complications; E78.5 Hyperlipidemia, unspecified; E03.9 Hypothyroidism, unspecified; I10 Essential (primary) hypertension; I67.2 Cerebral atherosclerosis; Z79.899 Other long term (current) drug therapy
CPT/HCPCS: 36415; 80053; 80061; 82962; 83036; 84443; 85025; G0378; Q9967; J1815